=== PATIENT | female | born 1945 | race Caucasian/White ===

== ENCOUNTER → 2017-01-15 | Outpatient (REF) | payer MEDICARE, MEDICAID ==
[~2017-01-15] MED LIST: ASPI81TA85 PO; ATOR1TAB21 PO; CITA20TA4 PO; ESTR2TA PO; FERR28TA PO; FISH7.5C PO; INCR1INH INH; LISI-542 PO; METF10004 PO; NAPR500T3 PO; NEXI40CA PO; NIAC50TA PO; SYMB16INH INH; SYNT137T7 PO; ZOCO20TA PO; ZONI50CA PO
[2017-01-15 15:20] LABS: BASO % 0.5 % (0.0-1.0); EOS # 0.1 K/mm3 (0.0-0.50); EOS % 1.2 % (0.0-3.0); LARGE UNSTAINED CELL # 0.1 K/mm3 (0.0-0.4); LYMPH # 1.5 K/mm3 (1.5-4.5); LYMPH % 23.8 % (24.0-44.0); MEAN CORPUSCULAR HEMOGLOBIN 29.9 pg (27.0-33.0); MEAN CORPUSCULAR HGB CONC 33.6 g/dl (32.0-36.5); MEAN CORPUSCULAR VOLUME 88.9 fl (80.0-96.0); MONO # 0.3 K/mm3 (0.0-0.8); MONO % 5.2 % (0.0-5.0); NEUTROPHILS # 4.2 K/mm3 (1.8-7.7); NEUTROPHILS % 68.3 % (36.0-66.0); PLATELET COUNT, AUTOMATED 275 k/mm3 (150-450); RED CELL DISTRIBUTION WIDTH 12.5 % (11.5-14.5); WHITE BLOOD COUNT 6.1 K/mm3 (4.0-10.0)
[2017-01-15 15:29] LABS: ALBUMIN 3.6 GM/DL (3.2-5.2); ALBUMIN/GLOBULIN RATIO 1.16 (1.00-1.93); BILIRUBIN,TOTAL 0.3 MG/DL (0.2-1.0); CALCIUM LEVEL 8.7 MG/DL (8.8-10.2); CREATININE FOR GFR 1.29 MG/DL (0.55-1.02); GLOMERULAR FILTRATION RATE 43.6 (>45); POTASSIUM SERUM 4.9 MEQ/L (3.5-5.1); TOTAL PROTEIN 6.7 GM/DL (6.4-8.2)
== END ==
LOC: M LABNEURO 13:16
PROVIDERS: ATTEND Psychiatry & Neurology Neurology
DX: M54.5 Low back pain (principal); G89.29 Other chronic pain; M54.2 Cervicalgia

== ENCOUNTER → 2017-09-05 | Outpatient (REF) | payer MEDICARE, MEDICAID ==
[2017-09-05 19:22] LABS: RHEUMATOID FACTOR QUANT < 10.0 IU/ML (<15.0)
[2017-09-05 19:30] LABS: FOLATE 10.3 NG/ML; VITAMIN B12 LEVEL 538 PG/ML
[2017-09-05 19:56] LABS: ESTIMATED AVERAGE GLUCOSE 151 MG/DL (60-110); HEMOGLOBIN A1c 6.9 %
[2017-09-05 19:58] LABS: ERYTHROCYTE SEDIMENTATION RATE 8 mm/hr (0-30)
[2017-09-11 00:07] LABS: ANTINUCLEAR ANTIBODIES DIRECT Negative (Negative); VITAMIN B6,PYRIDOXAL PHOSPHATE 5.8 ug/L (2.0-32.8)
[2017-09-11 00:07] LABS: VITAMIN B1 LEVEL WHOLE BLOOD 105.6 nmol/L (66.5-200.0)
[2017-09-11 10:23] LABS: DRVV SCREEN 34.9 SEC
[2017-09-11 10:25] LABS: PTT LUPUS TYPE ANTICOAG SCREEN 0.9 (0-1.2)
== END ==
LOC: M LABNEURO 11:56
DX: M62.89 Other specified disorders of muscle (principal); G90.09 Other idiopathic peripheral autonomic neuropathy
CPT/HCPCS: 82746

== ENCOUNTER 2017-10-29 08:42 | Day surgery (SDC) | payer MEDICARE, MEDICAID ==
[~2017-10-29 08:42] MED LIST changes: +ACETAMINOPHEN 325 MG TAB PO; -ASPI81TA85 PO; -ATOR1TAB21 PO; -CITA20TA4 PO; -ESTR2TA PO; -FERR28TA PO; -FISH7.5C PO; -INCR1INH INH; -LISI-542 PO; -METF10004 PO; -NAPR500T3 PO; -NEXI40CA PO; -NIAC50TA PO; -SYMB16INH INH; -SYNT137T7 PO; -ZOCO20TA PO; -ZONI50CA PO
[2017-10-29] MEDS ORDERED: TRIMETHOBENZAMIDE 300 MG CAP PO ×2 (09:00)
[2017-10-29] MEDS: LIDOCAINE 3.5 % 1ML OPHTH TOPICAL GEL OU ×2 (09:49)
[2017-10-29] MEDS ORDERED: MIDAZOLAM INJ 2 MG/2 ML VIAL (J2250) As Ordered ×2 (10:04)
[2017-10-29] MEDS ORDERED: PROPOFOL 200 MG/20 ML VIAL As Ordered ×2 (10:04)
[2017-10-29] MEDS ORDERED: fentaNYL 100 MCG/2 ML INJECTION (J3010) As Ordered ×2 (10:04)
[2017-10-29] MEDS: SODIUM BICARBONATE 8.4% INJ 50MEQ 50 ML VIAL As Ordered ×2 (10:15)
[2017-10-29] MEDS: TOBRADEX OPHTH OINT 3.5 GM As Ordered ×2 (10:15)
[2017-10-29] MEDS: POVIDONE-IODINE 5% OPHTH PREP SOL 30ML As Ordered ×2 (10:16)
[2017-10-29 10:25] LABS: BEDSIDE GLUCOSE 161 MG/DL (80-115)
== END 2017-10-29 11:31 | disposition home or self-care (01) ==
LOC: M SDC 08:42
DX: H02.831 Dermatochalasis of right upper eyelid (principal); H02.834 Dermatochalasis of left upper eyelid; H02.413 Mechanical ptosis of bilateral eyelids; E11.9 Type 2 diabetes mellitus without complications; I10 Essential (primary) hypertension; E78.5 Hyperlipidemia, unspecified; E03.9 Hypothyroidism, unspecified; K44.9 Diaphragmatic hernia without obstruction or gangrene; J44.9 Chronic obstructive pulmonary disease, unspecified; F41.9 Anxiety disorder, unspecified; Z87.891 Personal history of nicotine dependence; Z79.899 Other long term (current) drug therapy
CPT/HCPCS: 67904

== ENCOUNTER → 2021-01-25 | Outpatient (CLI) | payer MEDICARE, MEDICAID ==
[~2021-01-25] MED LIST changes: -ACETAMINOPHEN 325 MG TAB PO; +ANOR1AER INH; +ASPI81TA86 PO; +ATOR1TAB21 PO; +CITA20TA6 PO; +D31000TA2 PO; +ECOT81TA5 PO; +ESOM20CA25 PO; +ESTR1TAB PO; +ESTR2TAB2 PO; +FERR1TAB8; +FERR28TA PO; +FISH7.5C PO; +INCR1INH INH; +LEVO112T2 PO; +LISI-898 PO; +LOSA25TA14 PO; +METF10004 PO; +NAPR-885 PO; +NEXI40CA PO; +NIAC100T9 PO; +NIAC50TA PO; +NORT10CA2 PO; +ONE-TAB PO; +ROSU40TA4 PO; +SOLI10TA PO; +SYMB16INH INH; +SYNT137T7 PO; +VITA500C24 PO; +VITACAP8 PO; +ZOCO20TA PO; +ZONI50CA11 PO
--- NOTE | 2021-01-25 14:44 | REP ---
INDICATION: BREAST CA, BONE PAIN. COMPARISON: None. TECHNIQUE/RADIOTRACER AND DOSE: After the intravenous administration of 21.5 mCi of technetium 99 M MDP a total body bone scan was obtained. FINDINGS: There is a degenerative type uptake pattern seen in the shoulders, spine, wrists, hips, knees, and feet. No focal or abnormal linear activity is seen in the axial or appendicular skeleton. IMPRESSION: Degenerative type uptake pattern as described above. There is no compelling evidence for metastatic disease. <Electronically signed by Chris Murphy > 01/25/21 [id number]
== END ==
LOC: M RAD 08:16
PROVIDERS: ATTEND Internal Medicine Medical Oncology
DX: M85.80 Other specified disorders of bone density and structure, unspecified site (principal); C50.919 Malignant neoplasm of unspecified site of unspecified female breast
CPT/HCPCS: 78306; A9503

== ENCOUNTER → 2021-01-28 | Outpatient (CLI) | payer MEDICARE, MEDICAID | LOC: M LABSMTC 10:01 | PROVIDERS: ATTEND Student in an Organized Health Care Education/Training Program | DX: Z01.812 Encounter for preprocedural laboratory examination (principal); Z20.822 Contact with and (suspected) exposure to COVID-19 ==

== ENCOUNTER 2021-04-14 10:47 | Inpatient (IN) | payer MEDICARE, MEDICAID ==
[2021-04-14] VITALS (7 sets, daily range): BP systolic 118–160; BP diastolic 60–70
[~2021-04-14] VITALS: Ht 167.6 cm; Wt 82.6 kg
[~2021-04-14 10:47] MED LIST changes: +CATA0.1D TD; +CEPH25SS PO; -ESTR2TAB2 PO; +ESTR2TAB3 PO; +LIDO1CRE42 TOP; +MAGICMW SSP; +ONDA8TAB10 PO; +PROC10TA4 PO
--- OUTSIDE RECORDS SUMMARY | 2021-04-14 11:51 | CCD | Continuity of Care Document ---
Author Author Constance FONSECA DPM Organization Unknown Address [address] [place] [address], [facility] [address] [place] [address] Phone [phone] Care Team Providers Care Hookman Name Role Phone Joaquina Layne RPAM [phone] Problems Active Problems Provider Date Bunion Aaron Fonseca DPM Onset: 08/26/2020 Hammer toe Aaron Fonseca DPM Onset: 08/26/2020 Peripheral neuropathy due to type 2 diabetes mellitus Aaron Fonseca DPM Onset: 08/26/2020 Onychomycosis Aaron Fonseca DPM Onset: 08/26/2020 Callosity Aaron Fonseca DPM Onset: 08/26/2020 Social History Type Date Description Comments Sex Unknown ETOH Use Denies alcohol use Tobacco Use Start: Unknown End: Unknown Patient is a former smoker quit 25 years ago smoked 1/2ppd for 20 years Allergies and adverse reactions Description No Known Drug Allergies Medications Active Medications SIG Qnty Indications Ordering Provide r Date Solifenacin Succinate 10mg Tablets Take 1 Tablet By Mouth Daily Unknown Ferosul 325(65Fe) mg Tablets TK 1 T PO tid Unknown Accu-Chek Softclix Lancets Misc Joaquina Layne RPA Nortriptyline HCL 10mg Capsules Take 1 Capsule By Mouth Twice Daily Unknown Rosuvastatin Calcium 40mg Tablets Take 1 Tablet By Mouth Daily Unknown Losartan Potassium 25mg Tablets Take 1 Tablet By Mouth Every Day Unknown Estradiol 1mg Tablets Unknown Shingrix 50mcg/0.5ML Suspension Rec Unknown Metformin HCL 1000mg Tablets Take 1 Tablet By Mouth Twice Daily Unknown Accu-Chek Kelsy Plus Strips Joaquina Layne RPA Anoro Ellipta 62.5-25mcg/Inh Aeros ol Inhale 1 puff By Mouth Every Day Unknown Esomeprazole Magnesium 20mg Capsul es DR Take 1 Capsule By Mouth Daily Unknown Levothyroxine Sodium 125mcg Tablets Joaquina Layne RPA Zonisamide 50mg Capsules Take 1 Capsule By Mouth Twice Daily Unknown Escitalopram Oxalate 20mg Tablets Take 1 Tablet By Mouth Every Day Unknown Naproxen 500mg Tablets Take 1 Tablet By Mouth Twice Daily as Needed For Pain Unknown Fluticasone Propionate 50mcg/Act Suspension Shake Liquid And Use 2 Sprays In Each Nostril Every Day Unknown Immunizations Description No Information Available Vital Signs Date Vital Result Comment 08/13/2020 10:24am Height 66 inches 5'6" Weight 170.00 lb BP Systolic 112 mmHg BP Diastolic 64 mmHg Heart Rate 78 /min BMI (Body Mass Index) 27.4 kg/m2 Results Description No Information Available Procedures Date Code Description Status 12/31/2020 11579 Debridement 6-10 [employer] Completed 10/22/2020 51932 Debridement 6-10 [employer] Completed Medical Devices Description No Information Available Encounters Description No Information Available Assessments Date Code Description Provider 12/31/2020 B35.1 Tinea unguium Aaron Fonseca DPM 12/31/2020 E11.42 Type 2 diabetes mellitus with di abetic polyneuropathy aAron Fonseca DPM 10/22/2020 B35.1 Tinea unguium Aaron Fonseca DPM 10/22/2020 E11.42 Type 2 diabetes mellitus with di abetic polyneuropathy Aaron Fonseca DPM Plan of Treatment Future Appointment(s):* 05/13/2021 10:45 am - Aaron Fonseca DPM at [facility] Functional Status Description No Information Available Mental Status Description No Information Available Referrals Description No Information Available
--- OUTSIDE RECORDS SUMMARY | 2021-04-14 11:51 | CCD | Continuity of Care Document ---
Author Author Constance FONSECA DPM Organization Unknown Address [address] [place] [address], [facility] [address] [place] [address] Phone [phone] Care Team Providers Care Commercial Real Estate Agent Name Role Phone Joaquina Layne RPAM [phone] Problems Active Problems Provider Date Bunion Aaron [...] Information Available Procedures Date Code Description Status 03/04/2021 90163 Debridement 6-10 [employer] Completed 12/31/2020 15041 Debridement 6-10 [employer] Completed 10/22/2020 63296 Debridement 6-10 [employer] Completed Medical Devices Description No Information Available Encounters Description No Information Available Assessments Date Code Description Provider 03/04/2021 B35.1 Tinea unguium Aaron Fonseca, MAGGY 03/04/2021 E11.42 Type 2 diabetes mellitus with di abetic polyneuropathy Aaron Fonseca, MAGGY 12/31/2020 B35.1 Tinea jenaeuium Aaron Fonseca, MAGGY 12/31/2020 E11.42 Type 2 diabetes mellitus with di abetic polyneuropathy Aaron Fonseca DPM 10/22/2020 B35.1 Tinea jenaeuium Aaron Fonseca, MAGGY 10/22/2020 E11.42 Type 2 diabetes mellitus with di abetic polyneuropathy Aaron R. Majak, DPM Plan of Treatment Future Appointment(s):* 05/13/2021 10:45 am - Aaron Fonseca DPM at [facility] Functional Status Description No Information Available Mental Status Description No Information Available Referrals Description No Information Available
--- OUTSIDE RECORDS SUMMARY | 2021-04-14 11:53 | CCD ---
Author Author [facility] Organization [facility] Address Unknown Phone Unavailable Care Team Providers Care Director Of Casino Name Role Phone Lakesha Forman Unavailable Unavailable Lakesha Forman Unavailable Unavailable DasiaLakesha bar Unavailable Unavailable DasiaLkaesha bar Unavailable Unavailable DasiaLakesha bar Unavailable Unavailable DasiaLakesha bar Unavailable Unavailable DasiaLakesha bar Unavailable Unavailable DasiaLakesha bar Unavailable Unavailable DasiaLakesha bar Unavailable Unavailable DasiaLakesha bar Unavailable Unavailable DasiaLakesha bar Unavailable Unavailable DasiaLakesha bar Unavailable Unavailable DasiaLakesha bar Unavailable Unavailable DasiaLakesha bar Unavailable Unavailable DasiaLakesha bar Unavailable Unavailable DasiaLakesha bar Unavailable Unavailable DasiaLakesha bar Unavailable Unavailable DasiaLakesha bar Unavailable Unavailable DasiaLakesha bar Unavailable Unavailable DasiaLakesha bar Unavailable Unavailable DasiaLakesha bar Unavailable Unavailable DasiaLakesha bar Unavailable Unavailable Dasia, Christine GEE Unavailable Unavailable Dasia, Christine MD Unavailable Unavailable Dasia, Christine MD Unavailable Unavailable Dasia, Christine MD Unavailable Unavailable Dasia, Christine MD Unavailable Unavailable Dasia, Christine MD Unavailable Unavailable Dasia, Christine MD Unavailable Unavailable Dasia, Christine MD Unavailable Unavailable Dasia, Christine MD Unavailable Unavailable Dasia, Christine MD Unavailable Unavailable Dasia, Christine MD Unavailable Unavailable Dasia, Christine MD Unavailable Unavailable Dasia, Christine MD Unavailable Unavailable Dasia, Christine MD Unavailable Unavailable Dasia, Christine MD Unavailable Unavailable Dasia, Christine MD Unavailable Unavailable Dasia, Christine MD Unavailable Unavailable Dasia, Christine MD Unavailable Unavailable Dasia, Christine MD Unavailable Unavailable Dasia, Christine MD Unavailable Unavailable Dasia, Christine MD Unavailable Unavailable Dasia, Christine MD Unavailable Unavailable Dasia, Christine MD Unavailable Unavailable Dasia, Christine MD Unavailable Unavailable Dasia, Christine MD Unavailable Unavailable Dasia, Christine MD Unavailable Unavailable Dasia, Christine MD Unavailable Unavailable Dasia, Christine MD Unavailable Unavailable Dasia, Christine MD Unavailable Unavailable Dasia, Christine MD Unavailable Unavailable Dasia, Christine MD Unavailable Unavailable Dasia, Christine MD Unavailable Unavailable Dasia, Christine MD Unavailable Unavailable Dasia, Christine MD Unavailable Unavailable Dasia, Christine MD Unavailable Unavailable Dasia, Christine MD Unavailable Unavailable Dasia, Christine MD Unavailable Unavailable Dasia, Christine MD Unavailable Unavailable Dasia, Christine MD Unavailable Unavailable Dasia, Christine MD Unavailable Unavailable Natalee Robert MD Unavailable Unavailable Natalee Robert MD Unavailable Unavailable Natalee Robert MD Unavailable Unavailable Natalee Robert MD Unavailable Unavailable Natalee Robert MD Unavailable Unavailable Natalee Robert MD Unavailable Unavailable Natalee Robert MD Unavailable Unavailable Natalee Robert MD Unavailable Unavailable Natalee Robert MD Unavailable Unavailable Natalee Robert MD Unavailable Unavailable Natalee Robert MD Unavailable Unavailable Natalee Robert MD Unavailable Unavailable Natalee Robert MD Unavailable Unavailable Natalee Robert MD Unavailable Unavailable Natalee Robert MD Unavailable Unavailable Natalee Robert MD Unavailable Unavailable Natalee Robert MD Unavailable Unavailable Natalee Robert MD Unavailable Unavailable Natalee Robert MD Unavailable Unavailable Natalee Robert MD Unavailable Unavailable Natalee Robert MD Unavailable Unavailable Natalee Robert MD Unavailable Unavailable Natalee Robert MD Unavailable Unavailable Natalee Robert MD Unavailable Unavailable Natalee Robert MD Unavailable Unavailable Natalee Robert MD Unavailable Unavailable Natalee Robert MD Unavailable Unavailable Natalee Robert MD Unavailable Unavailable Natalee Robert MD Unavailable Unavailable Natalee Robert MD Unavailable Unavailable Natalee Robert MD Unavailable Unavailable Natalee Robert MD Unavailable Unavailable Natalee Robert MD Unavailable Unavailable Natalee Robert MD Unavailable Unavailable Natalee Robert MD Unavailable Unavailable [employer], [employer] L Rei [employer]NS[employer] Unavailable + 24 [employer], [employer] Rei [employer] Unavailable + 24 [employer], [employer] INTERNS[employer] L Rei [employer] INTERNS[employer]IP Unavailable + 24 [employer], [employer]SP[employer] INTERNS[employer] L Rei [employer] INTERNS[employer]IP Unavailable + 24 [employer], [employer] L Rei [employer] INTERNSHIP Unavailable + 24 [employer], [employer]SP[employer]ATION [employer] INTERNS[employer] L Rei [employer] INTERNS[employer]IP Unavailable + 24 [employer], [employer]NS[employer] L Rei [employer] INTERNS[employer] Unavailable + 24 [employer], [employer] L Rei [employer] INTERNS[employer] Unavailable + 24 [employer], [employer] L Rei [employer] INTERNS[employer] Unavailable + 24 [employer], [employer]SP[employer] INTERNS[employer] L Rei [employer] INTERNS[employer]IP Unavailable + 24 [employer], [employer]SP[employer] INTERNS[employer] L Rei [employer] INTERNSHIP Unavailable + 24 [employer], [employer]SP[employer] INTERNS[employer] L Rei [employer] INTERNSHIP Unavailable + 24 [employer], TRANSP[employer]ATION [employer] INTERNS[employer] L Rei [employer] INTERNS[employer] Unavailable + 24 [employer], TRANSP[employer] INTERNS[employer] L Rei [employer] INTERNS[employer]IP Unavailable + 24 [employer], TRANSP[employer]ATION [employer]IST[employer] INTERNS[employer] L Rei [employer] INTERNSHIP Unavailable + 24 [employer], TRANSP[employer]ATION [employer] INTERNS[employer] L Rei [employer] INTERNS[employer]IP Unavailable + 24 [employer], TRANSP[employer]ATION [employer]IST[employer] INTERNS[employer] L Rei [employer] INTERNSHIP Unavailable + 24 [employer], TRANSP[employer]ATION [employer]IST[employer] INTERNS[employer] L Rei [employer] INTERNSHIP Unavailable + 24 [employer], TRANSP[employer]ATION [employer]IST[employer] INTERNS[employer] L Rei [employer]SP[employer] INTERNSHIP Unavailable + 24 [employer], TRANSP[employer]ATION [employer]IST[employer] INTERNS[employer] L Rei [employer] INTERNSHIP Unavailable + 24 [employer], TRANSP[employer]ATION [employer]IST[employer] INTERNS[employer] L Rei [employer] INTERNSHIP Unavailable + 24 [employer], TRANSP[employer]ATION [employer]IST[employer] INTERNS[employer] L Rei [employer]SP[employer] INTERNSHIP Unavailable + 24 [employer], TRANSP[employer]ATION [employer]IST[employer] INTERNS[employer] L Rei [employer]SP[employer] INTERNSHIP Unavailable + 24 Kem Hooker MD Unavailable Unavailable Kem Hooker MD Unavailable Unavailable Kem Hooker MD Unavailable Unavailable Kem Hooker MD Unavailable Unavailable Kem Hooker MD Unavailable Unavailable Kem Hooker MD Unavailable Unavailable Doctor Provided, Family PHYS No Family Unavailable U navailable Natalee WHITE DPM Unavailable Unavailable Natalee WHITE DPM Unavailable Unavailable Natalee WHITE DPM Unavailable Unavailable Natalee WHITE DPM Unavailable Unavailable Nataele WHITE DPM Unavailable Unavailable Natalee WHITE DPM Unavailable Unavailable Natalee WHITE DPM Unavailable Unavailable Natalee WHITE DPM Unavailable Unavailable Natalee WHITE DPM Unavailable Unavailable Natalee WHITE DPM Unavailable Unavailable Natalee WHITE DPM Unavailable Unavailable Natalee WHITE DPM Unavailable Unavailable Natalee WHITE DPM Unavailable Unavailable Natalee WHITE DPM Unavailable Unavailable Natalee WHITE DPM Unavailable Unavailable Natalee WHITE DPM Unavailable Unavailable Natalee WHITE DPM Unavailable Unavailable Natalee WHITE DPM Unavailable Unavailable Natalee WHITE DPM Unavailable Unavailable Natalee WHITE DPM Unavailable Unavailable Natalee WHITE DPM Unavailable Unavailable Natalee WHITE DPM Unavailable Unavailable Natalee WHITE DPM Unavailable Unavailable Natalee WHITE DPM Unavailable Unavailable MAJAK, R JESÚS DPM Unavailable Unavailable MAJAK, R JESÚS DPM Unavailable Unavailable MAJAK, R JESÚS DPM Unavailable Unavailable MAJAK, R JESÚS DPM Unavailable Unavailable MAJAK, R JESÚS DPM Unavailable Unavailable MAJAK, R JESÚS DPM Unavailable Unavailable MAJAK, R JESÚS DPM Unavailable Unavailable HARDIK, K BRITTANY GEE Unavailable Unavailable HARDIK, K BRITTANY GEE Unavailable Unavailable HARDIK, K BRITTANY GEE Unavailable Unavailable HARDIK, K BRITTANY GEE Unavailable Unavailable HARDIK, K BRITTANY GEE Unavailable Unavailable HARDIK, K BRITTANY GEE Unavailable Unavailable HARDIK, K BRITTANY GEE Unavailable Unavailable HARDIK, K BRITTANY GEE Unavailable Unavailable HARDIK, K BRITTANY GEE Unavailable Unavailable HARDIK, K BRITTANY GEE Unavailable Unavailable HARDIK, K BRITTANY GEE Unavailable Unavailable HARDIK, K BRITTANY GEE Unavailable Unavailable HARDIK, K BRITTANY GEE Unavailable Unavailable HARDIK, K BRITTANY GEE Unavailable Unavailable HARDIK, K BRITTANY GEE Unavailable Unavailable HARDIK, K BRITTANY GEE Unavailable Unavailable HARDIK, K BRITTANY GEE Unavailable Unavailable HARDIK, K BRITTANY GEE Unavailable Unavailable HARDIK, K BRITTANY GEE Unavailable Unavailable HARDIK, K BRITTANY GEE Unavailable Unavailable HARDIK, K BRITTANY GEE Unavailable Unavailable HARDIK, K BRITTANY GEE Unavailable Unavailable HARDIK, K BRITTANY GEE Unavailable Unavailable HARDIK, K BRITTANY GEE Unavailable Unavailable HARDIK, K BRITTANY GEE Unavailable Unavailable HARDIK, K BRITTANY GEE Unavailable Unavailable HARDIK, K BRITTANY GEE Unavailable Unavailable HARDIK, K BRITTANY GEE Unavailable Unavailable HARDIK, Mer SOTO MD Unavailable Unavailable HARDIK, K BRITTANY GEE Unavailable Unavailable HARDIK, K BRITTANY GEE Unavailable Unavailable HARDIK, Mer SOTO MD Unavailable Unavailable HARDIK, K BRITTANY GEE Unavailable Unavailable HARDIK, Mer SOTO MD Unavailable Unavailable HARDIK, Mer SOTO MD Unavailable Unavailable HARDIK, Mer SOTO MD Unavailable Unavailable HARDIK, Mer SOTO MD Unavailable Unavailable HARDIK, Mer SOTO MD Unavailable Unavailable HARDIK, Mer SOTO MD Unavailable Unavailable HARDIK, Mer SOTO MD Unavailable Unavailable HARDIK, Mer SOTO MD Unavailable Unavailable HARDIK, Mer SOTO MD Unavailable Unavailable HARDIK, Mer SOTO MD Unavailable Unavailable HARDIK, Mer SOTO MD Unavailable Unavailable HARDIK, Mer SOTO MD Unavailable Unavailable HARDIK, Mer SOTO MD Unavailable Unavailable HARDIK, Mer SOTO MD Unavailable Unavailable HARDIK, Mer SOTO MD Unavailable Unavailable HARDIK, Mer SOTO MD Unavailable Unavailable HARDIK, K BRITTANY GEE Unavailable Unavailable HARDIK, Mer SOTO MD Unavailable Unavailable HARDIK, Mer SOTO MD Unavailable Unavailable HARDIK, Mer SOTO MD Unavailable Unavailable HARDIK, Mer SOTO MD Unavailable Unavailable HARDIK, K BRITTANY GEE Unavailable Unavailable HARDIK, Mer SOTO MD Unavailable Unavailable HARDIK, Mer SOTO MD Unavailable Unavailable Diamond Hargrove MD Unavailable Unavailable VarDiamond browning Musa MD Unavailable Unavailable VarDiamond browning MD Unavailable Unavailable VarDiamond browning Musa MD Unavailable Unavailable VarDiamond browning Musa MD Unavailable Unavailable VarDiamond browning Musa MD Unavailable Unavailable Varnallely M Musa MD Unavailable Unavailable VarDiamond browning Musa MD Unavailable Unavailable Varnallely M Musa MD Unavailable Unavailable VarDiamond browning Musa MD Unavailable Unavailable Varnallely M Musa MD Unavailable Unavailable Varnallely M Musa MD Unavailable Unavailable Varnallely M Musa MD Unavailable Unavailable Varnallely M Musa MD Unavailable Unavailable Varnallely M Musa MD Unavailable Unavailable Varnallely M Musa MD Unavailable Unavailable Varnallely M Musa MD Unavailable Unavailable Varnallely M Musa MD Unavailable Unavailable Varnallely M Musa MD Unavailable Unavailable Varnallely M Musa MD Unavailable Unavailable Varnallely M Musa MD Unavailable Unavailable Varki M Musa MD Unavailable Unavailable Varnallely M Musa MD Unavailable Unavailable Varki M Musa Unavailable Unavailable Varnallely M Musa MD Unavailable Unavailable Varnallely M Musa MD Unavailable Unavailable Varki M Musa MD Unavailable Unavailable Varki, M Musa MD Unavailable Unavailable Varki, M Musa MD Unavailable Unavailable Varki, M Musa MD Unavailable Unavailable Varki, M Musa MD Unavailable Unavailable Varki, M Musa MD Unavailable Unavailable Varki, M Musa MD Unavailable Unavailable Varki, M Musa MD Unavailable Unavailable Varki, M Musa MD Unavailable Unavailable Varki, M Musa MD Unavailable Unavailable Varki, M Musa MD Unavailable Unavailable Varki, M Musa MD Unavailable Unavailable Varki, M Musa MD Unavailable Unavailable Varki, M Musa MD Unavailable Unavailable Varki, M Musa MD Unavailable Unavailable Varki, M Musa MD Unavailable Unavailable Varki, M Musa MD Unavailable Unavailable Varki, M Musa MD Unavailable Unavailable Varki, M Musa MD Unavailable Unavailable Varki, M Musa MD Unavailable Unavailable Varki, M Musa MD Unavailable Unavailable Sweet, Gambee Shana PA-C Unavailable Unavailable Sweet, Gambee Shana PA-C Unavailable Unavailable Sweet, Gambee Shana PA-C Unavailable Unavailable Sweet, Gambee Shana PA-C Unavailable Unavailable Sweet, Gambee Shana PA-C Unavailable Unavailable Sweet, Gambee Shana PA-C Unavailable Unavailable Sweet, Gambee Shana PA-C Unavailable Unavailable Sweet, Gambee Shana PA-C Unavailable Unavailable Sweet, Gambee Shana PA-C Unavailable Unavailable Sweet, Gambee Shana PA-C Unavailable Unavailable Sweet, Gambee Shana PA-C Unavailable Unavailable Sweet, Gambee Shana PA-C Unavailable Unavailable Sweet, Gambee Shana PA-C Unavailable Unavailable Sweet, Gambee Shana PA-C Unavailable Unavailable Sweet, Gambee Shana PA-C Unavailable Unavailable Sweet, Gambee Hsana PA-C Unavailable Unavailable Sweet, Gambee Shana PA-C Unavailable Unavailable Sweet, Gambee Shana PA-C Unavailable Unavailable Sweet, Gambee Shana PA-C Unavailable Unavailable Sweet, Gambee Shana PA-C Unavailable Unavailable Sweet, Gambee Shana PA-C Unavailable Unavailable Sweet, Gambee Shana PA-C Unavailable Unavailable Sweet, Gambee Shana PA-C Unavailable Unavailable Sweet, Gambee Shana PA-C Unavailable Unavailable Sweet, Gambee Shana PA-C Unavailable Unavailable Sweet, Gambee Shana PA-C Unavailable Unavailable Sweet, Gambee Shana PA-C Unavailable Unavailable Sweet, Gambee Shana PA-C Unavailable Unavailable Sweet, Gambee Shana PA-C Unavailable Unavailable Sweet, Gambee Shana PA-C Unavailable Unavailable Sweet, Gambee Shana PA-C Unavailable Unavailable Sweet, Gambee Shana PA-C Unavailable Unavailable Sweet, Gambee Shana PA-C Unavailable Unavailable Sweet, Gambee Shana PA-C Unavailable Unavailable Sweet, Gambee Shana PA-C Unavailable Unavailable Sweet, Gambee Shana PA-C Unavailable Unavailable Sweet, Gambee Shana PA-C Unavailable Unavailable Sweet, Gambee Shana PA-C Unavailable Unavailable Sweet, Gambee Shana PA-C Unavailable Unavailable Sweet, Gambee Shana PA-C Unavailable Unavailable Lyssa MILLERISTIN Unavailable Unavailable YOU, MAQBOOL STERLING MD Unavailable Unavailable YOU, MAQBOOL STERLING MD Unavailable Unavailable YOU, MAQBOOL STERLING MD Unavailable Unavailable YOU, MAQBOOL STERLING MD Unavailable Unavailable YOU, MAQBOOL STERLING MD Unavailable Unavailable OYU, MAQBOOL STERLING MD Unavailable Unavailable YOU, MAQBOOL STERLING MD Unavailable Unavailable YOU, MAQBOOL STERLING MD Unavailable Unavailable YOU, MAQBOOL STERLING MD Unavailable Unavailable YOU, MAQBOOL STERLING MD Unavailable Unavailable YOU, MAQBOOL STERLING MD Unavailable Unavailable YOU, MAQBOOL STERLING MD Unavailable Unavailable YOU, MAQBOOL STERLING MD Unavailable Unavailable YOU, MAQBOOL STERLING MD Unavailable Unavailable YOU, MAQBOOL STERLING MD Unavailable Unavailable YOU, MAQBOOL STERLING MD Unavailable Unavailable YOU, MAQBOOL STERLING MD Unavailable Unavailable YOU, MAQBOOL STERLING MD Unavailable Unavailable YOU, MAQBOOL STERLING MD Unavailable Unavailable YOU, MAQBOOL STERLING MD Unavailable Unavailable YOU, MAQBOOL STERLING MD Unavailable Unavailable YOU, MAQBOOL STERLING MD Unavailable Unavailable YOU, MAQBOOL STERLING MD Unavailable Unavailable YOU, MAQBOOL STERLING MD Unavailable Unavailable YOU, MAQBOOL STERLING MD Unavailable Unavailable YOU, MAQBOOL STERLING MD Unavailable Unavailable YOU, MAQBOOL STERLING MD Unavailable Unavailable YOU, MAQBOOL STERLING MD Unavailable Unavailable YOU, MAQBOOL STERLING MD Unavailable Unavailable YOU, MAQBOOL STERLING MD Unavailable Unavailable YOU, MAQBOOL STERLING MD Unavailable Unavailable YOU, MAQBOOL STERLING MD Unavailable Unavailable YOU, MAQBOOL STERLING MD Unavailable Unavailable YOU, MAQBOOL STERLING MD Unavailable Unavailable YOU, MAQBOOL STERLING MD Unavailable Unavailable YOU, MAQBOOL STERLING MD Unavailable Unavailable YOU, MAQBOOL STERLING MD Unavailable Unavailable YOU, MAQBOOL STERLING MD Unavailable Unavailable YOU, MAQBOOL STERLING MD Unavailable Unavailable YOU, MAQBOOL STERLING MD Unavailable Unavailable YOU, MAQBOOL STERLING MD Unavailable Unavailable YOU, MAQBOOL STERLING MD Unavailable Unavailable YOU, MAQBOOL STERLING MD Unavailable Unavailable YOU, MAQBOOL STERLING MD Unavailable Unavailable YOU, MAQBOOL STERLING MD Unavailable Unavailable YOU, MAQBOOL STERLING MD Unavailable Unavailable YOU, MAQBOOL STERLING MD Unavailable Unavailable YOU, MAQBOOL STERLING MD Unavailable Unavailable YOU, MAQBOOL STERLING MD Unavailable Unavailable YOU, MAQBOOL STERLING MD Unavailable Unavailable YOU, MAQBOOL STERLING MD Unavailable Unavailable YOU, MAQBOOL STERLING MD Unavailable Unavailable YOU, MAQBOOL STERLING MD Unavailable Unavailable YOU, MAQBOOL STERLING MD Unavailable Unavailable YOU, MAQBOOL STERLING MD Unavailable Unavailable YOU, MAQBOOL STERLING MD Unavailable Unavailable YOU, MAQBOOL STERLING MD Unavailable Unavailable YOU, MAQBOOL STERLING MD Unavailable Unavailable YOU, MAQBOOL STERLING MD Unavailable Unavailable YOU, MAQBOOL STERLING MD Unavailable Unavailable YOU, MAQBOOL STERLING MD Unavailable Unavailable YOU, MAQBOOL STERLING MD Unavailable Unavailable YOU, MAQBOOL STERLING MD Unavailable Unavailable YOU, MAQBOOL STERLING MD Unavailable Unavailable YOU, MAQBOOL STERLING MD Unavailable Unavailable YOU, MAQBOOL STERLING MD Unavailable Unavailable YOU, MAQBOOL STERLING MD Unavailable Unavailable YOU, MAQBOOL STERLING MD Unavailable Unavailable YOU, MAQBOOL STERLING MD Unavailable Unavailable YOU, MAQBOOL STERLING MD Unavailable Unavailable YOU, MAQBOOL STERLING MD Unavailable Unavailable YOU, MAQBOOL STERLING MD Unavailable Unavailable YOU, MAQBOOL STERLING MD Unavailable Unavailable YOU, MAQBOOL STERLING MD Unavailable Unavailable YOU, MAQBOOL STERLING MD Unavailable Unavailable YOU, MAQBOOL STERLING MD Unavailable Unavailable YOU, MAQBOOL STERLING MD Unavailable Unavailable YOU, MAQBOOL STERLING MD Unavailable Unavailable Crissy, A Joaquina PA Unavailable Unavailable Crissy, A Joaquina PA Unavailable Unavailable Crissy, A Joaquina PA Unavailable Unavailable Crissy, A Joaquina PA Unavailable Unavailable Crissy, A Joaquina PA Unavailable Unavailable Crissy, A Joaquina PA Unavailable Unavailable Crissy, A Joaquina PA Unavailable Unavailable Crissy, A Joaquina PA Unavailable Unavailable Crissy, A Joaquina PA Unavailable Unavailable Crissy, A Joaquina PA Unavailable Unavailable Crissy, A Joaquina PA Unavailable Unavailable Crissy, A Joaquina PA Unavailable Unavailable Crissy, A Joaquina PA Unavailable Unavailable Crissy, A Joaquina PA Unavailable Unavailable Crissy, A Joaquina PA Unavailable Unavailable Crissy, A Joaquina PA Unavailable Unavailable Crissy, A Joaquina PA Unavailable Unavailable Crissy, A Joaquina PA Unavailable Unavailable Crissy, A Joaquina PA Unavailable Unavailable Crissy, A Joaquina PA Unavailable Unavailable Crissy, A Joaquina PA Unavailable Unavailable Crissy, A Joaquina PA Unavailable Unavailable Crissy, A Joaquina PA Unavailable Unavailable Crissy, A Joaquina PA Unavailable Unavailable Crissy, A Joaquina PA Unavailable Unavailable Crissy, A Joaquina PA Unavailable Unavailable Crissy, A Joaquina PA Unavailable Unavailable Crissy, A Joaquina PA Unavailable Unavailable Crissy, A Joaquina PA Unavailable Unavailable Crissy, A Joaquina PA Unavailable Unavailable Crissy, A Joaquina PA Unavailable Unavailable Crissy, A Joaquina PA Unavailable Unavailable Crissy, A Joaquina PA Unavailable Unavailable Crissy, A Joaquina PA Unavailable Unavailable Crissy, A Joaquina PA Unavailable Unavailable Crissy, A Joaquina PA Unavailable Unavailable Crissy, A Joaquina PA Unavailable Unavailable Crissy, A Joaquina PA Unavailable Unavailable Crissy, A Joaquina PA Unavailable Unavailable Crissy, A Joaquina PA Unavailable Unavailable Crissy, A Joaquina PA Unavailable Unavailable Crissy, A Joaquina PA Unavailable Unavailable Crissy, A Joaquina PA Unavailable Unavailable Crissy, A Joaquina PA Unavailable Unavailable Crissy, A Joaquina PA Unavailable Unavailable Crissy, A Joaquina PA Unavailable Unavailable Crissy, A Joaquina PA Unavailable Unavailable Crissy, A Joaquina PA Unavailable Unavailable Crissy, A Joaquina PA Unavailable Unavailable Crissy, A Joaquina PA Unavailable Unavailable Crissy, A Joaquina PA Unavailable Unavailable Crissy, A Joaquina PA Unavailable Unavailable Crissy, A Joaquina PA Unavailable Unavailable Drake, P Tre Unavailable Unavailable Drake, P Tre Unavailable Unavailable Drake, P Tre Unavailable Unavailable Drake, P Tre Unavailable Unavailable Drake, P Tre Unavailable Unavailable Drake, P Tre Unavailable Unavailable Drake, P Tre Unavailable Unavailable Drake, P Tre Unavailable Unavailable Drake, P Tre Unavailable Unavailable Drake, P Tre Unavailable Unavailable Drake, P Tre Unavailable Unavailable Drake, P Tre Unavailable Unavailable Drake, P Tre Unavailable Unavailable Drake, P Tre Unavailable Unavailable Drake, P Tre Unavailable Unavailable Drake, P Tre Unavailable Unavailable Drake, P Tre Unavailable Unavailable Drake, P Tre Unavailable Unavailable Drake, P Tre Unavailable Unavailable Drake, P Tre Unavailable Unavailable Drake, P Tre Unavailable Unavailable Drake, P Tre Unavailable Unavailable Drake, P Tre Unavailable Unavailable Drake, P Tre Unavailable Unavailable Drake, P Tre Unavailable Unavailable Drake, P Tre Unavailable Unavailable Drake, P Tre Unavailable Unavailable Drake, P Tre Unavailable Unavailable Drake, P Tre Unavailable Unavailable Drake, P Tre Unavailable Unavailable Drake, P Tre Unavailable Unavailable Drake, P Tre Unavailable Unavailable Drake, P Tre Unavailable Unavailable Drake, P Tre Unavailable Unavailable Drake, P Tre Unavailable Unavailable Drake, P Tre Unavailable Unavailable Drake, P Tre Unavailable Unavailable Drake, P Tre Unavailable Unavailable Drake, P Tre Unavailable Unavailable Drake, P Tre Unavailable Unavailable Drake, P Tre Unavailable Unavailable Drake, P Tre Unavailable Unavailable Drake, P Tre Unavailable Unavailable Drake, P Tre Unavailable Unavailable Drake, P Tre Unavailable Unavailable Drake, P Tre Unavailable Unavailable Drake, P Tre Unavailable Unavailable Drake, P Tre Unavailable Unavailable Drake, P Tre Unavailable Unavailable Drake, P Tre Unavailable Unavailable Drake, P Tre Unavailable Unavailable Drake, P Tre Unavailable Unavailable Drake, P Tre Unavailable Unavailable Drake, P Tre Unavailable Unavailable Drake, P Tre Unavailable Unavailable WEYER, [employer] Unavailable Unavailable WEYER, [employer] Unavailable Unavailable WEYER, [employer] Unavailable Unavailable WEYER, [employer] Unavailable Unavailable WEYER, [employer] Unavailable Unavailable WEYER, [employer] Unavailable Unavailable WEYER, [employer] Unavailable Unavailable WEYER, [employer] Unavailable Unavailable WEYER, [employer] Unavailable Unavailable WEYER, [employer] Unavailable Unavailable WEYER, [employer] Unavailable Unavailable WEYER, [employer] Unavailable Unavailable WEYER, [employer] Unavailable Unavailable WEYER, [employer] Unavailable Unavailable WEYER, [employer] Unavailable Unavailable WEYER, [employer] Unavailable Unavailable WEYER, [employer] Unavailable Unavailable WEYER, [employer] Unavailable Unavailable Abhilash, Neli Unavailable Unavailable Abhilash, Neli Unavailable Unavailable Abhilash, Neli Unavailable Unavailable Abhilash, Neli Unavailable Unavailable Abhilash, Neli Unavailable Unavailable Abhilash, Neli Unavailable Unavailable Abhilash, Neli Unavailable Unavailable Abhilash, Neli Unavailable Unavailable Abhilash, Neli Unavailable Unavailable Abhilash, Neli Unavailable Unavailable Abhilash, Neli Unavailable Unavailable Abhilash, Neli Unavailable Unavailable Abhilash, Neli Unavailable Unavailable Abhilash, Neli Unavailable Unavailable Abhilash, Neli Unavailable Unavailable Crissy, A Joaquina PA Unavailable Unavailable Crissy, A Joaquina PA Unavailable Unavailable Crissy, A Joaquina PA Unavailable Unavailable Crissy, A Joaquina PA Unavailable Unavailable Crissy, A Joaquina PA Unavailable Unavailable Crissy, A Joaquina PA Unavailable Unavailable Crissy, A Joaquina PA Unavailable Unavailable Crissy, A Joaquina PA Unavailable Unavailable Crissy, A Joaquina PA Unavailable Unavailable Crissy, A Joaquina PA Unavailable Unavailable Crissy, A Joaquina PA Unavailable Unavailable Crissy, A Joaquina PA Unavailable Unavailable Crissy, A Joaquina PA Unavailable Unavailable Crissy, A Joaquina PA Unavailable Unavailable Crissy, A Joaquina PA Unavailable Unavailable Crissy, A Joaquina PA Unavailable Unavailable Crissy, A Joaquina PA Unavailable Unavailable Crissy, A Joaquina PA Unavailable Unavailable Crissy, A Joaquina PA Unavailable Unavailable Crissy, A Joaquina PA Unavailable Unavailable Crissy, A Joaquina PA Unavailable Unavailable Crissy, A Joaquina PA Unavailable Unavailable Crissy, A Joaquina PA Unavailable Unavailable Crissy, A Joaquina PA Unavailable Unavailable Crissy, A Joaquina PA Unavailable Unavailable Crissy, A Joaquina PA Unavailable Unavailable Crissy, A Joaquina PA Unavailable Unavailable Crissy, A Joaquina PA Unavailable Unavailable Crissy, A Ojaquina PA Unavailable Unavailable Crissy, A Joaquina PA Unavailable Unavailable Crissy, A Joaquina PA Unavailable Unavailable Crissy, A Joaquina PA Unavailable Unavailable Crissy, A Joaquina PA Unavailable Unavailable Crissy, A Joaquina PA Unavailable Unavailable Crissy, A Joaquina PA Unavailable Unavailable Crissy, A Joaquina PA Unavailable Unavailable Crissy, A Joaquina PA Unavailable Unavailable Crissy, A Joaquina PA Unavailable Unavailable Crissy, A Joaquina PA Unavailable Unavailable Crissy, A Joaquina PA Unavailable Unavailable Crissy, A Joaquina PA Unavailable Unavailable Crissy, A Joaquina PA Unavailable Unavailable Crissy, A Joaquina PA Unavailable Unavailable Crissy, A Joaquina PA Unavailable Unavailable Crissy, A Joaquina PA Unavailable Unavailable Crissy, A Joaquina PA Unavailable Unavailable Crissy, A Joaquina PA Unavailable Unavailable Crissy, A Joaquina PA Unavailable Unavailable Crissy, A Joaquina PA Unavailable Unavailable Crissy, A Joaquina PA Unavailable Unavailable Crissy, A Joaquina PA Unavailable Unavailable Crissy, A Joaquina PA Unavailable Unavailable Crissy, A Joaquina PA Unavailable Unavailable Kapadia II, Shell Orozco MD Unavailable Unavailable Kapadia II, A Ernesto GEE Unavailable Unavailable Kapadia II, A Ernesto GEE Unavailable Unavailable Kapadia II, A Ernesto GEE Unavailable Unavailable Kapadia II, A Ernesto GEE Unavailable Unavailable Kapadia II, A Ernesto GEE Unavailable Unavailable Kapadia II, A Ernesto GEE Unavailable Unavailable Kapadia II, A Ernesto GEE Unavailable Unavailable Kapadia II, A Ernesto GEE Unavailable Unavailable Kapadia II, A Ernesto GEE Unavailable Unavailable Kapadia II, A Ernesto GEE Unavailable Unavailable Kapadia II, A Ernesto GEE Unavailable Unavailable Kapadia II, A Ernesto GEE Unavailable Unavailable Kapadia II, A Ernesto MD Unavailable Unavailable Kapadia II, A Ernesto MD Unavailable Unavailable Kapadia II, A Ernesto MD Unavailable Unavailable Kapadia II, A Ernesto MD Unavailable Unavailable Kapadia II, A Ernesto MD Unavailable Unavailable Kapadia II, A Ernesto Unavailable Unavailable Kapadia II, A Ernesto Unavailable Unavailable Kapadia II, A Ernesto MD Unavailable Unavailable Kapadia II, A Ernesto MD Unavailable Unavailable Kapadia II, A Ernesto MD Unavailable Unavailable Kapadia II, A Ernesto MD Unavailable Unavailable Kapadia II, A Ernesto MD Unavailable Unavailable Kapadia II, A Ernesto Unavailable Unavailable Kapadia II, A Ernesto Unavailable Unavailable Kapadia II, A Ernesto MD Unavailable Unavailable Kapadia II, A Ernesto MD Unavailable Unavailable Kapadia II, A Ernesto MD Unavailable Unavailable Kapadia II, A Ernesto MD Unavailable Unavailable Kapadia II, A Ernesto MD Unavailable Unavailable Kapadia II, A Ernesto MD Unavailable Unavailable Kapadia II, A Ernesto MD Unavailable Unavailable Kapadia II, A Ernesto MD Unavailable Unavailable Kapadia II, A Ernesto MD Unavailable Unavailable Kapadia II, A Ernesto MD Unavailable Unavailable Kapadia II, A Ernesto MD Unavailable Unavailable Kapadia II, A Ernesto MD Unavailable Unavailable Kapadia II, A Ernesto MD Unavailable Unavailable Kapadia II, A Ernesto GEE Unavailable Unavailable Kapadia II, A Ernesto GEE Unavailable Unavailable Kapadia II, A Ernesto GEE Unavailable Unavailable Kapadia II, A Ernesto MD Unavailable Unavailable Kapadia II, A Ernesto MD Unavailable Unavailable Kapadia II, A Ernesto MD Unavailable Unavailable Kapadia II, A Ernesto GEE Unavailable Unavailable Kapadia II, A Ernesto GEE Unavailable Unavailable Kapadia II, A Ernesto MD Unavailable Unavailable Kapadia II, A Ernesto MD Unavailable Unavailable Kapadia II, A Ernesto MD Unavailable Unavailable Kapadia II, A Ernesto MD Unavailable Unavailable Kapadia II, A Ernesto MD Unavailable Unavailable Kapadia II, A Ernesto GEE Unavailable Unavailable Kapadia II, A Ernesto GEE Unavailable Unavailable TRE MOJICA Unavailable Unavailable Iesha CASTILLO MD Unavailable Unavailable Iesha CASTILLO MD Unavailable Unavailable Iesha CASTILLO MD Unavailable Unavailable Iesha CASTILLO MD Unavailable Unavailable Iesha CASTILLO MD Unavailable Unavailable Iesha CASTILLO MD Unavailable Unavailable Iesha CASTILLO MD Unavailable Unavailable ARNOLD, P KRISTA MD Unavailable Unavailable ARNOLD, P KRISTA MD Unavailable Unavailable ARNOLD, P KRISTA MD Unavailable Unavailable ARNOLD, P KRISTA MD Unavailable Unavailable ARNOLD, P KRISTA MD Unavailable Unavailable ARNOLD, P KRISTA MD Unavailable Unavailable ARNOLD, P KRISTA MD Unavailable Unavailable ARNOLD, P KRISTA MD Unavailable Unavailable ARNOLD, P KRITSA MD Unavailable Unavailable ARNOLD, P KRISTA MD Unavailable Unavailable ARNOLD, P KRISTA MD Unavailable Unavailable ARNOLD, P KRISTA MD Unavailable Unavailable ARNOLD, P KRISTA MD Unavailable Unavailable ARNOLD, P KRISTA MD Unavailable Unavailable ARNOLD, P KRISTA MD Unavailable Unavailable ARNOLD, P KRISTA MD Unavailable Unavailable ARNOLD, P KRISTA MD Unavailable Unavailable ARNOLD, P KRISTA MD Unavailable Unavailable ARNOLD, P KRISTA MD Unavailable Unavailable ARNOLD, P KRISTA MD Unavailable Unavailable ARNOLD, P KRISTA MD Unavailable Unavailable ARNOLD, P KRISTA MD Unavailable Unavailable ARNOLD, P KRISTA MD Unavailable Unavailable ARNOLD, P KRISTA MD Unavailable Unavailable ARNOLD, P KRISTA MD Unavailable Unavailable ARNOLD, P KRISTA MD Unavailable Unavailable ARNOLD, P KRISTA MD Unavailable Unavailable ARNOLD, P KRISTA MD Unavailable Unavailable ARNOLD, P KRISTA MD Unavailable Unavailable ARNOLD, P KRISTA MD Unavailable Unavailable Re-disclosure Warning The records that you are about to access may contain information from federally-assisted alcohol or drug abuse programs. If such information is present, then the following federally mandated warning applies: This information has been disclosed to you from records protected by federal confidentiality rules (42 CFR part 2). The federal rules prohibit you from making any further disclosure of this information unless further disclosure is expressly permitted by the written consent of the person to whom it pertains or as otherwise permitted by 42 CFR part 2. A general authorization for the release of medical or other information is NOT sufficient for this purpose. The Federal rules restrict any use of the information to criminally investigate or prosecute any alcohol or drug abuse patient.The records that you are about to access may contain highly sensitive health information, the redisclosure of which is protected by Article 27-F of the [facility] Public Health law. If you continue you may have access to information: Regarding HIV / AIDS; Provided by facilities licensed or operated by the [facility] Office of Mental Health; or Provided by the [facility] Office for People With Developmental Disabilities. If such information is present, then the following [place] mandated warning applies: This information has been disclosed to you from confidential records which are protected by state law. State law prohibits you from making any further disclosure of this information without the specific written consent of the person to whom it pertains, or as otherwise permitted by law. Any unauthorized further disclosure in violation of state law may result in a fine or shelter sentence or both. A general authorization for the release of medical or other information is NOT sufficient authorization for further disc losure. Allergies and Adverse Reactions Type Description Substance Reaction Status Data Source(s ) Drug allergy vaccine adjuvant system, AS01B liposomal vaccine adjuvant system, AS01B liposomal ERYTHEMA/WARMTH/PAIN SURROUNDING INJECTION SITE [facility] Drug allergy varicella-zoster virus glycoprotein E, r ecombinant varicella-zoster virus glycoprotein E, recombinant ERYTHEMA/WARMTH/PAIN SURROUNDING INJECTI ON SITE [facility] Drug allergy atorvastatin atorvastatin 2015-severe joint pain [facility] Drug allergy enalapril enalapril dry cough-10/[address] [facility] Drug allergy baclofen baclofen MAKES TOO LETHAR GIC GETS URINARY INCONTINENCE AT NIGHT [facility] Drug allergy lisinopril Lisinopril dry cough-2016 [facility] Food allergy No Known Food Allergies No Known Food Allergies [facility] Drug allergy pneumococcal 23-valent polysacchari pneu mococcal 23-valent polysacchari Swelling and Pain in Arm [facility] Propensity to adverse reactions NO KNOWN ALLERGIES NO KNOWN ALLERGIES [facility] Family History Family Member Name Family Member Gender Family Member Status Date o f Status Description Data Source(s) Unknown Condition [facility] Unknown Condition [facility] Unknown Condition [facility] Unknown Condition [facility] Unknown Condition [facility] Unknown Condition [facility] Unknown Condition [facility] Unknown Condition [facility] Unknown Condition [facility] Encounters Encounter Providers Location Date Indications Data Source(s ) Outpatient Attender: Joaquina Abdulerrer: Joaquina RIOJAS 03/15/2021 01:38:00 PM EDT - 03/15/2021 02:58:00 PM EDT [facility] Outpatient Attender: Joaquina RIOJAS 03/02/2021 09 :41:00 AM EDT E03.9,E11.9,Z86.2 [facility] E03.9,E11.9,Z86.2 Outpatient Referrer: Pat Robert MD BF-BF 0 03/01/2021 09:57:23 AM EDT - 03/01/2021 11:09:20 AM EDT [facility] Outpatient Attender: Ernesto Kapadia IIReferrer: Joaquina RIOJAS 02/28/2021 01:22:00 PM EDT - 02/28/2021 03:09:00 PM EDT [facility] Outpatient Attender: KRISTA CASTILLO MD 02/28/2021 1 2:58:00 PM EDT CA,E03.9,E11.9,Z86.2 [facility] CA,E03.9,E11.9,Z86.2 Emergency Attender: Kem Hooker MDConsultant: Joaquina Goff 02/22/2021 05:52:00 PM EDT - 02/23/2021 12:25:00 AM EDT [facility] Patient discharged. Outpatient Attender: TRE Abraham er: NAVEED CONTRERAS NPReferrer: STERLING VANG MDConsultant: STERLING VANG MDConsultant: Joaquina RIOJAS 02/16/2021 12:11:17 PM EDT [facility] Admission cancelled. Disregard status an d admitted date. SHADI-SELMA 02/15/2021 01:41:21 PM EDT [facility] Outpatient Attender: Tre Best: Tre CallawayConsultant: Tre RIZZO 02/10/2021 02:37:54 PM EDT - 02/10/2021 03:28:42 PM EDT [facility] Outpatient Attender: ORA Miller NPAttender: REI MILLER 02/09/2021 12:00:00 AM [facility] Inpatient Admitter: Tre Best: Tre Beck 02/02/2021 04:19:35 PM EDT [facility] Inpatient Admitter: Tre Mohamudr: Tre Beck 02/02/2021 02:53:47 PM EDT [facility] 01/18/2021 12:42:05 PM EDT [facility] Outpatient Referrer: Tre Mojica 12/29/2020 03:43:01 PM E DT [facility] Outpatient Referrer: Tre Mojica 12/29/2020 12:48:31 PM E DT [facility] Inpatient Attender: Tre Galindodmitter: Tre CallawayReferrer: Tre [facility] 12/28/2020 01:14:36 PM EDT - 02/03/2021 09:22:00 AM EDT [facility] Patient discharged. Outpatient Attender: BRITTANY DYE MDReferrer: Tre monroe [id number] 12/24/2020 12:00:00 AM EDT [facility] 12/21/2020 01:01:11 PM EDT [facility] Outpatient Attender: Tre Best: Tre Mojica ES1 -SJ.MRI 12/17/2020 08:02:59 AM EDT - 12/17/2020 11:59:00 PM EDT [facility] Patient discharged. Outpatient Attender: Tre Best: Tre Mojica MOB -MOB.PAT 12/17/2020 12:00:00 AM EDT - 12/17/2020 11:46:16 AM EDT [facility] Outpatient Referrer: Tre Mojica 12/14/2020 01:28:46 PM E DT [facility] Outpatient Referrer: Tre Mojica 12/14/2020 01:26:54 PM E DT [facility] Outpatient Attender: Musa Hargrove MDReferrer: Tre Omalley [id number] 12/10/2020 10:52:14 AM EDT [facility] Outpatient Attender: Musa Hargrove MDReferrer: Tre Mojica 12/08/2020 03:13:50 PM EDT [facility] Outpatient Attender: Musa Hargrove MDReferrer: Tre Mojica 12/08/2020 03:13:39 PM EDT [facility] Outpatient Attender: Musa Hargrove MDReferrer: Tre Mojica 12/08/2020 03:13:28 PM EDT [facility] Outpatient Attender: Musa Hargrove MDReferrer: Tre Mojica 12/08/2020 02:46:53 PM EDT [facility] Outpatient Attender: Musa Hargrove MDReferrer: Tre Mojica 12/08/2020 02:45:26 PM EDT [facility] Outpatient Attender: Musa Hargrove MDReferrer: Tre Mojica 12/08/2020 12:58:20 PM EDT [facility] Outpatient Attender: Musa Hargrove MD 12/08/2020 12:56:34 PM EDT [facility] Outpatient Referrer: Tre Mojica 12/06/2020 08:12:53 AM E DT [facility] Outpatient Referrer: Tre Mojica 12/06/2020 08:12:13 AM E DT [facility] Attender: Tre Galindodmitter: Tre MEJIA 12/03/2020 08:26:32 AM EDT [facility] Outpatient Attender: Tre Romoonsultant: Tre CM 12/02/2020 01:04:30 PM EDT - 12/02/2020 01:48:24 PM EDT [facility] Outpatient Attender: Neli RIZZO 11/22/2020 01:14:00 PM EDT - 11/22/2020 02:39:05 PM EDT [facility] Outpatient Referrer: Neli Hung 11/16/2020 11:26:26 AM ED T [facility] Outpatient Attender: Joaquina RIOJAS 11/10/2020 07 :44:00 AM EDT RT BREAST MASS N63.10 [facility] RT BREAST MASS N63.10 Outpatient Attender: Joaquina Pereiraer: [facility] octor Provided 11/09/2020 12:56:00 PM EDT - 11/09/2020 02:24:00 PM EDT [facility] Outpatient Attender: Joaquina Layne PAConsultant: Joaquina RIOJAS 11/04/2020 08:55:00 AM EDT - 11/04/2020 09:55:00 AM EDT [facility] Outpatient Referrer: Shana Case PA-C BF-BF 10:39:46 AM EDT - 10/07/2020 12:00:28 PM EDT [facility] Outpatient Attender: JESÚS WHITE [facility] Office 10/2020 09:15:00 AM EST [facility] ([facility] Outpatient Attender: Joaquina Layne PAConsultant: Joaquina RIOJAS 07/29/2020 08:16:00 AM EST - 07/29/2020 09:16:00 AM EST [facility] Outpatient Attender: Christine Forman MD Main office - [place] 07/19/2020 09:15:00 AM EST [facility] ([facility] JO ANN orr) Outpatient Attender: Joaquina Pereiraer: [facility] Provided 06/23/2020 12:58:00 PM EST - 06/23/2020 01:51:00 PM EST [facility] Outpatient Attender: Ernesto Kapadia II 02/27/2020 0 1:47:00 PM EDT POST MENOPAUSAL [facility] POST MENOPAUSAL Outpatient Attender: Joaquina Pereiraer: Joaquina RIOJAS 02/25/2020 02:00:00 PM EDT - 02/25/2020 02:55:00 PM EDT [facility] Outpatient Attender: Joaquina RIOJAS 02/23/2020 02:56:00 PM EDT E78.2 [facility] E78.2 Outpatient Attender: Ernesto Kapadia II 10:36:00 AM EDT - 02/23/2020 11:44:[facility] Date Status Description Data Source(s) 09/11/2020 12:00:00 AM EDT completed <td I D="[id number]">Covid-19 (Moderna)</td><td>09/11/2020, 08/14/2020</td><td></td> [facility] COVID-19 Moderna 09/11/2020 12:00:00 AM EDT completed [facility] COVID-19 VACCINE Moderna 09/11/2020 12:00:00 AM EDT completed [facility] Vaccine Series Complete: YESThis Data wa s Submitted to [facility] Via [employer]. 08/14/2020 12:00:00 AM EST completed <td I D="[id number]">Covid-19 (Moderna)</td><td>09/11/2020, 08/14/2020</td><td></td> [facility] COVID-19 Moderna 08/14/2020 12:00:00 AM EST completed [facility] COVID-19 VACCINE Moderna 08/14/2020 12:00:00 AM EST completed [facility] Vaccine Series Complete: NOThis Data was Submitted to [facility] [employer]. Medications Medication Brand Name Start Date Product Form Dose Route Admi nistrative Instructions Pharmacy Instructions Status Indications Reaction Description Data Source(s) [id number] 04/11/2021 12:00:00 AM EDT suspension 240 SWISH 10ML IN THE MOUTH AND SPIT - USE 4 TIMES DAILY NEEDED FOR MUCOSITIS SWISH 10ML IN THE MOUTH AND SPIT - USE 4 TIMES DAILY NEEDED FOR MUCOSITIS SOLD: 04/11/2021 [facility] 2.5-2.5 % 04/03/2021 12:00:00 AM EDT cream 30 TAKE 1 DOSE TOPICALLY DIRECTED. APPLY A DIME SIZE TO PORT AREA, DO NOT RUB IN, COVER WITH SARAN WRAP TO PROTECT LOTHING TAKE 1 DOSE TOPICALLY DIRECTED. APPLY A DIME SIZE TO PORT AREA, DO NOT RUB IN, COVER WITH SARAN WRAP TO PROTECT LOTHING SOLD: 04/03/2021 [facility] 8 mg 03/31/2021 12:00:00 AM EDT tablet 30 TAKE ONE TABLET BY MOUTH EVERY 8 HOURS NEEDED FOR NAUSEA AND VOMITING TAKE ONE TABLET BY MOUTH EVERY 8 HOURS NEEDED FOR NAUSEA AND VOMITING SOLD: 04/03/2021 [facility] 30 ACTUAT umeclidinium 0.0625 MG/ACTUAT / vilanterol 0.025 MG/ACTUAT Dry Powder Inhaler umeclidinium-vilanterol (ANORO ELLIPTA) 62.5-25 MCG/INH inhaler 1 puff umeclidinium-vilanterol (ANORO ELLIPTA) 62.5-25 MCG/INH inhaler 1 puff 02/03/2021 09:00:00 AM EDT 1 {puff} Inhalation ac tive Malignant neoplasm of right breast in female, estrogen receptor positive, unspecified site of breast 1 puff, Inhalation, Daily, First dose on Sun02/03/21 at 0900 [facility] Malignant neoplasm of right breast in fe male, estrogen receptor positive, unspecified site of breast Medication administered onsite Escitalopram 10 MG Oral Tablet escitalopram (LEXAPRO) tablet 20 mg escitalopram (LEXAPRO) tablet 20 mg 02/03/2021 09:00:00 AM EDT 20 mg Oral active Malignant neoplasm of right breast in female, estrogen receptor positive, unspecified site of breast 20 mg, Oral, Daily, First d ose on Sun02/03/21 at 0900 [facility] Malignant neoplasm of right breast in fe male, estrogen receptor positive, unspecified site of breast Medication administered onsite Esomeprazole 20 MG Delayed Release Oral Capsule esomeprazole (NexIUM) capsule 20 mg esomeprazole (NexIUM) capsule 20 mg 02/03/2021 07:30:00 AM EDT 20 mg Oral active Malignant neoplasm o f right breast in female, estrogen receptor positive, unspecified site of breast 20 mg, Oral, Ever y morning before breakfast, First dose on Sun02/03/21 at 0730 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, estrogen receptor positive, unspecified site of breast Medication administered onsite Levothyroxine Sodium 0.112 MG Oral Table t levothyroxine (SYNTHROID, LEVOTHROID) tablet 112 mcg levothyroxine (SYNTHROID, LEVOTHROID) tablet 112 mcg 0 02/03/2021 06:00:00 AM EDT 112 ug Oral active Nae gnant neoplasm of right breast in female, estrogen receptor positive, unspecified site of breast 112 mcg, Oral, Daily, First dose on Sun02/03/21 at 0600 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, estrogen receptor positive, unspecified site of breast Medication administered onsite Losartan Potassium 25 MG Oral Tablet losartan (COZAAR) tablet 25 mg losartan (COZAAR) tablet 25 mg 02/02/2021 09:00:00 PM EDT 25 mg Oral active Malignant neoplasm of right breast in female, estrogen receptor positive, unspecified site of breast 25 mg, Oral, Daily, First d ose on Sun02/02/21 at 2100 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, estrogen receptor positive, unspecified site of breast Medication administered onsite Nortriptyline 10 MG Oral Capsule nortriptyline (PAMELO R) capsule 10 mg nortriptyline (PAMELOR) capsule 10 mg 02/02/2021 09:00:00 PM EDT 10 m g Oral active Malignant neoplasm of right breast in female, estrogen receptor positive, unspecified site of breast 10 mg, Oral, Nigh tly, First dose on Sun02/02/21 at 2100 [facility] Malignant neoplasm of right breast in fe male, estrogen receptor positive, unspecified site of breast Medication administered onsite solifenacin succinate 5 MG Oral Tablet solifenacin (VE SICARE) tablet 10 mg solifenacin (VESICARE) tablet 10 mg 02/02/2021 09:00:00 PM EDT 10 mg Oral active Malignant neoplasm of right breast in fe male, estrogen receptor positive, unspecified site of breast 10 mg, Oral, Daily, First d ose on Sun02/02/21 at 2100 [facility] Malignant neoplasm of right breast in fe male, estrogen receptor positive, unspecified site of breast Medication administered onsite Calcium Chloride 0.0014 MEQ/ML / Potassi um Chloride 0.004 MEQ/ML / Sodium Chloride 0.103 MEQ/ML / Sodium Lactate 0.028 MEQ/ML Injectable Solution lactated ringers infusion lactated ringers infusion 02/02/2021 06:00:00 PM EDT Intravenous active Malignant neopla sm of right breast in female, estrogen receptor positive, unspecified site of breast at 75 mL /hr, Intravenous, Continuous, Starting on Sun02/02/21 at 1800, Post-op
May hep lock IV once taking good PO
[facility] Malignant neoplasm of right breast in fe male, estrogen receptor positive, unspecified site of breast Medication administered onsite Cefazolin 1000 MG Injection ceFAZolin (ANCEF) injectio n 1 g ceFAZolin (ANCEF) injection 1 g 02/02/2021 06:00:00 PM EDT 1 g Intravenous completed 1 g, Intravenous, Every 8 hours (relative), First dose on Sun02/02/21 at 1800, For 2 doses, Post-op
Reconstitute with 10 ml sterile water for injection. Administer IV push over 3 minutes. Use within 1 hour of reconstitution
[facility] Medication administered onsite Metformin hydrochloride 500 MG Oral Tabl et metFORMIN (GLUCOPHAGE) tablet 1,000 mg metFORMIN (GLUCOPHAGE) tablet 1,000 mg 02/02/2021 06:00:00 PM EDT 1000 mg Oral active Malignant neopla sm of right breast in female, estrogen receptor positive, unspecified site of breast 1,000 mg, Oral, 2 times daily with meals, First dose on Sun02/02/21 at 1800 [facility] Malignant neoplasm of right breast in fe male, estrogen receptor positive, unspecified site of breast Medication administered onsite Acetaminophen 325 MG Oral Tablet acetaminophen (TYLENO L) 325 MG tablet 650 mg acetaminophen (TYLENOL) 325 MG tablet 650 mg 02/02/2021 05:35:52 PM EDT 650 mg Oral active Malignant neopl asm of right breast in female, estrogen receptor positive, unspecified site of breast 650 mg, Oral, Bridgett ry 4 hours PRN, mild pain (1-3), headaches, Starting on Sun02/02/21 at 1735, Post-op
"Maximum dose of acetaminophen is 4,000 mg from all sources in 24 hours."
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, estrogen receptor positive, unspecified site of breast Medication administered onsite Acetaminophen 325 MG / Oxycodone Hydroch loride 5 MG Oral Tablet oxyCODONE- acetaminophen (PERCOCET) 5-325 MG 1-2 tablet oxyCODONE-acetaminophen (PERCOCET) 5-325 MG 1-2 tablet 02/02/2021 05:35:52 PM EDT {tbl} Oral active Malignant neoplasm of right breast in female, estrogen receptor positive, unspecified site of breast 1-2 tablet, Oral, Every 4 h ours PRN, moderate pain (4-6), severe pain (7-10), Starting on Sun02/02/21 at 1735, For 7 days, Post-op 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, estrogen receptor positive, unspecified site of breast Medication administered onsite ondansetron (ZOFRAN) injection 4 mg [id number] 02/02/2021 05:35:5 2 PM EDT 4 mg Intravenous active Malignant neopl asm of right breast in female, estrogen receptor positive, unspecified site of breast 4 mg, In travenous, Every 6 hours PRN, nausea, vomiting, Starting on Sun02/02/21 at 1735, Post-op 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
flush per protocol, D/C Main IV fluid if appropriate
[facility] Medication administered onsite diphenhydrAMINE (BENADRYL) injection 12.5 mg [id number] 02/02/2021 04:41:02 PM EDT 12.5 mg Intravenous active 12.5 mg, Intravenous, As needed, for intractable nausea and vomiting not relieved by promethazine/zofran and if ordered haldol, Starting on Sun02/02/21 at 1641, For 1 dose, PACU & Post-op
Indication for IV Diphenhydramine: Non-severe allergic reaction or other indication (pharmacy may substitute an oral formulation) [facility] Medication administered onsite ondansetron (ZOFRAN) injection 4 mg [id number] 02/02/2021 04:41:0 2 PM EDT 4 mg Intravenous completed 4 mg, In travenous, As needed, nausea, vomiting, Starting on Sun02/02/21 at 1641, For 1 dose, PACU & Post-op
If not given in last 4 hours
[facility] Medication administered onsite Magnesium Chloride 0.64912 MEQ/ML / Pota ssium Chloride 0.0497 MEQ/ML / Sodium Acetate 0.0163 MEQ/ML / Sodium Chloride 0.0899 MEQ/ML / Sodium gluconate 5.02 MG/ML Injectable Solution [Normosol-R] electrolyte-R (NORMOSOL-R/PLASMALYTE-R) solution electrolyte-R (NORMOSOL-R/PLASMALYTE-R) solution 02/02 04:00:00 PM EDT Intravenous active at 1 00 mL/hr, Intravenous, Continuous, Starting on Sun02/02/21 at 1600 [facility] Medication administered onsite Magnesium Chloride 0.02886 MEQ/ML / Pota ssium Chloride 0.0497 MEQ/ML / Sodium Acetate 0.0163 MEQ/ML / Sodium Chloride 0.0899 MEQ/ML / Sodium gluconate 5.02 MG/ML Injectable Solution [Normosol-R] electrolyte-R (NORMOSOL-R/PLASMALYTE-R) solution electrolyte-R (NORMOSOL-R/PLASMALYTE-R) solution 02/02 04:00:00 PM EDT Intravenous active at 1 00 mL/hr, Intravenous, Continuous, Starting on Sun02/02/21 at 1600
FOR DIABETIC PATIENTS: If blood glucose > 150 mg/dL, start IV of Normosol-R @100 mL/hr.
[facility] Medication administered onsite Gadoterate Meglumine SOLN 7.5 mmol [id number] 12/17/2020 10:18:00 AM EDT 15 mL Intravenous completed 7.5 mmol (15 mL), Intravenous, Once, On Sun12/17/20 at 1100, For 1 dose [facility] Medication administered onsite Accu-Chek Kelsy Plus test strip [id number] 11/11/2020 12:00:00 AM EDT active daily [facility] Levothyroxine Sodium 0.112 MG Oral Tablet Levothyroxine 11/09/2020 04:11:23 PM EDT 112 MCG active [facility] Escitalopram 20 MG Oral Tablet Escitalopram Oxalate Escitalo pram Oxalate 10/26/2020 07:00:48 AM EDT 20 MG active [facility] Losartan Potassium 25 MG Oral Tablet Losartan 10/10/2020 10:03:40 AM EDT 0 active [facility] Losartan Potassium 25 MG Oral Tablet losartan (COZAAR) 25 MG tablet losartan (COZAAR) 25 MG tablet 10/10/2020 12:00:00 AM EDT 25 mg Oral active Take 25 mg by mouth daily [facility] Losartan Potassium 25 MG Oral Tablet [place] Potassium 25 MG Oral Tablet (COZAAR) Losartan Potassium 25 MG Oral Tablet (COZAAR) 10/11/19 12:00:00 AM EDT 25 mg Oral active Take 25 mg by paul [facility] Estradiol 1 MG Oral Tablet Estradiol 09/13/2020 07:11:07 AM EDT 0 active [facility] ferrous sulfate 325 MG Oral Tablet Ramiro us Sulfate (Iron (Ferrous Sulfate)) 325 mg (65 mg iron) tablet Ferrous Sulfate (Iron (Ferrous Sulfate)) 325 mg (65 mg iron) tablet 08/19/2020 07:13:36 AM EST 325 MG completed [facility] 7 ACTUAT umeclidinium 0.0625 MG/ACTUAT / vilanterol 0.025 MG/ACTUAT Dry Powder Inhaler Umeclidinium-Vilanterol (Anoro Ellipta) 62.5-25 mcg/actuation blister with device Umeclidinium-Vilanterol (Anoro Ellipta) 62.5-25 mcg/actuation blister with device 08/15/2020 08:30:14 AM EST 1 INH act samir [facility] Fluticasone Propionate 07/27/2020 08:07:40 AM EST 2 SPRAY active [facility] Escitalopram 20 MG Oral Tablet Escitalopram Oxalate Escitalo pram Oxalate 07/27/2020 07:28:38 AM EST 20 MG completed [facility] Levothyroxine Sodium 0.125 MG Oral Tablet Levothyroxine 07/22/2020 06:54:10 AM EST 125 MCG completed [facility] Esomeprazole 20 MG Delayed Release Oral Capsule Esomep razole Magnesium Esomeprazole Magnesium 07/22/2020 06:53:36 AM EST 20 MG active [facility] solifenacin succinate 10 MG Oral Tablet Solifenacin (V esicare) 10 mg tablet Solifenacin (Vesicare) 10 mg tablet 07/01/2020 10:51:58 AM EST 10 MG active [facility] Metformin hydrochloride 1000 MG Oral Tablet Metformin 06/29/2020 05:16:33 PM EST 0 active [facility] Naproxen 06/25/2020 07:10:17 AM EST 0 active [facility] Rosuvastatin calcium 40 MG Oral Tablet Rosuvastatin 0 09:09:08 AM EST 0 active [facility] Rosuvastatin calcium 40 MG Oral Tablet Rosuvastatin 0 09:09:08 AM EST 0 active [facility] Escitalopram 20 MG Oral Tablet Escitalopram Oxalate Escitalo pram Oxalate 05/02/2020 09:10:10 AM EST 20 MG completed [facility] Escitalopram 20 MG Oral Tablet Escitalopram Oxalate Escitalo pram Oxalate 05/02/2020 09:10:10 AM EST 20 MG active [facility] Losartan Potassium 25 MG Oral Tablet Losartan 03/25/2020 03:39:29 PM EDT 0 completed [facility] Losartan Potassium 25 MG Oral Tablet Losartan 03/25/2020 03:39:29 PM EDT 0 active [facility] ferrous sulfate 325 MG Oral Tablet Ramiro us Sulfate (Iron (Ferrous Sulfate)) 325 mg (65 mg iron) tablet Ferrous Sulfate (Iron (Ferrous Sulfate)) 325 mg (65 mg iron) tablet 03/04/2020 07:07:30 AM EDT 325 MG active [facility] ferrous sulfate 325 MG Oral Tablet Ramiro us Sulfate (Iron (Ferrous Sulfate)) 325 mg (65 mg iron) tablet Ferrous Sulfate (Iron (Ferrous Sulfate)) 325 mg (65 mg iron) tablet 03/04/2020 07:07:30 AM EDT 325 MG completed [facility] Fluticasone Propionate 02/29/2020 04:51:08 PM EDT 2 SPRAY active [facility] Fluticasone Propionate 02/29/2020 04:51:08 PM EDT 2 SPRAY completed [facility] Naproxen 500 MG Oral Tablet Naproxen (Naprosyn) 500 mg tablet Naproxen (Naprosyn) 500 mg tablet 02/24/2020 07:55:08 AM EDT 500 MG active [facility] Naproxen 500 MG Oral Tablet Naproxen (Naprosyn) 500 mg tablet Naproxen (Naprosyn) 500 mg tablet 02/24/2020 07:55:08 AM EDT 500 MG completed [facility] Naproxen 500 MG Oral Tablet Naproxen (Naprosyn) 500 mg tablet Naproxen (Naprosyn) 500 mg tablet 02/24/2020 07:55:08 AM EDT 500 MG active [facility] 7 ACTUAT umeclidinium 0.0625 MG/ACTUAT / vilanterol 0.025 MG/ACTUAT Dry Powder Inhaler Umeclidinium-Vilanterol (Anoro Ellipta) 62.5-25 mcg/actuation blister with device Umeclidinium-Vilanterol (Anoro Ellipta) 62.5-25 mcg/actuation blister with device 02/22/2020 11:42:12 AM EDT [facility] umeclidinium 0.0625 MG/ACTUAT / vilanterol 0.025 MG/ACTUAT Dry Powder Inhaler Umeclidinium-Vilanterol (Anoro Ellipta) 62.5-25 mcg/actuation blister with device Umeclidinium-Vilanterol (Anoro Ellipta) 62.5-25 mcg/actuation blister with device 02/22/2020 11:42:12 AM EDT 1 INH act [facility] 7 ACTUAT umeclidinium 0.0625 MG/ACTUAT / vilanterol 0.025 MG/ACTUAT Dry Powder Inhaler Umeclidinium-Vilanterol (Anoro Ellipta) 62.5-25 mcg/actuation blister with device Umeclidinium-Vilanterol (Anoro Ellipta) 62.5-25 mcg/actuation blister with device 02/22/2020 11:42:12 AM EDT 1 INH com pleted [facility] 7 ACTUAT umeclidinium 0.0625 MG/ACTUAT / vilanterol 0.025 MG/ACTUAT Dry Powder Inhaler Umeclidinium-Vilanterol (Anoro Ellipta) 62.5-25 mcg/actuation blister with device Umeclidinium-Vilanterol (Anoro Ellipta) 62.5-25 mcg/actuation blister with device 02/22/2020 11:42:12 AM EDT 1 INH act samir [facility] Lancets (Comfort Lancets) [facility] 02/16/2020 04:10:27 PM EDT 0 active [facility] Lancets (Comfort Lancets) [facility] 02/16/2020 04:10:27 PM EDT 0 active [facility] Lancets (Comfort Lancets) [facility] 02/16/2020 04:10:27 PM EDT 0 active [facility] Lancets (Comfort Lancets) [facility] 02/16/2020 04:10:27 PM EDT 0 [facility] Blood Sugar Diagnostic (Blood Glucose Test) strip 02/14/2020 08:05:44 AM EDT 1 EACH active [facility] Blood Sugar Diagnostic (Blood Glucose Test) strip 02/14/2020 08:05:44 AM EDT 1 EACH active [facility] Blood Sugar Diagnostic (Blood Glucose Test) strip 02/14/2020 08:05:44 AM EDT 1 EACH active [facility] Blood Sugar Diagnostic (Blood Glucose Test) strip 02/14/2020 08:05:44 AM EDT 1 EACH active [facility] Esomeprazole 20 MG Delayed Release Oral Capsule Esomep razole Magnesium Esomeprazole Magnesium 01/28/2020 07:01:28 AM EDT 20 MG completed [facility] Metformin hydrochloride 1000 MG Oral Tablet Metformin 01/01/2020 03:51:21 PM EDT 1000 MG completed [facility] ferrous sulfate 325 MG Oral Tablet Ramiro us Sulfate (Iron (Ferrous Sulfate)) 325 mg (65 mg iron) tablet Ferrous Sulfate (Iron (Ferrous Sulfate)) 325 mg (65 mg iron) tablet 12/14/2019 08:00:17 AM EDT 325 MG completed [facility] ferrous sulfate 325 MG Oral Tablet Ramiro us Sulfate (Iron (Ferrous Sulfate)) 325 mg (65 mg iron) tablet Ferrous Sulfate (Iron (Ferrous Sulfate)) 325 mg (65 mg iron) tablet 12/14/2019 08:00:17 AM EDT 325 MG completed [facility] Rosuvastatin calcium 40 MG Oral Tablet Rosuvastatin (C restor) 40 mg tablet Rosuvastatin (Crestor) 40 mg tablet 12/04/2019 07:01:02 AM EDT 40 MG completed [facility] Rosuvastatin calcium 40 MG Oral Tablet Rosuvastatin (C restor) 40 mg tablet Rosuvastatin (Crestor) 40 mg tablet 12/04/2019 07:01:02 AM EDT 40 MG completed [facility] ferrous sulfate 325 MG Oral Tablet Ferrous Sulfate Ferrous S ulfate 11/06/2019 02:10:56 PM EDT 325 MG completed [facility] Naproxen 500 MG Oral Tablet Naproxen (Naprosyn) 500 mg tablet Naproxen (Naprosyn) 500 mg tablet 11/03/2019 09:34:51 AM EDT 500 MG completed [facility] Naproxen 500 MG Oral Tablet Naproxen (Naprosyn) 500 mg tablet Naproxen (Naprosyn) 500 mg tablet 11/03/2019 09:34:51 AM EDT 500 MG completed [facility] Naproxen 500 MG Oral Tablet Naproxen (Naprosyn) 500 mg tablet Naproxen (Naprosyn) 500 mg tablet 11/03/2019 09:34:51 AM EDT 500 MG completed [facility] Levothyroxine Sodium 0.125 MG Oral Tablet Levothyroxine 10/26/2019 04:30:32 PM EDT 125 MCG completed [facility] Estradiol 1 MG Oral Tablet Estradiol 09/29/2019 12:41:03 PM EDT 0.5 MG completed [facility] Losartan Potassium 25 MG Oral Tablet Losartan 09/29/2019 10:23: 27 AM EDT 25 MG completed [facility] Losartan Potassium 25 MG Oral Tablet Losartan 09/29/2019 10:23: 27 AM EDT 25 MG completed [facility] Fluticasone Propionate 09/03/2019 07:24:46 AM EDT 2 SPRAY completed [facility] Fluticasone Propionate 09/03/2019 07:24:46 AM EDT 2 SPRAY completed [facility] l umeclidinium 0.0625 MG/ACTUAT / vilanter ol 0.025 MG/ACTUAT Dry Powder Inhaler Umeclidinium-Vilanterol (Anoro Ellipta) 62.5-25 mcg/actuation blister with device Umeclidinium-Vilanterol (Anoro Ellipta) 62.5-25 mcg/actuation blister with device 08/25/2019 06:41:27 AM EDT 1 INH completed [facility] umeclidinium 0.0625 MG/ACTUAT / vilanter ol 0.025 MG/ACTUAT Dry Powder Inhaler Umeclidinium-Vilanterol (Anoro Ellipta) 62.5-25 mcg/actuation blister with device Umeclidinium-Vilanterol (Anoro Ellipta) 62.5-25 mcg/actuation blister with device 08/25/2019 06:41:27 AM EDT 1 INH completed [facility] umeclidinium 0.0625 MG/ACTUAT / vilanter ol 0.025 MG/ACTUAT Dry Powder Inhaler Umeclidinium-Vilanterol (Anoro Ellipta) 62.5-25 mcg/actuation blister with device Umeclidinium-Vilanterol (Anoro Ellipta) 62.5-25 mcg/actuation blister with device 08/25/2019 06:41:27 AM EDT 1 INH completed [facility] umeclidinium 0.0625 MG/ACTUAT / vilanter ol 0.025 MG/ACTUAT Dry Powder Inhaler Umeclidinium-Vilanterol (Anoro Ellipta) 62.5-25 mcg/actuation blister with device Umeclidinium-Vilanterol (Anoro Ellipta) 62.5-25 mcg/actuation blister with device 08/25/2019 06:41:27 AM EDT 1 INH completed [facility] solifenacin succinate 10 MG Oral Tablet Solifenacin (V esicare) 10 mg tablet Solifenacin (Vesicare) 10 mg tablet 07/07/2019 08:59:26 AM EST 10 MG completed [facility] Escitalopram 20 MG Oral Tablet Escitalopram Oxalate Escitalo pram Oxalate 05/07/2019 01:29:48 PM EST 20 MG completed [facility] Escitalopram 20 MG Oral Tablet Escitalopram Oxalate Escitalo pram Oxalate 05/07/2019 01:29:48 PM EST 20 MG completed [facility] Blood Sugar Diagnostic (Blood Glucose Test) strip 12/06/2018 05:42:31 PM EDT 1 EACH completed [facility] Blood Sugar Diagnostic (Blood Glucose Test) strip 12/06/2018 05:42:31 PM EDT 1 EACH completed [facility] Blood Sugar Diagnostic (Blood Glucose Test) strip 12/06/2018 05:42:31 PM EDT 1 EACH completed [facility] Blood Sugar Diagnostic (Blood Glucose Test) strip 12/06/2018 05:42:31 PM EDT 1 EACH completed [facility] Lancets (Comfort Lancets) [facility] 12/06/2018 05:37:42 PM EDT 0 [facility] Lancets (Comfort Lancets) [facility] 12/06/2018 05:37:42 PM EDT 0 [facility] Lancets (Comfort Lancets) [facility] 12/06/2018 05:37:42 PM EDT 0 [facility] Lancets (Comfort Lancets) [facility] 12/06/2018 05:37:42 PM EDT 0 [facility] VITAMIN D PO drug or medication Oral aborted Take by mouth daily [facility] Magnesium Oxide (MAG-OX) 400 MG tablet [id number] 400 mg Oral aborted Take 400 mg by mouth daily [facility] Metformin hydrochloride 500 MG Oral Tablet metFORMIN ( GLUCOPHAGE) 500 MG tablet metFORMIN (GLUCOPHAGE) 500 MG tablet Oral aborted Take by mouth [facility] ferrous sulfate 325 MG Oral Tablet ferrous sulfate 325 (65 FE) MG tablet ferrous sulfate 325 (65 FE) MG tablet 325 mg Oral aborted Take 325 mg by mouth 2 (two) times a day with meals [facility] Levothyroxine Sodium 0.125 MG Oral Table t levothyroxine (SYNTHROID, LEVOTHROID) 125 MCG tablet levothyroxine (SYNTHROID, LEVOTHROID) 125 MCG tablet 125 ug Oral aborted Take 125 mcg by mout h daily [facility] Insurance Providers Payer name Policy type / Coverage type Policy ID Covered green party ID Covered green party's relationship to solorio Policy Solorio Plan Information MEDICARE [id number] SP [id number] A [facility] PPO [phone] [id number] SP [id number] [facility] [id number] SP [id number] MEDICARE [id number] SP [id number] A [facility] MEDICAID [id number] SP [id number] MEDICAID [id number] SP [id number] [facility] MEDICARE [id number] Maritza [id number] [facility] MEDICARE [id number] [id number] MEDICAID [id number] Maritza [id number] MEDICAID [id number] xxxxxxxx [id number] UHC UNITED MEDICARE DUAL G [id number] Self [id number] Medicaid Secondary [id number] [facility] Dual Complete Primary [id number] MEDICAID M [id number] Self [id number] MEDICAID [id number] SP [id number] UN CP DUAL COMP - RECURRING [id number] 18 [id number] MEDICAID -RECURRING [id number] MEDICARE -RECURRING [id number] 18 [id number] MEDICAID M [id number] S [id number] MEDICARE C [id number] S [id number] A [facility]MERLY [facility] MEDICARE PART B C [id number] S [id number] [facility] CP DUAL COMP - FACILITY [id number] 18 [id number] Problems, Conditions, and Diagnoses Code Display Name Description Problem Type Effective Dates Data Source(s) I38 Endocarditis, valve unspecified Endocarditis, valve un specified Diagnosis 03/01/2021 09:57:23 AM EDT [facility] [id number] Personal history of nicotine dependence Personal history of nicotine dependence Diagnosis 02/22/2021 05:52:00 PM EDT [facility] Z853 Personal history of malignant neoplasm o f breast Personal history of malignant neoplasm of breast Diagnosis 02/22/2021 05:52:00 PM EDT [facility] D62 Acute posthemorrhagic anemia Acute posthemorrhagic ane barbara Diagnosis 02/22/2021 05:52:00 PM EDT [facility] I10 Essential (primary) hypertension Essential (primary) h ypertension Diagnosis 02/22/2021 05:52:00 PM EDT [facility] J439 Emphysema, unspecified Emphysema, unspecified Diagnosi s 02/22/2021 05:52:00 PM EDT [facility] R0600 Dyspnea, unspecified Dyspnea, unspecified Diagnosis 02/22/2021 05:52:00 PM EDT [facility] Z9013 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 Acquired absence of bilateral breasts and nipples Diagnosis 02/17/2021 09:49:00 AM EDT [facility] Z90.13 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 Acquired absence of bilateral breasts an Diagnosis 02/10/2021 02:37:54 PM EDT [facility] Z17.0 Estrogen receptor positive status [ER+] Estrogen receptor positive status (ER+) Diagnosis 02/02/2021 10:58:00 AM EDT [facility] C50.911 Malignant neoplasm of unspecified site o f right female breast Malignant neoplasm of unspecified site o Diagnosis 02/02/2021 10:58:00 AM EDT [facility] R92.8 Other abnormal and inconclusive findings on diagnostic imaging of breast Other abnormal and inconclusive findings Diagnosis 11/22/2020 01:14:00 PM EDT [facility] E559 Vitamin D deficiency, unspecified Vitamin D defi ciency, unspecified Diagnosis 11/04/2020 08:55:00 AM EDT [facility] E039 Hypothyroidism, unspecified Hypothyroidism, unspecifie d Diagnosis 11/04/2020 08:55:00 AM EDT [facility] E119 Type 2 diabetes mellitus without complic ations Type 2 diabetes mellitus without complications Diagnosis 11/04/2020 08:55:00 AM EDT [facility] E7800 Pure hypercholesterolemia, unspecified P ure hypercholesterolemia, unspecified Diagnosis 11/04/2020 08:55:00 AM EDT [facility] Z98.890 Other specified postprocedural states Ot her specified postprocedural states Diagnosis 10/07/2020 10:39:46 AM EDT [facility] E78.5 Hyperlipidemia, unspecified Hyperlipidemia, unspecifie d Diagnosis 10/07/2020 10:39:46 AM EDT [facility] I10 Essential (primary) hypertension Essential (primary) h ypertension Diagnosis 10/07/2020 10:39:46 AM EDT [facility] D649 Anemia, unspecified Anemia, unspecified Diagnosis 0 07/29/2020 08:16:00 AM EST [facility] C50.911 Malignant neoplasm of right breast in female, estrogen receptor positive Malignant neoplasm of right breast in female, estrogen receptor positive [id number] 12/03/2020 12:00:00 AM EDT [facility] R92.8 Abnormal finding on breast imaging Abnormal find ing on breast imaging [id number] 11/16/2020 12:00:00 AM EDT [facility] L84 Callosity Callosity Problem 08/26/2020 12:00:00 AM ED T [facility] B35.1 Onychomycosis Onychomycosis Problem 08/26/2020 12:00:00 AM EDT [facility] 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 Peripheral neuropathy due to type 2 diabetes mellitus Problem 08/26/2020 12:00: 00 AM EDT [facility] M20.40 Hammer toe Hammer toe Problem 08/26/2020 12:00:00 AM ED T [facility] M21.619 Bunion Bunion Problem 08/26/2020 12:00:00 AM ED T [facility] ([facility] Surgeries/Procedures Procedure Description Date Indications Data Source(s) DEBRIDEMENT NAIL ANY METHOD 03/04/2021 12:00:00 AM EDT [facility] ([facility] GLUC BLD GLUC MNTR DEV CLEARED FDA SPEC HOME USE <td>P OCT GLUCOSE</td><td>Routine</td><td>02/02/2021 4:49 PM EDT</td><td></td><td> </td> 02/02/2021 04:49:00 PM EDT [facility] XR CHEST PORTABLE <td>XR CHEST PORTABLE</td><t d>STAT</td><td>02/02/2021 4:34 PM EDT</td><td></td><td> </td> 02/02/2021 04:34:11 PM EDT [facility] FLUORO CENTRAL VENOUS ACCESS DEV PLACEMENT <td>XR OR F LUORO VENOUS ACCESS DEVICE</td><td>Routine</td><td>02/02/2021 4:19 PM EDT</td><td></td><td> </td> 02/02/2021 04:19:59 PM EDT [facility] GLUC BLD GLUC MNTR DEV CLEARED FDA SPEC HOME USE <td>P OCT GLUCOSE</td><td>Routine</td><td>02/02/2021 11:24 AM EDT</td><td></td><td> </td> 02/02/2021 11:24:00 AM EDT [facility] DEBRIDEMENT NAIL ANY METHOD 12/31/2020 12:00:00 AM EDT [facility] MRI BREAST BILATERAL W WO CONTRAST <td>MRI BREAST BILA TERAL W WO CONTRAST</td><td>Routine</td><td>12/17/2020 10:17 AM EDT</td><td> Malignant neoplasm of right breast in female, estrogen receptor positive, unspecified site of breast</td><td> </td> 12/17/2020 10:17:43 AM EDT Malignant neoplasm of right breast in fe male, estrogen receptor positive, unspecified site of breast [facility] Malignant neoplasm of right breast in fe male, estrogen receptor positive, unspecified site of breast Ultrasonography of breast (procedure) 11/10/2020 10:05 :00 AM [facility] Xray Lumbar spine complete 11/10/2020 10:02:00 AM [facility] Plain x-ray of pelvis and lower extremity (procedure) 11/10/2020 10:02:00 AM [facility] 3D DIG MAMMO DIAG DOUGIE 11/10/2020 09:33:00 AM [facility] DEBRIDEMENT NAIL ANY METHOD 10/22/2020 12:00:00 AM EDT [facility] PARING/CUTTING BENIGN HYPERKERATOTIC LESION 1 08/14/19 12:00:00 AM EST [facility] DEBRIDEMENT NAIL ANY METHOD 08/13/2020 12:00:00 AM EST [facility] OFFICE OUTPATIENT NEW 30 MINUTES 08/13/2020 12:00:00 A M EST [facility] Dual energy X-ray photon absorptiometry (procedure) 02/27/2020 02:07:00 PM [facility] Dual energy X-ray photon absorptiometry (procedure) 02/27/2020 02:07:00 PM [facility] Results ID Date Data Source [id number] 03/15/2021 01:44:00 PM [facility] Patient Name: CONSTANCE JAVED : 1945 Sex: F Pt Unit #: [id number] Location:[facility] Provider: Visit Date/Time: 03/15/21 Primary Insurance: [facility] Secondary Insurance: [facility]ICAID [place] [facility] Intake Vital Signs 03/15/21 13:47 03/15/21 14:20 Current Height 5 ft 6 in Current Weight 169 lb 4 oz Weight Measurement Method Standing Scale BMI 27.3 BP 158/70 118/60 Blood Pressure Location Lt brachial Lt brachial Position Sitting Sitting Respiration 18 Pulse 97 Pulse Source Pulse Oximeter Pulse Oximetry (%) 99 Oxygen Delivery Method room air Intake Visit Reasons: Diabetes Nurse Note: 75 year old female in for a diabetes follow up, voices no concerns. States she just had a double mastectomy in january and it has been one thing after another [employer] Required: No Accompanied by: Self / Same as Patient Is patient in pain?: Yes (chest from mastectomy) Pain scale (1-10): 3 Allergies pneumococcal 23-valent polysacchari [From Pneumovax 23] Allergy (Intermediate, Verified 02/28/21 14:53) Swelling and Pain in Arm No Known Food Allergies Allergy (Verified 02/28/21 14:53) vaccine adjuvant system, AS01B liposomal [From Shingrix (PF)] Adverse Reaction (Intermediate, Verified 02/28/21 14:53) ERYTHEMA/WARMTH/PAIN SURROUNDING INJECTION SITE varicella-zoster virus glycoprotein E, recombinant [From Shingrix (PF)] Adverse Reaction (Intermediate, Verified 02/28/21 14:53) ERYTHEMA/WARMTH/PAIN SURROUNDING INJECTION SITE atorvastatin Adverse Reaction (Verified 02/28/21 14:53) 2015-severe joint pain baclofen Adverse Reaction (Verified 02/28/21 14:53) MAKES TOO LETHARGIC GETS URINARY INCONTINENCE AT NIGHT enalapril Adverse Reaction (Verified 02/28/21 14:53) dry cough-10/2016 lisinopril Adverse Reaction (Verified 02/28/21 14:53) dry cough-2016 Medications - Last Reconciled 03/15/21 by MAGDI Kong albuterol sulfate 90 mcg/actuation (ProAir HFA) 1 - 2 puffs inhalation Q4HPRN ascorbic acid (vitamin C) (Vitamin C) 500 mg PO DAILY aspirin (Aspirin Low-Strength) 81 mg PO DAILY blood sugar diagnostic (Blood Glucose Test) generic store brand - test once daily blood-glucose meter As directed E11.9 - store brand blood-glucose meter supply generic store brand cholecalciferol (vitamin D3) 1,000 units PO QDAY clonidine APPLY ONE PATCH TRANSDERMAL EVERY WEEK FOR MENOPAUSE escitalopram oxalate 20 mg PO QDAY esomeprazole magnesium 20 mg PO DAILY fluticasone propionate 50 mcg/actuation 2 sprays intranasal QDAY lancets (Comfort Lancets) As directed E11.9 - store brand lancets generic store brand levothyroxine 125 mcg PO QDAY losartan TAKE 1 TABLET BY MOUTH EVERY DAY mecobalamin (vitamin B12) 1,000 mcg sublingual QDAY metformin TAKE 1 TABLET BY MOUTH TWICE DAILY naproxen TAKE 1 TABLET BY MOUTH TWICE DAILY NEEDED FOR PAIN niacin 1 tab PO HS nortriptyline (Pamelor) 10 mg PO QDAY rosuvastatin TAKE 1 TABLET BY MOUTH DAILY solifenacin (Vesicare) 10 mg PO DAILY tizanidine 4 mg PO TIDPRN umeclidinium-vilanterol 62.5-25 mcg/actuation (Anoro Ellipta) 1 inh inhalation QDAY HIV Testing Offer - ages 13-64 Requirement for HIV testing offer been met?: Patient reports past refusal Coronavirus Screening Screening Are you currently positive or on isolation for COVID ?: No Do you have any NEW signs of one or more of the following?: no symptoms Do you have NEW signs of at least two of the following?: no symptoms HPI Adult Diabetic Follow-Up 75yo female with PMH DM 2, hyperlipidemia, chronic anemia, CAD, GERD, COPD, recent RT breast CA s/p mastectomy here for f/u and to discuss lab results. Constance was last seen 11/09/2020, complained of RT breast pain, RT breast mass - referred to [place] - biopsy done showing breast CA - saw Dr. Mojica in [place]. Constance states she is doing okay. 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 Castillo - did not feel that she was interested/did not connect with her. Last appt - saw a traveling dr and prefers seeing him in the future. Waiting on authorization to start chemo. Then will have radiation. Does not have to f/u with [place] for 6months. Already has port placed. I have not received any oncology records as of yet. Has been doing PT for her chest d/t mastectomy. Daughter had bilateral mastectomy and started reconstruction surgery. She is doing well - sees [facility] in [place]. Constance was seen at [facility] d/t SOB and swelling in LE, given 1unit of RBC. I have not received records. DM 2 - currently on metformin 1000mg bid. Recent hga1c 6.7% - has not been checking glucose recently. Hyperlipidemia - currently on rosuvastatin 40mg daily. HDL 47, LDL 25, TG 112. Hypothyroidism - last o.v. decreased levothyroxine 112mcg daily. TSH 3.41, FT4 1.3 Has not noticed any change in energy/hair/skin. COPD - has been using anoro daily and has not had any wheezing/sob. Has not had to use alb inh Anemia - has been taking multivitamin daily and B12. Ferritin 27, B12 1267, folate 44.3 GERD - has not had any problems, taking esomeprazole 20mg daily. Saw Dr. Kapadia and started on clonidine patch, helping some with hot flashes. Has been more anxious. Has been taking escitalopram 20mg daily. BP has been elevated. Taking losartan 25mg daily for microalbuminuria. JAKE 7 score 11, PHQ 9 score 5 Type: type 2 Weight and fatigue symptoms: Denies weight loss Cardiopulmonary symptoms: Denies chest pain with activity, chest pain at rest, dyspnea, dyspnea on exertion, lightheadedness or dizziness GI symptoms: Denies increased hunger, early satiety, nausea/dyspepsia, vomiting, diarrhea or constipation Skin and extremity symptoms: Denies tingling/numbness/burning or foot ulcers Other symptoms: Denies blurry vision or depression Type(s) of exercise: none (NOT LATELY BUT PLANS TO START WALKING AGAIN) [facility] Medical History (Updated 03/15/21 @ 18:52 by Joaquina Layne RPA-C) Actinic keratosis Anemia Aortic valve insufficiency 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) Breast cancer in female Breast mass, right CAD (coronary artery disease), [place] coronary artery Chronic low back pain (09/05/17) COPD (chronic obstructive pulmonary disease) (02/28/18) Degeneration of lumbar intervertebral disc Dermatochalasis of both eyelids (12/25/17) Diabetes mellitus type 2, controlled, without complications Diabetes mellitus, without long-term current use of insulin Diverticulosis of colon without diverticulitis Dysarthria (09/05/17) Fibrocystic breast (02/07/18) Generalized anxiety disorder GERD without esophagitis Hiatal hernia History of measles History of transesophageal echocardiography (CHRIS) Hypercholesterolemia Hyperlipidemia Hypothyroidism (acquired) (09/09/14) Lichenoid dermatitis Lumbosacral spondylosis (09/05/17) Microalbuminuria Migraine Neuropathy Overactive bladder Sciatica Surgical menopause on hormone replacement therapy TIA (transient ischemic attack) (03/30/16) Vitamin D insufficiency Surgical History H/O bilateral mastectomy H/O endoscopy History of cardiac cath History of colonoscopy History of hysterectomy S/P skin biopsy Status post tonsillectomy Status post tubal ligation Family History Mother No problems noted. Father Heart disease Brother Diabetes mellitus, type 2 Heart disease Hyperlipidemia Hypertension Sister Heartburn COPD (chronic obstructive pulmonary disease) Hx of colonic polyps GERD (gastroesophageal reflux disease) Hypertension HUMBERTO (obstructive sleep apnea) Diabetes mellitus, type 2 Diabetes Esophageal dysmotility Heart disease Hyperlipidemia Diastolic dysfunction Right internal carotid artery aneurysm SON Hypertension Daughter Breast cancer Other Myocardial infarction Social History Does the Patient have a Healthcare Proxy: No Does Patient have a DNR?: No Does Patient have a Living Will?: No adopted: No household members: family housing: house marital status: number of children: 2 number of grandchildren: 3 highest educ ation level completed: high school graduate service: No current occupational status: retired pets and animals: Yes (1 DOG, 1CAT) pets and animals: dog(s) Hx Recent Travel (where): No sexually active: No current diet type/program: diabetic well-balanced diet: daily caffeine: Yes Type: coffee Number of servings: 1 high-fat food intake: 2 times daily daily servings fruits/ve or more times/day daily servings of milk/calcium: 2-4 eating out: 1-3 times/week reads food labels: seldom or never during the past year weight has: remained stable what type of physical activity do you participate in?: walking frequency: 5-6 times per week duration: < 15 minutes/day Smoking Status: Former smoker how long ago did patient quit smoking: QUIT 1995 alcohol intake: current alcohol intake frequency: holidays/special occasions only substance use type: does not use laci/methodist: Holiness special laci needs: No agree to transfusion: Yes seatbelt use: always drive intox or ride w/ intox transport driver: No water heater temp set < 120 deg: Yes working smoke detector in home: Yes fire extinguisher in home: Yes carbon monox detector in home: Yes firearms in home: No do you feel safe at home: Yes victim of physical abuse: No victim of emotional abuse: No victim of sexual abuse: No would you like helpful sources: No Female Reproductive History Menstrual Age of Menarche: 16 control method: permanent sterilization Menopause type: surgical Total pregnancies: 3 Ab spontaneous: 1 (MAB) Review of Systems Const Denies chills, Denies fever(s), Denies headache(s), Denies poor appetite (not as hungry) and Denies weight loss Eyes Denies blurry vision and Denies diplopia ENT Denies dizziness and Denies headache(s) Card Denies chest pain, Denies chest pain at rest, Denies chest pain with activity, Denies syncope, Denies lightheadedness, Denies palpitations, Denies dyspnea and Denies dyspnea on exertion Resp Denies cough, Denies dyspnea, Denies dyspnea on exertion and Denies wheezing GI Denies abdominal pain, Denies constipation, Denies early satiety, Denies heartburn, Denies diarrhea,Denies nausea and Denies vomiting Musc Reports back pain (HAS BEEN OKAY) Neuro Denies dizziness, Denies syncope and Denies headache(s) Psych Reports abnormal sleep pattern ( TROUBLE FALLING ASLEEP), Reports anxiety, Reports change in appetite(DECREASED), Denies depression, Reports difficulty concentrating, Denies auditory hallucinations, Reports irritability (SOMETIMES), Denies panic attacks, Denies visual hallucinations and Denies suicidal ideation Endo Denies palpitations Aller/Immun Denies wheezing Exam Const General: cooperative, healthy appearing, comfortable, no acute distress, well developed and well groomed Nutritional Appearance: overweight [facility] General nose exam: no nasal discharge Mouth: oral mucosae normal, oropharynx normal and moist mucous membranes Eyes Eyelids: no eyelid abnormalities Conjunctivae: normal conjunctivae Sclera: normal sclerae EOM: EOM intact bilaterally Neck Neck: no lymphadenopathy, trachea midline and supple Thyroid: thyroid normal Carotids: no bruits Resp Effort Inspection: normal respiratory effort Auscultation: clear to auscultation bilaterally, no crackles, lung sounds not diminished, no rhonchiand no wheezes Cardio Jugular venous pressure: no JVD Rhythm: regular rhythm Heart Sounds: S1 normal, S2 normal and murmur (radiates to carotid) Pulses: dorsalis pedis present bilaterally Negative for not diminished GI Palpation: soft, not firm, no guarding, not rigid and nontender Auscultation: normal bowel sounds Skin Lesions: no lesions Rashes: no rashes Hair: normal Nails: normal Neuro General: moves all extremities Cranial Nerves: CN's II-XII intact bilaterally Extrem General: no clubbing, no cyanosis and no edema Psych Appearance: grossly normal Mental Status: mental status grossly normal Speech and Movement: speech and movement normal Mood: anxious mood Affect: normal affect Attitude: cooperative Thought Process: normal Thought Content: normal Insight: insight good Judgment: judgment good Assessment Plan Assessment Plan (1) Diabetes mellitus with microalbuminuria, without long- term current use of insulin: Code(s): E11.29 - Type 2 diabetes mellitus with other diabetic kidney complication; R80.9 - Proteinuria, unspecified Qualifiers: Diabetes mellitus type: type 2 Qualified Code(s): E11.29 - Type 2 diabetes mellitus with other diabetic kidney complication; R80.9 - Proteinuria, unspecified Plan: Discussed lab results, hga1c 6.7% Continue increased protein/veg intake, decreased carbs. Plans to start walking again regularly. Encouraged to check glucose regularly. Recheck hga1c 3months. Microalb also ordered. (2) Generalized anxiety disorder: Status: Chronic Code(s): F41.1 - Generalized anxiety disorder SNOMED Code(s): 89770143 Category: Medical Plan: Taper off escitalopram. Advised 10mg x 3days then stop. Start duloxetine 30mg daily - has taken previously. Constance also having hot flashes and Constance was previously on duloxetine for this. I advised Constance to call if she feels it needs to be increased as she was on 60mg previously. Discussed possible side effects. (3) Hypercholesterolemia: Status: Chronic Code(s): E78.00 - Pure hypercholesterolemia, unspecified SNOMED Code(s): 88181078 Category: Medical Plan: Discussed lab results. Stable on rosuvastatin 40mg daily. Encouraged decreased saturated fats and encouraged to resume regular physical exercise. Recheck cmp and lipids 3months. (4) Hypothyroidism (acquired): Status: Chronic Onset Date: 09/09/14 Code(s): E03.9 - Hypothyroidism, unspecified SNOMED Code(s): 608263468 Category: Medical Plan: Discussed lab results. Stable on levothyroxine 112mcg daily. Plan: Sign release to obtain oncology records and [facility] ER report. Refused flu vaccine. F/u 3months with labs prior to appt or sooner if needed. Advised to call if any concerns or s/s develop. Orders: Orders CMP 3 Months E11.29 - Type 2 diabetes mellitus with other diabetic kidney complication, R80.9 - Proteinuria, unspecified LIPID PANEL 3 Months E11.29 - Type 2 diabetes mellitus with other diabetic kidney complication, R80.9 - Proteinuria, unspecified HGBA1C + EAG 3 Months E11.29 - Type 2 diabetes mellitus with other diabetic kidney complication, R80.9 - Proteinuria, unspecified Microalbumin/Creat Ratio - ACR 3 Months E11.29 - Type 2 diabetes mellitus with other diabetic kidneycomplication, R80.9 - Proteinuria, unspecified Medications: New duloxetine 30 mg PO QDAY 30 caps 2RF F41.1 - Generalized anxiety disorder Discontinued escitalopram oxalate Discontinued Reason: Order 20 mg PO QDAY 90 tabs 2RF N95.1 - Menopausal and female climacteric states Coding Level of Care Code 30388 Est Pt Extended Comp Diagnoses Diabetes mellitus with microalbuminuria, without long-term current use of insulin E11.29; R80.9 Diabetes mellitus type: type 2 Generalized anxiety disorder F41.1 Hypercholesterolemia E78.00 Hypothyroidism (acquired) E03.9 Additional Codes Intake - Is patient in pain?: Yes (7125F) <Electronically signed by Joaquina Layne RPA C> 03/15/21 1786 Name Value Range Interpretation Code Description Data Nicolasa rce(s) Supporting Document(s) ID Date Data Source [id number] 03/02/2021 10:25:00 AM EDT [facility] Name Value Range Interpretation Code Description Data Nicolasa rce(s) Supporting Document(s) Leukocytes [#/volume] in Blood by Automated count 6.6 10*3/uL 4.45-10 .71 N [facility] Erythrocytes [#/volume] in Blood by Automated count 3.59 10*6/uL 4.20-5.40 Below low normal [facility] Hemoglobin [Moles/volume] in Blood 10.3 g/dL 10.7-15.4 Below low no rmal [facility] Hematocrit [Volume Fraction] of Blood by Automated count 31.7 % 37-47 Below low normal [facility] Erythrocyte mean corpuscular volume [Ent itic volume] in Cord blood by Automated count 88 fL 80-96 N [facility] ital Erythrocyte mean corpuscular hemoglobin [Entitic mass] by Au tomated count 29 pg 27-31 N [facility] Erythrocyte mean corpuscular hemoglobin concentration [Mass/volume] in Cord blood 33 g/dL 33-37 N [facility] ital Erythrocyte distribution width [Entitic volume] by Automated count 13 % 11-15 N [facility] Platelets [#/volume] in Blood by Automated count 284 10*3/uL 130-472 N [facility] Platelet mean volume [Entitic volume] in Blood 9.6 fL 9.1-13.1 N [facility] Neutrophils/100 leukocytes in Blood by Automated count 74.2 % 41- 77 N [facility] Neutrophils [#/volume] in Blood by Automated count 4.9 U 1.7-7.6 N [facility] Lymphocytes/100 leukocytes in Blood by Automated count 15.9 % 14- 46 N [facility] Lymphocytes [#/volume] in Blood by Automated count 1.1 U 0.6-4.6 N [facility] Monocytes/100 leukocytes in Blood by Automated count 7.0 % 4-12 N [facility] Monocytes [#/volume] in Blood by Automated count 0.5 U 0.2-1.2 N [facility] Eosinophils/100 leukocytes in Blood by Automated count 1.5 % 0-7 N [facility] Eosinophils [#/volume] in Blood by Automated count 0.1 U 0.0-0.5 N [facility] Basophils/100 leukocytes in Blood by Automated count 0.9 % 0.4-1 .3 N [facility] Basophils [#/volume] in Blood by Automated count 0.1 U 0.0-0.2 N [facility] NUCLEATED RED BLOOD CELL 0 % [facility] NUCLEATED RED BLOOD CELL# 0 U [facility] Immature granulocytes [Presence] in Blood by Automated count 0-2 N [facility] Immature granulocytes [#/volume] in Blood by Automated count 0.0 U 0-0.1 N [facility] Manual Differential panel - Blood NO [facility] ID Date Data Source [id number] 03/02/2021 10:52:00 AM EDT [facility] Name Value Range Interpretation Code Description Data Nicolasa rce(s) Supporting Document(s) Hemoglobin A1c [Mass/volume] in Blood 6.7 % 3.8-5.6 Above hig h normal [facility] The following ranges may be u sed for interpretation of results: HGBA1C degree of glucose control: Greater than 8%: Action Suggested * Less than 7%: Goal of Diabetic Therapy Less than 5.6%: NormalFactors such as duration of diabetes, adherence to therapyand the age of the patient should also be considered inassessing the degree of blood glucose control.* High risk of developing supervisor intermediates complications such asretinopathy, nephropathy, neuropathy, cardiopathy, etc. Some danger of hypoglycemic reaction in Type I diabetics.Some glucose intolerant individuals and "Sub Clinical"diabetics may demonstrate HGBA1C levels in this area. Glucose mean value [Moles/volume] in Blood Estimated f rom glycated hemoglobin 146 mg/dL [facility] l An A1C of 7% - the goal of diabetic ther apy - is equivalentto an EAG of 154 mg/dl. ID Date Data Source [id number] 03/02/2021 11:32:00 AM EDT [facility] Name Value Range Interpretation Code Description Data Nicolasa rce(s) Supporting Document(s) Vitamin B12 1267 pg/mL 211-911 Above high normal [facility] ID Date Data Source [id number] 03/02/2021 11:41:00 AM EDT [facility] Name Value Range Interpretation Code Description Data Nicolasa rce(s) Supporting Document(s) Urea nitrogen [Mass/volume] in Serum or Plasma 20 mg/dL 9-23 N [facility] Sodium [Moles/volume] in Serum or Plasma 139 mmol/L 132-146 N [facility] Potassium [Moles/volume] in Serum or Plasma 5.1 mmol/L 3.5-5.5 N [facility] Chloride [Moles/volume] in Serum or Plasma 107 mmol/L 99-109 N [facility] Carbon dioxide, total [Moles/volume] in Serum or Plasma 29 mmol/L 20 -31 N [facility] Anion gap in Serum or Plasma 8 mmol/L 8-16 N [facility] Glucose [Mass/volume] in Serum or Plasma 181 mg/dL 74-106 Above high normal [facility] Creatinine 1.1 mg/dL 0.5-1.1 N [facility] Glomerular filtration rate/1.73 sq M.pre dicted [Volume Rate/Area] in Serum or Plasma 49 ml/min ABOVE 60 [facility] ital Alanine aminotransferase [Enzymatic acti vity/volume] in Serum or Plasma by With P-5'-P 19 U/L 10-49 [facility] ital Aspartate aminotransferase [Enzymatic ac tivity/volume] in Serum or Plasma by With P-5'-P 14 U/L 0-33 [facility] pital Alkaline phosphatase [Enzymatic activity/volume] in Serum or Plasma 78 U/L 45-129 N [facility] Calcium [Mass/volume] in Serum or Plasma 8.9 mg/dL 8.5-10.1 [facility] Bilirubin.total [Mass/volume] in Serum or Plasma 0.4 mg/dL 0.3-1.2 [facility] Albumin [Mass/volume] in Serum or Plasma by Bromocresol purple (BCP) dye binding method 3.5 g/dL 3.2-4.8 [facility] ital Protein [Mass/volume] in Serum or Plasma 6.7 g/dL 5.7-8.2 [facility] ID Date Data Source [id number] 03/02/2021 11:41:00 AM EDT [facility] Name Value Range Interpretation Code Description Data Nicolasa rce(s) Supporting Document(s) Triglycerides 112 mg/dL 0-150 N [facility] Cholesterol 94 mg/dL 120-200 Below low normal [facility] HDL Cholesterol 47 mg/dL [facility] HDL Less than 40 mg/dL: Major risk for CHDHDL Greater than 59 mg/dL: Low risk for CHD LDL Cholesterol, Calc 25 mg/dL 0-100 N [facility] ID Date Data Source [id number] 03/02/2021 11:41:00 AM [facility] Value Range Interpretation Code Description Data Nicolasa rce(s) Supporting Document(s) Iron [Mass/volume] in Serum or Plasma 52 ug/dL 50-170 N [facility] Iron values may be falsely elevated in s ailin samples frompatients treated with anticoagulants (e.g., hemodialysispatients) ID Date Data Source [id number] 03/02/2021 11:41:00 AM [facility] Value Range Interpretation Code Description Data Nicolasa rce(s) Supporting Document(s) Folate [Mass/volume] in Serum or Plasma 44.3 ng/mL [facility] @Instrument will autodilute FOLATE INTERPRETATION NORMAL: GREATER THAN 5.38 INDETERMINATE: 3.38 - 5.38 DEFICIENT: LESS THAN 3.37 ID Date Data Source [id number] 03/02/2021 11:41:00 AM [facility] Value Range Interpretation Code Description Data Nicolasa rce(s) Supporting Document(s) Ferritin [Mass/volume] in Serum or Plasma 27 ng/mL 10-291 N [facility] ID Date Data Source [id number] 03/02/2021 11:41:00 AM [facility] Value Range Interpretation Code Description Data Nicolasa rce(s) Supporting Document(s) Thyroxine (T4) free [Mass/volume] in Serum or Plasma 1.30 ng/dL 0.89- 1.76 [facility] ID Date Data Source [id number] 03/02/2021 11:41:00 AM [facility] Value Range Interpretation Code Description Data Nicolasa rce(s) Supporting Document(s) Thyrotropin [Units/volume] in Serum or Plasma by Detec tion limit <= 0.005 mIU/L 3.41 u[iU]/mL 0.35-5.50 N [facility] ID Date Data Source [id number] 03/01/2021 12:10:41 PM EDT [facility] Name Value Range Interpretation Code Description Data Nicolasa rce(s) Supporting Document(s) &PDF [facility] ZXHIMj3aHiPYTyNi47/MDCzkZFDmk2UsFSihNAa3DYwvJRVxW0MsyWyaRO3YNryJFPHpNPJZDUAENV1t oRX [file] ICAgICAgICAgICAgICAgICAgICAgICAgICAgICAgIC AgICAgICAgICAgICAgICAgICAgICANCiAgICAgICAgICAgICAgICAgICAgICAgICAgICAgICAgICAgIC AgICAgICAgICAgICAgICAgICAgICAgICAgICAgICAgICAgICAgICAgICAgICAgICAgICAgICAgICAgIC AgICANCiAgICAgICAgICAgICAgICAgICAgICAgICAg ICAgICAgICAgICAgICAgICAgICAgICAgICAgICAgICAgICAgICAgICAgICAgICAgICAgICAgICAgICAg ICAgICAgICAgICAgICANCiAgICAgICAgICAgICAgICAgICAgICAgICAgICAgICAgICAgICAgICAgICAg ICAgICAgICAgICAgICAgICAgICAgICAgICAgICAgIC AgICAgICAgICAgICAgICAgICAgICAgICANCiAgICAgICAgICAgICAgICAgICAgICAgICAgICAgICAgIC AgICAgICAgICAgICAgICAgICAgICAgICAgICAgICAgICAgICAgICAgICAgICAgICAgICAgICAgICAgIC AgICAgICANCiAgICAgICAgICAgICAgICAgICAgICAg ICAgICAgICAgICAgICAgICAgICAgICAgICAgICAgICAgICAgICAgICAgICAgICAgICAgICAgICAgICAg ICAgICAgICAgICAgICAgICANCiAgICAgICAgICAgICAgICAgICAgICAgICAgICAgICAgICAgICAgICAg ICAgICAgICAgICAgICAgICAgICAgICAgICAgICAgIC AgICAgICAgICAgICAgICAgICAgICAgICAgICANCiAgICAgICAgICAgICAgICAgICAgICAgICAgICAgIC AgICAgICAgICAgICAgICAgICAgICAgICAgICAgICAgICAgICAgICAgICAgICAgICAgICAgICAgICAgIC AgICAgICAgICANCiAgICAgICAgICAgICAgICAgICAg ICAgICAgICAgICAgICAgICAgICAgICAgICAgICAgICAgICAgICAgICAgICAgICAgICAgICAgICAgICAg ICAgICAgICAgICAgICAgICAgICANCiAgICAgICAgICAgICAgICAgICAgICAgICAgICAgICAgICAgICAg ICAgICAgICAgICAgICAgICAgICAgICAgICAgICAgIC AgICAgICAgICAgICAgICAgICAgICAgICAgICAgICANCjw/mCDqO6cjoAQmqqA7Y3hzCu8RWf3WXH1yv0 LkCGAtHYbfnoYyAxmZFlHgYVVsWhlIVhn8CBclBX9WsXUaP3YoW6GyGMfdAW5BIJCgNAFqsUUeGKXvHE UxXpE2SVPkUXgzCD8GrYYzCRyvHMCpIBSkIeAxIVSz BTLpPJNbIMJrSLJKCX3ZHyJtA3JxfA70BEFJHh9+JZtjalNeGacGDgRzRDKmf4NpCAl2SB5FYQPwRIot TE5QDWMfeR5oEMynVS0LLsY1SHGbXXXVTzGrY70erIVvYYa0Z3ShDjUqLAXyNsyyFCXbHBfxKuOsYBAe WyBdDQogID4+ID4+FQzxBF3IDOhdxiBgYPYbSh9SUL UgRNO6OOEybIYrLCUyGZPSVNpwQL5OtUYcALB3hI5wMNqvPSInPRCuW4zVCuYyfQvlMK56lWkiorTnjY BdDQo+Sc8BLZ4bj9IxUTh7cyDzPVclSYEuTNwpBFZyUWZbYIXjIAS2ZTZ5LIWVGkNiFILjPXMhREdtGI KnYXKstr4BSQOdPAS5EKXjXCWyRKYvEWEvPMmvSIVg UPLrZLPeJMTnJFJeQE6QAfJkCMIrDSWlJIRlVKKbUJMrbp2KZAShSNRhUkE6EONxUQTvGQYcKAtzHYWh PJVqOlO1TPVfBHBuDQ4RKoEyBPEnFYI9AtTeAFVvGXUvvi3DFZFxEWIkVEExKASgTVDzBLAnNRgkQMUh FDB0KQk2ISXcUGFpYZ0YLyTqNHNyLCs6NFQeRLRnEH Hbdq9DBBIkKUBcXGxhDtZgEKQkBYWiWYnrZXKiNAT6RHK8ONJvKYClIL3JBwFpZZTmLMi8QRebPBGcCT Ibvr3HEVImYUIhJBW0HyEkJJPbYJHhALpwPGUoABHqHzr1EYYmDISkCK7VMpXpIZKfMPAnNcqhVWSoTI Dmcv3YQTIqURQcZUA9MXAcRISkTWGdQGloCHHaKSUv OcL7OUVxBDExTN5OOzBfVQFrTVG0ZVQhCNFpXIPold8GDDEoARYfYvf7DECtSYQsBYYwZQmkKTMtZVBw YOF7KHXfMKXgIX0GVqCmFSPfNHA1BdexNYHzIYFjvy4HCYPfRUWqMDWgYSHoPQRrELNrGVxrKTDrPRC0 QdYtZXJaWGPyVT2ESiQsDYHtTJL2KBYbUWUnWNUnvm 2ODLLmMNMvSyncBOLuTFEvIKKpDDaiAAKdSBP7HGL8KFWvWRZpIV0OCaIpHMStVlB0TFKyRIXoLMMrnl 9LHBQtCZOnVRGrCERvRLZaHBUeLIjwWAIkGHH4FWicMGCwJBZtSC6ZLwUzPSTeIdi5XubsYFCoYHLrdy 3LGLMmTJYhLcZoJXZsARMkDXHkUIjzQSYcHYP8RQR8 GQZmSQHiAI2NNfPzGVRbMpnzOhUqFNOoNJTqxi8BBEGyJTX3SrQwFZYfCIKqPEKbQRnzDKUkJBV4QhMo VVEeQTIoXY5BRjVjAVPeEZdpOqPwXHYkAJUltv1IPCVqTXE5JmO2SzLnFCWzRIQpCOcsSBUcOIA7XEF7 SGOzDHLxPD8VTqApPRMzPYsrTQcwHFUeIRVzlo3KXI ZaPKA7CAS8WqScWJIfASYwOPrpVKYySXQzWYR8IRHrRETmFE5NCuLdBRoyDAWBTjb5CKuwD0g5KYX9Tc 8WU6Dua7SfYGPmUUEMWMnmDV1yshSdXAFcPo4HS2cNLne2ERGvWvEwGHI8FFV0KJpaV3I3SCV2BeFwMr AhWVbjLd7gUER7GTLjRVEnADZkITQ2UWPcQoR3Qhyw LXMuXjW6ABG1DzFhUU3LLx9PCeW3STR0jTJmIw9MYdK9SfHQCyZwZW8VHFv= ID Date Data Source [id number] 02/28/2021 01:54:00 PM EDT [facility] Patient Name: CONSTANCE JAVED : 1945 Sex: F Pt Unit #: [id number] Location[facility] Provider: Visit Date/Time: 02/28/21 Primary Insurance: [facility] Secondary Insurance: MEDICAID [place] [facility] Intake Vital Signs 02/28/21 13:55 Current Height 5 ft 6 in Current Weight 170 lb 8 oz Weight Measurement Method Standing Scale BMI 27.5 BP 154/56 Blood Pressure Location Rt brachial Position Sitting Respiration 16 Pulse 78 Pulse Strength Normal Pulse Source Pulse Oximeter Temp 97 F L Temp Source Tympanic Pulse Oximetry (%) 97 Oxygen Delivery Method room air 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 SHE IS A . PT REPORTS MEDICAL HX CHANGES SINCE LAST EXAM. SHE STATES THAT SHE DID HAVE BL MASTECTOMIES 02/02/21 AT [facility] FOR RT BREAST CANCER ESTROGEN POSITIVE. SHE STATES THAT SHE STOPPED HER E2 REPLACEMENT WHEN SHE WAS DX. PT DOES HAVE A LTSUB CLAVICULAR PORT. SHE IS STATING HER MENOPAUSE SX'S ARE TERRIBLE BUT TRYING TO MANAGE. SHE IS HAVING NIGHT SWEATS AND HOT FLASHES. SHE STATES THAT SHE IS GOING TO POSSIBLY DO CHEMO AND RADIATION BUT IS WAITING ON DR TO LET HER KNOW SINCE PATHOLOGY. SHE DID HAVE A SENTINEL NODES THAT WHERE ALSO POSITIVE . SHE WILL GO BACK IN 2 WEEKS FOR FOLLOW UP . SHE STATES THAT LAST WEEK SHE HAD SOME DIFFICULTY BREATHING AND WAS SEEN AT [facility] AND WAS TOLD SHE NEEDED A BLOOD TRANSFUSION. SHE STATES THAT SHE IS FEELING A BIT BETTER NOW SINCE BUT IS AWAITING WHAT HER OPTIONS ARE. SHE STATES THAT SHE IS HEALING WELL SINCE THE SURGERY . HER DAUGHTER DAUGHTER WAS DX JUST PRIOR TO HERS. SHE STATES THAT SHE HAS NOT HAD ANY GENES CHECKED FOR BREAST CANCER. SHE HAS HAD A COLONOSCOPY IN PAST NEXT DUE 2023 . SHE DID GET THE COVID VACCINE MODERNA. SHE DID HAVE COVID IN JULY. SHE HAS A COPY FOR DR KAPADIA'S RECORD ON HER PATH REPORT FROM HER DR'S AT [facility] TODAY . Upscale Security Officer Required: No Accompanied by: Self / Same as Patient Is patient in pain?: No Allergies pneumococcal 23-valent polysacchari [From Pneumovax 23] Allergy (Intermediate, Verified 02/28/21 14:53) Swelling and Pain in Arm No Known Food Allergies Allergy (Verified 02/28/21 14:53) vaccine adjuvant system, AS01B liposomal [From Shingrix (PF)] Adverse Reaction (Intermediate, Verified 02/28/21 14:53) ERYTHEMA/WARMTH/PAIN SURROUNDING INJECTION SITE varicella-zoster virus glycoprotein E, recombinant [From Shingrix (PF)] Adverse Reaction (Intermediate, Verified 02/28/21 14:53) ERYTHEMA/WARMTH/PAIN SURROUNDING INJECTION SITE atorvastatin Adverse Reaction (Verified 02/28/21 14:53) 2015-severe joint pain baclofen Adverse Reaction (Verified 02/28/21 14:53) MAKES TOO LETHARGIC GETS URINARY INCONTINENCE AT NIGHT enalapril Adverse Reaction (Verified 02/28/21 14:53) dry cough-10/2016 lisinopril Adverse Reaction (Verified 02/28/21 14:53) dry cough-2016 Medications - Last Reconciled 02/28/21 by Ernesto Kapadia II, MD albuterol sulfate 90 mcg/actuation (ProAir HFA) 1 - 2 puffs inhalation Q4HPRN ascorbic acid (vitamin C) (Vitamin C) 500 mg PO DAILY aspirin (Aspirin Low-Strength) 81 mg PO DAILY blood sugar diagnostic (Blood Glucose Test) generic store brand - test once daily blood-glucose meter As directed E11.9 - store brand blood-glucose meter supply generic store brand cholecalciferol (vitamin D3) 1,000 units PO QDAY escitalopram oxalate 20 mg PO QDAY esomeprazole magnesium 20 mg PO DAILY fluticasone propionate 50 mcg/actuation 2 sprays intranasal QDAY lancets (Comfort Lancets) As directed E11.9 - store brand lancets generic store brand levothyroxine 125 mcg PO QDAY losartan TAKE 1 TABLET BY MOUTH EVERY DAY mecobalamin (vitamin B12) 1,000 mcg sublingual QDAY metformin TAKE 1 TABLET BY MOUTH TWICE DAILY naproxen TAKE 1 TABLET BY MOUTH TWICE DAILY NEEDED FOR PAIN niacin 1 tab PO HS nortriptyline (Pamelor) 10 mg PO QDAY rosuvastatin TAKE 1 TABLET BY MOUTH DAILY solifenacin (Vesicare) 10 mg PO DAILY tizanidine 4 mg PO TIDPRN umeclidinium-vilanterol 62.5-25 mcg/actuation (Anoro Ellipta) 1 inh inhalation QDAY Is last menstrual period known: Yes Post menopausal: Yes Patient : No Fall Risk Ambulatory Aid:: None Gait/Transferring:: Normal HIV Testing Offer - ages 13-64 Requirement for HIV testing offer been met?: Patient reports past refusal Do you need a note to return Do you need a note to return to daycare/school/sports/work: No Coronavirus Screening Screening Are you currently positive or on isolation for COVID ?: No Do you have any NEW signs of one or more of the following?: no symptoms Do you have NEW signs of at least two of the following?: no symptoms 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 History Menstrual History Hx Age of Menarche: 16 Perimenopause/Menopause Menopause type: surgical Menopause concerns/symptoms: Reports hot flashes (NIGHT SWEATS) and vaginal dryness Urogynecologic symptoms: Reports leakage with cough/sneeze/laugh and urinary urgency Contraception control method: permanent sterilization Cervical and Vaginal Cytology STD Screening: No Data to Display History History 3 Number of Living Children 2 Hx # Term Pregnancies 2 Hx # Pregnancies Hx Total # of Abortions (Spontaneous Elective) Ectopic pregnancies PFSH Medical History (Updated 02/28/21 @ 18:30 by Ernesto Kapadia II, MD) Actinic keratosis Anemia Aortic valve insufficiency 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) Breast mass, right CAD (coronary artery disease), [place] coronary artery Chronic low back pain (09/05/17) COPD (chronic obstructive pulmonary disease) (02/28/18) Degeneration of lumbar intervertebral disc Dermatochalasis of both eyelids (12/25/17) Diabetes mellitus type 2, controlled, without complications Diabetes mellitus, without long-term current use of insulin Diverticulosis of colon without diverticulitis Dysarthria (09/05/17) Fibrocystic breast (02/07/18) GERD without esophagitis Hiatal hernia History of measles History of transesophageal echocardiography (CHRIS) Hypercholesterolemia Hyperlipidemia Hypothyroidism (acquired) (09/09/14) Lichenoid dermatitis Lumbosacral spondylosis (09/05/17) Microalbuminuria Migraine Neuropathy Overactive bladder Sciatica Surgical menopause on hormone replacement therapy TIA (transient ischemic attack) (03/30/16) Vitamin D insufficiency Surgical History H/O bilateral mastectomy H/O endoscopy History of cardiac cath History of colonoscopy History of hysterectomy S/P skin biopsy Status post tonsillectomy Status post tubal ligation Family History Mother No problems noted. Father Heart disease Brother Diabetes mellitus, type 2 Heart disease Hyperlipidemia Hypertension Sister Heartburn COPD (chronic obstructive pulmonary disease) Hx of colonic polyps GERD (gastroesophageal reflux disease) Hypertension HUMBERTO (obstructive sleep apnea) Diabetes mellitus, type 2 Diabetes Esophageal dysmotility Heart disease Hyperlipidemia Diastolic dysfunction Right internal carotid artery aneurysm SON Hypertension Daughter Breast cancer Other Myocardial infarction Social History Does the Patient have a Healthcare Proxy: No Does Patient have a DNR?: No Does Patient have a Living Will?: No adopted: No household members: family housing: house marital status: number of children: 2 number of grandchildren: 3 highest education level completed: high school graduate service: No current occupational status: retired pets and animals: Yes (1 DOG, 1CAT) pets and animals: dog(s) Hx Recent Travel (where): No sexually active: No current diet type/program: diabetic well- balanced diet: daily caffeine: Yes Type: coffee Number of servings: 1 high-fat food intake: 2 times daily daily servings fruits/ve or more times/day daily servings of milk/calcium: 2-4 eating out: 1-3 times/week reads food labels: seldom or never during the past year weight has: remained stable what type of physical activity do you participate in?: walking frequency: 5-6 times per week duration: < 15 minutes/day Smoking Status: Former smoker how long ago did patient quit smoking: QUIT 1995 alcohol intake: current alcohol intake frequency: holidays/special occasions only substance use type: does not use laci/methodist: Holiness special laci needs: No agree to transfusion: Yes seatbelt use: always drive intox or ride w/ intox transport driver: No water heater temp set < 120 deg: Yes working smoke detector in home: Yes fire extinguisher in home: Yes carbon monox detector in home: Yes firearms in home: No do you feel safe at home: Yes victim of physical abuse: No victim of emotional abuse: No victim of sexual abuse: No would you like helpful sources: No Sickle cell Sickle Cell Screening:: Not indicated Female Reproductive History Menstrual Age of Menarche: 16 control method: permanent sterilization Menopause type: surgical Total pregnancies: 3 Ab spontaneous: 1 (MAB) HPI Additional HPI HPI Details: Patient has had 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, sentinal node was + so has a port left subclavicular area for probable chemo 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 Exam s/p bilateral mastectomy for breast cancer pending chemo / RT.Symptomatic menopause Urogynecologic symptoms: Reports leakage with cough/sneeze/laugh and urinary urgency Menopause concerns/symptoms: Reports hot flashes (NIGHT SWEATS) and vaginal dryness Review of Systems Const All systems reviewed are unremarkable except as noted in HPI and below Reports as per HPI, Reports system reviewed and no additional complaints, except as documented, Denies difficulty sleeping, Reports fatigue, Denies headache(s), Reports night sweats, Denies weightgain, Denies weight loss and Reports other (anemia had transfusion at [facility]) Eyes Reports as per HPI, Reports system re viewed and no additional complaints, except as documented, Denies change in vision, Denies loss of vision and Reports requires corrective lenses ENT Reports system reviewed and no additional complaints, except as documented, Reports as per HPI, Denies change in voice, Denies vertigo, Denies dizziness, Denies headache(s) and Reports hearing loss Card Reports as per HPI, Reports system reviewed and no additional complaints, except as documented, Denies chest pain, Denies irregular heart rhythm and Reports dyspnea (improved somewhat since transfusion) Resp Reports as per HPI, Reports system reviewed and no additional complaints, except as documented and Reports dyspnea (improved somewhat since transfusion) GI Reports as per HPI, Reports system reviewed and no additional complaints, except as documented, Denies abdominal pain, Denies change in bowel habits (does have a history of Diverticulosis), Denies constipation, Denies nausea and Denies vomiting Genitourinary: Reports amenorrhea, hot flashes (NIGHT SWEATS), urinary frequency, urinary incontinence, urinary urgency and vaginal dryness; Denies nipple discharge (s/p bilateral mastectomy) Musc Reports system reviewed and no additional complaints, except as documented and Reports as per HPI Skin/Breast Reports system reviewed and no additional complaints, except as documented, Reports as per HPI, Denies acne, Denies breast mass, Denies change in breast shape, Denies change in hair and Denies nipple discharge (s/p bilateral mastectomy) Neuro Reports system reviewed and no additional complaints, except as documented, Reports as per HPI, Denies behavioral changes, Denies vertigo, Denies dizziness, Denies headache(s) and Denies loss of vision Psych Reports system reviewed and no additional complaints, except as documented, Reports as per HPI, Denies anxiety and Denies behavioral changes Endo Reports system reviewed and no additional complaints, except as documented, Reports as per HPI and Reports fatigue Oskar/Lymph Repo rts system reviewed and no additional complaints, except as documented, Reports as per HPI, Reports easy bleeding, Reports easy bruising and Reports other (anemia requiring transfusion) Aller/Immun Reports system reviewed and no additional complaints, except as documented and Reports as per HPI Exam Const General: cooperative, comfortable, no acute distress, well groomed, frail appearing and well hydrated Nutritional Appearance: average body habitus and overweight Orientation: alert, awake and oriented x3 HENMT Head: normal to inspection and no palpable skull fracture Ears: hearing grossly normal bilaterally and external ears normal Other: mask on due to Covid Eyes General: appearance normal, both eyes and all related structures (wearing glasses) Alignment and Position: alignment normal Periorbital: periorbital findings normal Eyelids: eyelids normal Conjunctivae: conjunctivae normal Sclera: sclerae normal Pupils: PERRL EOM: EOM intact bilaterally Neck Neck: normal visual inspection, full ROM, no lymphadenopathy, no meningeal signs, trachea midline and supple Neck mass: No Thyroid: thyroid normal Lymphatic: no lymphadenopathy noted Chest Chest: abnormal inspection of the chest (scar from bilateral mastectomy and port on left) Breast/Axilla Inspection: abnormal inspection of the axilla and abnormal inspection of the breast (bilateral mastectomy) Resp Effort Inspection: normal respiratory effort and able to speak in complete sentences Auscultation: clear to auscultation bilaterally Percussion: percussion normal Cardio Rate: regular rate Rhythm: regular rhythm GI Inspection: Yes normal to inspection, No edema, No abdominal distension and Yes scar Palpation: soft Percussion: normal to percussion Auscultation: normal bowel sounds Rectal Exam - Female: Yes visual inspection normal and Yes normal sphincter tone Rectal Exam - Female: visual inspection normal, normal sphincter tone and anal wink reflex intact General: bladder normal to inspection and bladder normal to palpation External Female Exam: normal external appearance and other (atrophic changes) Bimanual Exam- Vagina Uterus: bladder normal to palpation Musc Cervical Spine: normal cervical lordosis and cervical ROM normal Thoracic/Lumbar Spine: thoracic and lumbar spine normal to inspection, kyphosis and no masses Skin Lesions: no lesions Rashes: no rashes Wounds: wounds noted (bilateral mastectomy scar) Hair: normal Nails: normal Neuro General: patient alert, patient awake, patient oriented x3, gait normal and moves all extremities Cognition: normal cognition Speech: speech normal Gait: normal gait Motor: muscle tone normal throughout and no movement abnormalities noted Extrem General: normal to inspection, full ROM, capillary refill normal, no joint enlargement, no clubbing,cyanosis or edema, no pedal edema, no calf tenderness and normal gait Psych Appearance: grossly normal and well kempt Mental Status: mental status grossly normal Speech and Movement: speech and movement normal Mood: congruent mood Affect: normal affect Attitude: cooperative Thought Process: normal Thought Content: normal Insight: insight good Judgment: judgment good Assessment Plan Assessment Plan (1) Encounter for Routine Gynecological Examination: Code(s): Z01.419 - Encounter for gynecological examination (general) (routine) without abnormal findings Qualifiers: Gynecological examination findings: abnormal findings PRESENT Qualified Code(s): Z01.411 - Encounter for gynecological examination (general) (routine) with abnormal findings (2) Surgical menopause on hormone replacement therapy: Status: Inactive Comment: was doing well on current E2; stopped due to breast cancer Code(s): E89.40 - Asymptomatic postprocedural ovarian failure; Z79.890 - Hormone replacement therapy SNOMED Code(s): 294380527 Category: Medical (3) Lichenoid dermatitis: Status: Chronic Comment: vul va; bx 08/2014 Code(s): L28.0 - Lichen simplex chronicus SNOMED Code(s): 55943423 Category: Medical (4) Diverticulosis of large intestine without hemorrhage: Status: Chronic Onset Date: 02/07/18 Code(s): K57.30 - Diverticulosis of large intestine without perforation or abscess without bleeding SNOMED Code(s): 357607985 Category: Medical (5) Personal history of breast cancer: Status: Acute Comment: s/p bilateral mastectomy Code(s): Z85.3 - Personal history of malignant neoplasm of breast SNOMED Code(s): 031420000 Category: Medical Orders Follow Up: 12 Months (yearly) Time spent Total time spent on medical discussion: 25 minutes Coding Level of Care Code Established Pt Estab Pt Lvl 4 (30-39 min) Patient Type Established History Expanded Problem Focused Exam Problem Focused Medical Decision Making Moderate Complexity Diagnoses Encounter for Routine Gynecological Examination Z01.411 Gynecological examination findings: abnormal findings PRESENT Surgical menopause on hormone replacement therapy E89.40; Z79.890 Lichenoid dermatitis L28.0 Diverticulosis of large intestine without hemorrhage K57.30 Personal history of breast cancer Z85.3 Additional Codes Intake - Is patient in pain?: No (1126F) Time Spent (min) 25 Comment will return once additional documentation + <Electronically signed by Ernesto Kapadia II, MD> 02/28/21 1834 Name Value Range Interpretation Code Description Data Nicolasa rce(s) Supporting Document(s) ID Date Data Source [id number] 02/28/2021 01:38:00 PM EDT [facility] Not Collected Reason:: DX NOT COVERED BY MCRTEST(S) ORDERED:: VITAMIN D 25 Name Value Range Interpretation Code Description Data Nicolasa rce(s) Supporting Document(s) Leukocytes [#/volume] in Blood by Automated count 6.2 10*3/uL 4.45-10 .71 N [facility] Erythrocytes [#/volume] in Blood by Automated count 3.70 10*6/uL 4.20-5.40 Below low normal [facility] Hemoglobin [Moles/volume] in Blood 10.5 g/dL 10.7-15.4 Below low no rmal [facility] Hematocrit [Volume Fraction] of Blood by Automated count 33.1 % 37-47 Below low normal [facility] Erythrocyte mean corpuscular volume [Ent itic volume] in Cord blood by Automated count 90 fL 80-96 N [facility] ital Erythrocyte mean corpuscular hemoglobin [Entitic mass] by Au tomated count 28 pg 27-31 N [facility] Erythrocyte mean corpuscular hemoglobin concentration [Mass/volume] in Cord blood 32 g/dL 33-37 Below low normal [facility] Erythrocyte distribution width [Entitic volume] by Automated count 13 % 11-15 N [facility] Platelets [#/volume] in Blood by Automated count 302 10*3/uL 130-472 N [facility] Platelet mean volume [Entitic volume] in Blood 9.6 fL 9.1-13.1 N [facility] Neutrophils/100 leukocytes in Blood by Automated count 68.4 % 41- 77 N [facility] Neutrophils [#/volume] in Blood by Automated count 4.3 U 1.7-7.6 [facility] Lymphocytes/100 leukocytes in Blood by Automated count 19.5 % 14- 46 N [facility] Lymphocytes [#/volume] in Blood by Automated count 1.2 U 0.6-4.6 N [facility] Monocytes/100 leukocytes in Blood by Automated count 9.2 % 4-12 N [facility] Monocytes [#/volume] in Blood by Automated count 0.6 U 0.2-1.2 N [facility] Eosinophils/100 leukocytes in Blood by Automated count 2.1 % 0-7 N [facility] Eosinophils [#/volume] in Blood by Automated count 0.1 U 0.0-0.5 N [facility] Basophils/100 leukocytes in Blood by Automated count 0.6 % 0.4-1 .3 N [facility] Basophils [#/volume] in Blood by Automated count 0.0 U 0.0-0.2 N [facility] NUCLEATED RED BLOOD CELL 0 % [facility] NUCLEATED RED BLOOD CELL# 0 U [facility] Immature granulocytes [Presence] in Blood by Automated count 0-2 N [facility] Immature granulocytes [#/volume] in Blood by Automated count 0.0 U 0-0.1 N [facility] Manual Differential panel - Blood NO [facility] ID Date Data Source [id number] 02/28/2021 02:27:00 PM EDT [facility] Not Collected Reason:: DX NOT COVERED BY MCRTEST(S) ORDERED:: VITAMIN D 25 Name Value Range Interpretation Code Description Data Nicolasa rce(s) Supporting Document(s) Vitamin B12 1675 pg/mL 211-911 Above high normal [facility] ID Date Data Source [id number] 02/28/2021 02:42:00 PM EDT [facility] Not Collected Reason:: DX NOT COVERED BY MCRTEST(S) ORDERED:: VITAMIN D 25 Name Value Range Interpretation Code Description Data Nicolasa rce(s) Supporting Document(s) Urea nitrogen [Mass/volume] in Serum or Plasma 24 mg/dL 9-23 Above high normal [facility] Sodium [Moles/volume] in Serum or Plasma 142 mmol/L 132-146 [facility] Potassium [Moles/volume] in Serum or Plasma 4.9 mmol/L 3.5-5.5 [facility] Chloride [Moles/volume] in Serum or Plasma 109 mmol/L 99-109 [facility] Carbon dioxide, total [Moles/volume] in Serum or Plasma 27 mmol/L 20 -31 [facility] Anion gap in Serum or Plasma 11 mmol/L 8-16 N [facility] Glucose [Mass/volume] in Serum or Plasma 114 mg/dL 74-106 Above high normal [facility] Creatinine 1.4 mg/dL 0.5-1.1 Above high normal [facility] Glomerular filtration rate/1.73 sq M.pre dicted [Volume Rate/Area] in Serum or Plasma 37 ml/min ABOVE 60 [facility] ital Alanine aminotransferase [Enzymatic acti vity/volume] in Serum or Plasma by With P-5'-P 20 U/L 10-49 N [facility] ital Aspartate aminotransferase [Enzymatic ac tivity/volume] in Serum or Plasma by With P-5'-P 14 U/L 0-33 N [facility] pital Alkaline phosphatase [Enzymatic activity/volume] in Serum or Plasma 88 U/L 45-129 N [facility] Calcium [Mass/volume] in Serum or Plasma 9.0 mg/dL 8.5-10.1 [facility] Bilirubin.total [Mass/volume] in Serum or Plasma 0.4 mg/dL 0.3-1.2 N [facility] Albumin [Mass/volume] in Serum or Plasma by Bromocresol purple (BCP) dye binding method 3.7 g/dL 3.2-4.8 N [facility] ital Protein [Mass/volume] in Serum or Plasma 6.9 g/dL 5.7-8.2 N [facility] ID Date Data Source [id number] 02/28/2021 02:42:00 PM EDT [facility] Not Collected Reason:: DX NOT COVERED BY MCRTEST(S) ORDERED:: VITAMIN D 25 Name Value Range Interpretation Code Description Data Nicolasa rce(s) Supporting Document(s) Iron [Mass/volume] in Serum or Plasma 48 ug/dL 50-170 Below low normal [facility] Iron values may be falsely elevated in s ailin samples frompatients treated with anticoagulants (e.g., hemodialysispatients) Iron binding capacity [Moles/volume] in Serum or Plasma 14 20-55 Below low normal [facility] Iron binding capacity [Mass/volume] in Serum or Plasma 335 ug/dL 250 -450 [facility] ID Date Data Source [id number] 02/28/2021 02:42:00 PM EDT [facility] Not Collected Reason:: DX NOT COVERED BY MCRTEST(S) ORDERED:: VITAMIN D 25 Name Value Range Interpretation Code Description Data Nicolasa rce(s) Supporting Document(s) Folate [Mass/volume] in Serum or Plasma 47.8 ng/mL [facility] @Instrument will autodilute FOLATE INTERPRETATION NORMAL: GREATER THAN 5.38 INDETERMINATE: 3.38 - 5.38 DEFICIENT: LESS THAN 3.37 ID Date Data Source [id number] 02/28/2021 02:42:00 PM EDT [facility] Not Collected Reason:: DX NOT COVERED BY MCRTEST(S) ORDERED:: VITAMIN D 25 Name Value Range Interpretation Code Description Data Nicolasa rce(s) Supporting Document(s) Ferritin [Mass/volume] in Serum or Plasma 33 ng/mL 10-291 [facility] ID Date Data Source [id number] 02/28/2021 02:42:00 PM EDT [facility] Not Collected Reason:: DX NOT COVERED BY MCRTEST(S) ORDERED:: VITAMIN D 25 Name Value Range Interpretation Code Description Data Nicolasa rce(s) Supporting Document(s) Thyrotropin [Units/volume] in Serum or Plasma by Detec tion limit <= 0.005 mIU/L 4.18 u[iU]/mL 0.35[facility]5.50 [facility] Date Data Source [id number] 02/28/2021 01:10:00 PM EDT [facility] Not Collected Reason:: DX NOT COVERED BY MCRTEST(S) ORDERED:: VITAMIN D 25 Name Value Range Interpretation Code Description Data Nicolasa rce(s) Supporting Document(s) Laboratory VITAMIN D 25 [facility] Laboratory studies (set) DX NOT COVERED BY [facility] Test(s) that were ordered on thisrequisi ton were not collected. ID Date Data Source [id number] 02/23/2021 08:18:00 [place] [address] RESPIRATORY CARE REPORT ==== ---------NAME------- NUMBER SEX AGE ADMIT DISC. XRAY# F/C JUAN ALBERTO Del Angel [id number] F 75 02/22/21 02/23/21 [id number] MBZ E/R DATE OF : 1945 M/R# [id number] #: [id number] TR-1B LOCATION[place] [id number] COMP LETE:02/22/21 22:59 AJP [id number] PHYSICIAN: MORRO Beck Name Value Range Interpretation Code Description Data Nicolasa rce(s) Supporting Document(s) ID Date Data Source [id number] 02/23/2021 10:12:00 AM EDT [facility] [address] [place] [address] PHONE: [phone] FAX: [phone] Name .................. : TEGAN Del Angel Acct Number.................. : [id number] ROOM. ................. : TR-1B MR Number ................... : [id number] Stay type ............. : E/R Discharge Date......... ... : 02/23/21 Admit Date ......... : 02/22/21 Admit Phys .................... : MORRO Beck Date of ....... : 1945 Family Phys ................... : CRISSY KONG Phone .................. : [phone] Age ................................ : 75 Film# .................. .:[id number] Sex ................................. : F Unsigned transcriptions are preliminary reports and do not represent a medical or legal document CT CTA CHEST NON-CORONARY Patrice Beck 73307 COMPLETE:02/22/21 21:05 DLA [id number] Reason(s): sob CT CHEST WITH IV CONTRAST INDICATION: Shortness of breath. Leg swelling. Bilateral mastectomy 1 month ago COMPARISON: None CONTRAST: 75 mL IsoVue 370 One or more of the following dose reduction techniques were utilized in effectively lowering the patient's radiation dose for this examination: Automated Exposure Control, Adjustment of the mA and/or kV according to patient size, or Iterative reconstru ction. FINDINGS: VASCULAR: There is good visualization of the pulmonary arterial tree into the segmental branch level. No pulmonary embolic disease is identified. LUNGS: No lobar consolidation. Mild diffuse increased interstitial markings. Small number of cystic lucencies in the lungs mostly in the upper lobes consistent with emphysema. PLEURA AND PERICARDIUM: Very small bilateral pleural effusions right greater than left MEDIASTINUM AND ROMIE: No mediastinal or hilar adenopathy or masses. Left subclavian central venous catheter is present with tip in the superior vena cava. CHEST WALL: No axillary adenopathy. Bilateral mastectomy. SKELETAL: Mild disc space narrowing and endplate osteophytes mid and lower thoracic spine. No metastatic bone lesions identified. UPPER ABDOMEN: Unremarkable. Page 1 of 2 [place] [address] PHONE: [phone] FAX: [phone] Name .................. : TEGAN Del Angel Acct Number.................. : [id number] ROOM. ................. : TR-1B MR Number ................... : [id number] Stay type ............. : E/R Discharge Date......... ... : 02/23/21 Admit Date ......... : 02/22/21 Admit Phys .................... : MORRO Beck Date of ....... : 1945 Family Phys ................... : CRISSY KONG Phone .................. : [phone] Age ................................ : 75 Film# .................. .:[id number] Sex ................................. : F Unsigned transcriptions are preliminary reports and do not represent a medical or legal document CT CTA CHEST NON-CORONARY [place] [address] COMPLETE:02/22/21 21:05 DLA [id number] Reason(s): sob IMPRESSION: 1. No pulmonary embolism. 2. Mild emphysema. 3. Mild diffuse interstitial disease which could be acute or chronic. 4. Very small bilateral pleural effusions. Preliminary report for this exam was provided by Omar. Electronically Reviewed and Signed By Madelaine Fraser MD , 02/23/21 10:12, JWS Transcribe Initials: SSR, Transcribe Date: 02/23/21 10:06, Dictation Date: Copy for: EMERGENCY DEPT via modem Copy for: 710 MED REC DISCHARGED Page 2 of 2 Name Value Range Interpretation Code Description Data Nicolasa rce(s) Supporting Document(s) ID Date Data Source [id number] 02/23/2021 09:52:00 AM EDT [facility] [address] [place] [address] PHONE: [phone] FAX: [phone] Name .................. : TEGAN Del Angel Acct Number.................. : [id number] ROOM. ................. : TR-1B MR Number ................... : [id number] Stay type ............. : E/R Discharge Date......... ... : 02/23/21 Admit Date ......... : 02/22/21 Admit Phys .................... : MORRO Beck Date of ....... : 1945 Family Phys ................... : CRISSY LUANN Phone .................. : [phone] Age ................................ : 75 Film# .................. .:[id number] Sex ................................. : F Unsigned transcriptions are preliminary reports and do not represent a medical or legal document CHEST 2 VIEWS 32563 COMPLETE:02/22/21 19:08 JOSÉ LUIS [id number] Reason(s): Williams estion FRONTAL AND LATERAL CHEST 2 VIEWS INDICATION: Chest and, shortness of breath COMPARISON: CT chest 02/22/2021 FINDINGS: The heart is not enlarged. Pulmonary vessels are within normal limits. There is a left subclavian Port-A-Cath present with tip projected over the SVC. No focal consolidation. Mild increased interstitial markings both lungs. Lungs are hyperinflated and the diaphragms are flattened. No pleural effusions or pneumothorax. IMPRESSION: 1. COPD. 2. Mild diffuse interstitial disease which could be acute or chronic. Electronically Reviewed and Signed By Madelaine Fraser MD , 02/23/21 09:52, CHANDRA Transcribe Initials: ODALYS, Transcribe Date: 02/23/21 08:52, Dictation Date: Copy for: EMERGENCY DEPT via modem Copy for: 710 MED REC DISCHARGED Page 1 of 1 Name Value Range Interpretation Code Description Data Nicolasa rce(s) Supporting Document(s) ID Date Data Source [id number] 02/22/2021 05:52:00 PM EDT [facility] 1 OrderSheet [facility] Emergency Department [address] [place] [address] Phone #: [phone] 02/22/2021 17:00 Patient: CONSTANCE JAVED Sex: F : 1945 Age: 75yWEIGHT:76.2 kg (S) HEIGHT:66 inches (S) BMI:27.1ALLERGIES: No Known Drug AllergyCHIEF COMPLAINT: dyspneaDIAGNOSIS: Hypertensive disorder, Chronic obstructive lung disease, AnemiaLAB ORDERSOrder Description Priority Entered Acknowledged InitialedCMP STAT 18:02/22/2021 Ack'd: 18:22 22:19 Melita Salgado Jack ; Buster Lala R.N.CBC w Diff STAT 18:02/22/2021 Ack'd: 18:22 22:19 Melita Salgado Jack ; Buster Lala R.N.BNP STA T 18:02/22/2021 Ack'd: 18:22 22:19 Melita Salgado Jack ; Buster Lala R.N.Type and Screen STAT 18:02/22/2021 Ack'd: 18:22 22:19 Melita Salgado Jack ; Buster Lala R.N.Troponin-T STAT 18:02/22/2021 Ack'd: 18:22 22:19 Melita Salgado Jack ; Buster Lala R.N.Crossmatch (Blood STAT 20:17 02/22/2021 Initialed: 20:21 Allie Hooker) (1 Unit) Melita Salgado R.N.; Cancelled: Physician Order 20:21 Morro, Verbal order per; Kme DonovanCrossmatch (Blood STAT 20:22 02/22/2021 Ack'd: 20:46 22:20 Melba Salgado) (1 Unit) Kem Hooker ; Buster Lala R.N. NOTES: symptomatic anemiaDIAGNOSTIC STUDY ORDERSOrder Description Priority Entered Acknowledged InitialedChest 2 View STAT 18:21 02/22/2021 Ack'd: 18:22 22:19 Melita Salgado(Oxygen?(No)) Kem Hooker ; Buster Lala R.N. Reason for Study: Congestion, Shortness of BreathCT CTA CHEST STAT 19:56 02/22/2021 Ack'd: 20:46 22:19 Melita Salgado 2 OrderSheet [facility] [place] [address] Phone #: ext- [phone] 02/22/2021 17:00 Patient: CONSTANCE JAVED Sex: F : 1945 Age: 75y(NONCOR) W CON Kem Hooker ; Buster Lala R.N.INC PP(Oxygen?(No))(IV?(Yes)) Reason for Study: sobMEDICATION/IV/DRIP/FLUID ORDERSOrder Description Priority Entered Acknowledged InitialedDuoNeb Neb Tx 3 18:21 02/22/2021 19:08 Mansoor Lala (NOW x1) Kem Hooker ; BusterGENERAL ORDERSOrder Description Priority Entered Acknowledged InitialedEKG 18:21 02/22/2021 18:25 Elie ED Kem Hooker ; Amy Mendiola ER [id number] PRBCs 19:28 02/22/2021 Initialed: 19:33 Kem Hooker(2 Units) Kem Hooker ; Cancelled: Physician Order 19:33 Kem HookerTransfuse PRBCs 19:33 02/22/2021 Ack'd: 20:46 22:19 Melita Salgado(1 Unit) Kem Hooker ; Buster Lala R.N.[Electronically signed by Melita Salgado R.N. (00:24 02/23/2021)][Electronically signed by Kem Hooker (01:52 02/23/2021)][Electronically locked by Melita Salgado R.N. (00:24 02/23/2021)] Name Value Range Interpretation Code Description Data Nicolasa rce(s) Supporting Document(s) ID Date Data Source [id number] 02/22/2021 05:52:00 PM EDT [facility] 1 Medication Reconciliation Report [facility] Emergency Department [address] [place] [address] Phone #: ext- [phone] 02/22/2021 17:00 Patient: CONSTANCE JAVED Sex: F : 1945 Age: 75yWeight: 76.2 kgHeight/Length: 66 in.BMI: 27.1ALLERGIES: No Known Drug AllergyThe patient's Home Medications are listed below:Unknown.The source(s) of the original Home Medication information:patientThe following Medications were given to the patient in the Emergency Department:Duoneb [Neb Tx] Neb TX 3 unit dose, administered: 18:53 02/22/2021The following Medications were prescribed to the patient:None. Name Value Range Interpretation Code Description Data Nicolasa rce(s) Supporting Document(s) ID Date Data Source [id number] 02/22/2021 05:52:00 PM EDT [facility] 1 Medication Administration Record [facility] Emergency Department [address] [place] [address] Phone #: ext- [phone] 02/22/2021 17:00 [id number] Sex[facility] F : 1945 Age: 75yWeight: 76.2 kgHeight/Length: 66 inBMI: 27.1ALLERGIES: No Known Drug Allergy Date/Time Medication Administered Medication OrderedGiven DUONEB [NEB TX] DuoNeb Neb Tx 3 mL (NOW x1)18:53 02/22/2021 Dose: 3 unit dose Nebulizer Neb Buster Nunez, Patricia Value Range Interpretation Code Description Data Nicolasa rce(s) Supporting Document(s) ID Date Data Source [id number] 02/22/2021 05:52:00 PM EDT [facility] 1 General Instructions [facility] Emergency Department [address] [place] [address] Phone #: ext- [phone] 02/22/2021 17:00 Patient: CONSTANCE JAVED Sex: F : 1945 Age: 75yAcute exacerbation of COPD (emphysematous)Hypertension.Moderate acute anemia associated with acute blood loss.INSTRUCTIONSWarnings: Further evaluation is necessary.GENERAL WARNINGS: Return or contact your physician immediately if your condition worsens orchanges unexpectedly, if not improving as expected, or if other problems arise.Follow- up:Follow up with a surgeon as scheduled.Understanding of the discharge instructions verbalized by patient.Follow-up with: Joaquina Layne, , [phone], [facility], , [place], [address] Follow up in three days if not better. Call for an appointment. Reason for referral: evaluation. ADDITIONAL INFORMATIONCOPD Flare 2 General Instructions [facility] Emergency Department [address] [place] [address] Phone #: ext- [phone] 02/22/2021 17:00 Patient: CONSTANCE JAVED Sex: F : 1945 Age: 75yYou have had a flare-up of your COPD.COPD (chronic obstructive pulmonary disease) is a common lung disease. It causes your airways toget irritated and narrower. This makes it harder for you to breathe. Emphysema and chronicbronchitis are both types of COPD. This is a long-term (chronic) condition. This means you alwayshave it. Sometimes it gets worse. When this happens, it is called a flare- up.Symptoms of COPDPeople with COPD may have symptoms most of the time. In a flare-up, your symptoms get worse.These symptoms may mean you are having a flare-up: Shortness of breath, shallow or rapid breathing, or wheezing that gets worse Lung infection Cough that gets worse More mucus, thicker mucus or mucus of a different color 3 General Instructions [facility] Emergency Department [address] [place] [address] Phone #: ext- [phone] 02/22/2021 17:00 Patient: CONSTANCE JAVED Sex: F : 1945 Age: 75y Tiredness, less energy, or trouble doing your normal activities Fever Chest tightness Your symptoms don't get better even when you use your normal medicines, inhalers, and nebulizer Trouble talking You feel confusedCauses of flare-upsUnfortunately, a flare-up can happen even if you did everything right. And even if you followed yourhealthcare provider's instructions. Some causes of flare-ups are: Smoking or secondhand smoke Colds, the flu, or respiratory infections Air pollution Sudden change in the weather Dust, irritating chemicals, or strong fumes Not taking your medicines as prescribedHome careHere are some things you can do at home to treat a flare-up: Try not to panic. This makes it harder to breathe, and keeps you from doing the right things. Don't smoke or be around others who are smoking. Try to drink more fluids than normal during a flare-up, unless your healthcare provider has told you not to because of heart and kidney problems. More fluids can help loosen the mucus. Use your inhalers and nebulizer, if you have one, as you have been told to. When using a metered dose inhaler or nebulizer, it's very important to use the proper techniques. If you have any questions about how to use your device, contact your healthcare provider or refer to the user manual. If you were given antibiotics, take them until they are used up or your provider tells you to stop. It's important to finish the antibiotics, even though you feel better. This will make sure the infection has cleared. 4 General Instructions [facility] Emergency Department [address] [place] [address] Phone #: ext- [phone] 02/22/2021 17:00 Patient: CONSTANCE JAVED Sex: F : 1945 Age: 75y If you were given a steroid, finish it even if you feel better. Learn the names of your medicines, as well as how and when to use them. Talk with your provider about other conditions you have and their treatment and how it may affect your COPD. Oxygen may be prescribed if tests show that your blood contains too little oxygen. Ask your provider about long-term oxygen therapy. Coping tips for shortness of breath include: o Exercise. Try to be as active as possible. This will improve energy levels and strengthen your muscles, so you can do more. o Breathing methods. Ask your healthcare provider or nurse to show you how to do pursed-lip breathing. o Balance rest and activity. Each day, try to balance rest periods with activity. For example, you might start the day with getting dressed and eating breakfast. Then you can relax and read the paper. After that, take a brief walk. And then sit with your feet up for a while. o Pulmonary rehab (rehabilitation). These programs help with managing your disease, breathing methods, exercise, support, and counseling. To find one, ask your provider or call your local hospital. Also, talk with your healthcare provider about a self- management program. o Healthy eating. Eating a healthy, balanced diet is important to staying as healthy as possible. So is trying to stay at your ideal weight. Make sure you have a lot of fruits and vegetab les every day. And also eat balanced portions of whole grains, lean meats and fish, and low-fat dairy products.Preventing a smfoi-tyWjwkv-lrj happen. But the best way to treat one is to prevent it before it starts. Here are somepointers: Don't smoke or be around others who are smoking. Avoid using e- cigarettes due to their harmful side effects. Take your medicines as discussed with your healthcare provider. Talk with your provider about getting a flu shot every year. Also find out if you need a pneumonia shot. If there is a weather advisory warning to stay indoors, try to stay inside when possible. 5 General Instructions [facility] Emergency Department [address] [place] [address] Phone #: ext- [phone] 02/22/2021 17:00 Patient: CONSTANCE JAVED Sex: F : 1945 Age: 75y Try to eat healthy, exercise, and get plenty of sleep. Try to stay away from things that normally set you off. These include dust, chemical fumes, hairsprays, or strong perfumes.Follow-up careFollow up with your healthcare provider, or as advised.If a culture was done, you will be told if your treatment needs to be changed. You can call asdirected for the results.If X-rays were done, you will be told of any new findings that may affect your care.During each appointment, talk with your healthcare provider about your ability to: Bascom in your normal environment Correctly use inhaler (or your medicine delivery systems) Bascom with other conditions you have and their treatments and how they may affect your COPDCall 911Call 911 if any of these occur: Wheezing or shortness or breath does not get better with treatment Chest pain or chest tightness Feeling lightheaded or dizzy You have trouble breathing You feel confused or it's hard to wake you up You faint or lose consciousness You have a rapid heart rate You have new pain in your chest, arm, shoulder, neck, or upper backWhen to seek medical adviceCall your healthcare provider right away if any of these occur: Fever of 100.4F (38C) or higher, or as directed by your healthcare provider Coughing up lots of dark-colored or bloody mucus (sputum) 6 General Instructions [facility] Emergency Department [address] [place] [address] Phone #: ext- [phone] 02/22/2021 17:00 Patient: CONSTANCE JAVED Sex: F : 1945 Age: 75y You don't start to get better within 24 hours Swelling of your ankles gets worse Weakness 5930-7122 [employer]. [address] [place] [address], [place] [address]. All rights reserved. This information is not intended as asubstitute for professional medical care. Always follow your healthcare professional's instructions.High Blood Pressure, To Be Confirmed, No TreatmentYour blood pressure today was higher than normal. Sometimes anxiety, pain, or other issues cancause a short-term rise in blood pressure. It later returns to normal. Blood pressure that is high ashley time doesn't mean that you have high blood pressure (hypertension). High blood pres sure is along-term (chronic) illness. But you should have your blood pressure measured again in the next fewdays to find out if it's still high.Blood pressure measurements are given as 2 numbers. Systolic blood pressure is the upper number.This is the pressure when the heart contracts. Diastolic blood pressure is the lower number. This isthe pressure when the heart relaxes between beats. You will see your blood pressure readingswritten together. For example, a person with a systolic pressure of 118 and a diastolic pressure of 78will have 118/78 written in the medical record.Blood pressure is classified as normal, raised (elevated), or stage 1 or stage 2 high blood pressure: Normal blood pressure. Systolic of less than 120 and diastolic of less than 80 (120/80). Elevated blood pressure. Systolic of 120 to 129 and diastolic less than 80. Stage 1 high blood pressure. Systolic is 130 to 139 or diastolic between 80 to 89. Stage 2 high blood pressure. Systolic is 140 or higher or the diastolic is 90 or higher.Lifestyle changes can help manage your blood pressure. These include weight loss, exercise, andquitting smoking. Have your blood pressure checked regularly to be sure it is under control.Home care 7 General Instructions [facility] Emergency Department [address] [place] [address] Phone #: ext- [phone] 02/22/2021 17:00 [id number] Sex: F : 1945 Age: 75yTo track your blood pressure, your healthcare provider may ask you to come into the office atdifferent times and on different days. If your provider asks you to check your readings at home, askhim or her what times of the day to test and for how many days. Before you leave the office, ask yourprovider to show you how to take your blood pressure. Ask questions if you don't understandsomething.Using a home blood pressure monitorThink about buying an automatic blood pressure monitor. Ask your provider for a recommendation aswell as the correct size cuff to fit your arm. You can buy blood pressure monitors at most pharmacies.The [place] [employer] advises the following guidelines for home blood pressure monitoring: Don't smoke or drink coffee or other caffeinated drinks for 30 minutes before taking your blood pressure. Go to the bathroom before the test. Relax for 5 minutes before taking the measurement. Sit with your back supported (don't sit on a couch or soft chair). Keep your feet on the floor uncrossed. Place your arm on a solid flat surface (like a table) with the upper part of the arm at heart level. Place the middle of the cuff directly above the bend of the elbow. Check the monitor's instruction manual for an illustration. Take multiple readings. When you measure, take 2 to 3 readings one minute apart. Record all of the results. Take your blood pressure at the same time every day, or as your provider advises. Record the date, time, and blood pressure reading. Take the record with you to your next medical appointment. If your blood pressure monitor has a built-in memory, simply take the monitor with you to your next appointment. Call your provider if you have several high readings. Don't be frightened by a single high blood pressure reading. But if you get a few high readings, check in with your provider.Follow-up careKeep all of your follow-up appointments. If your blood pressure is more than 120 over 80 on 2 out of 3days, you will need to follow up with your healthcare provider for more evaluation and treatment.Don't put this off! High blood pressure can be treated. High blood pressure that's not treated raisesyour risk for heart attack, heart failure, kidney disease, and stroke. 8 General Instructions [facility] Emergency Department [address] [place] [address] Phone #: lng- [phone] 02/22/2021 17:00 Patient: CONSTANCE JAVED Sex: F : 1945 Age: 75yCall 911Call 911 if you have any of these: Blood pressure of 180/120 or higher Chest pain or shortness of breath Weakness of an arm or leg or one side of the face Problems speaking or seeingWhen to get medical adviceCall your healthcare provider right away if any of these occur: Severe headache Throbbing or rushing sound in the ears Nosebleed Sudden severe pain in your belly (abdomen) Extreme drowsiness, confusion, or fainting Dizziness or dizziness with spinning feeling (vertigo) [id number] [employer] [place], [place] [id number]. All rights reserved. This information is not intended as asubstitute for professional medical care. Always follow your healthcare professional's instructions.Anemia, Type Not Specified (Adult)Red blood cells carry oxygen to the tissues of your body. Anemia is a condition in which you have toofew red blood cells. You need iron to make red blood cells. The most common cause of anemia is nothaving enough iron. This may be because of: Loss of blood. This can be caused by heavy menstrual periods. It can also be caused by bleeding from the stomach or intestines. Poor diet. You may not be eating enough foods that contain iron.Other causes of anemia include certain vitamin deficiencies, chronic kidney disease, and otherchronic illnesses.Anemia makes you feel tired and run down. When anemia becomes severe, your skin becomes pale.You may feel short of breath after physical activity. Other symptoms include: Headaches 9 General Instructions [facility] Emergency Department [address] [place] [address] Phone #: ext- [phone] 02/22/2021 17:00 [id number] Sex: [facility] 1945 Age: 75y Dizziness Leg cramps with physical activity DrowsinessHome careFollow these guidelines when caring for yourself at home: Don't overexert yourself. Talk with your healthcare provider before traveling by air or traveling to high altitudes.Follow-up careFollow up with your healthcare provider, or as advised. You may need other blood tests to find out theexact cause of your anemia. If you had testing done today, it may take several days to get all of theresults. You can follow up with your own healthcare provider to get the results.Call 911Call 911 or get immediate medical care if any of the following occur: Shortness of breath or chest pain Dizziness or fainting gets worse Vomiting blood or passing red or black- colored stool [employer]. [address] [place] [address]. All rights reserved. This information is not intended as asubstitute for professional medical care. Always follow your healthcare professional's instructions. You have been given the following additional information: COPD Flare Hypertension, To Be Confirmed Anemia, Type Not Specified (Adult)(Electronically signed by Kem Hooker 02/23/2021 01:52) Name Value Range Interpretation Code Description Data Nicolasa rce(s) Supporting Document(s) ID Date Data Source [id number] 02/22/2021 05:52:00 PM EDT [facility] 1 Clinical Report - Nurses [facility] Emergency Department [address] [place] [address] Phone #: ext- [phone] 02/22/2021 17:00 Patient: CONSTANCE JAVED Sex: F : 1945 Age: 75yTRIAGEArrived by private vehicle. Historian: patient.Triage time: 17:34 02/22/2021. Acuity: LEVEL 3.Chief Complaint: FATIGUE and DYSPNEA.Alert. No acute distress.( Pt started wheezing at night a few nights ago. Pt has felt SOB the last few nights. Pt had a doublemastectomy on the Jan. Pt needed to use her rescue inh today, she called her PCP and wasadvised to come to the ER. Pt has also noted swelling in her lower legs.).Treatment MANAGER RESPIRATORY:(Rescue INH).ALVARO COMA SCORE: 15- eyes open- spontaneous (4); best verbal response- oriented (5); bestmotor response- obeys commands (6). --17:39 02/22/21 Abigail Hein R.N.SEPSIS SCREEN: SIRS SCREEN NEGATIVE. SEPSIS SCREEN NEGATIVE. No suspected or confirmedsigns of infection present. --17:47 02/22/21 Abigail Hein R.N.17:45 02/22/21. BP: 191/69. MAP: 109. HR: 88. RR: 18. O2 saturation: 95% on room air. Temp: 97.9 F(oral). Pain level now: 10/18. --17:47 02/22/21 Abigail Hein R.N.Weight: 76.2 kg stated. Height/Length: 66 inches Per Patient. BMI: 27.1. --17:33 02/22/21 Abigail Hien R.N.MedicationsUnknown. --00:24 02/23/21 Melita Salgado R.N.AllergiesNo Known Drug Allergy. --00:24 02/23/21 Melita Salgado R.N.PROBLEMS:Breast Cancer. --00:24 02/23/21 Melita Salgado R.N.Medication/allergy information source: the patient. --17:39 02/22/21 Abigail Hein R.N.HistorySOCIAL HX: Former smoker. No alcohol use or drug use. The patient was offered HIV testing butdeclined. Patient education was provided. The patient was offered hepatitis C testing but declined. Patient 2 Clinical Report - Nurses [facility] Emergency Department [address] [place] [address] Phone #: ext- [phone] 02/22/2021 17:00 Patient: CONSTANCE JAVED Sex: F : 1945 Age: 75y education was provided. The patient has not traveled outside the [place] Infectious disease exposure: No infectious disease exposure. (COVID screen negative, pt was vaccinated for COVID). Patient is not a known carrier of tuberculosis, hepatitis, HIV, MRSA or VRE. Patient is not a known carrier of CRE. SELF HARM ASSESSMENT: Self harm assessment was performed. The patient answered "no" to the question(s) "Do you have thoughts of harming or killing yourself?", "Do you have a plan for harming or killing yourself?" and "Have you recently had thoughts about harming or killing others?". ABUSE ASSESSMENT: Abuse assessment. The patient had positive responses to the question(s) "Do you feel safe in your home?" (yes). Abuse denied. No suspicion of abuse. No report of abuse. NUTRITIONAL RISK ASSESSMENT: The nutritional risk assessment revealed no deficiencies. FUNCTIONAL ASSESSMENT: Functional assessment: no impairments noted. LEARNING NEEDS ASSESSMENT: The learning needs assessment revealed no barriers. FALL RISK ASSESSMENT: Fall risk assessment completed. No risk factors identified. SKIN INTEGRITY ASSESSMENT: Skin integrity risk assessment completed. No skin integrity risk identified. --17:39 02/22/21 Abigail Hein R.N. FAMILY HX: Mother: Lung Cancer. --18:26 02/22/21 Kem Hooker. Interventions Identification band on patient. --17:39 02/22/21 Abigail Hein R.N.PHYSICAL ASSESSMENTGENERAL / NEURO / PSYCH: Alert. Oriented X 4. Appears in no acute distress.HEENT: Pupils equal, round and reactive to light. No facial asymmetry noted. Mucous membranes arepink.RESPIRATORY: Mild respiratory distress. The patient can speak in full sentences. Decreased breathsounds diffusely over both lungs.CVS: Normal sinus rhythm noted. Capillary refill less than 2 seconds. Pulses within normal limits.GI / : Abdomen soft and nontender.SKIN: Skin intact. Skin is warm and dry. Normal skin turgor. --18:22 02/22/21 Buster Lala.NURSING PROGRESS NOTESPatient gowned. Reassurance given. Three patient identifiers checked. Call light placed in reach. Siderails up x 2. Bed placed in lowest position. Brakes of bed on. Patient ready for evaluation- ED physiciannotified. --17:47 02/22/21 Abigail Hein R.N. EKG time: (17:50 02/22/2021). EKG was performed by a tech and shown to the ED physician. --17:52 3 Clinical Report - Nurses [facility] Emergency Department [address] [place] [address] Phone #: ext- [phone] 02/22/2021 17:00 Patient: CONSTANCE JAVED Sex: F : 1945 Age: 75y 02/22/21 Rison Halon [employer], [employer], Tech1 18:07 02/22/21. BP: 169/62. HR: 78. RR: 16. O2 saturation: 97%. --18:07 02/22/21 Rison Halon [employer], [employer], RoboCV Tech1 18:53 02/22/2021 Duoneb Neb [place] Nebulizer 3 unit dose given. Given by the nurse. Allergies verified and confirmed 5 rights. Information reviewed with patient including reason for taking this medication, signs of allergic reaction and precautions. Verbalizes understanding. --19:08 02/22/21 Buster Lala 19:10 02/22/21. BP: 185/83. HR: 80. RR: 16. O2 saturation: 100%. --19:10 02/22/21 Rison Halon [employer], [employer], Rob[employer] Tech1 Monitoring of patient in place. Reassurance given to the patient. Rounding: Pain: denies pain. Position: repositioned. Personal care / toileting: assisted with toileting. Proximity of possessions / care items: call light within easy reach. Plug ins: assured IV pump plugged in; checked status of equipment in use; located all cords, tubes, and lines to prevent fall hazard. Set expectations: advised patient of rounding protocol timing and asked if they needed anything else at this time. Reassessment after medication administered. No adverse reaction. Pain still present but improving. Respiratory distress still present but improving. GENERAL / NEURO / PSYCH: The patient reports anxiety. RESPIRATORY: No respiratory distress. Decreased breath sounds in the bases bilaterally. Breath sounds normal. CVS: Normal sinus rhythm noted. SKIN: Skin is warm. Skin color within normal limits. Call light placed in reach. Side rails up x 1. Bed placed in lowest position. Brakes of bed on. Patient waiting for results and disposition. --20:47 02/22/21 Buster Llaa ( Patient report from Buster Wayne RN. Pt has 1 unit of PRBC running at 125 ml/hr. VSS. Increased rate to 150 ml/hr. Pt tolerating well.). --22:22 02/22/21 Melita Salgado R.N. 22:20 02/22/21. BP: 148/68. MAP: 94. HR: 82. RR: 18. O2 saturation: 98% on room air. --22:22 02/22/21 Melita Salgado R.N. 22:57 02/22/21. ( Blood transfusion increased to 175 ml/hr. Pt tolerated well. Pt ate sandwich and tolerated well. Denies needs at this time.). --22:57 02/22/21 Melita Salgado R.N. 00:13 02/23/21. ( Upon this RN taking over care, pt had 20G IV to L AC. IV removed upon discharge. Catheter tip intact, pressure applied.). --00:13 02/23/21 Melita Salgado R.N.DISPOSITION / DISCHARGE 00:07 02/23/21. BP: 199/61. MAP: 107. HR: 76. RR: 17. O2 saturation: 97%. Temp: 97 F. Pain level now: 0/10. --00:07 02/23/21 Melita Salgado R.N. 4 Clinical Report - Nurses [facility] Emergency Department [address] [place] [address] Phone #: ext- [phone] 02/22/2021 17:00 [id number] Sex[facility] : 1945 Age: 75y 00:08 02/23/21. ( Dr. Hooker aware of patient's DC blood pressure.). --00:08 02/23/21 Melita Salgado R.N. 00:23 02/23/21. Alvaro Coma Scale: 15- eyes open- spontaneous (4); best verbal response- oriented (5); best motor response- obeys commands (6). Condition at departure: improved and stable. No learning barriers present. Discharge instructions provided and reviewed with the patient. The patient was discharged by the physician. She was discharged home and accompanied by family. She left in a wheelchair and via private vehicle. Family member driving. --00:23 02/23/21 Melita Salgado R.N.Locked/Released at 02/23/2021 00:24 by Melita Salgado R.N. Name Value Range Interpretation Code Description Data Nicolasa rce(s) Supporting Document(s) ID Date Data Source [id number] 02/22/2021 05:52:00 PM EDT [facility] 1 Clinical Report - Physicians/Mid Levels [facility] Emergency Department [address] [place] [address] Phone #: ext- [phone] 02/22/2021 17:00 Patient: CONSTANCE JAVED Sex: F : 1945 Age: 75y Time Seen: 18:18 02/22/2021. Arrived- By private vehicle. Historian- patient.HISTORY OF PRESENT ILLNESS Chief Complaint: DYSPNEA. This started 3 days and is still present. It was gradual in onset and has been constant. The dyspnea is described as moderate and is worsened by exertion. No cough, sputum production, sweating episodes or wheezing. No chest pain or discomfort, calf pain, anxiety or dizziness. No tingling or palpitations. She has had dyspnea on exertion and foot swelling. (Patient had bilateral mastectomy February 02. She is scheduled for possible upcoming chemotherapy in [place]. Used her inhaler more frequently over last 48 hours). Similar symptoms previously. None. Recent medical care: The patient was seen recently by a health care provider.REVIEW OF SYSTEMSThe patient has not had weight loss. No muscle aches, eye irritation, nasal discharge, sinus drainage orvomiting. No abdominal pain, diarrhea, bloody stools, headache or fainting episodes. No difficulty withurination, excessive urination, skin rash, enlarged lymph nodes or joint pain. All other systems reviewedand are negative.PAST HISTORYSee nurses notes.SOCIAL HISTORYFormer smoker.FAMILY HISTORYMother: Lung Cancer.ADDITIONAL NOTESThe nursing notes have been reviewed.PHYSICAL EXAMVital Signs: 02/22/2021 18:07 BP: 169/62. MAP: 97. HR: 78. RR: 16. O2 saturation: 97%.02/22/2021 17:45 BP: 191/69. MAP: 109. HR: 88. RR: 18. O2 saturation: 95% on room air. Temp: 97.9 F.Pain level now: 5/10.Appearance: Alert. No acute distress.Eyes: Pupils equal, round and reactive to light. Eyes normal inspection.ENT: Nose normal. Pharynx normal. Uvula midline. 2 Clinical Report - Physicians/Mid Levels [facility] Emergency Department [address] [place] [address] Phone #: ext- [phone] 02/22/2021 17:00 Patient: CONSTANCE JAVED Sex: F : 1945 Age: 75y Neck: Normal inspection. Neck supple. CVS: Normal heart rate and rhythm. Heart sounds normal. Respiratory: No respiratory distress. Severely decreased air movement diffusely over both lungs. No accessory muscle use or wheezes. Abdomen: Soft and nontender. No organomegaly. Back: Normal inspection. Skin: Skin warm and dry. Normal skin color. No rash. Normal skin turgor. Extremities: Bilateral mild 1+ non-pitting edema of the lower extremities involving both feet and both ankles. Extremities exhibit normal ROM. Neuro: Oriented X 3. No motor deficit. No sensory deficit.LABS, X-RAYS, AND EKGEKG: EKG time: 17:50 02/22/2021. No acute process. Rate: 80. Normal P waves. Normal QRScomplex. Normal axis. Normal ST and T waves and QT. The study has been interpretedcontemporaneously. Interpretation time: 18:00 02/22/2021.Chest X-ray: Normal heart size. Mediastinum normal. No infiltrate. Views: PA and lateral.Chest CT: Small right and left pleural effusion present. (emphysema). No aortic aneurysm present,pulmonary embolism or mediastinal mass. The study was interpreted by the radiologist.Laboratory Tests: RE-TYPE: (ANDREINA: 02/22/2021 20:30) ( [facility] 02/22/2021 21:21) Final results Test Result Flag Units (Reference) RE-TYPE BLOOD BANK RE-TYPE ABO GROUP B RH TYPE POSITIVE { ABO/RH RE-ENTER B POSITIVE Crossmatch (Blood Bank): (ANDREINA: 02/22/2021 20:30) ( [facility] 02/22/2021 21:27) Final results Test Result Flag Units (Reference) CROSSMATCH \\MRHx\\\\16PI\\\\LM10\\\\TM00\\ \\BLDo\\\\UNDo\\COMPATABILITY TESTING:\\UNDx\\\\BLDx\\ \\UNDo\\PATIENT INFORMATION\\UNDx\\ ABO GROUP B RH TYPE POSITIVE AB SCREEN NEGATIVE { ABO/RH RE-ENTER B POSITIVE{ AB SCREEN RE-ENTER NEGATIVE \\UNDo\\DONOR INFORMATION\\UNDx\\ UNIT NUMBER _[id number] 02/22/21.JNL. EXPIRATION DATE _03/18/21_ 02/22/21.JNL.{ ABO/RH O POS{ XMATCH RESULT COMP{ COMPONENT [facility] Crossmatch (Blood Bank): (ANDREINA: 02/22/2021 18:34) ( [facility] 02/22/2021 20:24) Canceled NumberofUnits:: 1Unit CT CTA CHEST NON-CORONARY W CON INC PP: (ANDREINA: 02/22/2021 19:56) ( [facility] 02/22/2021 21:06) In Progress 3 Clinical Report - Physicians/Mid Levels [facility] Emergency Department [address] [place] [address] Phone #: ext- [phone] 02/22/2021 17:00 Patient: CONSTANCE JAVED Sex: F : 1945 Age: 75yCT CTA CHEST NON-CORONARY W CON INC PPReason(s): sobTRANSPORTATION: S IV? IV?(Yes) O2? Oxygen?(No) RoCMP: (ANDREINA: 02/22/2021 18:34) ( [facility] 02/22/2021 19:31) Final results Test Result Flag Units (Reference) COMPREHENSIVE METABOLIC PANEL COMPREHENSIVE METABOLIC PANEL SODIUM 137 mEq/L (134 - 153) POTASSIUM 4.4 mEq/L (3.6 - 5.0) CHLORIDE 104 mEq/L (98 - 107) CO2 24 MEQ/L (22 - 30) GLUCOSE 152 H MG/DL (70 - 99) BUN 20 MG/DL (7 - 21) CREATININE 0.9 MG/DL (0.7 - 1.5) BUN/CREAT 22 (8 - 27) TOTAL PROTEIN 6.1 L G/DL (6.3 - 8.2) ALBUMIN 4.0 G/DL (3.9 - 5.0) GLOBULIN 2.1 L GM/DL (2.4 - 3.2) A/G RATIO 1.9 (0.8 - 2.0) CALCIUM 9.2 MG/DL (8.4 - 10.2) TOTAL BILI <0.7 MG/DL (0.2 - 1.3) ALKALINE PHOS 76 U/L (38 - 126) SGOT/AST 15 U/L (5 - 40) SGPT/ALT 12 U/L (7 - 56) ANION GAP 9.0 mmol/L (8.0 - 16.0) AGE 75 yrs NON-AA GFR >60 mL/min AFR AMER GFR > 60 Male GFR Interprentation 20- 49 yrs >60 mL/min Aevrdq50-20 yrs >56 mL/min Normal 60-69 yrs >49 mL/min Normal 70-79yrs>42 mL/min Normal 80 and above >35 mL/min Normal Female GFRInterpretation 20-39 yrs >60 mL/min Normal 40-49 yrs >58 mL/minNormal 50-59 yrs >51 mL/min Normal 60-69 yrs >45 mL/min Qjzxhk58-72 yrs >39 mL/min Normal 80 and above >32 mL/min NormalCBC w Diff: (ANDREINA: 02/22/2021 18:34) ( MsgRcvd 02/22/2021 18:49) Final results Test Result Flag Units (Reference) CBC W/AUTOMATED DIFF COMPLETE BLOOD COUNT WBC 8.3 10/uL (4.2 - 11.0) RBC 3.06 L 10/uL (4.20 - 5.40) HEMOGLOBIN 8.7 L g/dL (12.0 - 16.0) HEMATOCRIT 27.0 L % (37.0 - 47.0) MCV 88.2 fL (81.0 - 1 01) MCH 28.4 pg (27.0 - 34.0) MCHC 32.2 g/dL (31.0 - 36.0) RDW 14.0 % (11.5 - 14.5) PLATELETS 338 10/uL (150 - 450) MPV 10.1 fL (7.4 - 10.4) NEUT 69.5 % (37.0 - 80.0) LYMPH 20.1 L % (25.0 - 40.0) MONO 7.7 % (3.0 - 8.0) EOS 1.9 % (0.0 - 7.0) BASO 0.6 % (0.0 - 2.5) 4 Clinical Report - Physicians/Mid Levels [facility] Emergency Department [address] [place] [address] Phone #: ext- [phone] 02/22/2021 17:00 Patient: CONSTANCE JAVED Sex: F : 1945 Age: 75y %IG 0.2 H % (0.0 - 0.0) %NRBC 0.0 % (0.0 - 0.0) #NEUT 5.73 10/uL (2.00 - 6.90) #LYMPH 1.66 10/uL (0.60 - 3.40) #MONO 0.64 10/uL (0.00 - 0.90) #EOS 0.16 10/uL (0.00 - 0.70) #BASO 0.05 10/uL (0.00 - 0.20) #IG 0.02 10/uL (0.00 - 0.10) #NRBC 0.00 10/uL (0.00 - 0.00) MANUAL DIFF NOT INDICATED RBC MORPH NOT INDICATED BNP: (ANDREINA: 02/22/2021 18:34) ( MsgRcvd 02/22/2021 19:31) Final results Test Result Flag Units (Reference) BNP 276 H PG/ML (0 - 125) Type and Screen: (ANDREINA: 02/22/2021 18:34) ( MsgRcvd 02/22/2021 20:48) Final results Test Result Flag Units (Reference) ABO GROUP B RH TYPE POSITIVE AB SCREEN NEGATIVE (NORMAL: NEGAT { ABO/RH REENTER B POSITIVE{ AB SCREEN RE-ENTER NEGATIVE Troponin-T: (ANDREINA: 02/22/2021 18:34) ( MsgRcvd 02/22/2021 19:19) Final results Test Result Flag Units (Reference) TROPONIN T <0.01 NG/ML (0.00 - 0.10) TROPONIN T0.1 ng/ml Recommended as the clinical threshold value forTroponin T. Chest 2 View: (ANDREINA: 02/22/2021 18:21) ( MsgRcvd 02/22/2021 19:08) In Progress CHEST 2 VIEWS Reason(s): Congestion TRANSPORTATION: S IV? O2? Oxygen?(No) Room: ED.PROGRESS AND PROCEDURESCourse of Care: 18:57 02/22/21. differential diagnosis include COPD, CHF, Pneumonia, acute renal injury,pleural effusion, anemia, pneumothorax 21:53 02/22/21. No evidence of any acute renal injury of CHF. CT chest done ruled out pulmonary embolism and pericardial effusion. Post operative anemia from blood loss? no signs of any microcytic anemia. 23:07 02/22/21. CT ruled out any pulmonary embolism or CHF. Patient feeling improved. Patient/family counseled. Disposition: Discharged. Condition: stable. 5 Clinical Report - Physicians/Mid Levels [facility] Emergency Department [address] [place] [address] Phone #: ext- [phone] 02/22/2021 17:00 [id number] Sex[facility] F : 1945 Age: 75yCLINICAL IMPRESSION Acute exacerbation of COPD (emphysematous) Hypertension. Moderate acute anemia associated with acute blood loss.INSTRUCTIONS Warnings: Further evaluation is necessary. GENERAL WARNINGS: Return or contact your physician immediately if your condition worsens or changes unexpectedly, if not improving as expected, or if other problems arise. Follow-up: Follow up with a surgeon as scheduled. Understanding of the discharge instructions verbalized by patient. Follow-up with: Joaquina Layne, , , [facility], , [place], [address] Follow up in three days if not better. Call for an appointment. Reason for referral: evaluation.(Electronically signed by Kem Hooker 02/23/2021 01:52) Name Value Range Interpretation Code Description Data Nicolasa rce(s) Supporting Document(s) ID Date Data Source [id number] 02/25/2021 05:53:00 PM EDT [facility] Name Value Range Interpretation Code Description Data Nicolasa rce(s) Supporting Document(s) ID Date Data Source [id number] 02/22/2021 09:24:00 PM EDT [facility] Name Value Range Interpretation Code Description Data Nicolasa rce(s) Supporting Document(s) [facility] \\MRHx\\\\16PI\\\\LM10\\\\TM00\\ \\BLDo\\\\UN Do\\COMPATABILITY TESTING:\\UNDx\\\\BLDx\\ \\UNDo\\PATIENT INFORMATION\\UNDx\\ ABO group [Type] in Blood B [facility] Rh [Type] in Blood POSITIVE [facility] AB SCREEN NEGATIVE [facility] { ABO/RH RE-ENTER B POSITIVE{ AB SCREEN RE-ENTER NEGATIVE \\UNDo\\DONOR INFORMATION\\UNDx\\ UNIT NUMBER _[id number] 02/22/21.JNL. EXPIRATION DATE _03/18/21_ 02/22/21.JNL.{ ABO/RH O POS{ XMATCH RESULT COMP{ COMPONENT [facility] ID Date Data Source [id number] 02/22/2021 09:21:00 PM EDT [facility] Name Value Range Interpretation Code Description Data Nicolasa rce(s) Supporting Document(s) RE-TYPE [facility] al BLOOD BANK RE-TYPE ABO group [Type] in Blood B [facility] Rh [Type] in Blood POSITIVE [facility] { ABO/RH RE-ENTER B POSITIVE ID Date Data Source [id number] 02/22/2021 07:23:00 PM EDT [facility] Name Value Range Interpretation Code Description Data Nicolasa rce(s) Supporting Document(s) ABO group [Type] in Blood B [facility] Rh [Type] in Blood POSITIVE [facility] AB SCREEN NEGATIVE NORMAL: NEGATIVE [facility] { ABO/RH REENTER B POSITIVE{ AB SCREEN RE-ENTER NEGATIVE ID Date Data Source [id number] 02/22/2021 07:31:00 PM EDT [facility] Name Value Range Interpretation Code Description Data Nicolasa rce(s) Supporting Document(s) BNP 276 PG/ML 0 - 125 [facility] al ID Date Data Source [id number] 02/22/2021 07:31:00 PM EDT [facility] Name Value Range Interpretation Code Description Data Nicolasa rce(s) Supporting Document(s) COMPREHENSIVE METABOLIC PANEL [facility] COMPREHENSIVE METABOLIC PANEL Sodium [Moles/volume] in Serum or Plasma 137 mEq/L 134 - 153 [facility] Potassium [Moles/volume] in Serum or Plasma 4.4 mEq/L 3.6 - 5.0 [facility] Chloride [Moles/volume] in Serum or Plasma 104 mEq/L 98 - 107 [facility] Carbon dioxide, total [Moles/volume] in Serum or Plasma 24 MEQ/L 22 - 30 [facility] Glucose [Mass/volume] in Serum or Plasma 152 MG/DL 70 - 99 H [facility] BUN 20 MG/DL 7 - 21 [facility] Creatinine [Mass/volume] in Serum or Plasma 0.9 MG/DL 0.7 - 1.5 [facility] BUN/CREAT 22 8 - 27 [facility] Protein [Mass/volume] in Serum or Plasma 6.1 G/DL 6.3 - 8.2 L [facility] Albumin [Mass/volume] in Serum or Plasma 4.0 G/DL 3.9 - 5.0 [facility] Globulin [Mass/volume] in Serum by calculation 2.1 GM/DL 2.4 - 3.2 L [facility] A/G RATIO 1.9 0.8 - 2.0 [facility] Calcium [Mass/volume] in Serum or Plasma 9.2 MG/DL 8.4 - 10.2 [facility] Bilirubin.total [Mass/volume] in Serum or Plasma <0.7 MG/DL 0.2 - 1.3 [facility] Alkaline phosphatase [Enzymatic activity/volume] in Serum or Plasma 76 U/L 38 - 126 [facility] Aspartate aminotransferase [Enzymatic activity/volume] in Serum or Plasma 15 U/L 5 - 40 [facility] Alanine aminotransferase [Enzymatic activity/volume] in Seru m or Plasma 12 U/L 7 - 56 [facility] Anion gap 3 in Serum or Plasma 9.0 mmol/L 8.0 - 16.0 [facility] AGE 75 yrs [facility] NON-AA GFR >60 mL/min [facility] AFR AMER GFR >60 [facility] Male GFR In terprentation 20-49 yrs >60 mL/min Normal 50-59 yrs >56 mL/min Normal 60-69 yrs >49 mL/min Normal 70-79yrs >42 mL/min Normal 80 and above >35 mL/min Normal Female GFR Interpretation 20-39 yrs >60 mL/min Normal 40-49 yrs >58 mL/min Normal 50-59 yrs >51 mL/min Normal 60-69 yrs >45 mL/min Normal 70-79 yrs >39 mL/min Normal 80 and above >32 mL/min Normal ID Date Data Source [id number] 02/22/2021 07:19:00 PM T [facility] Name Value Range Interpretation Code Description Data Nicolasa rce(s) Supporting Document(s) TROPONIN T <0.01 NG/ML 0.00 - 0.10 [facility] ospital TROPONIN T0.1 ng/ml Recommended as the c linical threshold value forTroponin T. ID Date Data Source [id number] 02/22/2021 06:48:00 PM T [facility] Name Value Range Interpretation Code Description Data Nicolasa rce(s) Supporting Document(s) CBC W/AUTOMATED DIFF [facility] COMPLETE BLOOD COUNT Leukocytes [#/volume] in Blood by Automated count 8.3 10^3/uL 4.2 - 1 1.0 [facility] Erythrocytes [#/volume] in Blood by Automated count 3.06 10^6/uL 4. 20 - 5.40 L [facility] Hemoglobin [Mass/volume] in Blood 8.7 g/dL 12.0 - 16.0 L [facility] Hematocrit [Volume Fraction] of Blood by Automated count 27.0 % 3 7.0 - 47.0 L [facility] Erythrocyte mean corpuscular volume [Entitic volume] by Auto mated count 88.2 fL 81.0 - 101 [facility] Erythrocyte mean corpuscular hemoglobin [Entitic mass] by Automated count 28.4 pg 27.0 - 34.0 [facility] Erythrocyte mean corpuscular hemoglobin concentration [Mass/volume] by Automated count 32.2 g/dL 31.0 - 36.0 [facility] Erythrocyte distribution width [Ratio] by Automated count 14.0 % 11.5 - 14.5 [facility] Platelets [#/volume] in Blood by Automated count 338 10^3/uL 150 - 45 0 [facility] Platelet mean volume [Entitic volume] in Blood by Automated count 10.1 fL 7.4 - 10.4 [facility] Neutrophils/100 leukocytes in Blood by Automated count 69.5 % 37. 0 - 80.0 [facility] Lymphocytes/100 leukocytes in Blood by Manual count 20.1 % 25.0 - 40.0 L [facility] Monocytes/100 leukocytes in Blood by Automated count 7.7 % 3.0 - 8.0 [facility] Eosinophils/100 leukocytes in Blood by Automated count 1.9 % 0.0 - 7.0 [facility] Basophils/100 leukocytes in Blood by Automated count 0.6 % 0.0 - 2.5 [facility] %IG 0.2 % 0.0 - [facility] % 0.0 - 0.0 [facility] al Neutrophils [#/volume] in Blood by Automated count 5.73 10^3/uL 2.00 - 6.90 [facility] Lymphocytes [#/volume] in Blood by Automated count 1.66 10^3/uL 0.60 - 3.40 [facility] Monocytes [#/volume] in Blood by Automated count 0.64 10^3/uL 0.00 - 0.90 [facility] Eosinophils [#/volume] in Blood by Automated count 0.16 10^3/uL 0.00 - 0.70 [facility] Basophils [#/volume] in Blood by Automated count 0.05 10^3/uL 0.00 - 0.20 [facility] #IG 0.02 10^3/uL 0.00 - 0.10 [facility] #NRBC 0.00 10^3/uL 0.00 - 0.00 [facility] MANUAL DIFF NOT INDICATED [facility] RBC MORPH NOT INDICATED [facility] spital ID Date Data Source [id number] 02/15/2021 01:41:21 PM EDT [facility]Patient MR[facility] Name Date of Age Gend*PT [id number] Constance Javed 1945 75 years F ---PT Location Admission Date/Time Visit ID Attending Provider --- --- --- --- EPI ID CSN Admitting Provider [id number] ---I talked to her radiation oncologist in [place]. Dr Yi. He also agreesthat she is a candidate for adjuvant postmastectomy radiation. So we will notproceed with axillary dissection based on a sentinel node. Patient is aware Name Value Range Interpretation Code Description Data Nicolasa rce(s) Supporting Document(s) ID Date Data Source [id number] 02/10/2021 04:33:19 PM EDT [facility]FORMATIONPatient MRN Name Date of Age Gend*PT [id number] Constance Javed 1945 75 years F ---PT Location Admission Date/Time Visit ID Attending Provider --- --- --- --- EPI ID CSN Admitting Provider [id number] ---POST OPERATIVE VISITDATE OF SURGERY: 1PROCEDURE: Bilateral mastectomies right sentinel node biopsy and port placementI reviewed the pathology and surgery details with patient today.The patients admits to minimal drain output. Bilateral drains areserosanguineous with scant output.Exam:Bilateral: Incision well approximated, minimal swelling, no signs of infection.Port site looks fineAssessment and Plan:Right breast cancer, mucinous features, multifocal Stage 1B T2 N1 M0 Estrogenpositive 100% Progesterone positive 30% Her 2 Sarita positive 3+, grade 1Follow up: 6 monthsShe had 1 out of 1 positive sentinel nodes. I went over her options. She willneed adjuvant HER-2 based chemotherapy g. Her axillary management options wouldbe adjuvant radiation, adjuvant radiation plus surgery, or surgery only, or evenperhaps just monitoring only. I would like to get the input of her treatingmedical oncologist and radiation oncologist prior to deciding on a surgery. Ifthe plan is for adjuvant radiation that I think she does not need additionalsurgery. Name Value Range Interpretation Code Description Data Nicolasa rce(s) Supporting Document(s) ID Date Data Source [id number] 02/02/2021 05:31:28 PM EDT [address] [address]Epiwhrg Name: CONSTANCE Del Angel NESSA: 1945Sex: FOrdering Provider: TRE Bryant Prov: TRE Johnson Provider: Procedure Performed: / XR CHEST PORTABLEExam Date: 02/02/2021 16:34MRN: [id number] Number: [id number] Class: InpatientAccount #: [id number] for Exam: left subclavian port placmeentTechnique: AP portable view obtained.Comparison: NoneFindings: Left- sided Vxlfws-v-Jokg catheter is in satisfactory position with the tip projecting over the cavoatrial junction. Bilateral chest tubes are present. There is no identifiable pneumothorax.The mediastinal and hilar contours appear normal. Small amount subcutaneous air is identified within the chest wall.IMPRESSION: Lgypwa-p-Vusn catheter is in satisfactory position.Report electronically signed by: VILMA VELAZQUEZ On 02/02/2021 5:31 PMWorkstation ID: [id number] Name Value Range Interpretation Code Description Data Nicolasa rce(s) Supporting Document(s) ID Date Data Source [id number] 02/02/2021 05:28:34 PM EDT [address] [address]Lomfwzi Name: CONSTANCE JAVEDDOB: 1945Sex: FOrdering Provider: TRE Bryant Prov: TRE Johnson Provider: Procedure Performed: / XR OR FLUORO VENOUS ACCESS DEVICEExam Date: 02/02/2021 16:19MRN: [id number] Number: [id number] Class: InpatientAccount #: [id number] for Exam: CancerTechnique: Fluoroscopy with no digital spot images obtained.Fluoroscopy time: 32 SecondsNumber of Spot Images: 0Comparison: NoneFindings: Small wpvco-gj-[id number] images were obtained during placement of an Asjbhx-h-Muff cath eter. The tip of the catheter projects over the cavoatrial junction. The endotracheal tube is in satisfactory position.IMPRESSION: The Hdlgym-o-Luly tip projects over the cavoatrial junction in satisfactory position.Report electronically signed by: VILMA VELAZQUEZ On 02/02/2021 5:28 PMWorkstation ID: [id number] Name Value Range Interpretation Code Description Data Nicolasa rce(s) Supporting Document(s) ID Date Data Source [id number] 02/02/2021 04:51:24 PM EDT [facility] Name Value Range Interpretation Code Description Data Nicolasa rce(s) Supporting Document(s) POC NOVA GLU 142 mg/dL (70-99) H [facility] [place] [place] [facility] ID Date Data Source [id number] 02/02/2021 04:22:38 PM EDT [facility] INFORMATIONPatient MRN Name Date of Age Gend*PT [id number] Constance Javed 1945 75 years F SDCXPT Location Admission Date/Time Visit ID Attending ProviderASNE AMBULATO* 02/02/21 1058 --- Tre Mojica MD([id number]) EPI ID CSN Admitting Provider [id number] Tre Mojica MD([id number])DATE OF SURGERY: 02/02/21ATTENDING: TRE MOJICA MDPRE OPERATIVE DIAGNOSIS: Right breast cancerPOST OP DIAGNOSIS: samePROCEDURE: Bilateral simple mastectomies right sentinel node biopsy and leftchest port placement.INDICATIONS: Right breast cancer, mucinous features, multifocal Stage 1A T1c N0M0 Estrogen positive 100% Progesterone positive 30% Her 2 Sarita positive 3+, grade1. Preoperative MRI showed more extensive disease in the right lower innerbreast. OPERATIVE FINDINGS: 1 sentinel node. No suspicious findings in the breast.Port placement left subclavian without difficultyPROCEDURE DETAILS:Consent obtained from patient. She underwent general anesthesia withoutincident. She is given preoperative IV antibiotics. Her chest was prepped anddraped in usual sterile fashion. A timeout was performed prior to incision.The patient was marked preoperatively. I started on the right side. I chose touse a mastectomy incision using inframammary crease with an extension along theanterior axillary line. The skin was marked. The skin was then scored with a10 blade. The upper flap was carried up to the clavicle medially to lateralborder of sternum and laterally to latissimus. There is minimal lower flapsince this was in the inframammary crease. The breast was then taken off thepectoralis major muscle including the fascia from a medial to lateral approach.The breast was kept attached to the L axilla and I dissected out 1 hot sentinelnode using cautery. The node was sent for permanent. The breast was thendetached from the axilla. I then irrigated and confirm hemostasis. I oscar anabel a15 Tajik Marcos drain and secured it to the skin with a 3-0 nylon suture. Thenin order to minimize the excess lateral redundant skin. I extended the lateralincision of the mastectomy along the anterior axillary line. I then usedstaples to reapproximate the skin and then had to cut out basically a triangleof tissue along the anterior axillary line. The skin edges were thentemporarily reapproximated with a stapler and then I closed using 3-0 Vicryl sussy running 3-0 Monocryl. I then went to the left side. The breast on the leftside was removed in a similar fashion. I rachid my planned incision. The skinwas scored with a 10 blade. There is an anterior axillary line extension. Iraise my upper flap to the clavicle laterally to the latissimus medially tolateral border the sternum. The inframammary crease marked essentially thelower aspect of my incision so the lower flap was minimal. The breast was thentaken off the pectoralis major muscle using cautery from a medial to lateralapproach. Once the breast was removed I confirmed hemostasis and irrigated outthe wound. A 15 Tajik Marcos drain was placed. Then I revised the lateralexcess skin in a similar fashion I reapproximated the skin laterally along theanterior axillary line removing a triangle of tissue. The skin was thenreapproximated temporarily with nury. Then we closed with 3-0 Vicryl and 3-0Monocryl. The incisions were connected in the midline. And then the entirewound was covered with Dermabond tape. Once a dressing was applied I then didthe port. I placed the port in the left subclavian vein. The patient wasreprepped and draped. The subclavian vein was accessed on the third stick. Weused fluoroscopy to confirm the trajectory of the wire. Then used a Seldingertechnique to place an 8 Tajik single-lumen Bard port. A pocket was fashionedupper left chest. Once placed there was good blood return and the port flushedwithout difficulty. The skin was then closed with 3-0 Vicryl 4-0 Monocryl.Dermabond was applied.Specimens: Right breast, right axillary sentinel node, left breast.Implant Bard single lumen 8 Tajik port MRI compatible. (See brief op note forlot number)Complications: none Name Value Range Interpretation Code Description Data Nicolasa rce(s) Supporting Document(s) ID Date Data Source [id number] 02/02/2021 12:51:39 PM EDT [facility] INFORMATIONPatient MRN Name Date of Age Gend*PT [id number] Constance Javed 1945 75 years F SDCXPT Location Admission Date/Time Visit ID Attending ProviderASNE AMBULATO* 02/02/21 1058 --- Tre Mojica MD([id number]) EPI ID CSN Admitting Provider [id number] Tre Mojica MD([id number])Assessment: Right breast cancer, mucinous features, multifocal Stage 1A T1c N0 M0 Estrogenpositive 100% Progesterone positive 30% Her 2 Sarita positive 3+, grade 1 Plan:Bilateral mastectomies without reconstruction and placement of a left chestport Her MRI showed more extensive disease. HPI: Constance Javed is a 75 years female who had right breast pain which prompt edwork-up. She has been seen in our office prior to biopsy. Her primary careprovider palpated a abnormality in the right breast she underwent bilateralmammography and a right breast ultrasound which showed questionable 2 areas.She then underwent repeat ultrasound at [facility] and only 1 abnormal area wasidentified. An ultrasound-guided biopsy was performed. Breast Imaging at [facility] Mammogram: OutsideDiagnostic mammography central calcification and a small mass withcalcifications corresponding to the palpable region. Right breast mass 5:00 1.5x 1.8 cmHer family history is significant . Her daughter currently is being treated forbreast cancer by my partner. She had genetic testing which was negative. Past Medical History:Diagnosis Date Anemia Arthritis Back pain COPD (chronic obstructive pulmonary disease) Diabetes mellitus Disease of thyroid gland Hyperlipidemia Hypertension Seizures Past Surgical History:Procedure Laterality Date CARDIAC CATHETERIZATION N/A 07/25/2019 Procedure: Left heart cath; Surgeon: Nino Bardales MD; Laterality: N/A; CARDIAC CATHETERIZATION N/A 07/25/2019 Procedure: Coronary angiography; Surgeon: Nino Bardales MD; Laterality:N/A; CARDIAC CATHETERIZATION N/A 07/25/2019 Procedure: Aortogram; Surgeon: Nino Bardales MD; Laterality: N/A; CARDIAC CATHETERIZATION N/A 07/25/2019 Procedure: Pressure Wire Procedure; Surgeon: Nino Bardales MD; Laterality:N/A; CARDIAC CATHETERIZATION HYSTERECTOMY TONSILLECTOMY Prior to Admission medicationsMedication Sig Start Date End Date Taking? Authorizing ProviderAscorbic Acid (VITAMIN C) 250 MG CHEW Chew daily Historical ProviderJordy EC 81 MG EC tablet Take 81 mg by mouth daily Historical ProviderJasoncitalopram (LEXAPRO) 20 MG tablet Take 20 mg by mouth daily HistoricalProMD rajaniesomeprazole (NEXIUM) 20 MG capsule Take 20 mg by mouth every morning beforebreakfast Historical ProviderMDestradiol (ESTRACE) 1 MG tablet Take 0.5 mg by mouth daily HistoricalProviMD hermanferrous sulfate 325 (65 FE) MG tablet Take 325 mg by mouth 2 (two) times a daywith meals Historical ProviderMDlevothyroxine (SYNTHROID, LEVOTHROID) 112 MCG tablet Take 112 mcg by mouth dailyHistorical Provider, levothyroxine (SYNTHROID, LEVOTHROID) 125 MCG tablet Take 125 mcg by mouth dailyHistorical Provider, MDMagnesium Oxide (MAG-OX) 400 MG tablet Take 400 mg by mouth daily Historical Provider, BuckyetFORMIN (GLUCOPHAGE) 1000 MG tablet Take 1,000 mg by mouth 2 (two) times a daywith meals Historical Provider, naproxen (NAPROSYN) 500 MG tablet Take 500 mg by mouth 2 (two) times a day withmeals Historical Provider, nortriptyline (PAMELOR) 10 MG capsule Take 10 mg by mouth nightly Historical Provider, MDrosuvastatin (CRESTOR) 40 MG tablet Take 40 mg by mouth daily HistoricalProvider, Deboraholifenacin (VESICARE) 10 MG tablet Take 10 mg by mouth daily HistoricalProvider, tiZANidine (ZANAFLEX) 4 MG tablet Take 4 mg by mouth every 6 (six) hours asneeded Historical Provider, Umeclidinium-Vilanterol (ANORO ELLIPTA IN) Inhale daily HistoricalProvider, vitamin B-12 (CYANOCOBALAMIN) 100 MCG tablet Take 1,000 mcg by mouth daily Historical Provider, VITAMIN D PO Take by mouth daily Historical Provider, zonisamide (ZONEGRAN) 50 MG capsule Take 50 mg by mouth daily HistoricalProviMD herman No Known Drug Allergies Social History Socioeconomic History Marital status: Spouse name: Not on file Number of children: Not on file Years of education: Not on file Highest education level: Not on fileOccupational History Not on fileTobacco Use Smoking status: Former Smoker Types: Cigarettes Quit date: 1997 Years since quittin.4 Smokeless tobacco: Never UsedSubstance and Sexual Activity Alcohol use: Never Drug use: Never Sexual activity: Not on fileOther Topics Concern Bike Helmet Not Asked History of Falls Not Asked Self-Exams Not Asked Caffeine Concern Not Asked Hobby Hazards Not Asked Sleep Concern Not Asked Daily Calcium Supplement Not Asked Lead Exposure Not Asked Special Diet Not Asked Daily Vitamin D Supplement Not Asked Service Not Asked Stress Concern Not Asked Domestic Violence in home Not Asked Radon exposure Not Asked Weight Concern Not Asked Exercise Not Asked Seat Belt Not Asked Well water Not Asked Firearms in home Not AskedSocial History Narrative Not on file Social Determinants of Health Financial Resource Strain: Difficulty of Paying Living Expenses:Food Insecurity: Worried About Running Out of Food in the Last Year: Ran Out of Food in the Last Year:Transportation Needs: Lack of Transportation (Medical): Lack of Transportation (Non-Medical):Physical Activity: Days of Exercise per Week: Minutes of Exercise per Session:Stress: Feeling of Stress :Social Connections: Frequency of Communication with Friends and Family: Frequency of Social Gatherings with Friends and Family: Attends Buddhism Services: Active Member of Clubs or Organizations: Attends Club or Organization Meetings: Marital Status:Intimate Partner Violence: Fear of Current or Ex-Partner: Emotionally Abused: Physically Abused: Sexually Abused: Family HistoryProblem Relation Age of Onset Lung cancer Mother 73 Liver cancer Mother Hypertension Father Diabetes Sister Heart disease Sister Heart disease Brother Breast cancer Daughter 47 Breast Pre Cancer Daughter Diabetes Son Breast cancer Paternal Aunt PHYSICAL EXAMINATION : She is here today with son.Blood pressure 177/69, pulse 87, height 1.676 m (5' 6"), weight 77.6 kg (171lb). Breast Exam: Left Breast reveals nipple chronically inverted, no nipple lesions or discharge,normal skin contour no dimpling, no skin erythema, no masses appreciatedthere is not any obvious axillary or supraclavicular adenopathy in the uprightor supine positionRight Breast reveals bruising in the 5:00 location with hematoma versus mass nooverlying skin changes right nipple is chronically inverted without discharge,there is not any obvious axillary or supraclavicular adenopathy in the uprightor supine position Neck reveals no masses or adenopathy , no thyroid nodulesLungs: clear bilaterally Name Value Range Interpretation Code Description Data Nicolasa rce(s) Supporting Document(s) ID Date Data Source [id number] 02/02/2021 11:56:00 AM EDT [facility] SENTINEL NODE INJECTION ONLYCLINICAL HISTORY: Right breast cancer.COMPARISON: None availableFINDINGS: SENTINEL NODEThe periareolar region was selected and prepped in a sterile fashion. Local anesthesia was obtained utilizing lidocaine with sodium bicarbonate. A sentinel node injection was performed intradermally with sulfur colloid. 490 uCi of technetium 99m filtered sulfur colloid was injected into the right breast in a periareolar location. The skin was initialed. The patient tolerated the procedure well with no immediate post-procedure complication.The patient left in stable condition.IMPRESSION: Status-post sentinel node injection.Dictated by: MADELAINE LOGAN M.D. on 02/02/2021lectronically Signed by: MADELAINE LOGAN M.D. on 02/02/2021 12:34 PMTranscribed by: neha 02/02/2021 12:34 PM CDS G Code: , ,CDS Modifier: , ,cc: Name Value Range Interpretation Code Description Data Nicolasa rce(s) Supporting Document(s) ID Date Data Source [id number] 02/02/2021 11:27:18 AM EDT [facility] Name Value Range Interpretation Code Description Data Nicolasa rce(s) Supporting Document(s) POC NOVA GLU 162 mg/dL (70-99) H [facility] [place] [facility]AFF ID Date Data Source [id number] 02/09/2021 08:17:11 PM EDT [facility] [address] [address]# Surgical Pathology ReportPatient Name: CONSTANCE JAVED: 8Accession #:[id number](s) ReceivedA: Right axillary sentinel nodeB: Right breast - stitch in the axillary poleC: Left breast - stitch at axillaClinical Diagnosis and HistoryMalignant neoplasm of right breast in female; estrogen receptor positive;unspecified site of breastDIAGNOSISA. SENTINEL LYMPH NODE, RIGHT AXILLA, EXCISION: METASTATIC CARCINOMA INVOLVING ONE OF ONE LYMPH NODES (06/11). THE CARCINOMA IS PRESENT OVER A 4.5 MM LENGTH, MAINLY IN A SUBCAPSULARLOCATION. EXTRANODAL EXTENSION IS NOT IDENTIFIED.B. BREAST, RIGHT, MASTECTOMY: INVASIVE MULTIFOCAL DUCTAL CARCINOMA WITH MICROPAPILLARY FEATURES. THE MARGINS ARE NEGATIVE FOR CARCINOMA. MULTIPLE BENIGN SEBORRHEIC KERATOSES ARE NOTED ON THE SKIN SURFACE. SEE PATHOLOGIC SUMMARY.C. BREAST, LEFT, MASTECTOMY: BENIGN BREAST TISSUE WITH A 1.0 CM BENIGN FIBROADENOMA. NO CARCINOMAIS IDENTIFIED. THE SKIN SURFACE SHOWS MULTIPLE BENIGN SEBORRHEICKERATOSES.COMMENT: Four foci of carcinoma are identified within the inferior aspectof the right breast. The foci of carcinoma have similar featuresincluding micropapillary differentiation and partial mucinousdifferentiation. An KJ immunostain shows a reverse apical patterntypical of micropapillary carcinomas. The carcinoma present in the lymph node is noted to showmicropapillary differentiation. Microscopic DescriptionPATHOLOGIC SUMMARY RIGHT BREAST MASTECTOMY: 1. TUMOR SIZE (Greatest dimension of largest invasive focus): 26 mm2. HISTOLOGIC TYPE OF INVASIVE CARCINOMA: Invasive ductal carcinoma withmicropapillary features. Focal mucinous differentiation is noted to bepresent.3. HISTOLOGIC GRADE: Overall grade: 1 Glandular (acinar)/tubular differentiation: Score: 2 Nuclear pleomorphism: Score: 2 Mitotic rate: Score: 14. TUMOR FOCALITY: Number of foci: 4 Sizes of individual foci: 26 mm, 24 mm, 15 mm, 6 mm5. DUCTAL CARCINOMA IN SITU: DCIS present, grade 2, cribriform type withnecrosis, associated with invasive carcinoma6. MICROCALCIFICATIONS: Present in DCIS and fibrotic stroma7. ANGIOLYMPHATIC INVASION: Possible lymphatic invasion is seen.8. MACROSCOPIC AND MICROSCOPIC EXTENT OF THE TUMOR: Skin and Nipple: Negative for carcinoma 9. MARGINS: Invasive carcinoma: Margins negative for invasive carcinoma Distance from closest margin: 20 mm Specify margin: Superficial DCIS: Margins negative for DCIS Distance from closest margin: 20 mm Specify margin: [id number]. LYMPH NODES: Number of sentinel nodes examined: 1 Total number of nodes (sentinel and non-sentinel): 1 Number with macrometastasis (> 2 mm): 1 Number with micrometastasis (> 0.2 mm to 2 mm or > 200 cells): 0 Number with isolated tumor cells (d 0.2 mm and d 200 cells): 0 Number of negative nodes: 0 Size of largest metastatic deposit: 4.5 mm Extranodal extension: Uadbda81. TREATMENT EFFECT RESPONSE: No known presurgical nkicxeb58. ER/WA/HER2: Previously performed on core biopsy [id number]. NON-NEOPLASTIC BREAST: Prior biopsy 14. PATHOLOGIC STAGING: mpT2 pN1a(sn)15. Oncotype Dx: Not ordered Gross DescriptionPart A. Received in formalin labeled "right axillary sentinel node #1" reema 2.7 x 2.7 x 1.5 cm fragment of yellow lobulated adipose tissuecontaining a 1.6 x 1.1 x 0.7 cm doll lymph node that is serially sectionedto show doll-pink smooth cut surfaces with minimal fat replacement. Thelymph node is entirely submitted as A1. Step level and pancytokeratin.Part B. Received in formalin labeled "right breast, stitch at axillarypole" is 740 gm, 24.5 x 19.9 x 6.7 cm yellow mastectomy specimen surfacedby a suture in the axillary tail. The specimen is surfaced by a 22.5 x8.5 cm doll portion of skin with a centrally located 4.0 cm pale tancircular areola with a 1.1 cm inverted nipple. The epidermis displaysseven doll bosselated skin lesions ranging in size from 0.2 to 0.5 cm. Thespecimen is inked as follows: lateral red, superficial blue, deep black. Sectioning shows a 0.5 x 0.3 x 0.2 cm alfredo-white fibrotic biopsy cavitylocated within the lower outer quadrant around the 5:00 aspect. Thisbiopsy site is 3.5 cm from the deep margin, 3.5 cm from the superficialmargin, and 2.2 cm from the overlying skin. The biopsy site contains darkred clotted blood and is surrounded by a 2.6 x 1.2 x 1.1 cm doll induratedmass. Located 1.0 cm superior to this mass at the 4:00 aspect is a secondill-defined mass measuring 1.5 x 1.5 x 0.7 cm. The mass is alfredo-white,gritty and indurated. This mass is 3.0 cm from the deep margin, 6.0 cmfrom the superficial margin, and 2.5 cm from the overlying skin. There reema third mass located 0.6 cm inferior to the first mass measuring 2.4 x 1.7x 1.0 cm. The mass is alfredo-white, gritty, indurated, and ill-defined. This mass is 3.0 cm from the deep margin, 2.0 cm from the superficialmargin, and 2.0 cm from the overlying skin. There is a possible fourthmass located at the 6:00 aspect measuring 0.6 cm and located 2 cm from thenearest margin. The remaining cut surfaces show approximately 30%alfredo-white fibrous tissue admixed with yellow fatty tissue. No additionallesions or lymph nodes are identified. Also received in the samecontainer is 12.2 x 5.5 x 2.5 cm fragment of yellow adipose tissuesurfaced by doll triangular skin with a 0.7 cm doll bosselated skin lesion. Sectioning shows scant alfredo-white fibrous tissue admixed with abundantyellow fatty tissue. No lesions are identified. Game Protector sectionsare submitted as labeled:B1. Skin lesions from superior aspect of mastectomyB2. Skin lesions from inferior aspect of mastectomyB3. NippleB4. Superficial and deep margins closest to first and second massB5. Nearest skin closest to first and second massB6-B7. Biopsy cavity entirelyB8-B9. First jxbfL12-N35. Sections from second massB12. Third mass to include nearest superficial hzrjsxR03. Nearest deep margin and overlying skin to third mnceT45-O89. Additional sections of third massB16. Upper inner ahsbwerwU37. Lower inner quadrant and possible 6:00 massB18. Lower outer nkluftakW21. Upper outer nfbartbwY04. Section of additional adipose tissue to include skin withlesionPart C. Received in formalin labeled "left breast, stitch at axillary" reema 799 gm, 23.2 x 16.5 x 9.1 cm yellow mastectomy specimen surfaced by a23.2 x 11.5 cm doll skin ellipse. There is a centrally located 4.0 cmlight doll circular areola with a 1.0 cm inverted nipple. The skindisplays multiple doll to brown, bosselated, irregular skin lesions rangingin size from 0.2 to 2.2 cm diffusely throughout the specimen. Thespecimen is inked as follows: lateral red, superficial blue, deep black. Sectioning shows approximately 20% alfredo-white fibrous tissue admixed withyellow fatty tissue. No lesions or lymph nodes are identified. Alsoreceived in the same container is 15.2 x 5.2 cm fragment of doll wrinkledskin with adherent underlying yellow adipose tissue. The fragment of skinalso displays two doll bosselated skin lesions measuring 0.3 and 0.7 cm. Sectioning shows scant alfredo-white fibrous tissue admixed with abundantyellow fatty tissue. No lesions are identified. Game Protector sectionsare submitted as labeled:C1. Three skin lesions from mastectomy within the superior outeraspectC2. Two skin lesions from mastectomy along the lateral aspectC3-C4. Four skin lesions from the inferior aspect of the mastectomyC5. Three skin lesions from the medial aspect of the mastectomyC6. Section of nippleC7-C8. Upper outer quadrantC9-C10. Lower outer zsozymkfB07-E38. Lower inner gtmpdxjlO43-J96. Upper inner bggtieymB19. Two skin lesions from additional fragment of skinC16. Additional fragment of skin and underlying fibrofatty tissuesmmlmr/mwg Reported: 02/09/2021 20:15Electronically Signed Out By Hank Bennett MD [facility] [place] [address] [id number] component performed at [facility], Histopathology, [address] [place] [address], [id number].[facility] at [facility], [address] [place] [address], [id number]. This report may includeimmunohistochemical or in-situ hybridization results. Testing wasdeveloped and the performance characteristics determined by [facility] as required by CLIA '88. The FDA hasdetermined that approval for specific use is not necessary for clinicaluse. The quality of Hematoxylin and Eosin stains and as applicable, forall immunohistochemical and/or special stains, including positive andnegative controls, were reviewed and considered appropriate.ICD codes C50.911CPT codesA: 75041N, 13957pI: 07265Y, 11890kP: 38044O Name Value Range Interpretation Code Description Data Nicolasa rce(s) Supporting Document(s) ID Date Data Source [id number] 01/28/2021 10:05:00 AM EDT [facility] Name Value Range Interpretation Code Description Data Nicolasa rce(s) Supporting Document(s) SARS-CoV-2 (COVID-19) RNA [Presence] in Respiratory specimen by BLAYNE with probe detection Not Detected [facility] This lab was ordered by [facility] and reported by [facility]. ID Date Data Source [id number] 01/18/2021 12:42:05 PM EDT [facility] NT INFORMATIONPatient MRN Name Date of Age Gend*PT [id number] TeganConstance 1945 75 years F ---PT Location Admission Date/Time Visit ID Attending Provider --- --- --- --- EPI ID CSN Admitting Provider [id number] ---I talked to the patient again. She is interested in bilateral mastectomies withno reconstruction. She is okay with her port being placed at the time of hersurgery. We will have to cancel the plastic surgery portion of the case. Name Value Range Interpretation Code Description Data Nicolasa rce(s) Supporting Document(s) ID Date Data Source [id number] 12/24/2020 02:47:03 PM EDT [facility] Name Value Range Interpretation Code Description Data Nicolasa rce(s) Supporting Document(s) Progress Note [facility] [id number] lbm [file] [id number] ID Date Data Source [id number] 12/21/2020 01:01:11 PM EDT [facility] NT INFORMATIONPatient MRN Name Date of Age Gend*PT [id number] Constance Javed 1945 75 years F ---PT Location Admission Date/Time Visit ID Attending Provider --- --- --- --- EPI ID CSN Admitting Provider [id number] ---I talked to the patient. She will require a mastectomy given her MRI findings.She is interested in meeting with plastic surgery to discuss reconstructionoptions. She realizes her surgery will have to be canceled for tomorrow [facility]. Name Value Range Interpretation Code Description Data Nicolasa rce(s) Supporting Document(s) ID Date Data Source [id number] 12/17/2020 03:07:35 PM EDT [facility] NT INFORMATIONPatient MRN Name Date of Age Gend*PT [id number] Constance Javed 1945 75 years F OPPT Location Admission Date/Time Visit ID Attending Provider --- --- --- Tre Mojica MD([id number]) EPI ID CSN Admitting Provider [id number] ---OUTPATIENT / OBSERVATIONAL SURGICAL OR INVASIVE PROCEDUREName: Constance Javed : 1945 Sex: female Care Provider: Fitz Arguello Physician: Dr. Muñoz OF PRESENT ILLNESS: Ms Javed is a 75 years old white female with ahistory of hypertension, hyperlipidemia, hypothyroidism, diabetes, COPD,overactive bladder, and heart murmur who recently complained of right breastpain. Patient was evaluated by PCP and was found to have palpable right breastnodule. She underwent diagnostic testings. Diagnostic mammogram confirmedright breast nodule. Subsequently she underwent breast ultrasound and biopsy ofthe right breast. Biopsy concluded Right breast cancer, mucinous features,multifocal Stage 1A T1c N0 M0 Estrogen positive 100% Progesterone positive 30%Her 2 Sarita positive 3+, grade 1.Patient was referred to Dr. Mojica. Options were discussed. She is nowscheduled to undergo surgical intervention.PAST MEDICAL HISTORY:Past Medical History:Diagnosis Date Anemia Back pain COPD (chronic obstructive pulmonary disease) Diabetes mellitus GERD (gastroesophageal reflux disease) Heart murmur Dr. 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,estrogen receptor positive OAB (overactive bladder) Osteoarthritis Seizures DeniesPAST SURGICAL HISTORY:Past Surgical History:Procedure Laterality Date CARDIAC CATHETERIZATION N/A 07/25/2019 Procedure: Left heart cath; Surgeon: Nino Bardales MD; Laterality: N/A; CARDIAC CATHETERIZATION N/A 07/25/2019 Procedure: Coronary angiography; Surgeon: Nino Bardales MD; Laterality: N/A; CARDIAC CATHETERIZATION N/A 07/25/2019 Procedure: Aortogram; Surgeon: Nino Bardales MD; Laterality: N/A; CARDIAC CATHETERIZATION N/A 07/25/2019 Procedure: Pressure Wire Procedure; Surgeon: Nino Bardales MD; Laterality:N/A; CARDIAC CATHETERIZATION COLONOSCOPY HYSTERECTOMY total PANENDOSCOPY TONSILLECTOMYALLERGIES: No Known Drug AllergiesMEDICATIONS:Prior to Admission medicationsMedication Sig Start Date End Date Taking? Authorizing ProviderAccu-Chek Kelsy Plus test strip daily 11/11/20 Historical Provider, MDacetaminophen (TYLENOL) 500 MG tablet Take 1,000 mg by mouth daily as needed forpain Historical Provider, MDAscorbic Acid (Vitamin C) 500 MG CHEW Chew 500 mg daily Historical Provider,Jose Raulspirin EC 81 MG EC tablet Take 81 mg by mouth daily Historical Provider, Anaholecalciferol (VITAMIN D3) 25 MCG (1000 UT) capsule Take 1,000 Units by mouthdaily Historical Provider, J CARLOSaily Perez (THERAGRAN) per tablet Take 1 tablet by mouth daily HistoricalProviderJasoncitalopram (LEXAPRO) 20 MG tablet Take 20 mg by mouth daily HistoricalProvider, esomeprazole (NEXIUM) 20 MG capsule Take 20 mg by mouth every morning beforebreakfast Historical Provider, estradiol (ESTRACE) 1 MG tablet Take 0.5 mg by mouth 3 (three) times a week OnSunday, Sunday and Sunday Historical Provider, fluticasone (FLONASE) 50 MCG/ACT nasal spray 1 spray into each nostril daily asneeded for rhinitis or allergies Historical Provider, levothyroxine (SYNTHROID, LEVOTHROID) 112 MCG tablet Take 112 mcg by mouth dailyHistorical Provider, lidocaine (ASPERCREME) 4 % PTCH Place 1 patch on the skin Every 24 hours asneeded (To the left hip for pain) 12 hours on/ 12 hours off HistoricalProvider, losartan (COZAAR) 25 MG tablet Take 25 mg by mouth daily 10/10/20 HistoricalProvider, MDmetFORMIN (GLUCOPHAGE) 1000 MG tablet Take 1,000 mg by mouth 2 (two) times a daywith meals Historical Provider, naproxen (NAPROSYN) 500 MG tablet Take 500 mg by mouth 2 (two) times a day withmeals Historical Provider, nortriptyline (PAMELOR) 10 MG capsule Take 10 mg by mouth nightly HistoricalProvider, MDPolyethyl Glycol-Propyl Glycol (SYSTANE) 0.4-0.3 % SOLN Administer 1-2 drops toboth eyes every 4 (four) hours as needed (dry eye) Historical Provider, Yaelosuvastatin (CRESTOR) 40 MG tablet Take 40 mg by mouth daily HistoricalProvider, Deboraholifenacin (VESICARE) 10 MG tablet Take 10 mg by mouth daily HistoricalProviderMDtiZANidine (ZANAFLEX) 4 MG tablet Take 4 mg by mouth daily as needed (musclespasms) Historical Provider, umeclidinium-vilanterol (Anoro Ellipta) 62.5-25 MCG/INH inhaler Inhale 1 puffdaily Historical Provider, vitamin B-12 (CYAN OCOBALAMIN) 100 MCG tablet Take 100 mcg by mouth dailyHistorical Provider, zonisamide (ZONEGRAN) 50 MG capsule Take 50 mg by mouth 2 (two) times a dayHistorical Provider, ferrous sulfate 325 (65 FE) MG tablet Take 325 mg by mouth 2 (two) times a daywith meals 12/17/20 Historical Provider, levothyroxine (SYNTHROID, LEVOTHROID) 125 MCG tablet Take 125 mcg by mouth daily12/17/20 Historical Provider, MDMagnesium Oxide (MAG-OX) 400 MG tablet Take 400 mg by mouth daily 12/17/20Historical Provider, BuckyetFORMIN (GLUCOPHAGE) 500 MG tablet Take by mouth 12/17/20 Historical Provider,VITAMIN D PO Take by mouth daily 12/17/20 Historical Provider, DEBORAHocial HistoryTobacco Use Smoking status: Former Smoker Types: Cigarettes Quit date: 1997 Years since quittin.5 Smokeless tobacco: Never UsedSubstance Use Topics Alcohol use: Never Drug use: NeverFamily HistoryProblem Relation Age of Onset Lung cancer Mother 73 Liver cancer Mother Hypertension Father Diabetes Sister Heart disease Sister Heart disease Brother Breast cancer Daughter 47 Breast Pre Cancer Daughter Diabetes Son Breast cancer Paternal Aunt Malig Hyperthermia Neg HxREVIEW OF SYSTEMS:Respiratory: Denies any shortness of breath, cough, yellow sputum production orwheezing.Cardiovascular: Denies any chest pain, pressure or tightness. Denies anyparoxysmal nocturnal dyspnea or orthopnea.GI: Denies nausea, vomiting, diarrhea, constipation or melena.Neurologic: Denies any numbness, tingling, tremors or syncope.Vascular: Denies any edema. Denies claudication.Testing Based on Symptoms:In the last six (6) weeks, has the patient experienced any of the followingsymptoms?Chest Pain? NoShortness of Breath? NoPalpitations? NoChange in ADLs (Frailty Scale)? NoHospitalization? NoChange in cardiac, respiratory or Neuro medications? NoAcute Antibiotic Therapy? NoAre you currently on dialysis? NoPHYSICAL EXAM:GENERAL: She is a 75 years old, pleasant white female, in no acute distress attime of examination. Vitals on arrival to the office are BP 122/64 (BP Location:Left upper arm, Patient Position: Sitting) | Pulse 75 | Ht 1.683 m (5' 6.25")| Wt 77.2 kg (170 lb 4.8 oz) | SpO2 95% | BMI 27.28 kg/m Body mass index is27.28 kg/m ..Skin is pink, warm, and dry.NECK: She has a grade II airway. Neck is supple, midline, without cervicaladenopathy. No thyromegaly. No carotid bruits.MENTAL / NEUROLOGICAL STATUS: [id number]: Clear to auscultation. No wheezes, rhonchi or crackles.HEART: Rate rhythm regular. S1, S2. Grade 2/6 systoli murmur RSB. No., rub orgallop.ABDOMEN: Bowel sounds positive times four. Soft, non tender. No reboundtenderness. No hepatosplenomegaly. Negative CVAT.EXTREMITIES: Pulses are symmetrical. NO edema.Anesthesia complications: [facility] Frailty [facility] :: 3/10 Managing Well (medical problems are well controlled,but are not regularly active beyond routine walking).Stop Bang Questionnaire - Total Score:STOP-Bang Total Score: 3ASSESSMENT: Primary Diagnosis/Indication: Malignant neoplasm of right breast infemale, estrogen receptor positive.PLAN: Procedure: Ms Javed is a 75-year-old female with recent diagnosis ofright breast cancer. She is now scheduled to undergo RIGHT LUMPECTOMY, BREAST,WITH NEEDLE LOCALIZATION, WITH SENTINEL LYMPH NODE BIOPSY, WITH AXILLARYLYMPHADENECTOMY IF INDICATED on 12/09 09/29Patient has history of heart murmur. Last CHRIS dated 08/15/2019 is in epic.12/17/2020 3:07 Joel Ambrosio document or parts of this document, were dictated using [employer] Display System software. A reasonable attempt at proofreading has beenmade to minimize errors. Please call with any questions or corrections.* Name Value Range Interpretation Code Description Data Nicolasa rce(s) Supporting Document(s) ID Date Data Source [id number] 12/17/2020 12:48:31 PM EDT [address] [id number] Name: CONSTANCE SZYMANSKI: 1945Sex: FOrdering Provider: TRE Bryant Prov: TRE Johnson Provider: TRE CLAUDIOrocedure Performed: MRI BREAST BILATERAL W WO CONTRAST W/CADExam Date: 12/17/2020 10:17MRN: [id number] Number: [id number] Class: OutpatientAccount #: [id number] for Exam: Invasive breast cancer, stage I/II/III, initial workupTechnique: MRI images obtained without and with IV contrast on a 1.5 ravi scanner.The patient was administered 15 cc of Dotarem intravenously for the contrast enhanced portion of this exam.Comparison: Prior mammograms November 10, 2020, October 24, 2018Findings:Amount of fibroglandular tissue: Minimal.Background parenchymal enhancement: ScatteredRight breast: There is extensive abnormal segmental enhancement of the lower inner quadrant of the right breast. A site marker is identified within the center of the segmental enhancement. There is a small postbiopsy hematoma this area as well. The abnormal enhancement approximately parallels the distribution of the pleomorphic calcification seen on the mammogram. The extent of this process measures approximately 9 cm in anteroposterior dimension and 3.5 cm in transverse dimension. This occupies most of the lower inner quadrant of the right breast. There is sparing of the nipple areolar complex. No significant abnormal enhancement is seen in the retroareolar area. Clinical status or significant enhancement is about 1.5 cm posterior to the nipple.There is no significant right axillary adenopathy. The chest wall and right axilla appear clear.Left breast: There are no areas of significant abnormal enhancement. The chest wall and left axilla appear clear.IMPRESSION: Extensive segmental enhancement anterior and posterior to the biopsy site in the right breast occupying essentially the entire lower inner quadrant of the right breast. This is highly suspicious for extensive intraductal malignancy and the area of enhancement closely parallels the distribution of the calcifications on the mammogram.No MRI evidence of malignancy within the left breast.BI-RADS 6: Known malignancy.Report electronically signed by: VILMA VELAZQUEZ On 12/17/2020 12:48 PMWorkstation ID: [id number] Name Value Range Interpretation Code Description Data Nicolasa rce(s) Supporting Document(s) ID Date Data Source [id number] 12/02/2020 02:22:43 PM EDT [facility] NT INFORMATIONPatient MRN Name Date of Age Gend*PT [id number] Constance Javed 1945 75 years F ---PT Location Admission Date/Time Visit ID Attending Provider --- --- --- --- EPI ID CSN Admitting Provider [id number] ---CONSULTATION FOR BREAST CANCERReferred Joaquina LayneAssessment:Right breast cancer, mucinous features, multifocal Stage 1A T1c N0 M0 Estrogenpositive 100% Progesterone positive 30% Her 2 Sarita positive 3+, grade 1Plan:We discussed breast cancer management in general including the role of surgery,medical oncology, and radiation. We discussed her image and pathology findingsin detail. I reviewed her films. We went into details about her treatmentoptions.Options for surgical management were the discussed with the patient and herpatient and son. We talked about breast conserving surgery versus mastectomywith and without reconstruction. We noted similar recurrences rates andsurvival rates when comparing breast conserving surgery with radiation therapyversus mastectomy. We discussed margins and the need for re-excision in casesof a lumpectomy 15-20%% of the time, based on our data. We talked about the needfor wire localization prior to a lumpectomy.I went over the pre and post op course, including some of the complications.We talked about the role of sentinel node biopsy and technique. We discussedaxillary surgery and in some cases of minimal lymph node involvement, avoidingfurther axillary dissection after sentinel node dissection for breast cancer. Wetalked about the risks of lymphedema with a more extensive axillary dissection (15-20%) versus <5% for sentinel lymph node dissection.Neoadjuvant therapies were briefly discussed however her tumor appears small solikely adjuvant systemic treatmentWill plan for:Preoperative MRIPreoperative oncology appointment HER-2 positive tumor evaluate for systemicadjuvant chemotherapyPlanned operation : right breast needle localized lumpectomy right axillarysentinel node biopsyHPI:Constance Javed is a 75 years female who had right breast pain which promptedwork-up. She has been seen in our office prior to biopsy. Her primary careprovider palpated a abnormality in the right breast she underwent bilateralmammography and a right breast ultrasound which showed questionable 2 areas.She then underwent repeat ultrasound at [facility] and only 1 abnormal area wasidentified. An ultrasound-guided biopsy was performed.[facility] OutsideDiagnostic mammography central calcification and a small mass withcalcifications corresponding to the palpable region. Right breast mass 5:00 1.5x 1.8 cmHer family history is significant . Her daughter currently is being treated forbreast cancer by my partner. She had genetic testing which was negative.Past Medical History:Diagnosis Date Anemia Arthritis Back pain COPD (chronic obstructive pulmonary disease) Diabetes mellitus Disease of thyroid gland Hyperlipidemia Hypertension SeizuresPast Surgical History:Procedure Laterality Date CARDIAC CATHETERIZATION N/A 07/25/2019 Procedure: Left heart cath; Surgeon: Nino Bardales MD; Laterality: N/A; CARDIAC CATHETERIZATION N/A 07/25/2019 Procedure: Coronary angiography; Surgeon: Nino Bardales MD; Laterality: N/A; CARDIAC CATHETERIZATION N/A 07/25/2019 Procedure: Aortogram; Surgeon: Nino Bardales MD; Laterality: N/A; CARDIAC CATHETERIZATION N/A 07/25/2019 Procedure: Pressure Wire Procedure; Surgeon: Nino Bardales MD; Laterality:N/A; CARDIAC CATHETERIZATION HYSTERECTOMY TONSILLECTOMYPrior to Admission medicationsMedication Sig Start Date End Date Taking? Authorizing ProviderAscorbic Acid (VITAMIN C) 250 MG CHEW Chew daily Historical ProviderJordy EC 81 MG EC tablet Take 81 mg by mouth daily Historical ProviderJasoncitalopram (LEXAPRO) 20 MG tablet Take 20 mg by mouth daily HistoricalMD Mikaylaesomeprazole (NEXIUM) 20 MG capsule Take 20 mg by mouth every morning beforebreakfast Historical ProviderMDestradiol (ESTRACE) 1 MG tablet Take 0.5 mg by mouth daily HistoricalProMD rajaniferrous sulfate 325 (65 FE) MG tablet Take 325 mg by mouth 2 (two) times a daywith meals Historical ProviderSharvothyroxine (SYNTHROID, LEVOTHROID) 112 MCG tablet Take 112 mcg by mouth dailyHistorical Provider, levothyroxine (SYNTHROID, LEVOTHROID) 125 MCG tablet Take 125 mcg by mouth dailyHistorical Provider, MDMagnesium Oxide (MAG-OX) 400 MG tablet Take 400 mg by mouth daily HistoricalProvider, MDmetFORMIN (GLUCOPHAGE) 1000 MG tablet Take 1,000 mg by mouth 2 (two) times a daywith meals Historical Provider, naproxen (NAPROSYN) 500 MG tablet Take 500 mg by mouth 2 (two) times a day withmeals Historical Provider, nortriptyline (PAMELOR) 10 MG capsule Take 10 mg by mouth nightly HistoricalProvider, MDrosuvastatin (CRESTOR) 40 MG tablet Take 40 mg by mouth daily HistoricalProvider, Deboraholifenacin (VESICARE) 10 MG tablet Take 10 mg by mouth daily HistoricalProvider, tiZANidine (ZANAFLEX) 4 MG tablet Take 4 mg by mouth every 6 (six) hours asneeded Historical Provider, Umeclidinium-Vilanterol (ANORO ELLIPTA IN) Inhale daily Historical Provider,vitamin B-12 (CYANOCOBALAMIN) 100 MCG tablet Take 1,000 mcg by mouth dailyHistorical Provider, VITAMIN D PO Take by mouth daily Historical Provider, zonisamide (ZONEGRAN) 50 MG capsule Take 50 mg by mouth daily HistoricalProvider, Jennifer Known Drug AllergiesSocial HistorySocioeconomic History Marital status: Spouse name: Not on file Number of children: Not on file Years of education: Not on file Highest education level: Not on fileOccupational History Not on fileTobacco Use Smoking status: Former Smoker Types: Cigarettes Quit date: 1997 Years since quittin.4 Smokeless tobacco: Never UsedSubstance and Sexual Activity Alcohol use: Never Drug use: Never Sexual activity: Not on fileOther Topics Concern Bike Helmet Not Asked History of Falls Not Asked Self-Exams Not Asked Caffeine Concern Not Asked Hobby Hazards Not Asked Sleep Concern Not Asked Daily Calcium Supplement Not Asked Lead Exposure Not Asked Special Diet Not Asked Daily Vitamin D Supplement Not Asked Service Not Asked Stress Concern Not Asked Domestic Violence in home Not Asked Radon exposure Not Asked Weight Concern Not Asked Exercise Not Asked Seat Belt Not Asked Well water Not Asked Firearms in home Not AskedSocial History Narrative Not on fileSocial Determinants of HealthFinancial Resource Strain: Difficulty of Paying Living Expenses:Food Insecurity: Worried About Running Out of Food in the Last Year: Ran Out of Food in the Last Year:Transportation Needs: Lack of Transportation (Medical): Lack of Transportation (Non-Medical):Physical Activity: Days of Exercise per Week: Minutes of Exercise per Session:Stress: Feeling of Stress :Social Connections: Frequency of Communication with Friends and Family: Frequency of Social Gatherings with Friends and Family: Attends Buddhism Services: Active Member of Clubs or Organizations: Attends Club or Organization Meetings: Marital Status:Intimate Partner Violence: Fear of Current or Ex-Partner: Emotionally Abused: Physically Abused: Sexually Abused:Family HistoryProblem Relation Age of Onset Lung cancer Mother 73 Liver cancer Mother Hypertension Father Diabetes Sister Heart disease Sister Heart disease Brother Breast cancer Daughter 47 Breast Pre Cancer Daughter Diabetes Son Breast cancer Paternal AuntPHYSICAL EXAMINATION : She is here today with son.Blood pressure 177/69, pulse 87, height 1.676 m (5' 6"), weight 77.6 kg (1 71lb).Breast Exam:Left Breast reveals nipple chronically inverted, no nipple lesions or discharge,normal skin contour no dimpling, no skin erythema, no masses appreciatedthere is not any obvious axillary or supraclavicular adenopathy in the uprightor supine positionRight Breast reveals bruising in the 5:00 location with hematoma versus mass nooverlying skin changes right nipple is chronically inverted without discharge,there is not any obvious axillary or supraclavicular adenopathy in the uprightor supine positionNeck reveals no masses or adenopathy , no thyroid nodulesLungs: clear bilaterally Name Value Range Interpretation Code Description Data Nicolasa rce(s) Supporting Document(s) ID Date Data Source [id number] 11/24/2020 10:06:04 AM EDT [facility] INFORMATIONPatient MRN Name Date of Age Gend*PT [id number] PrabhjotConstance adler 1945 75 years F ---PT Location Admission Date/Time Visit ID Attending Provider --- --- --- --- EPI ID CSN Admitting Provider [id number] ---11/22/20 Constance Javed [id number] female 75 yearsMary Mer Javed is a new breast consultation; BI-RADS 5; BX recommended.Referred by: Joaquina Layne PAPertinent History:Constance Javed comes in today for evaluation of recent abnormal imaging of herright breast.Constance tells me she was experiencing 'sharp shooting' pains in her lateral rightbreast for the past several weeks. She saw her PCP and was noted to have aright breast mass in the inferior portion of her right breast.11/10/2020 diagnostic mammogram revealed mild calcifications extend ing from theregion of the nipple and also some areas of ductal calcifications, as well as asoft tissue mass seen with the calcifications, corresponding to the palpableregion. Correlating with sonogram revealed two poorly marginated masses withassociated microcalcifications at the area of palpable abnormality. Onemeasuring 1.6 x 0.78 x 1.6 cm and the second adjacent mass measuring 1.5 x 1.8.Both at approximately 0500 position; concerning for malignancy.0500 RIGHT ultrasound core breast biopsy 11/22/2020: results pendingPrevious breast bx: NoMenstrual History:Menarche:16Age at first live : 23Menopause: 50s S/p hysterectomy BSO d/t fibroidsG 3 , P 2HRT: yes. 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 Ultrasound guided bx is recommended, which she is scheduled fortoday.I reviewed her imaging with her in detail. She has been scheduled today for abreast core biopsy. We discussed the biopsy procedure and what to expect duringand afterward. She understands that once the results have been received shewill be notified of them, and given appropriate instructions and information onhow we will proceed with her follow up. I tried to assure her most biopsiesresult in benign disease, but obviously we will not know this until it has beencompleted.Should the results reveal a breast cancer, or high risk lesion, she will be setup for surgical consultation here in our office. Should the biopsy prove to bebenign, she will return in 6 months for another clinical breast examination, andshort term imaging. We discussed how a biopsy is performed, she has agreed tomove forward with the biopsy.On exam, she does ind eed have palpable abnormality in the right inferior breast,about 0500 position, non tender. She denies any pain during exam today, deniesnipple discharge or sin changes.She tells me her daughter was just recently diagnosed with breast cancer at age47 as well.Current Meds:Current Outpatient Medications: Ascorbic Acid (VITAMIN C) 250 MG CHEW, Chew daily, Disp: , Rfl: aspirin EC 81 MG EC tablet, Take 81 mg by mouth daily, Disp: , Rfl: escitalopram (LEXAPRO) 20 MG tablet, Take 20 mg by mouth daily, Disp: , Rfl: esomeprazole (NEXIUM) 20 MG capsule, Take 20 mg by mouth every morning beforebreakfast, Disp: , Rfl: estradiol (ESTRACE) 1 MG tablet, Take 0.5 mg by mouth daily , Disp: , Rfl: ferrous sulfate 325 (65 FE) MG tablet, Take 325 mg by mouth 2 (two) times aday with meals , Disp: , Rfl: levothyroxine (SYNTHROID, LEVOTHROID) 112 MCG tablet, Take 112 mcg by mouthdaily, Disp: , Rfl: Magnesium Oxide (MAG-OX) 400 MG tablet, Take 400 mg by mouth daily, Disp: ,Rfl: metFORMIN (GLUCOPHAGE) 1000 MG tablet, Take 1,000 mg by mouth 2 (two) times aday with meals, Disp: , Rfl: naproxen (NAPROSYN) 500 MG tablet, Take 500 mg by mouth 2 (two) times a daywith meals, Disp: , Rfl: nortriptyline (PAMELOR) 10 MG capsule, Take 10 mg by mouth nightly, Disp: ,Rfl: rosuvastatin (CRESTOR) 40 MG tablet, Take 40 mg by mouth daily, Disp: , Rfl: solifenacin (VESICARE) 10 MG tablet, Take 10 mg by mouth daily, Disp: , Rfl: tiZANidine (ZANAFLEX) 4 MG tablet, Take 4 mg by mouth every 6 (six) hours asneeded, Disp: , Rfl: Umeclidinium-Vilanterol (ANORO ELLIPTA IN), Inhale daily , Disp: , Rfl: vitamin B-12 (CYANOCOBALAMIN) 100 MCG tablet, Take 1,000 mcg by mouth daily ,Disp: , Rfl: VITAMIN D PO, Take by mouth daily, Disp: , Rfl: zonisamide (ZONEGRAN) 50 MG capsule, Take 50 mg by mouth daily, Disp: , Rfl: levothyroxine (SYNTHROID, LEVOTHROID) 125 MCG tablet, Take 125 mcg by mout hdaily, Disp: , Rfl:Allergies: No Known Drug AllergiesPast Medical History:Diagnosis Date Anemia Arthritis Back pain COPD (chronic obstructive pulmonary disease) Diabetes mellitus Disease of thyroid gland Hyperlipidemia Hypertension SeizuresFamily HistoryProblem Relation Age of Onset Lung cancer Mother 73 Liver cancer Mother Hypertension Father Diabetes Sister Heart disease Sister Heart disease Brother Breast cancer Daughter 47 Diabetes Son Breast cancer Paternal AuntSocial HistorySocioeconomic History Marital status: Spouse name: Not on file Number of children: Not on file Years of education: Not on file Highest education level: Not on fileOccupational History Not on fileTobacco Use Smoking status: Former Smoker Types: Cigarettes Quit date: 1997 Years since quittin.4 Smokeless tobacco: Never UsedSubstance and Sexual Activity Alcohol use: Never Drug use: Never Sexual activity: Not on fileOther Topics Concern Bike Helmet Not Asked History of Falls Not Asked Self-Exams Not Asked Caffeine Concern Not Asked Hobby Hazards Not Asked Sleep Concern Not Asked Daily Calcium Supplement Not Asked Lead Exposure Not Asked Special Diet Not Asked Daily Vitamin D Supplement Not Asked Service Not Asked Stress Concern Not Asked Domestic Violence in home Not Asked Radon exposure Not Asked Weight Concern Not Asked Exercise Not Asked Seat Belt Not Asked Well water Not Asked Firearms in home Not AskedSocial History Narrative Not on fileSocial Determinants of HealthFinancial Resource Strain: Difficulty of Paying Living Expenses:Food Insecurity: Worried About Running Out of Food in the Last Year: Ran Out of Food in the Last Year:Transportation Needs: Lack of Transportation (Medical): Lack of Transportation (Non-Medical):Physical Activity: Days of Exercise per Week: Minutes of Exercise per Session:Stress: Feeling of Stress :Social Connections: Frequency of Communication with Friends and Family: Frequency of Social Gatherings with Friends and Family: Attends Buddhism Services: Active Member of Clubs or Organizations: Attends Club or Organization Meetings: Marital Status:Intimate Partner Violence: Fear of Current or Ex-Partner: Emotionally Abused: Physically Abused: Sexually Abused:Past Surgical History:Procedure Laterality Date CARDIAC CATHETERIZATION N/A 07/25/2019 Procedure: Left heart cath; Surgeon: Nino Bardales MD; Laterality: N/A; CARDIAC CATHETERIZATION N/A 07/25/2019 Procedure: Coronary angiography; Surgeon: Nino Bardales MD; Laterality: N/A; CARDIAC CATHETERIZATION N/A 07/25/2019 Procedure: Aortogram; Surgeon: Nino Bardales MD; Laterality: N/A; CARDIAC CATHETERIZATION N/A 07/25/2019 Procedure: Pressure Wire Procedure; Surgeon: Nino Bardales MD; Laterality:N/A; CARDIAC CATHETERIZATION HYSTERECTOMY TONSILLECTOMYReview of SystemsReview of SystemsConstitutional: Positive for fatigue.HENT: Negative.Eyes: Negative.Respiratory: Negative.Cardiovascular: Nega tive.Gastrointestinal: Negative.Endocrine: Negative.Genitourinary: Negative.Musculoskeletal: Negative.Skin: Negative.Allergic/Immunologic: Negative.Neurological: Negative.Hematological: Negative.Psychiatric/Behavioral: Negative.Objective:Vitals: 11/22/20 1330BP: 146/77Pulse: 84Exam:Const: Appears pleasant. No signs of apparent distress present. Alert andoriented. Patient is a good historian.Head/Face: Atraumatic, normocephalic and no lesions or masses.Eyes: Conjunctivae pink. No icterus of the sclerae bilaterally.ENMT: Oral mucosa: pink and moist with no lesions.Neck: Supple. Palpation reveals no lymp hadenopathy, swelling or tenderness.Trachea midline.Resp: Respirations non labored, speech is normal.CV: Extremities: No clubbing, cyanosis or edema.Breasts: Breast exam was performed while patient was in a supine position and sussy sitting position. Breasts are large size and symmetrical. No dimpling of thebreasts bilaterally. Right breast with palpable mass at inferior portion, [id number], non tender. Bilateral infraclavicular nodes are non-palpable. Nipples: Nodischarge or inversion of the nipples bilaterally. Axillae: Axillae are normalto palpation bilaterally, but no lymphadenopathy of the axilla e.Musculo: Walks with a normal gait for age. Upper Extremities: Full ROMbilaterally.Lower Extremities: Full ROM bilaterally.Skin: No jaundice, lesion or rash.Neuro: Neuro reveals no focal deficits.Physical ExamChest: Comments: Palpable mass 0500Today's imaging reveals:N/aAssessment / Plan:1. Abnormal finding on breast imagingAssessment: The patient has an area of suspicion in the right breast(s). Werecommend a/an ultrasound guided core biopsy. The procedure and the postprocedural period was discussed with the patient. The risks and the benefitswere discussed and included but did not limited to bleeding and infections. Thepatient understands and accepts the risks and complication and would like tomove forward with the procedure.Plan: The patient will be set up for a ultrasound guided core biopsy of theright breast(s). She is aware not to take aspirin or aspirin products 5 daysbefore the biopsy. We will contact her with the results. In the meantime,patient will call with any problems, questions, or concerns.At today's appointment we discussed the physical examination and imagingfindings, and any questions they had were answered.We look for to seeing at her next appointment and we would be happy to see herin the interim if needed. She understands she can contact us at any time if shenotes any change in her self breast/chest wall exam, or has any questionsregarding her breast health.Dr Canseco and Dr Mojica's office follows NCCN guidelines for benign and malignantbreast disease, she is my collaborating physician. I have followed protocolsestablished with them, and periodically revi ew charts with them.Certain parts of this note may have been carried over from prior notes tomaintain patient's pertinent medical history and continuity of care. The detailswere verified and edited as appropriate.Signature: Neli Hung NPDate: November 22, 2020Time: 1:42 PMThis document or parts of this document, were dictated using [employer] Display System software. A reasonable attempt at proofreading has beenmade to minimize errors. Please call with any questions or corrections. Name Value Range Interpretation Code Description Data Nicolasa rce(s) Supporting Document(s) ID Date Data Source [id number] 11/22/2020 04:27:00 PM EDT [facility]EX[facility]: VACU UM ASSIST BIOPSY W US GUIDANCE RIGHT BREASTADDENDUM: The pathology report is reviewed along with the prior images.Diagnosis: Invasive mammary carcinoma with mucinous featuresImage concordantFindings were communicated to nurse Breana Mckinney's RN at the office of Neli Hung [employer] by Constance Strong NP, on 11/25/2020ictated by: RUBEN DAWSON M.D. on 11/26/2020lectronically Signed by: RUBEN DAWSON M.D. on 11/26/2020 01:20 PMTranscribed by: neha 11/26/2020 01:20 PM CDS G Code: ,CDS Modifier: ,cc: End of Addendum Report ---- CLINICAL HISTORY: Mass.COMPARISON: Previous breast ultrasound of 11/10/2020 from [facility].FINDINGS:BREAST ULTRASOUND: Right breast ultrasound was performed. The lesion at the 5 o'clock position, 5 cm from nipple was again demonstrated. Macro calcification was noted. The other lesion 5 o'clock position on previous ultrasound was not reproduced likely heterogeneous glandular tissue with calcification..ULTRASOUND GUIDED CORE BIOPSY:Consent: The procedure breast biopsy was explained to the patient with risks including but not limited to bleeding and infection. Consent was signed.Procedure: The skin was prepped with Chlorhexidine/Isopropyl solution and draped. Local anesthesia was administered using lidocaine 1%. A small skin incision was made. Under direct ultrasound guidance, a 12 gauge [facility] vacuum assisted needle was advanced to the lesion. 12 core biopsy samples were taken. The needle was removed.ULTRASOUND GUIDED CLIP PLACEMENT:Under direct ultrasound visualization a adelita-shaped marker clip was placed at the biopsy site.Compression was applied to the biopsy site. Post biopsy images show no significant hematoma.A post-biopsy care sheet was reviewed with the patient.IMPRESSION: Technically successful ultrasound vacuum assisted core biopsy. The procedure was well tolerated. Pending surgical pathology results, an addendum will be provided.Dictated by: RUBEN DAWSON M.D. on 11/22/2020lectronically Signed by: RUBEN DAWSON M.D. on 11/22/2020 04:38 PMTranscribed by: neha 11/22/2020 04:38 PM CDS G Code: ,CDS Modifier: ,cc: Name Value Range Interpretation Code Description Data Nicolasa rce(s) Supporting Document(s) ID Date Data Source [id number] 11/22/2020 04:13:[address] [facility] D[facility] ATUL MAM[facility]GRAPHY RIGHT WO CADCLINICAL HISTORY: Mass.COMPARISON: [facility] same dayTECHNIQUE: Craniocaudal and oblique views were obtained digitally and reviewed by CAD.FINDINGS: There are scattered fibroglandular densities.Biopsy clip is now noted at the 0500 hours position right breast new site of macro calcifications..No new dominant mass, suspicious microcalcifications, architectural distortion or skin/nipple thickening or retraction is seen.IMPRESSION: Biopsy clip at the 5 o'clock position right issa ast. Pathology is pending.CLASSIFICATION: BI-RADS 4 - SUSPICIOUS ABNORMALITY.ACR Breast Density: B- Scattered fibroglandular densityResultCode: BR 4 BDISCLAIMER: According to the [place] [employer] and the [place] [employer], any patient with a lifetime risk assessment greater than 20% or patients with dense breasts (heterogeneously or extremely dense), may benefit from additional screening tests for breast cancer. Further screening tests for patients with dense breasts (heterogeneously or extremely dense) should be based upon the patient's breast cancer risk status. All patients, martinez ving their mammogram with [facility], with a lifetime risk assessment greater than 20% or with dense breasts, will be given the opportunity to meet with our certified breast health navigator to discuss their risk and further imaging options.Further screening tests include Ultrasound and MR (Magnetic Resonance) imaging.Dictated by: RUBEN DAWSON M.D. on 11/22/2020lectronically Signed by: RUBEN DAWSON M.D. on 11/22/2020 04:19 PMTranscribed by: neha 11/22/2020 04:19 PM CDS G Code: ,CDS Modifier: ,cc: Name Value Range Interpretation Code Description Data Nicolasa rce(s) Supporting Document(s) ID Date Data Source [id number] 11/10/2020 04:39:00 PM EDT [facility] [address] [place] [address] [phone] NAME SEX PT STATUS ACCOUNT NUMBER CONSTANCE JAVED REG REF [id number] ORDERING PHYSICIAN LOCATION MEDICAL RECORD NO. Joaquina MAGDI Layne MAMMO [id number] ATTENDING PHYSICIAN DATE OF DATE OF EXAM/TIME Joaquina Layne RPA 1945 11/10/20932 TYPE / EXAM 3D DIG MAMMO DIAG DOUGIE REASON FOR EXAM RT BREAST PAIN/MASS LAST CLINICAL BREAST EXAM: FIVE YEAR RISK: % LIFETIME RISK: % FAMILY HISTORY OF BREAST CARCINOMA: COMPARISON: 11/11/2019 10/24/2018, 10/19/2017 2D bilateral digital mammogram in the CC and MLO projections was performed with supplemental 3D tomosynthesis of both breasts. Spot views of the palpable area were obtained as well is 90 degrees view of the right breast. FINDINGS: Craniocaudad and oblique lateral views of the breasts were obtained. The breasts are composed of scattered areas of fibroglandular density. The left breast is unremarkable. There are mild calcifications seen extending from the region of the nipple that are heterogeneous in part and also have some areas of ductal calcifications appear to be fine pleomorphic. An associated soft tissue mass is seen with these calcifications that corresponds to the palpable region. TARGETED ULTRASOUND OF THE RIGHT BREAST TARGETED ULTRASOUND LEFT BREAST WAS PERFORMED WITH WHOLE BREAST ULTRASOUND. In the region of the palpable abnormality there is a ill defined inhomogenous poorly marginated mass that has associated microcalcifications measuring approximately 1.6 x 0.78 x 1.6 cm. there is asecond mass also seen just medial to this mass measuring approximately 1.5 x 1.8 cm also at 5:00. Ultrasound-guided biopsy is recommended of both these regions the specimen x-ray to evaluate microcalcifications. IMPRESSION: Ultrasound guided biopsy of 2 masses identified in the right breast by ultrasound that also containmicrocalcifications. OVERALL FINAL ASSESSMENT OF FINDINGS BI-RADS 5 - Highly Suggestive of Malignancy OVERA LL FINAL ASSESSMENT OF THE BREAST COMPOSITION Breast Density Classification: B Description: The breasts are composed of scattered areas of fibroglandular density. Note: for findings of BIRADS 0, our office will contact the patient to arrange further mammographicand/or ultrasound imaging as needed. If MRI is recommended, this should be ordered and scheduled by the ordering provider's office. This mammogram was read with the assistance of Myrna, an FDA-approved computer-aided detection system for mammography. Reported By Juliette Crain MD on 11/10/20 1639 Signed By Juliette Crain MD on 11/17/20 1400 Date Time CC: Juliette Crain MD; Joaquina Layne Techn: BAKLE Trans Dt/Tm: Trans by: DT Prt Dt/Tm: : Total DLP = 0.00 mGy-cm : Total Radiation Dose = 0.0000 mSv Lifetime Dose: 0 mSv Name Value Range Interpretation Code Description Data Nicolasa rce(s) Supporting Document(s) ID Date Data Source [id number] 11/10/2020 04:39:00 PM EDT [facility] [address] [place] [address] [phone] NAME SEX PT STATUS ACCOUNT NUMBER CONSTANCE JAVED REG REF [id number] ORDERING PHYSICIAN LOCATION MEDICAL RECORD NO. Joaquina Layne MAMMO [id number] ATTENDING PHYSICIAN DATE OF DATE OF EXAM/TIME Joaquina Layne RPA 1945 11/10/201004 TYPE / EXAM US Breast - Limited Unilat REASON FOR EXAM RIGHT BREAST LUMP LAST CLINICAL BREAST EXAM: FIVE YEAR RISK: % LIFETIME RISK: % FAMILY HISTORY OF BREAST CARCINOMA: COMPARISON: 11/11/2019 10/24/2018, 10/19/2017 2D bilateral digital mammogram in the CC and MLO projections was performed with supplemental 3D tomosynthesis of both breasts. Spot views of the palpable area were obtained as well is 90 degrees view of the right breast. FINDINGS: Craniocaudad and oblique lateral views of the breasts were obtained. The breasts are composed of scattered areas of fibroglandular density. The left breast is unremarkable. There are mild calcifications seen extending from the region of the nipple that are heterogeneous in part and also have some areas of ductal calcifications appear to be fine pleomorphic. An associated soft tissue mass is seen with these calcifications that corresponds to the palpable region. TARGETED ULTRASOUND OF THE RIGHT BREAST TARGETED ULTRASOUND LEFT BREAST WAS PERFORMED WITH WHOLE BREAST ULTRASOUND. In the region of the palpable abnormality there is a ill defined inhomogenous poorly marginated mass that has associated microcalcifications measuring approximately 1.6 x 0.78 x 1.6 cm. there is asecond mass also seen just medial to this mass measuring approximately 1.5 x 1.8 cm also at 5:00. Ultrasound-guided biopsy is recommended of both these regions the specimen x-ray to evaluate microcalcifications. IMPRESSION: Ultrasound guided biopsy of 2 masses identified in the right breast by ultrasound that also containmicrocalcifications. OVERALL FINAL ASSESSMENT OF FINDINGS BI-RADS 5 - Highly Suggestive of Malignancy OV ERALL FINAL ASSESSMENT OF THE BREAST COMPOSITION Breast Density Classification: B Description: The breasts are composed of scattered areas of fibroglandular density. Note: for findings of BIRADS 0, our office will contact the patient to arrange further mammographicand/or ultrasound imaging as needed. If MRI is recommended, this should be ordered and scheduled by the ordering provider's office. This mammogram was read with the assistance of M-Vu, an FDA-approved computer-aided detection system for mammography. Reported By Juliette Crain MD on 11/10/20 1639 Signed By Juliette Crain MD on 11/17/20 1400 Date Time CC: Juliette Crain MD; Joaquina Layne Techn: BUSMI Trans Dt/Tm: Trans by: DT Prt Dt/Tm: : Total DLP = 0.00 mGy-cm : Total Radiation Dose = 0.0000 mSv Lifetime Dose: 0 mSv Name Value Range Interpretation Code Description Data Nicolasa rce(s) Supporting Document(s) ID Date Data Source [id number] 11/10/2020 03:25:00 PM EDT [facility] [address] [place] [address] [phone] NAME SEX PT STATUS ACCOUNT NUMBER CONSTANCE JAVED REG REF [id number] ORDERING PHYSICIAN LOCATION MEDICAL RECORD NO. Joaquina Layne MAMMO [id number] ATTENDING PHYSICIAN DATE OF DATE OF EXAM/TIME Joaquina Layne RPA 1945 11/10/201001 TYPE / EXAM Xray Lumbar spine complete REASON FOR EXAM POSTERIOR LT HIP PAIN, DDD LS SPINE TECHNIQUE: Frontal, lateral, and coned down lumbosacral views of the lumbar spine were obtained. COMPARISON: 2013 FINDINGS: There are 5 nonrib-bearing lumbar-type vertebral bodies. Normal lumbar lordosis is present. There are multilevel degenerative disc changes. There are facet arthritic changes of the lower lumbar spine. This most prominently involves the L5-S1 level with a probable degenerated disc slightly worsened since prior study. Noted is moderate stool retention with areas of density that appear to be contained within the colon that could represent inspissated barium IMPRESSION: Multilevel degenerative changes. Most severely involving L5-S1. If further evaluation is clinicallyindicated MRI may be helpful. Reported By Juliette Crain MD on 11/10/20 1525 Signed By Juliette Crain MD on 11/10/20 1527 Date Time CC: Juliette Crain MD; Joaquina Layne Techn: MORSA Trans Dt/Tm: Trans by: DT Prt Dt/Tm: : Total DLP = 0.00 mGy-cm Fluoroscopy Time (in secs): Name Value Range Interpretation Code Description Data Nicolasa rce(s) Supporting Document(s) ID Date Data Source [id number] 11/10/2020 03:24:00 PM EDT [facility] [address] [place] [address] [phone] NAME SEX PT STATUS ACCOUNT NUMBER CONSTANCE JAVED F REG REF [id number] ORDERING PHYSICIAN LOCATION MEDICAL RECORD NO. Joaquina FAIRBANKS rCissy MAMMO [id number] ATTENDING PHYSICIAN DATE OF DATE OF EXAM/TIME Luann Laynebib Beck 1945 11/10/20 / 1002 TYPE / EXAM XRAY HIP LT 2-3 VIEW W/PELVIS REASON FOR EXAM POSTERIOR LT HIP PAIN CLINICAL HISTORY: [facility] POSTERIOR LT HIP PAIN TECHNIQUE: AP view of the pelvis, AP and frog-leg views of the left hip were obtained. COMPARISON: None available. FINDINGS: There is no acute displaced fracture. Moderate degenerative changes are seen with acetabular spurring There is no bone destruction. IMPRESSION: Moderate degenerative change. No acute findings. Note: nondisplaced/minimally displaced hip and pelvic fractures are often not visible on x-ray. If there is clinical concern or severe pain/inability to weight bear, MR is recommended for further evaluation before ambulation is attempted. Reported By Juliette Crain MD on 11/10/20 1524 Signed By Juliette Crain MD on 11/10/20 1525 Date Time CC: Juliette Crain MD; Joaquina Layne Techn: MORSA Trans Dt/Tm: Trans by: DT Prt Dt/Tm: [id number]: Total DLP = 0.00 mGy-cm Fluoroscopy Time (in secs): Name Value Range Interpretation Code Description Data Nicolasa rce(s) Supporting Document(s) ID Date Data Source [id number] 11/09/2020 12:57:00 PM EDT [facility] Patient Name: CONSTANCE JAVED : 1945 Sex: F Pt Unit #: [id number] Location:[facility] Provider: Visit Date/Time: 11/09/20 Primary Insurance: [employer] OPTION PPO Secondary Insurance: MEDICAID [facility] 2ND R ADDENDUM Pain reported by Consatnce 02/18 RT breast <Electronically signed by Joaquina Layne RPA C> 11/10/20 0928 Intake Vital Signs 11/09/20 12:57 11/09/20 16:01 Current Height 5 ft 6 in Current Weight 170 lb Weight Measurement Method Standing Scale BMI 27.4 BP 138/60 110/58 Blood Pressure Location Lt brachial Lt brachial Position Sitting Sitting Respiration 18 Pulse 86 Pulse Strength Normal Pulse Source Pulse Oximeter Temp 98.6 F Temp Source Oral Pulse Oximetry (%) 97 Oxygen Delivery Method room air Oxygen Flow Rate 97 Intake-Medicare Annual Visit Reasons: Medicare Annual Wellness subsequent Nurse Note: Pt is here for her Medicare AW, She would like to talk to you about. She would like to have an USas she has been having sharp pain in her right breast and Her daughter was just diagnosed with Stage 2 Breast Ca. She is going to [place], [employer] Required: No Accompanied by: Self / Same as Patient Is patient in pain?: No Allergies pneumococcal 23-valent polysacchari [From Pneumovax 23] Allergy (Intermediate, Verified 11/09/20 13:25) Swelling and Pain in Arm No Known Food Allergies Allergy (Verified 11/09/20 13:25) vaccine adjuvant system, AS01B liposomal [From Shingrix (PF)] Adverse Reaction (Intermediate, Verified 11/09/20 13:25) ERYTHEMA/WARMTH/PAIN SURROUNDING INJECTION SITE varicella-zoster virus glycoprotein E, recombinant [From Shingrix (PF)] Adverse Reaction (Intermediate, Verified 11/09/20 13:25) ERYTHEMA/WARMTH/PAIN SURROUNDING INJECTION SITE atorvastatin Adverse Reaction (Verified 11/09/20 13:25) 2015-severe joint pain baclofen Adverse Reaction (Verified 11/09/20 13:25) MAKES TOO LETHARGIC GETS URINARY INCONTINENCE AT NIGHT enalapril Adverse Reaction (Verified 11/09/20 13:25) dry cough-10/2016 lisinopril Adverse Reaction (Verified 11/09/20 13:25) dry cough-2016 Feel stressed/tense/nervous/anxious/difficulty sleeping: to some extent Medications - Last Reconciled 11/09/20 by MAGDI Kong albuterol sulfate 90 mcg/actuation (ProAir HFA) 1 - 2 puffs inhalation Q4HPRN ascorbic acid (vitamin C) (Vitamin C) 500 mg PO DAILY aspirin (Aspirin Low-Strength) 81 mg PO DAILY blood sugar diagnostic (Blood Glucose Test) generic store brand - test once daily blood-glucose meter As directed E11.9 - store brand blood-glucose meter supply generic store brand cholecalciferol (vitamin D3) 1,000 units PO QDAY escitalopram oxalate 20 mg PO QDAY esomeprazole magnesium 20 mg PO DAILY estradiol TAKE 1/2 TABLET BY MOUTH EVERY DAY fluticasone propionate 50 mcg/actuation 2 sprays intranasal QDAY lancets (Comfort Lancets) As directed E11.9 - store brand lancets generic store brand levothyroxine 125 mcg PO DAILY losartan TAKE 1 TABLET BY MOUTH EVERY DAY mecobalamin (vitamin B12) 1,000 mcg sublingual QDAY metformin TAKE 1 TABLET BY MOUTH TWICE DAILY naproxen TAKE 1 TABLET BY MOUTH TWICE DAILY NEEDED FOR PAIN niacin 1 tab PO HS nortriptyline (Pamelor) 10 mg PO QDAY rosuvastatin TAKE 1 TABLET BY MOUTH DAILY solifenacin (Vesicare) 10 mg PO DAILY tizanidine 4 mg PO TIDPRN umeclidinium-vilanterol 62.5-25 mcg/actuation (Anoro Ellipta) 1 inh inhalation QDAY zonisamide 50 mg PO HS Post menopausal: Yes Fall Risk History of falls: No Ambulatory Aid:: None Gait/Transferring:: Normal Medications:: Antihypertensives HIV testing Offer: Yes Requirement for HIV testing offer been met?: Patient reports past refusal Hep C Testing Offered: Yes Hep C Requirement met: Refuses today [facility] Medical History Actinic keratosis Anemia Aortic valve insufficiency 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) Breast mass, right CAD (coronary artery disease), [place] coronary artery Chronic low back pain (09/05/17) COPD (chronic obstructive pulmonary disease) (02/28/18) Degenerati on of lumbar intervertebral disc Dermatochalasis of both eyelids (12/25/17) Diabetes mellitus type 2, controlled, without complications Diabetes mellitus, without long-term current use of insulin Diverticulosis of colon without diverticulitis Dysarthria (09/05/17) Fibrocystic breast (02/07/18) GERD without esophagitis Hiatal hernia History of measles History of transesophageal echocardiography (CHRIS) Hypercholesterolemia Hyperlipidemia Hypothyroidism (acquired) (09/09/14) Lichenoid dermatitis Lumbosacral spondylosis (09/05/17) Microalbuminuria Migraine Neuropathy Overactive bladd er Sciatica Surgical menopause on hormone replacement therapy TIA (transient ischemic attack) (03/30/16) Vitamin D insufficiency Surgical History H/O endoscopy History of cardiac cath History of colonoscopy History of hysterectomy S/P skin biopsy Status post tonsillectomy Status post tubal ligation Family History Mother No problems noted. Father Heart disease Brother Diabetes mellitus, type 2 Heart disease Hyperlipidemia Hypertension Sister Heartburn COPD (chronic obstructive pulmonary disease) Hx of colonic polyps GERD (gastroesophageal reflux disease) Hypertension HUMBERTO (obstructive sleep apnea) Diabetes mellitus, type 2 Diabetes Esophageal dysmotility Heart disease Hyperlipidemia Diastolic dysfunction Right internal carotid artery aneurysm SON Hypertension Daughter Breast cancer Other Myocardial infarction Social History (Updated 11/09/20 @ 16:03 by MAGDI Kong) Does the Patient have a Healthcare Proxy: No Does Patient have a DNR?: No Does Patient have a Living Will?: No adopted: No household members: family housing: house marital status: number of children: 2 number of grandchildren: 3 highest education level completed: high school graduate service: No current occupational status: retired 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 pets and animals: Yes (1 DOG, 1CAT) pets and animals: dog(s) Hx Recent Travel (where): No sexually active: No current diet type/program: diabetic well-balanced diet: daily caffeine: Yes Type: coffee Number of servings: 1 high-fat food intake: 2 times daily daily servings fruits/ve or more times/day daily servings of milk/calcium: 2-4 eating out: 1-3 times/week reads food labels: seldom or never during the past year weight has: remained stable what type of physical activity do you participate in?: walking frequency: 5-6 times per week duration: < 15 minutes/day Smoking Status: Former smoker how long ago did patient quit smoking: QUIT 1995 alcohol intake: current alcohol intake frequency: holidays/special occasions only substance use type: does not use laci/methodist: Holiness special laci needs: No agree to transfusion: Yes seatbelt use: always drive intox or ride w/ intox transport driver: No water heater temp set < 120 deg: Yes working smoke detector in home: Yes fire extinguisher in home: Yes carbon monox detector in home: Yes firearms in home: No do you feel safe at home: Yes victim of physical abuse: No victim of emotional abuse: No victim of sexual abuse: No would you like helpful sources: No Female Reproductive History Menstrual Age of Menarche: 16 control method: permanent sterilization Menopause type: surgical Total pregnancies: 3 Full term: 2 Ab spontaneous: 1 (MAB) Medicare Annual Wellness Type Of Examation Type of Exam: Subsequent Wellness Exam EKG EKG Performed: No Medication list Medications albuterol sulfate 90 mcg/actuation (ProAir HFA) 1 - 2 puffs inhalation Q4HPRN ascorbic acid (vitamin C) (Vitamin C) 500 mg PO DAILY aspirin (Aspirin Low-Strength) 81 mg PO DAILY blood sugar diagnostic (Blood Glucose Test) generic store brand - test once daily blood-glucose meter As directed E11.9 - store brand blood-glucose meter supply generic store brand cholecalciferol (vitamin D3) 1,000 units PO QDAY escitalopram oxalate 20 mg PO QDAY esomeprazole magnesium 20 mg PO DAILY estradiol TAKE 1/2 TABLET BY MOUTH EVERY DAY fluticasone propionate 50 mcg/actuation 2 sprays intranasal QDAY lancets (Comfort Lancets) As directed E11.9 - store brand lancets generic store brand levothyroxine 112 mcg PO QDAY losartan TAKE 1 TABLET BY MOUTH EVERY DAY mecobalamin (vitamin B12) 1,000 mcg sublingual QDAY metformin TAKE 1 TABLET BY MOUTH TWICE DAILY naproxen TAKE 1 TABLET BY MOUTH TWICE DAILY NEEDED FOR PAIN niacin 1 tab PO HS nortriptyline (Pamelor) 10 mg PO QDAY rosuvastatin TAKE 1 TABLET BY MOUTH DAILY solifenacin (Vesicare) 10 mg PO DAILY tizanidine 4 mg PO TIDPRN umeclidinium-vilanterol 62.5-25 mcg/actuation (Anoro Ellipta) 1 inh inhalation QDAY zonisamide 50 mg PO HS Allergies Allergies pneumococcal 23-valent polysacchari [From Pneumovax 23] Allergy (Intermediate, Verified 11/09/20 13:25) Swelling and Pain in Arm No Known Food Allergies Allergy (Verified 11/09/20 13:25) vaccine adjuvant system, AS01B liposomal [From Shingrix (PF)] Adverse Reaction (Intermediate, Verified 11/09/20 13:25) ERYTHEMA/WARMTH/PAIN SURROUNDING INJECTION SITE varicella- zoster virus glycoprotein E, recombinant [From Shingrix (PF)] Adverse Reaction (Intermediate, Verified 11/09/20 13:25) ERYTHEMA/WARMTH/PAIN SURROUNDING INJECTION SITE atorvastatin Adverse Reaction (Verified 11/09/20 13:25) 2016-severe joint pain baclofen Adverse Reaction (Verified 11/09/20 13:25) MAKES TOO LETHARGIC GETS URINARY INCONTINENCE AT NIGHT enalapril Adverse Reaction (Verified 11/09/20 13:25) dry cough-10/2016 lisinopril Adverse Reaction (Verified 11/09/20 13:25) dry cough-2016 Current Diet Current diet: diabetic PHQ-2/9 Over the last 2 weeks, how often have you been bothered by any of the following problems? 1. Little interest or pleasure in doing things: not at all 2. Feeling down, depressed, or hopeless: not at all Total score: 0 If score is 2 greater, continue 3. Trouble falling or staying asleep, or sleeping too much: not at all 4. Feeling tired or having little energy: nearly every day 5. Poor appetite or overeating: not at all 6. Feeling bad about yourself - or that you are a failure or have let yourself and your family down:not at all 7. Trouble concentrating on things, such as reading the newspaper or watching television: not at all 8. Moving or speaking so slowly that other people could have noticed? - Or the opposite - being so fidgety or restless that you have been moving around a lot more than usual: not at all 9. Thoughts that you would be better off or of hurting yourself in some way: not at all Total score: 3 Source: Developed by Drs. Barry Hager, Geno Smith, Daniel Alarcon and colleagues, with an educational chuy from [employer] Vision [place] VA Far - right eye: 20/30 VA Far - left eye: 20/30 VA Far - bilateral eyes: 20/25 Functional Assessment Bathing: Independent Dressing: Independent Toileting: Independent Transferring: Independent Continence: Independent Feeding: Independent Total Score: 6 Home Safety Home Safety: Reports Lighting: Adequate, [place]: No throw rugs and Stairs: Handrail available Hearing Hearing Left Ear: Normal Hearing Right Ear: Normal Hearing test method: whispered voice IADL Assessment Functional abilities: Up Go test, pt steady, Up Go test, within 30 sec, Pt independent w/phone,Pt independent w/transportation, Pt independent w/shopping, Pt independent w/housework, Pt independent w/meal preparation, Pt independent w/laundry, Pt independent w/medication and Pt independent w/finances Cognitive Evaluation Oriented to the date:: Yes Oriented to time:: Yes Oriented to place:: Yes Mood: grossly normal Affect: Normal Judgement: normal Needs caregiver for assistance: No Clock drawing: Yes Clock drawing with correct time: Yes 3 item recall: 2 HPI Additional HPI HPI Details: 75yo female with PMH DM 2, hyperlipidemia, CAD, aortic valve insufficiency, GERD, anemia, COPD, microalbuminuria, lumbar DDD here for medicare wellness visit and to discuss lab results. Constance states she is doing okay. Just found out that her 47yo daughter has breast CA - going to [facility] [place] tomorrow. Constance is due for her mammo. Wondering about having an u/s done. Constance states her daughters breast CA was not found on the mammo, was found on the u/s. Constancehas been having pain in RT breast. Sees Dr. Kapadia for 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 care - last saw 02/2020. Mammo scheduled for 11/12/2020. Constance does regular SBE. Colonoscopy due 02/2024. Cologuard negative 2018. s/p hysterectomy. Last pap 07/2010. DEXA NL 02/2020. Not currently taking calcium but does take vit D. Did get covid vaccines. DM 2 - currently on metformin 1000mg bid, recent hga1c 6.6%. Saw podiatry last month for foot exam. Last eye exam 02/2020. Sees dentist regularly - had new dentures made but has not picked them up yet. Hyperlipidemia - currently on rosuvastatin 40mg daily. HDL 51, LDL 30, TG 146. bun/cr 18/1.0, microalb 40.2 Hypothyroidism - currently on levothyroxine 125mcg daily. Recent TSH 0.30, FT4 1.49 25oh vit d 58 COPD - currently on anoro - has not had any problems with coughing/wheezing/sob. Hx anemia - has not been taking any iron lately Review of Systems Const Denies body aches, Denies chills, Denies difficulty sleeping, Denies excessive sweating, Reports fatigue, Denies fever(s), Denies headache(s), Denies night sweats, Denies poor appetite, Denies weakness, Denies weight gain and Denies weight loss Eyes Denies blurry vision, Denies change in vision, Denies diplopia, Denies eye discharge, Denies irritation, Denies loss of vision, Denies eye pain and Reports requires corrective lenses ENT Denies bleeding gums, Denies dysphagia, Denies vertigo, Denies dizziness, Denies otalgia, Denies headache(s), Denies hearing loss, Denies hoarseness, Denies epistaxis, Denies mouth lesions, Denies nasal congestion, Denies nasal discharge, Denies neck pain, Denies odynophagia, Denies disequilibrium, Denies post nasal drip, Denies tinnitus, Denies sinus pressure and Denies sore throat Card Denies chest pain, Denies diaphoresis, Denies syncope, Denies rapid heart rate, Denies lightheadedness, Denies palpitations, Denies dyspnea, Denies dyspnea on exertion, Denies orthopnea and Denies paroxysmal nocturnal dyspnea Resp Denies chest congestion, Denies cough, Denies hemoptysis, Denies dyspnea, Denies dyspnea on exertionand Denies wheezing GI Denies abdominal pain, Denies melena, Denies bloating, Denies hematochezia, Denies change in bowel habits, Denies change in stool character, Denies constipation, Denies dysphagia, Denies heartburn, Denies fecal incontinence, Denies diarrhea, Denies loose stools, Denies nausea, Denies odynophagia, Denies vomiting and Denies hematemesis Genitourinary: Denies abnormal vaginal bleeding, hematuria, change in libido, difficulty voiding, nocturia, genital lesions, hot flashes, nipple discharge, dysuria, pelvic pain, urinary frequency, urinary incontinence, urinary urgency, vaginal discharge or vaginal pruritus Musc Denies back pain, Denies myalgias, Reports arthralgias (LT HIP/BACK, CAUSES HER TO HAVE TO BEND OVERTO WALK ), Denies joint swelling, Denies limited range of motion, Denies muscle cramps, Denies muscle weakness, Denies neck pain, Denies numbness, Denies stiffness and Denies tingling Skin/Breast Denies acne, Denies bleeding lesions, Denies breast swelling, Denies breast skin changes, Reports breast pain (RT BREAST SHARP/RECURRING, DOES NOT OCCUR WITH LYING DOWN), Denies breast mass, Denies change in hair, Denies dry skin, Denies alopecia, Denies lesions, Denies nail changes, Denies nippledischarge, Denies rash and Denies unusual bruising Neuro Denies abnormal speech, Denies behavioral changes, Denies confusion, Denies vertigo, Denies dizziness, Denies syncope, Denies headache(s), Denies lack of coordination, Denies loss of vision, Denies memory loss, Denies numbness, Denies convulsions, Denies seizure-like activity, Denies tingling, Denies paresthesias, Denies tremor(s), Denies disequilibrium and Denies weakness Psych Denies abnormal sleep pattern, Denies anxiety, Denies behavioral changes, Denies change in appetite,Denies change in libido, Denies confusion, Denies depression, Denies difficulty concentrating, Denies auditory hallucinations, Denies hopelessness, Denies irritability, Denies anhedonia, Denies memory loss, Denies mood swings, Denies panic attacks, Denies visual hallucinations, Denies homicidal ideation and Denies suicidal ideation Endo Denies change in libido, Denies cold intolerance, Denies excessive sweating, Reports fatigue, Deniesflushing, Denies heat intolerance, Denies polyuria and Denies palpitations Aller/Immun Denies wheezing Exam Const General: cooperative, healthy appearing, comfortable, no acute distress, well developed and well groomed Nutritional Appearance: overweight [facility] Head: normocephalic and atraumatic Ears: TM's normal bilaterally and EAC's normal General nose exam: no nasal discharge Mouth: oral mucosae normal, oropharynx no rmal and moist mucous membranes Teeth and gingiva: dentures Throat: posterior oropharynx normal Eyes Eyelids: no eyelid abnormalities Conjunctivae: normal conjunctivae Sclera: normal sclerae Pupils: PERRL EOM: EOM intact bilaterally Neck Neck: no lymphadenopathy, trachea midline and supple Thyroid: thyroid normal Carotids: no bruits Chest Breast/Axilla Inspection: normal inspection of the breasts (INVERTED NIPPLES) and normal inspection of the axillae Breast/Axilla Palpation: normal palpation of the axillae, no axillary lymphadenopathy and abnormal palpation of the breast (6OCLOCK IRREGULARLY SHAPED OLIVE MASS, FIRM, NOT MOBILE, INFERIOR QUAD) Resp Effort Inspection: normal respiratory effort Auscultation: clear to auscultation bilaterally, no crackles, lung sounds not diminished, no rhonchiand no wheezes Cardio Jugular venous pressure: no JVD Rhythm: regular rhythm Heart Sounds: S1 normal, S2 normal and murmur (radiates to carotid) Pulses: posterior tibial pulses present bilaterally 3+ and dorsalis pedis present bilaterally 3+ GI Palpation: soft, not firm, no guarding, not rigid and nontender Auscultation: normal bowel sounds General: deferred Musc Thoracic/Lumbar Spine: no paraspinal tenderness, no thoracic spinal tenderness and no lumbar spinal tenderness Pelvis: sciatic notch tenderness on the left and tenderness over symphysis pubis Sacroiliac joints: bilaterally nontender Other: TENDER LAST ASPECT LT HIP, NL ROM, NO PAIN WITH ROM Skin Lesions: no lesions Rashes: no rashes Hair: normal Nails: normal Neuro General: moves all extremities Cranial Nerves: CN's II-XII intact bilaterally Extrem General: no clubbing, no cyanosis and no edema Psych Appearance: grossly normal Mental Status: mental status grossly normal Speech and Movement: speech and movement normal Mood: congruent mood Affect: normal affect Attitude: cooperative Thought Process: normal Thought Content: normal Diabetic Foot Date of last foot exam: 11/09/20 Inspection: No foot deformity, Yes nail disorder (RT GREAT TOE NAIL DEFORMITY), No calluses/corns, No skin breaks, No infection and No ulceration Pulses: Left dorsalis pedis peripheral pulse: normal, Right dorsalis pedis peripheral pulse: normal,L posterior tibial pulse: normal and Right posterior tibial pulse foot exam: normal Monofilament exam: L 1st metatarsals: normal, Left 3rd metatarsals monofilament exam: normal, L 5th metatarsals: normal, L great toe: normal, L 3rd toe: normal, L 5th toe: normal, Left medial mid foot: normal, Left lateral mid- foot: normal, Left mid-heel: normal, Left mid-dorsum foot: normal, R 1st metatarsals: normal, R 3rd metatarsals: normal, R 5th metatarsals: normal, R great toe: normal, R 3rd toe: normal, R 5th toe: normal, Right medial mid foot: normal, Right lateral mid-foot: normal,Right mid-heel: normal and Right mid- dorsum foot: normal Monofilament foot exam results: Left foot: normal and Right foot: normal Tuning fork: L great toe: normal and R great toe: normal Pinprick: L great toe: normal and R great toe: normal Foot Ulcer Grade Classification:: Grade 0 : Intact Skin Quality Reporting Depression/Bipolar (159/160/161/169/177) Total score: 3 Assessment Plan Assessment Plan (1) Medicare annual wellness visit, subsequent: Code(s): Z00.00 - Encounter for general adult medical examination without abnormal findings Plan: Medicare wellness visit done today. Cologuard due 2021. Colonoscopy due 2023. Mammo and u/s ordered. DEXA NL 02/2020, due 02/2025. Has received shingrix, Tdap due 2028. Has received covid vaccines -08/14/2020, 09/11/2020. Has received prevnar 13 and pneumovax 23. (2) Breast mass, right: Status: Acute Code(s): N63.10 - Unspecified lump in the right breast, unspecified quadrant SNOMED Code(s): 03900603 Category: Medical Plan: Diagnostic mammo and u/s ordered. Will call with results. (3) Diabetes mellitus, without long-term current use of insulin: Status: Chronic Code(s): E11.9 - Type 2 diabetes mellitus without complications SNOMED Code(s): 64902229 Category: Medical Qualifiers: Diabetes mellitus type: type 2 Diabetes mellitus complication status: with kidney complications Diabetes mellitus complication detail: with microalbuminuria Qualified Code(s): E11.29 - Type 2 diabetes mellitus with other diabetic kidney complication; R80.9 - Proteinuria, unspecified Plan: Discussed lab results, hga1c 6.6% Continue metformin 1000mg bid. Continue monitoring glucose. Encouraged increased protein/veg intake. Continue regular physical exercise. Current on eye exam 02/2020. (4) Hypothyroidism (acquired): Status: Chronic Onset Date: 09/09/14 Code(s): E03.9 - Hypothyroidism, unspecified SNOMED Code(s): 732560742 Category: Medical Plan: Discussed lab results. Decrease levothyroxine 112mcg daily. Recheck TSH, FT4 8wks. (5) Left hip pain: Code(s): M25. 552 - Pain in left hip Plan: LT hip and lumbar spine XR ordered. Plan: COPD stable on anoro. Continue with neurology. Hx anemia - recommended women's multivitamin daily. Discussed advanced directive/will - Constance is planning to work on this. F/u 3-4months or sooner if needed. Advised to contact office if questions/concerns arise or s/s worsen. Orders: Orders 3D DIG MAMMO DIAG DOUGIE Today N63.10 - Unspecified lump in the right breast, unspecified quadrant US Breast - Complete Bilat Today N63.10 - Unspecified lump in the right breast, unspecified quadrant XRAY HIP LT 2-3 VIEW W/PELVIS 1 Week M25.552 - Pain in left hip, M51.36 - Other intervertebral disc degeneration, lumbar region Xray Lumbar spine complete 1 Week M25.552 - Pain in left hip, M51.36 - Other intervertebral disc degeneration, lumbar region CMP 4 Months E11.9 - Type 2 diabetes mellitus without complications LIPID PANEL 4 Months E11.9 - Type 2 diabetes mellitus without complications HGBA1C + EAG 4 Months E11.9 - Type 2 diabetes mellitus without complications IRON 4 Months Z86.2 - Personal history of diseases of the blood and blood- forming organs and certaindisorders involving the immune mechanism FERRITIN 4 Months Z86.2 - Personal history of diseases of the blood and blood-forming organs and certain disorders involving the immune mechanism FOLATE (FOLIC ACID) 4 Months Z86.2 - Personal history of diseases of the blood and blood- forming organs and certain disorders involving the immune mechanism Vitamin B12 4 Months Z86.2 - Personal history of diseases of the blood and blood-forming organs and certain disorders involving the immune mechanism CBC W AUTO DIFF 4 Months Z86.2 - Personal history of diseases of the blood and blood-forming organs and certain disorders involving the immune mechanism TSH 2 Months E03.9 - Hypothyroidism, unspecified FREE T4 (LAB) 2 Months E03.9 - Hypothyroidism, unspecified Medications: New levothyroxine 112 mcg PO QDAY 90 tabs 3RF E03.9 - Hypothyroidism, unspecified Discontinued levothyroxine Discontinued Reason: MD Order 125 mcg PO DAILY 90 tabs 3RF E03.9 - Hypothyroidism, unspecified ferrous sulfate (Iron (ferrous sulfate)) Discontinued Reason: MD Order 325 mg PO TID 90 tabs 1RF D50.9 - Iron deficiency anemia, unspecified Coding Level of Care Code Medicare AWV subsequent Coding comments Coding Comments Additional info for the personalized living assistant: also o.v. Exam Detailed Diagnoses Medicare annual wellness visit, subsequent Z00.00 Breast mass, right N63.10 Diabetes mellitus, without long- term current use of insulin E11.29; R80.9 Diabetes mellitus type: type 2 Diabetes mellitus complication status: with kidney complications Diabetes mellitus complication detail: with microalbuminuria Hypothyroidism (acquired) E03.9 Left hip pain M25.552 <Electronically signed by Joaquina Beck> 11/09/20 1618 Name Value Range Interpretation Code Description Data Nicolasa rce(s) Supporting Document(s) ID Date Data Source [id number] 11/05/2020 08:42:00 AM EDT [facility] Name Value Range Interpretation Code Description Data Nicolasa rce(s) Supporting Document(s) Calcidiol [Moles/volume] in Serum or Plasma 58 NG/ML [facility] VITAMIN-D(2 5HYDROXY) Deficiency: <=20 ng/ml Insufficiency: 21-29 ng/ml Preferred level: => 30 ng/ml ID Date Data Source [id number] 11/04/2020 10:23:00 AM EDT [facility] Name Value Range Interpretation Code Description Data Nicolasa rce(s) Supporting Document(s) Thyrotropin [Units/volume] in Serum or Plasma by Detec tion limit <= 0.05 mIU/L 0.30 uIU/mL 0.47 - 5.01 L [facility] ID Date Data Source [id number] 11/04/2020 10:18:00 AM EDT [facility] Name Value Range Interpretation Code Description Data Nicolasa rce(s) Supporting Document(s) Thyroxine (T4) free index in Serum or Plasma by calculation 1.49 NG/DL 0.93 - 1.70 [facility] ID Date Data Source [id number] 11/04/2020 10:07:00 AM EDT [facility] Name Value Range Interpretation Code Description Data Nicolasa rce(s) Supporting Document(s) CVE PANEL [facility] al LIPID PANEL Cholesterol [Mass/volume] in Serum or Plasma 97 MG/DL 131 - 200 L [facility] Deprecated Triglyceride [Mass/volume] in Serum or Plasma 146 MG/DL 3 5 - 160 [facility] HDL 51 MG/DL 29 - 86 [facility] al Cholesterol in LDL [Mass/volume] in Serum or Plasma by Direc t assay 30 mg/dL 65 - 175 L [facility] Cholesterol.total/Cholesterol in HDL [Mass Ratio] in Serum o r Plasma 1.9 3.2 - 4.4 L [facility] LDL/HDL 0.59 1.47 - 3.22 L [facility] ital CVE RISK CHOL/HDL LDL/HDLMEN: 1/2 AVERAGE 3.43 1.00 AVERAGE 4.97 3.55 2X AVERAGE 9.55 6.25 3X AVERAGE 23.99 7.99WOMEN: 1/2 AVERAGE 3.27 1.47 AVERAGE 4.44 3.22 2X AVERAGE 7.05 5.03 3X AVERAGE 11.04 6.14 ID Date Data Source [id number] 11/04/2020 10:07:00 AM EDT [facility] Name Value Range Interpretation Code Description Data Nicolasa rce(s) Supporting Document(s) COMPREHENSIVE METABOLIC PANEL [facility] COMPREHENSIVE METABOLIC PANEL Sodium [Moles/volume] in Serum or Plasma 138 mEq/L 134 - 153 [facility] Potassium [Moles/volume] in Serum or Plasma 4.8 mEq/L 3.6 - 5.0 [facility] Chloride [Moles/volume] in Serum or Plasma 105 mEq/L 98 - 107 [facility] Carbon dioxide, total [Moles/volume] in Serum or Plasma 24 MEQ/L 22 - 30 [facility] Glucose [Mass/volume] in Serum or Plasma 147 MG/DL 70 - 99 H [facility] BUN 18 MG/DL 7 - 21 [facility] Creatinine [Mass/volume] in Serum or Plasma 1.0 MG/DL 0.7 - 1.5 [facility] BUN/CREAT 18 8 - 27 [facility] al Protein [Mass/volume] in Serum or Plasma 6.8 G/DL 6.3 - 8.2 [facility] Albumin [Mass/volume] in Serum or Plasma 4.2 G/DL 3.9 - 5.0 [facility] Globulin [Mass/volume] in Serum by calculation 2.6 GM/DL 2.4 - 3.2 [facility] A/G RATIO 1.6 0.8 - 2.0 [facility] Calcium [Mass/volume] in Serum or Plasma 9.4 MG/DL 8.4 - 10.2 [facility] Bilirubin.total [Mass/volume] in Serum or Plasma <0.7 MG/DL 0.2 - 1.3 [facility] Alkaline phosphatase [Enzymatic activity/volume] in Serum or Plasma 58 U/L 38 - 126 [facility] Aspartate aminotransferase [Enzymatic activity/volume] in Serum or Plasma 15 U/L 5 - 40 [facility] Alanine aminotransferase [Enzymatic activity/volume] in Seru m or Plasma 13 U/L 7 - 56 [facility] Anion gap 3 in Serum or Plasma 9.0 mmol/L 8.0 - 16.0 [facility] AGE 75 yrs [facility] al NON-AA GFR 58 mL[facility] AMER GFR >60 [facility] Male GFR In terprentation 20-49 yrs >60 mL/min Normal 50-59 yrs >56 mL/min Normal 60-69 yrs >49 mL/min Normal 70-79yrs >42 mL/min Normal 80 and above >35 mL/min Normal Female GFR Interpretation 20-39 yrs >60 mL/min Normal 40-49 yrs >58 mL/min Normal 50-59 yrs >51 mL/min Normal 60-69 yrs >45 mL/min Normal 70-79 yrs >39 mL/min Normal 80 and above >32 mL/min Normal ID Date Data Source [id number] 11/04/2020 09:51:00 AM EDT [facility] Name Value Range Interpretation Code Description Data Nicolasa rce(s) Supporting Document(s) Protein [Mass/volume] in Urine by Test strip 27 mg/dL 0 - 20 H [facility] T ID Date Data Source [id number] 11/04/2020 09:51:00 AM EDT [facility] Name Value Range Interpretation Code Description Data Nicolasa rce(s) Supporting Document(s) CREAT UR 61.7 MG/DL 0.0 - 30.0 H [facility] ital MICROALBUMIN 40.20 MG/L 0.00 - 0.00 H [facility] MA/CREAT RATIO 65.15 MCG/MG 0.01 - 30.00 H [facility] [employer] st ates that Microalbuminemia is present if the Microalbumin/Creatinine ratio exceeds 30 mcg/mg. The threshold for Clinical Albuminuria is reached at 300 mcg/mg. The classification of a patient should be based upon at least 2 or 3 abnormal results on specimens collected within a 3 to 6 month timeframe. ID Date Data Source [id number] 11/04/2020 09:31:00 AM EDT [facility] Name Value Range Interpretation Code Description Data Nicolasa rce(s) Supporting Document(s) Hemoglobin A1c/Hemoglobin.total in Blood 6.6 % 4.4 - 6.1 H [facility] {A1]{HB] ID Date Data Source [id number] 10/07/2020 03:53:22 PM EDT [facility] Name Value Range Interpretation Code Description Data Nicolasa rce(s) Supporting Document(s) &PDF [facility] RYGHXc9wQgPUJcAy66/XLWehQZYme7IxGYddAGq6SIhkODVgW6IegYrzXO3THkpNFKQuHLRTJNAMED7d oRX [file] ICAgICAgICAgICAgICAgICAgICAgICAgICAgICAgICAgICAgICAgICAgICAgICAgICAgICAgICAgICAg DQogICAgICAgICAgICAgICAgICAgICAgICAgICAgIC AgICAgICAgICAgICAgICAgICAgICAgICAgICAgICAgICAgICAgICAgICAgICAgICAgICAgICAgICAgIC AgICAgICAgICAgDQogICAgICAgICAgICAgICAgICAgICAgICAgICAgICAgICAgICAgICAgICAgICAgIC AgICAgICAgICAgICAgICAgICAgICAgICAgICAgICAg ICAgICAgICAgICAgICAgICAgICAgDQogICAgICAgICAgICAgICAgICAgICAgICAgICAgICAgICAgICAg ICAgICAgICAgICAgICAgICAgICAgICAgICAgICAgICAgICAgICAgICAgICAgICAgICAgICAgICAgICAg ICAgDQogICAgICAgICAgICAgICAgICAgICAgICAgIC AgICAgICAgICAgICAgICAgICAgICAgICAgICAgICAgICAgICAgICAgICAgICAgICAgICAgICAgICAgIC AgICAgICAgICAgICAgDQogICAgICAgICAgICAgICAgICAgICAgICAgICAgICAgICAgICAgICAgICAgIC AgICAgICAgICAgICAgICAgICAgICAgICAgICAgICAg ICAgICAgICAgICAgICAgICAgICAgICAgDQogICAgICAgICAgICAgICAgICAgICAgICAgICAgICAgICAg ICAgICAgICAgICAgICAgICAgICAgICAgICAgICAgICAgICAgICAgICAgICAgICAgICAgICAgICAgICAg ICAgICAgDQogICAgICAgICAgICAgICAgICAgICAgIC AgICAgICAgICAgICAgICAgICAgICAgICAgICAgICAgICAgICAgICAgICAgICAgICAgICAgICAgICAgIC AgICAgICAgICAgICAgICAgDQogICAgICAgICAgICAgICAgICAgICAgICAgICAgICAgICAgICAgICAgIC AgICAgICAgICAgICAgICAgICAgICAgICAgICAgICAg ICAgICAgICAgICAgICAgICAgICAgICAgICAgDQogICAgICAgICAgICAgICAgICAgICAgICAgICAgICAg ICAgICAgICAgICAgICAgICAgICAgICAgICAgICAgICAgICAgICAgICAgICAgICAgICAgICAgICAgICAg NMJnBWPwFAFaRZt4L3ffNXKhRYLkCW1cMTf8Wy3+DQ jPHbVuVIY5chYbaT0USA6uh9HjONqtJRAgt1QqSVn9SB6ZDXKkMSciXV0XOQslvi1ZBGJpAASriXTXx3 kbVyNpNXG9XIZrBhrkOY2UQMEaB4icobRcAENgSRJJBMlyVWXMROtcBOABCL5AMvXxQ1UmyU01MWXMZs 4+OEbxyrQvAlkYWkS2CCZgx5WgJMc4EF8WYUFoNJaa LX0APGGviY6fXQpgOI4DGwVvQGIlWEXKSlPmZ05jtUDjQZo7C7NgQcMjHQLjDdfsMPJeBFzsMiDpUOMv WyBdDQogID4+ID4+IHgxRR9VLWqxahOdDJVqXs8FNZRuMRI2FVWraJXaKwPrNEEJQAxjUF7MpHBbHAI0 fI4oXFfsVFJfVGHfC5cWMtWtcDeqLN17xItwgfTvxP BdDQo+Gi2QEL8tg6YvAGi4srItSDnxVQE5ZNdbIYFjRITgYUUyXAN5JNQ8BKEPNbEwRXIhDXGoCNqpSL XgLETpux7ZKCNtBMU9AyM2YTSoQDLjLIBlWRoeDUEfJAJ8AQKnDDKqQYUwOB0PAkIvULOtGILiYJFrNH PoHGYmft8GMMNdMEEkYqIfPULhDKGzIPDrNHzrUSKp TNHoRwYnNZIdABEbBM2DMxZvCIVrBRZ5FjAiPCYePUCrng9VCLLsBHDsTuDhTcQoPWVtPXLfGUkaQVUl GHR2HhVqWLAlDGCfNC4HArDdJXYoRJh0UbWrYYSoHALckm1ADWOwACGkNVW1PKApPURzAVWmEXhpNLKz WSX8LMfgXBGaOYKsSL2IYmWpNSGiFHb7MtCxAKHjRY Rbej6LDDKaEDWpIOqwUTRaGGHnLMElDWmeFSZzSFNqDIM3GCNiAXRnLV5NPxByIJKgXSLiLmTxRMAyMQ Byzb5DCGXqIQRgVlL7LqYlEAIeVGRdLVkgGFZtNFEzYxrmJURuCDIdKW9ATzTtDZYpYGI1CsNhQXJaRS Xxma2ICQVvGEIyZIv2QBCfWUWzIIVkIDshMSXcDQQ0 ZXy2QNPyGIMyQA7SBsYaKRKaDSmrUQwsRVDgXEWsaj6WXYZuGWAcSBh7NpQoDGBsTKYdHGgjUWNlZHGc XhX6XLRfBALbJU8DNjWlLYXsNuZ1DvAiAVFpSGTehm0ESWFiRKZhAxf3VgTvXXFaBIKbOCimKZEmEPRe Gbo0KMNlZRKnGL3RQeJrFTWpDoVlBlYxRGIiLNImwd 1UVEGrOPIuSPB5VOSzOLRfQPLkZGpnNYYvPIMiRXP6JVPjFCPuOZ2HArPiJAZiDEXhOmmtDDViHIZuiq 1NONObQAF2GpJ5MILaTSLxHPFzDVnmOHOfYSXxXqP2NISqRVSlSN1OSrDzVJCfFWI0FQBzULAyOYKhpl 4WFAAbLKN2FuEbHcRlUQMqHHSiUPxdOTOtDZF8ExUc ZIAcDRDrMT1MSdIdWEObZKu4ExOgZNJnVLBnvj2CfZUdgPnyzg5FGDaIVq0ElSwmRPS5KMroVg8uuLDi NaRzNPYUSn6OoyTbCDMbLKSRLNfdURXuIJC0QxbuQQK4LUSpDefcMTy5GZSoOCC9TETiAHEpKhIqYbD4 OScrXJHhCPKjTKCyYdT4YSVfWLA6GEp8IYRiXSUrXW Q+SG5fLWv+Xl9Dx0XpasG0plEhISl7DPr5MO9KCUNEV1ZOZa== ID Date Data Source [id number] 07/29/2020 10:29:00 AM [facility] Name Value Range Interpretation Code Description Data Nicolasa rce(s) Supporting Document(s) CVE PANEL [facility] al LIPID PANEL Cholesterol [Mass/volume] in Serum or Plasma 103 MG/DL 131 - 200 L [facility] Deprecated Triglyceride [Mass/volume] in Serum or Plasma 133 MG/DL 3 5 - 160 [facility] HDL 51 MG/DL 29 - 86 [facility] Cholesterol in LDL [Mass/volume] in Serum or Plasma by Direc t assay 36 mg/dL 65 - 175 L [facility] Cholesterol.total/Cholesterol in HDL [Mass Ratio] in Serum o r Plasma 2.0 3.2 - 4.4 L [facility] LDL/HDL 0.71 1.47 - 3.22 L [facility] ital CVE RISK CHOL/HDL LDL/HDLMEN: 1/2 AVERAGE 3.43 1.00 AVERAGE 4.97 3.55 2X AVERAGE 9.55 6.25 3X AVERAGE 23.99 7.99WOMEN: 1/2 AVERAGE 3.27 1.47 AVERAGE 4.44 3.22 2X AVERAGE 7.05 5.03 3X AVERAGE 11.04 6.14 ID Date Data Source [id number] 07/29/2020 10:29:00 AM EST [facility] Name Value Range Interpretation Code Description Data Nicolasa rce(s) Supporting Document(s) COMPREHENSIVE METABOLIC PANEL [facility] COMPREHENSIVE METABOLIC PANEL Sodium [Moles/volume] in Serum or Plasma 136 mEq/L 134 - 153 [facility] Potassium [Moles/volume] in Serum or Plasma 4.7 mEq/L 3.6 - 5.0 [facility] Chloride [Moles/volume] in Serum or Plasma 102 mEq/L 98 - 107 [facility] Carbon dioxide, total [Moles/volume] in Serum or Plasma 24 MEQ/L 22 - 30 [facility] Glucose [Mass/volume] in Serum or Plasma 140 MG/DL 70 - 99 H [facility] BUN 19 MG/DL 7 - 21 [facility] al Creatinine [Mass/volume] in Serum or Plasma 0.9 MG/DL 0.7 - 1.5 [facility] BUN/CREAT 21 8 - 27 [facility] al Protein [Mass/volume] in Serum or Plasma 7.1 G/DL 6.3 - 8.2 [facility] Albumin [Mass/volume] in Serum or Plasma 4.1 G/DL 3.9 - 5.0 [facility] Globulin [Mass/volume] in Serum by calculation 3.0 GM/DL 2.4 - 3.2 [facility] A/G RATIO 1.4 0.8 - 2.0 [facility] Calcium [Mass/volume] in Serum or Plasma 9.0 MG/DL 8.4 - 10.2 [facility] Bilirubin.total [Mass/volume] in Serum or Plasma <0.7 MG/DL 0.2 - 1.3 [facility] Alkaline phosphatase [Enzymatic activity/volume] in Serum or Plasma 63 U/L 38 - 126 [facility] Aspartate aminotransferase [Enzymatic activity/volume] in Serum or Plasma 14 U/L 5 - 40 [facility] Alanine aminotransferase [Enzymatic activity/volume] in Seru m or Plasma 10 U/L 7 - 56 [facility] Anion gap 3 in Serum or Plasma 10.0 mmol/L 8.0 - 16.0 [facility] 74 [facility] >60 mL/min [facility] AFR AMER GFR >60 [facility] Male GFR In terprentation 20-49 yrs >60 mL/min Normal 50-59 yrs >56 mL/min Normal 60-69 yrs >49 mL/min Normal 70-79yrs >42 mL/min Normal 80 and above >35 mL/min Normal Female GFR Interpretation 20-39 yrs >60 mL/min Normal 40-49 yrs >58 mL/min Normal 50-59 yrs >51 mL/min Normal 60-69 yrs >45 mL/min Normal 70-79 yrs >39 mL/min Normal 80 and above >32 mL/min Normal ID Date Data Source [id number] 07/29/2020 10:22:00 AM EST [facility] Name Value Range Interpretation Code Description Data Nicolasa rce(s) Supporting Document(s) Cobalamin (Vitamin B12) [Mass/volume] in Serum or Plasma 555 PG/ML 232 - 1245 [facility] ID Date Data Source [id number] 07/29/2020 10:22:00 AM [facility] Name Value Range Interpretation Code Description Data Nicolasa rce(s) Supporting Document(s) Ferritin [Mass/volume] in Serum or Plasma 38.7 ng/mL 3.0 - 105 [facility] ID Date Data Source [id number] 07/29/2020 10:02:00 AM [facility] Name Value Range Interpretation Code Description Data Nicolasa rce(s) Supporting Document(s) CREAT UR 52.3 MG/DL 0.0 - 30.0 H [facility] MICROALBUMIN 33.00 MG/L 0.00 - 0.00 H [facility] MA/CREAT RATIO 63.10 MCG/MG 0.01 - 30.00 H [facility] [employer] st ates that Microalbuminemia is present if the Microalbumin/Creatinine ratio exceeds 30 mcg/mg. The threshold for Clinical Albuminuria is reached at 300 mcg/mg. The classification of a patient should be based upon at least 2 or 3 abnormal results on specimens collected within a 3 to 6 month timeframe. ID Date Data Source [id number] 07/29/2020 09:53:00 AM [facility] Name Value Range Interpretation Code Description Data Nicolasa rce(s) Supporting Document(s) Hemoglobin A1c/Hemoglobin.total in Blood 6.3 % 4.4 - 6.1 H [facility] {A1]{HB] ID Date Data Source [id number] 07/29/2020 08:39:00 AM [facility] Name Value Range Interpretation Code Description Data Nicolasa rce(s) Supporting Document(s) CBC W/AUTOMATED DIFF [facility] COMPLETE BLOOD COUNT Leukocytes [#/volume] in Blood by Automated count 5.7 10^3/uL 4.2 - 1 1.0 [facility] Erythrocytes [#/volume] in Blood by Automated count 3.85 10^6/uL 4. 20 - 5.40 L [facility] Hemoglobin [Mass/volume] in Blood 11.2 g/dL 12.0 - 16.0 L [facility] Hematocrit [Volume Fraction] of Blood by Automated count 33.5 % 3 7.0 - 47.0 L [facility] Erythrocyte mean corpuscular volume [Entitic volume] by Auto mated count 87.0 fL 81.0 - 101 [facility] Erythrocyte mean corpuscular hemoglobin [Entitic mass] by Automated count 29.1 pg 27.0 - 34.0 [facility] Erythrocyte mean corpuscular hemoglobin concentration [Mass/volume] by Automated count 33.4 g/dL 31.0 - 36.0 [facility] Erythrocyte distribution width [Ratio] by Automated count 14.1 % 11.5 - 14.5 [facility] Platelets [#/volume] in Blood by Automated count 286 10^3/uL 150 - 45 0 [facility] Platelet mean volume [Entitic volume] in Blood by Automated count 9.4 fL 7.4 - 10.4 [facility] Neutrophils/100 leukocytes in Blood by Automated count 72.2 % 37. 0 - 80.0 [facility] Lymphocytes/100 leukocytes in Blood by Manual count 18.4 % 25.0 - 40.0 L [facility] Monocytes/100 leukocytes in Blood by Automated count 5.9 % 3.0 - 8.0 [facility] Eosinophils/100 leukocytes in Blood by Automated count 2.4 % 0.0 - 7.0 [facility] Basophils/100 leukocytes in Blood by Automated count 0.9 % 0.0 - 2.5 [facility] %IG 0.2 % 0.0 - 0.0 H [facility] al %NRBC 0.0 % 0.0 - 0.0 [facility] al Neutrophils [#/volume] in Blood by Automated count 4.13 10^3/uL 2.00 - 6.90 [facility] Lymphocytes [#/volume] in Blood by Automated count 1.05 10^3/uL 0.60 - 3.40 [facility] Monocytes [#/volume] in Blood by Automated count 0.34 10^3/uL 0.00 - 0.90 [facility] Eosinophils [#/volume] in Blood by Automated count 0.14 10^3/uL 0.00 - 0.70 [facility] Basophils [#/volume] in Blood by Automated count 0.05 10^3/uL 0.00 - 0.20 [facility] #IG 0.01 10^3/uL 0.00 - 0.10 [facility] #NRBC 0.00 10^3/uL 0.00 - 0.00 [facility] MANUAL DIFF NOT INDICATED [facility] RBC MORPH NOT INDICATED [facility] ID Date Data Source [id number] 07/02/2020 12:00:00 AM EST [facility] Name Value Range Interpretation Code Description Data Nicolasa rce(s) Supporting Document(s) SARS-CoV2 Rapid Antigen Positive [facility] This lab was ordered by [facility] and reported by Sterling Vang MD. ID Date Data Source [id number] 06/23/2020 01:01:00 PM EST [facility] Patient Name: CONSTANCE JAVED : 1945 Sex: F Pt Unit #: [id number] Location:[facility] Provider: Visit Date/Time: 06/23/20 Primary Insurance: [employer] Secondary Insurance: MEDICAID [place] [facility] Intake Vital Signs 06/23/20 13:05 06/23/20 14:16 Current Height 5 ft 6 in Current Weight 179 lb Weight Measurement Method Standing Scale BMI 28.8 BP 160/70 122/56 Blood Pressure Location Lt brachial Lt brachial Position Sitting Sitting Respiration 18 Pulse 100 Pulse Strength Normal Pulse Source Pulse Oximeter Temp 98.6 F Temp Source Oral Pulse Oximetry (%) 93 L Oxygen Delivery Method room air Intake Visit Reasons: Diabetes Nurse Note: PT is here for a follow up on her labs. She got her shingles vaccine on Sunday and has had a severe reaction on her left arm. [employer] Required: No Accompanied by: Self / Same as Patient Is patient in pain?: Yes (Left arm) Pain scale (1-10): 10 Allergies pneumococcal 23-valent polysacchari [From Pneumovax 23] Allergy (Intermediate, Verified 06/23/20 14:22) Swelling and Pain in Arm vaccine adjuvant system, AS01B liposomal [From Shingrix (PF)] Adverse Reaction (Intermediate, Verified 06/23/20 14:22) ERYTHEMA/WARMTH/PAIN SURROUNDING INJECTION SITE varicella- zoster virus glycoprotein E, recombinant [From Shingrix (PF)] Adverse Reaction (Intermediate, Verified 06/23/20 14:22) ERYTHEMA/WARMTH/PAIN SURROUNDING INJECTION SITE atorvastatin Adverse Reaction (Verified 06/23/20 14:22) 2015-severe joint pain baclofen Adverse Reaction (Verified 06/23/20 14:22) MAKES TOO LETHARGIC GETS URINARY INCONTINENCE AT NIGHT enalapril Adverse Reaction (Verified 06/23/20 14:22) dry cough-10/2016 lisinopril Adverse Re action (Verified 06/23/20 14:22) dry cough-2016 Medications - Last Reconciled 06/23/20 by MAGDI Kong albuterol sulfate 90 mcg/actuation (ProAir HFA) 1 - 2 puffs inhalation Q4HPRN ascorbic acid (vitamin C) (Vitamin C) 500 mg PO DAILY aspirin (Aspirin Low-Strength) 81 mg PO DAILY blood sugar diagnostic (Blood Glucose Test) generic store brand - test once daily blood-glucose meter As directed E11.9 - store brand blood-glucose meter supply generic store brand cholecalciferol (vitamin D3) 1,000 units PO QDAY escitalopram oxalate 20 mg PO QDAY esomeprazole magnesium 20 mg PO DAILY estradiol 0.5 mg (1/2 x 1 mg) PO QDAY ferrous sulfate 325 mg PO BID ferrous sulfate (Iron (ferrous sulfate)) 325 mg PO TID fluticasone propionate 50 mcg/actuation 2 sprays intranasal QDAY lancets (Comfort Lancets) As directed E11.9 - store brand lancets generic store brand levothyroxine 125 mcg PO DAILY losartan TAKE 1 TABLET BY MOUTH EVERY DAY mecobalamin (vitamin B12) 1,000 mcg sublingual QDAY metformin 1,000 mg PO BID naproxen (Naprosyn) 500 mg PO BID PRN niacin 1 tab PO HS nortriptyline (Pamelor) 10 mg PO QDAY rosuvastatin TAKE 1 TABLET BY MOUTH DAILY solifenacin (Vesicare) 10 mg PO DAILY tizanidine 4 mg PO TIDPRN umeclidinium-vilanterol 62.5-25 mcg/actuation (Anoro Ellipta) 1 inh inhalation QDAY zonisamide 50 mg PO HS HIV Testing Offer - ages 13-64 Requirement for HIV testing offer been met?: Patient reports past refusal SBIRT Annual Questionnaire Are you currently in recovery for alcohol or substance use?: No How many times in the past year have you had 4 or more drinks in a day?: None How many times in the past year have you used a recreational drug or used a prescription medication for nonmedical reasons?: None Do you need a note to return Do you need a note to return to daycare/school/sports/work: No [facility] Medical History (Updated 02/25/20 @ 18:02 by MAGDI Kong) Actinic keratosis Anemia Aortic valve insufficiency 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) CAD (coronary artery disease), [place] coronary artery Chronic low back pain (09/05/17) COPD (chronic obstructive pulmonary disease) (02/28/18) Degeneration of lumbar intervertebral disc Dermatochalasis of both eyelids (12/25/17) Diabetes mellitus type 2, controlled, without complications Diabetes mellitus, without long-term current use of insulin Diverticulosis of colon without diverticulitis Dysarthria (09/05/17) Fibrocystic breast (02/07/18) GERD without esophagitis Hiatal hernia History of measles History of transesophageal echocardiography (CHRIS) Hypercholesterolemia Hyperlipidemia Hypothyroidism (acquired) (09/09/14) Lichenoid dermatitis Lumbosacral spondylosis (09/05/17) Microalbuminuria Migraine Neuropathy Overactive bladder Sciatica Surgical menopause on hormone replacement therapy TIA (transient ischemic attack) (03/30/16) Vitamin D insufficiency Surgical History H/O endoscopy History of cardiac cath History of colonoscopy History of hysterectomy S/P skin biopsy Status post tonsillectomy Status post tubal ligation Family History Mother No problems noted. Father Heart disease Brother Diabetes mellitus, type 2 Heart disease Hyperlipidemia Hypertension Sister Heartburn HUMBERTO (obstructive sleep apnea) Diabetes mellitus, type 2 Diabetes Esophageal dysmotility Heart disease Hyperlipidemia Diastolic dysfunction Right internal carotid artery aneurysm COPD (chronic obstructive pulmonary disease) Hx of colonic polyps GERD (gastroesophageal reflux disease) Hypertension SON Hypertension Other Myocardial infarction Social History Does the Patient have a Healthcare Proxy: No Does Patient have a DNR?: No Does Patient have a Living Will?: No adopted: No household members: family housing: house marital status: number of children: 2 number of grandchildren: 3 highest education level completed: high school graduate service: No current occupational status: retired pets and animals: Yes (1 DOG, 1CAT) pets and animals: dog(s) Hx Recent Travel (where): No sexually active: No well-balanced diet: daily caffeine: Yes Type: coffee Number of servings: 1 high-fat food intake: 2 times daily daily servings fruits/ve or more times/day daily servings of milk/calcium: 2-4 eating out: 1-3 times/week reads food labels: seldom or never during the past year weight has: remained stable frequency: 5-6 times per week duration: 15-30 minutes/day Smoking Status: Former smoker how long ago did patient quit smoking: QUIT 1995 alcohol intake: current alcohol intake frequency: holidays/special occasions only substance use type: does not use laci/methodist: Holiness special laci needs: No agree to transfusion: Yes seatbelt use: always drive intox or ride w/ intox transport driver: No water heater temp set < 120 deg: Yes working smoke detector in home: Yes fire extinguisher in home: Yes carbon monox detector in home: Yes firearms in home: No do you feel safe at home: Yes victim of physical abuse: No victim of emotional abuse: No victim of sexual abuse: No would you like helpful sources: No Female Reproductive History Menstrual Age of Menarche: 16 control method: permanent sterilization Menopause type: surgical Total pregnancies: 3 Ab spontaneous: 1 [facility]AB[facility] Adult Diabetic Follow-Up 74yo female with PMH DM 2, hyperlipidemia, chronic anemia, CAD, GERD and COPD here for f/u and to discuss lab results. Constance states she is doing well but had a reaction to the 2nd shingles vaccine - received 06/20/2020 -[facility] Morfin. Red/warm/swollen - has been using ice. Redness is getting a little better. Todayis itching some so thinking it is getting better. DM 2 - currently on metformin 1000mg bid. Last hga1c 6.7% - admits she was not as good over the holidays. Has not yet had her labs done, would like to do them at [place]. Wants to avoid [place] d/t increase in covid cases. Hyperlipidemia - currently on rosuvastatin 40mg daily. Hypothyroidism - currently on [id number] daily. Has not noticed any change in energy/hair/skin. COPD - has been using anoro daily and has not had any wheezing/sob. Occasional cough. Has not had to use alb inh Anemia - trying to take iron w/vit c three times daily but has trouble d/t constipation. Tried miralax but made her too gassy. Last o.v. discussed referral to hematology depending on her lab results. Next appt with cardiology 08/2020 - will have a f/u ECHO Type: type 2 Glucose control symptoms: Denies high fasting glucose, polydipsia, polyuria or nocturia Weight and fatigue symptoms: Reports weight gain (4lbs since last o.v.); Denies wakes up feeling tired or daytime sleepiness Cardiopulmonary symptoms: Denies chest pain with activity, chest pain at rest, dyspnea, dyspnea on exertion, dyspnea at rest, lightheadedness or dizziness GI symptoms: Reports constipation (taking stool softener); Denies increased hunger, early satiety, nausea/dyspepsia, vomiting or diarrhea Skin and extremity symptoms: Denies foot ulcers or poorly healing wound Type(s) of exercise: walking (NOT IN LAST MONTH) Neuropathy details: Reports followed by detail technician (last month) Pressed Or Blown Glass Worker's name: Dr. Hernandez Checks feet nightly?: Yes Review of Systems Const Denies chills, Denies daytime sleepiness, Denies excessive sweating, Denies fatigue, Denies fever(s), Denies poor appetite and Reports weig ht gain (4lbs since last o.v.) ENT Denies dizziness Card Denies chest pain at rest, Denies chest pain with activity, Denies lightheadedness, Denies palpitations, Denies dyspnea and Denies dyspnea on exertion Resp Denies dyspnea and Denies dyspnea on exertion GI Denies abdominal pain, Reports constipation (taking stool softener), Denies early satiety, Denies heartburn, Denies diarrhea, Denies nausea and Denies vomiting Genitourinary: Denies nocturia Skin/Breast Denies change in hair and Denies dry skin Neuro Denies dizziness Endo Denies cold intolerance, Denies excessive sweating, Denies fatigue, Denies polydipsia, Denies polyuria and Denies palpitations Exam Const General: cooperative, healthy appearing, comfortable, no acute distress and well groomed Nutritional Appearance: overweight HENMT General nose exam: no nasal discharge Mouth: oral mucosae normal, oropharynx normal and moist mucous membranes Eyes Eyelids: no eyelid abnormalities Conjunctivae: normal conjunctivae Sclera: normal sclerae EOM: EOM intact bilaterally Neck Neck: no lymphadenopathy, trachea midline and supple Thyroid: thyroid normal Carotids: no bruits Resp Effort Inspection: normal respiratory effort Auscultation: clear to auscultation bilaterally, no crackles, lung sounds not diminished, no rhonchiand no wheezes Cardio Jugular venous pressure: no JVD Rhythm: regular rhythm Heart Sounds: S1 normal, S2 normal and murmur (radiates to carotid) Pulses: dorsalis pedis present bilaterally not diminished GI Palpation: soft, not firm, no guarding, not rigid and nontender Auscultation: normal bowel sounds Skin Lesions: no lesions Rashes: no rashes Hair: normal Nails: normal Other: LT UPPER ARM - INJECTION SITE NOTED WITH LARGE AREA SURROUNDING ERYTHEMA EXTENDING AROUND [place] EACH SIDE/WARM. Neuro General: moves all extremities Cranial Nerves: CN's II-XII intact bilaterally Extrem General: no clubbing, no cyanosis and no edema Psych Appearance: grossly normal Mental Status: mental status grossly normal Speech and Movement: speech and movement normal Affect: normal affect Attitude: cooperative Thought Process: normal Thought Content: normal Assessment Plan Assessment Plan (1) Diabetes mellitus, without long-term current use of insulin: Status: Chronic Code(s): E11.9 - Type 2 diabetes mellitus without complications SNOMED Code(s): 62893491 Category: Medical Qualifiers: Diabetes mellitus complication detail: with microalbuminuria Diabetes mellitus complicationstatus: with kidney complications Diabetes mellitus type: type 2 Qualified Code(s): E11.29 - Type 2 diabetes mellitus with other diabetic kidney complication; R80.9 - Proteinuria, unspecified Plan - MAGDI Kong: Continue metformin 1000mg bid. Continue monitoring glucose. Encouraged increased protein/veg intake and regular physical exercise. Encouraged to have labs done - front desk receptionist to print out orders as Constance prefers to have labs done at [facility] d/t rise in covid cases. (2) Hyperlipidemia: Status: Chronic Onset Date: 01/20/14 Code(s): E78.5 - Hyperlipidemia, unspecified SNOMED Code(s): 00494356 Category: Medical Plan - MAGDI Kong: Continue rosuvastatin 40mg daily. Lab orders printed. Will call with results. Encouraged decreased saturated fats and regular physical exercise. (3) Hypothyroidism (acquired): Status: Chronic Onset Date: 09/09/14 Code(s): E03.9 - Hypothyroidism, unspecified SNOMED Code(s): 516589816 Category: Medical Plan - MAGDI Kong: Continue levothyroxine 125mcg daily. (4) COPD (chronic obstructive pulmonary disease): Status: Chronic Onset Date: 02/28/18 Code(s): J44.9 - Chronic obstructive pulmonary disease, unspecified SNOMED Code(s): 29619643 Category: Medical Plan - MAGDI Kong: Stable on anoro. Has not had to use alb inh recently. (5) Anemia: Status: Chronic SNOMED Code(s): 775298532 Category: Medical Qualifiers: Anemia type: iron deficiency Iron deficiency anemia type: other iron deficiency Qualified Code(s): D50.8 - Other iron deficiency anemias Plan - MAGID Kong: Orders printed to check Constance's ferritin, iron, b12. Discussed referral to hematology - ?iron infusion. Additional Comments Additional Comments: Recommended to continue cool compresses to LT arm - reaction to shingrix. Recommended benadryl. F/u after 11/09/2020 for medicare wellness/PE or sooner if needed. Advised to contact office if questions/concerns arise or s/s do not resolve. Coding Level of Care Code 33914 Est Pt Extended Comp Exam Detailed Diagnoses Diabetes mellitus, without long-term current use of insulin E11.29; R80.9 Diabetes mellitus complication detail: with microalbuminuria Diabetes mellitus complication status: with kidney complications Diabetes mellitus type: type 2 Hyperlipidemia E78.5 Hypothyroidism (acquired) E03.9 COPD (chronic obstructive pulmonary disease) J44.9 Anemia D50.8 Anemia type: iron deficiency Iron deficiency anemia type: other iron deficiency <Electronically signed by Joaquina Beck> 06/23/20 1427 Name Value Range Interpretation Code Description Data Nicolasa rce(s) Supporting Document(s) ID Date Data Source [id number] 03/01/2020 09:44:00 AM EDT [facility] [address] [place] [address] [phone] NAME SEX PT STATUS ACCOUNT NUMBER CONSTANCE JAVED REG REF [id number] ORDERING PHYSICIAN LOCATION MEDICAL RECORD NO. Ernesto Kapadia II, MD RAD [id number] ATTENDING PHYSICIAN DATE OF DATE OF EXAM/TIME Joaquina Layne RPA 1945 02/27/201406 TYPE / EXAM Bone density (DEXA) REASON FOR EXAM POST MENOPAUSAL Age: 74 years Evaluation was performed using a Dual Energy X-ray Absorption densitometer. FINDINGS: AP Spine BMD as determined from the AP Spine is 1.470g/cm2 with a T-score of 2.4 which is considered normal. Left Femur BMD as determined from the Left Femur Neck is 1.222g/cm2 with a T-Score of 1.3 which is considered normal. Right Femur BMD as determined from the Right Femur Neck is 1.151g/cm2 with a T-score of 0.8 which is considerednormal. IMPRESSION: Normal bone mineral density 10-year Probability of Fracture: Major Osteoporotic: 6.1% Hip: 0.2% Note: * Mild to aggressive therapies are available in the form of Hormone replacement therapy (HRT), Bisphosphonates, Calcitonin, and SERMs. Additionally, all patients should ensure an adequate intake of dietary calcium (1200mg/d) and vitamin D (400-800 IU daily). * People with diagnosed cases of osteoporosis or osteopenia should be regularly tested for bone mineral density. For patients eligible for Medicare, routine testing is allowed once every 2 years. Testing frequency can be increased for patients who have rapidly progressing disease, or for those who are receiving medical therapy to restore bone mass. Reported By Chriss Nuno MD on 03/01/20943 Signed By Chriss Nuno MD on 03/01/20943 Date Time CC: Chriss Nuno MD; Joaquina Layne Techn: PELBU Trans Dt/Tm: Trans by: DT Prt Dt/Tm: 6912-1469: Total DLP = 0.00 mGy-cm Fluoroscopy Time (in secs): Name Value Range Interpretation Code Description Data Nicolasa rce(s) Supporting Document(s) ID Date Data Source [id number] 02/25/2020 02:03:00 PM EDT [facility] Patient Name: Constance Javed OB: 1945 Sex: F Pt Unit #: [id number] Location:[facility] Provider: Visit Date/Time: 02/25/20 Primary Insurance: [employer] Secondary Insurance: MEDICAID [facility] Intake Vital Signs 02/25/20 14:18 02/25/20 15:02 Current Height 5 ft 6 in Current Weight 175 lb Weight Measurement Method Standing Scale BMI 28.2 BP 138/74 130/58 Blood Pressure Location Lt brachial Lt brachial Position Sitting Sitting Respiration 18 Pulse 92 Pulse Strength Normal Pulse Source Pulse Oximeter Temp 98.3 F Temp Source Oral Pulse Oximetry (%) 97 Oxygen Delivery Method room air Intake Visit Reasons: Hyperlipidemia Nurse Note: PT is here for a follow up on her HTN and labs. She had her Shingles vaccine on Sunday and her left arm is welted up. Upscale Security Officer Required: No Accompanied by: Self / Same as Patient Is patient in pain?: No Allergies pneumococcal 23-valent polysacchari [From Pneumovax 23] Allergy (Intermediate, Verified 02/23/20 13:38) Swelling and Pain in Arm atorvastatin Adverse Reaction (Verified 02/23/20 13:38) 2015-severe harry nt pain baclofen Adverse Reaction (Verified 02/23/20 13:38) MAKES TOO LETHARGIC GETS URINARY INCONTINENCE AT NIGHT enalapril Adverse Reaction (Verified 02/23/20 13:38) dry cough-10/2016 lisinopril Adverse Reaction (Verified 11/06/19 14:12) dry cough-2017 Medications albuterol sulfate 90 mcg/actuation (ProAir HFA) 1 - 2 puffs inhalation Q4HPRN ascorbic acid (vitamin C) (Vitamin C) 500 mg PO DAILY aspirin (Aspirin Low-Strength) 81 mg PO DAILY blood sugar diagnostic (Blood Glucose Test) generic store brand - test once daily blood-glucose meter As directed E11.9 - store brand blood-glucose meter supply generic store brand cholecalciferol (vitamin D3) 1,000 units PO QDAY escitalopram oxalate 20 mg PO QDAY 90 days esomeprazole magnesium 20 mg PO DAILY estradiol 0.5 mg (1/2 x 1 mg) PO QDAY ferrous sulfate 325 mg PO BID ferrous sulfate (Iron (ferrous sulfate)) 325 mg PO TID fluticasone propionate 50 mcg/actuation 2 sprays i ntranasal QDAY lancets (Comfort Lancets) As directed E11.9 - store brand lancets generic store brand levothyroxine 125 mcg PO DAILY losartan 25 mg PO QDAY mecobalamin (vitamin B12) 1,000 mcg sublingual QDAY metformin 1,000 mg PO BID naproxen (Naprosyn) 500 mg PO BID PRN niacin 1 tab PO HS nortriptyline (Pamelor) 10 mg PO QDAY rosuvastatin (Crestor) 40 mg PO DAILY solifenacin (Vesicare) 10 mg PO DAILY tizanidine 4 mg PO TIDPRN umeclidinium-vilanterol 62.5-25 mcg/actuation (Anoro Ellipta) 1 inh inhalation QDAY zonisamide 50 mg PO HS Post menopausal: Yes HIV Testing Offer - ages 13-64 Requirement for HIV testing offer been met?: Patient reports past refusal SBIRT Annual Questionnaire Are you currently in recovery for alcohol or substance use?: No How many times in the past year have you had 4 or more drinks in a day?: None How many times in the past year have you used a recreational drug or used a prescription medication for nonmedical reasons?: None Do you need a note to return Do you need a note to return to daycare/school/sports/work: No Coronavirus Screening Screening Have you traveled outside of [facility] or [facility] in the last 14 days.: No Has patient experienced coronavirus symptoms: No [facility] Medical History (Updated 02/25/20 @ 17:58 by MAGDI Kong) Actinic keratosis Anemia Aortic valve insufficiency 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) CAD (coronary artery disease), [place] coronary artery Chronic low back pain (09/05/17) COPD (chronic obstructive pulmonary disease) (02/28/18) Degeneration of lumbar intervertebral disc Dermatochalasis of both eyelids (12/25/17) Diabetes mellitus type 2, controlled, without complications Diabetes mellitus, without long-term current use of insulin Diverticulosis of colon without diverticulitis Dysarthria (09/05/17) Fibrocystic breast (02/07/18) GERD without esophagitis Hiatal hernia History of measles History of transesophageal echocardiography (CHRIS) Hypercholesterolemia Hyperlipidemia Hypothyroidism (acquired) (09/09/14) Lichenoid dermatitis Lumbosacral spondylosis (09/05/17) Microalbuminuria Migraine Neuropathy Overactive bladder Sciatica Surgical menopause on hormone replacement therapy TIA (transient ischemic attack) (03/30/16) Vitamin D insufficiency Surgical History H/O endoscopy History of cardiac cath History of colonoscopy History of hysterectomy S/P skin biopsy Status post tonsillectomy Status post tubal ligation Family History Mother No problems noted. Father Heart disease Brother Diabetes mellitus, type 2 Heart disease Hyperlipidemia Hypertension Sister Heartburn HUMBERTO (obstructive sleep apnea) Diabetes mellitus, type 2 Diabetes Esophageal dysmotility Heart disease Hyperlipidemia Diastolic dysfunction Right internal carotid artery aneurysm COPD (chronic obstructive pulmonary disease) Hx of colonic polyps GERD (gastroesophageal reflux disease) Hypertension SON Hypertension Other Myocardial infarction Social History Does the Patient have a Healthcare Proxy: No Does Patient have a DNR?: No Does Patient have a Living Will?: No adopted: No household members: family housing: house marital status: number of children: 2 number of grandchildren: 3 highest education level completed: high school graduate service: No current occupational status: retired pets and animals: Yes (1 DOG, 1CAT) pets and animals: dog(s) Hx Recent Travel (where): No sexually active: No well-balanced diet: daily caffeine: Yes Type: coffee Number of servings: 1 high-fat food intake: 2 times daily daily servings fruits/ve or more times/day daily servings of milk/calcium : 2-4 eating out: 1-3 times/week reads food labels: seldom or never during the past year weight has: remained stable frequency: 5-6 times per week duration: 15-30 minutes/day Smoking Status: Former smoker how long ago did patient quit smoking: QUIT 1995 alcohol intake: current alcohol intake frequency: holidays/special occasions only substance use type: does not use laci/methodist: Holiness special laci needs: No agree to transfusion: Yes seatbelt use: always drive intox or ride w/ intox transport driver: No water heater temp set < 120 deg: Yes working smoke detector in home: Yes fire extinguisher in home: Yes carbon monox detector in home: Yes firearms in home: No do you feel safe at home: Yes victim of physical abuse: No victim of emotional abuse: No victim of sexual abuse: No would you like helpful sources: No Female Reproductive History Menstrual Age of Menarche: 16 control method: permanent sterilization Menopause type: surgical Ab spontaneous: 1 (MAB) HPI Hyperlipidemia denies headache(s), chest pain or dyspnea Most Recent Cardiac Tests: No Data to Display Adult Diabetic Follow-Up 74yo female with PMH DM 2, hyperlipidemia, COPD, GERD, anemia, microalbuminuria and hypothyroidism here for f/u and to discuss lab results. Constance states she is doing well. No new con cerns. Saw Dr. Kapadia for 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 care 02/23/20. No medication changes. Dr. Kapadia ordered DEXA, scheduled for 02/27/2020. Constance got her shingles vaccine 02/23/20 and developed redness/warmth/tenderness, has been using ice on it, has not gotten any worse. DM 2 - currently on metformin 1000mg bid, recent hga1c 6.7%; has eye appt at the end of the month; currently on losartan 25mg daily for microalbuminuria. Ordered but test was cancelled by the lab, will order for next time Hyperlipidemia - currently on rosuvastatin 40mg daily - HDL 55, LDL 26, TG 142 bun/cr 16/1.1 Chronic anemia - has been taking iron twice daily with vitamin C - hgb/hct 11.4/34.4, ferritin 17 Hypothyroidism - currently on levothyroxine 125mcg daily, recent TSH 0.83, FT4 1.28 - has not had any changes in skin/hair. Still having trouble with constipation - has been taking benefiber but gives her gas. Does not eat yogurt or take a probiotic. GERD - has not had any problems, taking nexium 20mg daily Type: type 2 Glucose control symptoms: Denies high fasting glucose, polydipsia, polyuria or nocturia Weight and fatigue symptoms: Reports weight loss (4LBS SINCE LAST O.V.); Denies wakes up feeling tired or tired all the time Cardiopulmonary symptoms: Denies chest pain with activity, chest pain at rest, dyspnea, dyspnea on exertion, dyspnea at rest, lightheadedness or dizziness GI symptoms: Reports constipation; Denies increased hunger, early satiety, nausea/dyspepsia, vomiting or diarrhea Skin and extremity symptoms: Denies tingling/numbness/burning or foot ulcers Other symptoms: Denies blurry vision, change in vision (EYE APPT END OF THE MONTH) or depression Home monitoring: verbal report Time of day: AM fasting Fasting BG range: 121-140 Dietary compliance: good Type(s) of exercise: walking Frequency of exercise: 3-5 (15MIN) Review of Systems Const Denies chills, Denies fatigue, Denies fever(s), Denies headache(s), Denies poor appetite and Reportsweight loss (4LBS SINCE LAST O.V.) Eyes Denies blurry vision and Denies change in vision (EYE APPT END OF THE MONTH) ENT Denies dizziness and Denies headache(s) Card Denies chest pain, Denies chest pain at rest, Denies chest pain with activity, Denies leg edema, Denies lightheadedness, Denies dyspnea, Denies dyspnea on exertion, Denies orthopnea and Denies paroxysmal nocturnal dyspnea Resp Denies cough, Denies hemoptysis, Denies dyspnea, Denies dyspnea on exertion and Denies wheezing GI Denies abdominal pain, Denies hematochezia, Reports constipation, Denies early satiety, Denies heartburn, Denies diarrhea, Denies nausea and Denies vomiting Genitourinary: Denies nocturia Musc Reports back pain (CHRONIC, DEPENDS ON WHAT SHE IS DOING, USING LIDODERM PATCHES PRN) Skin/Breast Denies change in hair and Denies dry skin Neuro Denies dizziness and Denies headache(s) Psych Denies anxiety and Denies depression Endo Denies fatigue, Denies polydipsia and Denies polyuria Aller/Immun Denies wheezing Exam Skin Other: LT UPPER EXTREMITY - 10CM [place] OF ERYTHEMA, SLIGHTLY WARM/TENDER Assessment Plan Assessment Plan (1) Diabetes mellitus type 2, controlled, without complications: Status: Chronic Code(s): E11.9 - Type 2 diabetes mellitus without complications SNOMED Code(s): 046343920 Category: Medical Qualifiers: Diabetes mellitus supervisor intermediates insulin use: without supervisor intermediates use Qualified Code(s): E11.9 - Type 2 diabetes mellitus without complications Plan MAGDI Bansal: Discussed lab results, hga1c 6.7% Continue metformin 1000mg bid. Continue monitoring glucose regularly. Encouraged to continue regular physical exercise and increased protein/veg intake. Recheck labs 4months. Orders: Orders: CMP 4 Months LIPID PANEL 4 Months Microalbumin/Creat Ratio - ACR 4 Months CBC W AUTO DIFF 4 Months HGBA1C + EAG 4 Months (2) Hyperlipidemia: Status: Chronic Onset Date: 01/20/14 Code(s): E78.5 - Hyperlipidemia, unspecified SNOMED Code(s): 79079879 Category: Medical Plan MAGDI Bansal: Discussed lab results, LDL 26 - well controlled on rosuvastatin 40mg daily. Continue rosuvastatin 40mg daily. Continue regular physical exercise and increased veggies. Recheck 4months. (3) COPD (chronic obstructive pulmonary disease): Status: Chronic Onset Date: 02/28/18 Code(s): J44.9 - Chronic obstructive pulmonary disease, unspecified SNOMED Code(s): 17812836 Category: Medical Plan - MAGDI Kong: Stable on anoro. Has not had to use alb inh. (4) GERD without esophagitis: Status: Chronic Code(s): K21.9 - Gastro-esophageal reflux disease without esophagitis SNOMED Code(s): 638608911 Category: Medical Plan - MAGDI Kong: Stable on esomeprazole 20mg daily (5) Anemia: Status: Chronic SNOMED Code(s): 872206539 Categ ory: Medical Qualifiers: Anemia type: iron deficiency Iron deficiency anemia type: other iron deficiency Qualified Code(s): D50.8 - Other iron deficiency anemias MAGDI Kenny: Discussed lab results. Recommended trial of irone tid with vitamin C. Encouraged green leafy vegetables. Discussed referral to hematology if no improvement/worsening. Ferritin 17 despite taking iron twicedaily with vitamin C. Recommended she try taking iron with lunch and dinner. (6) Hypothyroidism (acquired): Status: Chronic Onset Date: 09/09/14 Code(s): E03.9 - Hypothyroidism, unspecified SNOMED Code(s): 361448701 Category: Medical Plan - MAGDI Kong: Discussed lab results. Continue levothyroxine 125mcg daily. Additional Comments Additional Comments: Advised to monitor injection site for increasing redness/swelling/warmth/pain. F/u 4months. Refused flu vaccine. Advised to contact office if questions/concerns arise or s/s develop. Orders Other Orders: Orders: FERRITIN 4 Months D64.9 Vitamin B12 4 Months D64.9 Instructions: Hypothyroidism (GEN) Type 2 Diabetes in Adults: New Diagnosis (GEN) Electronically Signed By: <Electronically signed by Joaquina Beck> Date/Time Signed: 02/25/20 180 Name Value Range Interpretation Code Description Data Nicolasa rce(s) Supporting Document(s) ID Date Data Source [id number] 02/23/2020 03:20:00 PM EDT [facility] Does the specimen need to be recollected ?: YREASON REJECTED:: QNSTEST(S) ORDERED:: MICROALBUMIN Name Value Range Interpretation Code Description Data Nicolasa rce(s) Supporting Document(s) Laboratory MICROALBUMIN [facility] Laboratory studies (set) [facility] One or more of the tests that youordered cannot be performed.Please recollect, reorder and resubmit. ID Date Data Source [id number] 02/23/2020 03:00:00 PM EDT [facility] Not Collected Reason:: DID NOT SENT SST PROTECTED FROM LIGHTTEST(S) ORDERED:: VITAMIN B 12 Name Value Range Interpretation Code Description Data Nicolasa rce(s) Supporting Document(s) Laboratory VITAMIN B 12 [facility] Laboratory studies (set) DID NOT SENT SST PROTECTED FROM LIGHT [facility] Test(s) that were [facility] were not collected. ID Date Data Source [id number] [facility]/23/2020 10:50:[facility] Name: Constance Javed OB: 1945 Sex: F Pt Unit #: [id number] Location[facility] Provider: Visit Date/Time: 02/23/20 Primary Insurance: [facility] Secondary Insurance: MEDICAID [place] [facility] Intake Vital Signs 02/23/20 10:56 Current Height 5 ft 6 in Current Weight 174 lb 8 oz Weight Measurement Method Standing Scale BMI 28.1 BP 140/58 Blood Pressure Location Lt radial Position Sitting Respiration 16 Pulse 92 Pulse Strength Normal Pulse Source Pulse Oximeter Temp 98 F Temp Source Oral Pulse Oximetry (%) 96 Oxygen Delivery Method room air 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 LAST MAMMO WAS 11/11/19 WNL. LAST PAP WAS 2010 WNL HYSTERECTOMY IN 1999. LAST DEXA SCAN WAS 02/14/18. SHE HAS NO FAMILY HX OF COLON CANCER. SHE IS TAKINGESTRADIOL 1/2 TAB OF 1 MG. SHE STATES THAT THE HALF TAB REALLY HELPS KEEP HER STABLE. THE HOT FLASHES AND NIGHT SWEATS WHERE REALLY BAD AND SHE WAS SO MISERABLE. SHE DOES TRY TO DO SELF BREAST EXAMS AT HOME NO CHANGES REPORTED. SHE WAS GIVEN HANDOUTS ON SBE AND KEGEL EXERCISE ALONG WITH MENOPAUSE HANDOUTS. SHE HAS HAD STOOL TREVOR TING AND WNL. SHE DID HAVE SHINGLES SHOT TODAY. SHE DENIES ANY 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 COMPLAINTS TODAY. SHE DOES NOT REPORT AND 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 CANCER IN HER FAMILY. SHE DID SEE CARDIOLOGY IN JULY FOR A CARDIAC CATH TO CHECK ON HER HEART MURMUR STATES ALL WNL AND FOLLOW UP IN 1 YEAR TI CHECK FOR STABILITY. 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 Upscale Security Officer Required: No Is patient in pain?: No Allergies pneumococcal 23-valent polysacchari [From Pneumovax 23] Allergy (Intermediate, Verified 02/23/20 13:38) Swelling and Pain in Arm atorvastatin Adverse Reaction (Verified 02/23/20 13:38) 2015-severe joint pain baclofen Adverse Reaction (Verified 02/23/20 13:38) MAKES TOO LETHARGIC GETS URINARY INCONTINENCE AT NIGHT enalapril Adverse Reaction (Verified 02/23/20 13:38) dry cough-10/2016 lisinopril Adverse Reaction (Verified 11/06/19 14:12) dry cough-2017 Medications albuterol sulfate 90 mcg/actuation (ProAir HFA) 1 - 2 puffs inhalation Q4HPRN ascorbic acid (vitamin C) (Vitamin C) 500 mg PO DAILY aspirin (Aspirin Low-Strength) 81 mg PO DAILY blood sugar diagnostic (Blood Glucose Test) generic store brand - test once daily blood-glucose meter As directed E11.9 - store brand blood-glucose meter supply generic store brand cholecalciferol (vitamin D3) 1,000 units PO QDAY escitalopram oxalate 20 mg PO QDAY 90 days esomeprazole magnesium 20 mg PO DAILY estradiol 0.5 mg (1/2 x 1 mg) PO QDAY ferrous sulfate 325 mg PO BID ferrous sulfate (Iron (ferrous sulfate)) 325 mg PO TID fluticasone propionate 50 mcg/actuation 2 sprays intranasal QDAY lancets (Comfort Lancets) As directed E11.9 - store brand lancets generic store brand levothyroxine 125 mcg PO DAILY losartan 25 mg PO QDAY mecobalamin (vitamin B12) 1,000 mcg sublingual QDAY metformin 1,000 mg PO BID naproxen (Naprosyn) 500 mg PO BID PRN niacin 1 tab PO HS nortriptyline (Pamelor) 10 mg PO QDAY rosuvastatin (Crestor) 40 mg PO DAILY solifenacin (Vesicare) 10 mg PO DAILY tizanidine 4 mg PO TIDPRN umeclidinium-vilanterol 62.5-25 mcg/actuation (Anoro Ellipta) 1 inh inhalation QDAY zonisamide 50 mg PO HS Is last menstrual period known: Yes Post menopausal: Yes Patient : No HIV Testing Offer - ages 13-64 Requirement for HIV testing offer been met?: Patient reports past refusal Coronavirus Screening Screening Have you traveled outside of [facility] or [facility] in the last 14 days.: No Has patient experienced coronavirus symptoms: No [facility] Medical History (Updated 02/23/20 @ 17:48 by Ernesto Kapadia II, MD) Actinic keratosis Anemia Aortic valve insufficiency 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) CAD (coronary artery disease), [place] coronary artery Chronic low back pain (09/05/17) COPD (chronic obstructive pulmonary disease) (02/28/18) Degeneration of lumbar intervertebral disc Dermatochalasis of both eyelids (12/25/17) Diabetes mellitus type 2, controlled, without complications Diabetes mellitus, without long-term current use of insulin Diverticulosis of colon without diverticulitis Dysarthria (09/05/17) Fibrocystic breast (02/07/18) GERD without esophagitis Hiatal hernia History of measles History of transesophageal echocardiography (CHRIS) Hypercholesterolemia Hyperlipidemia Hypothyroidism (acquired) (09/09/14) Lichenoid dermatitis Lumbosacral spondylosis (09/05/17) Microalbuminuria Migraine Neuropathy Overactive bladder Sciatica Surgical menopause on hormone replacement therapy TIA (transient ischemic attack) (03/30/16) Vitamin D insufficiency Surgical History H/O endoscopy History of cardiac cath History of colonoscopy History of hysterectomy S/P skin biopsy Status post tonsillectomy Status post tubal ligation Family History Mother No problems noted. Father Heart disease Brother Diabetes mellitus, type 2 Heart disease Hyperlipidemia Hypertension Sister Heartburn HUMBERTO (obstructive sleep apnea) Diabetes mellitus, type 2 Diabetes Esophageal dysmotility Heart disease Hyperlipidemia Diastolic dysfunction Right internal carotid artery aneurysm COPD (chronic obstructive pulmonary disease) Hx of colonic polyps GERD (gastroesophageal reflux disease) Hypertension SON Hypertension Other Myocardial infarction Social History Does the Patient have a Healthcare Proxy: No Does Patient have a DNR?: No Does Patient have a Living Will?: No adopted: No household members: family housing: house marital status: number of children: 2 number of grandchildren: 3 highest education level completed: high school graduate service: No current occupational status: retired pets and animals: Yes (1 DOG, 1CAT) pets and animals: dog(s) Hx Recent Travel (where): No sexually active: No well-balanced diet: daily caffeine: Yes Type: coffee Number of servings: 1 high-fat food intake: 2 times daily daily servings fruits/ve or more times/day daily servings of milk/calcium: 2-4 eating out: 1-3 times/week reads food labels: seldom or never during the past year weight has: remained stable frequency: 5-6 times per week duration: 15-30 minutes/day Smoking Status: Former smoker how long ago did patient quit smoking: QUIT 1995 alcohol intake: current alcohol intake frequency: holidays/special occasions only substance use type: does not use laci/methodist: Holiness special laci needs: No agree to transfusion: Yes seatbelt use: always drive intox or ride w/ intox transport driver: No water heater temp set < 120 deg: Yes working smoke detector in home: Yes fire extinguisher in home: Yes carbon monox detector in home: Yes firearms in home: No do you feel safe at home: Yes victim of physical abuse: No victim of emotional abuse: No victim of sexual abuse: No would you like helpful sources: No Female Reproductive History Menstrual Age of Menarche: 16 control method: permanent sterilization Menopause type: surgical Total pregnancies: 3 Full term: 2 Ab spontaneous: 1 (MAB) Review of Systems C onst All systems reviewed are unremarkable except as noted in HPI and below Reports as per HPI, Reports system reviewed and no additional complaints, except as documented, Denies excessive sweating and Denies headache(s) Eyes Denies blurry vision, Denies change in vision, Denies dry eyes, Denies irritation, Denies itchy eyesand Denies loss of vision ENT Denies abnormal hearing, Denies dysphagia, Denies dizziness, Denies headache(s), Denies lip swelling, Denies nasal congestion, Denies nasal discharge, Denies disequilibrium, Denies sinus pain,Denies sore throat and Denies throat swelling Card Denies chest pain, Denies pedal edema, Denies lightheadedness, Denies palpitations and Denies dyspnea Resp Denies cough, Denies excessive phlegm production, Denies pain on inspiration, Denies dyspnea and Denies wheezing GI Denies abdominal pain, Denies change in bowel habits, Denies dysphagia, Denies early satiety, Deniesheartburn, Denies diarrhea, Denies nausea and Denies vomiting Musc Denie s back pain, Denies arthralgias, Denies limited range of motion, Denies muscle cramps and Denies muscle weakness Skin/Breast Denies breast pain, Denies change in pigmentation, Denies lesions, Denies nail changes, Denies rash and Denies unusual bruising Neuro Denies abnormal hearing, Denies dizziness, Denies headache(s), Denies loss of vision, Denies memory loss, Denies paresthesias and Denies disequilibrium Psych Denies abnormal sleep pattern, Denies anxiety, Denies change in appetite, Denies depression, Denies irritability and Denies memory loss Endo Denies cold intolerance, Denies excessive sweating, Denies polyphagia, Denies polydipsia, Denies polyuria and Denies palpitations Oskar/Lymph Denies easy bleeding, Denies easy bruising and Denies lymphadenopathy Aller/Immun Denies urticaria, Denies itchy eyes, Denies lip swelling, Denies seasonal rhinorrhea, Denies throat swelling and Denies wheezing Exam Const General: cooperative, healthy appearing, no acute distress, well developed and well groomed Nutritional Appearance: well nourished Orientation: alert, awake and oriented x3 [facility] Head: normal to inspection, normocephalic, atraumatic and no scalp tenderness Ears: hearing grossly normal bilaterally and external ears normal Other: mask due to Covid - 19 Eyes General: appearance normal, both eyes and all related structures Alignment and Position: alignment normal Periorbital: periorbital findings normal Eyelids: eyelids normal Conjunctivae: conjunctivae normal Sclera: sclerae normal Pupils: PERRL EOM: EOM intact bilaterally Neck Neck: normal visual inspection, full ROM, no lymphadenopathy, supple and no JVD present Neck mass: No Thyroid: thyroid normal Lymphatic: no lymphadenopathy noted Chest Chest: normal inspection of the chest Breast/Axilla Inspection: normal inspection of the breasts and normal inspection of the axillae Breast/Axilla Palpation: normal palpation of the breasts, normal palpation of the axillae and no axillary lymphadenopathy Other: bilateral inverted nipples which lino Resp Effort Inspection: normal respiratory effort and able to speak in complete sentences Auscultation: clear to auscultation bilaterally Percussion: p ercussion normal Cardio Rate: regular rate Rhythm: regular rhythm Heart Sounds: S1 normal, S2 normal, click (c/w MVP) and murmur Pulses: femoral pulses present bilaterally 2+ GI Inspection: Yes normal to inspection Palpation: soft, no hepatosplenomegaly, aortic enlargement, no guarding, no hernias, no masses and nontender Percussion: normal to percussion Auscultation: normal bowel sounds Rectal Exam - Female: Yes visual inspection normal General: bimanual renal exam normal bilaterally External Female Exam: normal external appearance, normal appearance of the urethra and other (atrophic changes) Urethra: normal appearance of the urethra Speculum Exam - Vagina: normal appearance of the vagina Speculum Exam - Cervix: Cervix absent Bimanual Exam- Vagina Uterus: uterus absent Bimanual Exam- Adnexa, other: normal adnexae, normal rectovaginal exam, No cul-de-sac fullness, No cul-de-sac tenderness, No cul-de-sac nodularity and cystocele Recto-Vaginal: normal rectovaginal exam, no cul-de-sac fullness, no cul-de-sac tenderness and no cul-de-sac nodularlity Pelvic Support: cystocele Musc Cervical Spine: normal cervical lordosis and cervical ROM normal Thoracic/Lumbar Spine: thoracic and lumbar spine normal to inspection Pelvis: no pain with anterior-posterior compression and no pain with lateral compression Skin Lesions: no lesions Rashes: no rashes Trauma: no lacerations or abrasions Wounds: no wounds Hair: normal Nails: normal Neuro General: patient alert, patient awake, patient oriented x3, gait normal and moves all extremities Cranial Nerves: PERRL, EOM intact bilaterally, hearing normal, able to rotate head bilaterally and able to elevate shoulders bilaterally Cognition: normal cognition Speech: speech normal Gait: normal gait Motor: no movement abnormalities noted Extrem General: normal to inspection, full ROM, capillary refill normal, no clubbing, cyanosis or edema andno muscle atrophy Psych Appearance: grossly normal and well kempt Mental S tatus: mental status grossly normal Speech and Movement: speech and movement normal Mood: congruent mood Affect: normal affect Attitude: cooperative Thought Process: normal Thought Content: normal Insight: insight good Judgment: judgment good Quality Reporting Sexual Activity Screening ([facility] 153) Sexually active?: No Assessment Plan Assessment Plan (1) Encounter for Routine Gynecological Examination: Code(s): Z01.419 - Encounter for gynecological examination (general) (routine) without abnormal findings Qualifiers: Gynecological examination findings: abnormal findings PRESENT Qualified Code(s): Z01.411 - Encounter for gynecological examination (general) (routine) with abnormal findings (2) Lichenoid dermatitis: Status: Chronic Comment: vulva; bx 08/2014 Code(s): L28.0 - Lichen simplex chronicus SNOMED Code(s): 45219286 Category: Medical (3) Fibrocystic breast: Status: Chronic Onset Date: 02/07/18 Code(s): N60.19 - Diffuse cystic mastopathy of unspecified breast SNOMED Code(s): 17776135 Category: Medical Qualifiers: Laterality: unspecified laterality Qualified Code(s): N60.19 - Diffuse cystic mastopathy ofunspecified breast (4) 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 Exercise advised, moderate intensity aerobic 30 minutes 5x/week or50 minutes 3x/week, muscle strength 2-7 days/week. Calcium 1200mg/Vitamin d 1000 mg recommended daily for bone health. Colorectal cancer screening for low risk women recommended at age 50-75 years. Tests include colonoscopy every 10 years, or flexible sigmoidoscopy or double contrast BE or CT colonography every 5 years or FOBT or FIT yearly. Screening for increased risk individuals (personal and/or family and/or genetic history of certain colon polyps, adenomas, cancers, FAP, HNPCC, inflammatory bowel disease, ulcerative colitis, Crohn's) should start earlier (at age 10-12 years for FAP, at 20-25 years old or 10 years before the youngest family case for HNPCC, 8 years after the onset of pancolitis, 12-15 years after the onset of left sided colitis). Mammogram recommended yearly for lowrisk women age 40-69 years, starting as young as 25 years old for increased risk women (including but not limited to history of chest irradiation, personal and/or family and/or genetic history of breast and/or certain cancers, personal and/or family history of positive genetic testing (eg BRCA 1/2, TP53, PTEN). Nutrition discussed. Advised to reduce sodium, saturated fats and simple carbohydrates. Advised to increase fiber and keep weight normal. Weight loss recommended for 25 kg/m2 < 64 years old and 30 kg/m2 for age > 65 years.. methods discussed. Yearly influenza vaccine recommended unless allergic or prior adverse reaction. Orders Other Orders: Orders: 3D DIG MAMMO SCREEN BILAT 6 Months Z12.31 Bone density (DEXA) 6 Months Z78.0 Follow Up: 12 Months Electronically Signed By: <Electronically signed by Ernesto Kapadia II, MD> Date/Time Signed: 02/23/20 2718 Name Value Range Interpretation Code Description Data Nicolasa rce(s) Supporting Document(s) ID Date Data Source [id number] 02/23/2020 03:23:00 PM EDT [facility] Name Value Range Interpretation Code Description Data Nicolasa rce(s) Supporting Document(s) Leukocytes [#/volume] in Blood by Automated count 6.5 10*3/uL 4.45-10 .71 N [facility] Erythrocytes [#/volume] in Blood by Automated count 3.82 10*6/uL 4.20-5.40 Below low normal [facility] Hemoglobin [Moles/volume] in Blood 11.4 g/dL 10.7-15.4 N [facility] Hematocrit [Volume Fraction] of Blood by Automated count 34.4 % 37-47 Below low normal [facility] Erythrocyte mean corpuscular volume [Ent itic volume] in Cord blood by Automated count 90.1 fL 80-96 N [facility] ital Erythrocyte mean corpuscular hemoglobin [Entitic mass] by Automated count 29.8 pg 27-31 N [facility] l Erythrocyte mean corpuscular hemoglobin concentration [Mass/volume] in Cord blood 33.1 g/dL 33-37 N [facility] Erythrocyte distribution width [Entitic volume] by Automated count 12 % 11-15 N [facility] Platelets [#/volume] in Blood by Automated count 318 10*3/uL 130-472 N [facility] Platelet mean volume [Entitic volume] in Blood 9.9 fL 9.1-13.1 N [facility] Neutrophils/100 leukocytes in Blood by Automated count 72.2 % 41- 77 N [facility] Neutrophils [#/volume] in Blood by Automated count 4.7 U 1.7-7.6 N [facility] Lymphocytes/100 leukocytes in Blood by Automated count 18.9 % 14- 46 N [facility] Lymphocytes [#/volume] in Blood by Automated count 1.2 U 0.6-4.6 N [facility] Monocytes/100 leukocytes in Blood by Automated count 6.5 % 4-12 N [facility] Monocytes [#/volume] in Blood by Automated count 0.4 U 0.2-1.2 N [facility] Eosinophils/100 leukocytes in Blood by Automated count 1.4 % 0-7 N [facility] Eosinophils [#/volume] in Blood by Automated count 0.1 U 0.0-0.5 N [facility] Basophils/100 leukocytes in Blood by Automated count 0.8 % 0.4-1 .3 N [facility] Basophils [#/volume] in Blood by Automated count 0.1 U 0.0-0.2 N [facility] NUCLEATED RED BLOOD CELL 0 % [facility] NUCLEATED RED BLOOD CELL# 0 U [facility] [place] Immature granulocytes [Presence] in Blood by Automated count 0-2 N [facility] Immature granulocytes [#/volume] in Blood by Automated count 0.0 U 0-0.1 N [facility] Manual Differential panel - Blood NO [facility] ID Date Data Source [id number] 02/23/2020 03:46:00 PM EDT [facility] Name Value Range Interpretation Code Description Data Nicolasa rce(s) Supporting Document(s) Hemoglobin A1c % 6.7 % 4.0-6.0 Above high normal L [facility] The following ranges may be u sed for interpretation of results: HGBA1C degree of glucose control: Greater than 8%: Action Suggested * Less than 7%: Goal of Diabetic Therapy Less than 6%: NormalFactors such as duration of diabetes, adherence to therapyand the age of the patient should also be considered inassessing the degree of blood glucose control.* High risk of developing supervisor intermediates complications such asretinopathy, nephropathy, neuropathy, cardiopathy, etc. Some danger of hypoglycemic reaction in Type I diabetics.Some glucose intolerant individuals and "Sub Clinical"diabetics may demonstrate HGBA1C levels in this area. Glucose mean value [Moles/volume] in Blood Estimated f rom glycated hemoglobin 146 mg/dL [facility] l An A1C of 7% - the goal of diabetic ther apy - is equivalentto an EAG of 154 mg/dl. ID Date Data Source [id number] 02/23/2020 03:55:00 PM EDT [facility] Name Value Range Interpretation Code Description Data Nicolasa rce(s) Supporting Document(s) Urea nitrogen [Mass/volume] in Serum or Plasma 16 mg/dL 9-23 [facility] Sodium [Moles/volume] in Serum or Plasma 136 mmol/L 132-146 [facility] Potassium [Moles/volume] in Serum or Plasma 4.4 mmol/L 3.5-5.5 [facility] Chloride [Moles/volume] in Serum or Plasma 107 mmol/L 99-109 [facility] Carbon dioxide, total [Moles/volume] in Serum or Plasma 26 mmol/L 20 -31 [facility] Anion gap in Serum or Plasma 7 mmol/L 8-16 Below low normal [facility] Glucose [Mass/volume] in Serum or Plasma 121 mg/dL 74-106 Above high normal [facility] Creatinine 1.1 mg/dL 0.5-1.1 [facility] Glomerular filtration rate/1.73 sq M.pre dicted [Volume Rate/Area] in Serum or Plasma 49 ml/min ABOVE 60 [facility] ital Alanine aminotransferase [Enzymatic acti vity/volume] in Serum or Plasma by With P-5'-P 22 U/L 10-49 [facility] ital Aspartate aminotransferase [Enzymatic ac tivity/volume] in Serum or Plasma by With P-5'-P 15 U/L 0-33 [facility] pital Alkaline phosphatase [Enzymatic activity/volume] in Serum or Plasma 64 U/L 45-129 [facility] Calcium [Mass/volume] in Serum or Plasma 8.8 mg/dL 8.5-10.1 [facility] Bilirubin.total [Mass/volume] in Serum or Plasma 0.2 mg/dL 0.3-1.2 Below low normal [facility] Albumin [Mass/volume] in Serum or Plasma by Bromocresol purple (BCP) dye binding method 3.7 g/dL 3.2-4.8 [facility] ital Protein [Mass/volume] in Serum or Plasma 6.7 g/dL 5.7-8.2 [facility] ID Date Data Source [id number] 02/25/2020 09:57:00 AM EDT [facility] Name Value Range Interpretation Code Description Data Nicolasa rce(s) Supporting Document(s) 25-Hydroxyvitamin D2+25-Hydroxyvitamin D3 [Mass/volume ] in Serum or Plasma 38 ng/mL 30-100 [facility] Vitamin D Status 25-OH Vitamin D :Deficiency: <20 ng/mLInsufficiency: 20 - 29 ng/mLOptimal: > or = 30 ng/mLFor 25-OH Vitamin D testing on patients onD2-supplementation and patients for whom quantitationof D2 and D3 fractions is required, the QuestAssureD(TM)25- [place] VIT D, (D2,D3), LC/MS/MS is recommended: ordercode 72121 (patients >2yrs).See Note 1Note 1For additional information, please refer [email or web address](This link is being provided for informational/educational purposes only.)THIS TEST WAS PERFORMED AT:[facility] [id number] BETTENCOURT MD ID Date Data Source [id number] 02/23[facility]2020 03[facility]55[facility] Name Value Range Interpretation Code Description Data Nicolasa rce(s) Supporting Document(s) Triglycerides 142 mg/dL 0-150 N [facility] Cholesterol 109 mg/dL 120-200 Below low normal [facility] HDL Cholesterol 55 mg/dL [facility] HDL Less than 40 mg/dL: Major risk for CHDHDL Greater than 59 mg/dL: Low risk for CHD LDL Cholesterol, Calc 26 mg/dL 0-100 [facility] ID Date Data Source [id number] 02/23/2020 03:55:00 PM [facility] Name Value Range Interpretation Code Description Data Nicolasa rce(s) Supporting Document(s) Iron [Mass/volume] in Serum or Plasma 55 ug/dL 50-170 [facility] Iron values may be falsely elevated in s ailin samples frompatients treated with anticoagulants (e.g., hemodialysispatients) ID Date Data Source [id number] 02/23/2020 03:55:00 PM [facility] Name Value Range Interpretation Code Description Data Nicolasa rce(s) Supporting Document(s) Folate [Mass/volume] in Serum or Plasma 14.8 ng/mL [facility] FOLATE INTERPRETATION NORMAL: GREATER THAN 5.38 INDETERMINATE: 3.38 - 5.38 DEFICIENT: LESS THAN 3.37 ID Date Data Source [id number] 02/23/2020 03:55:00 PM [facility] Name Value Range Interpretation Code Description Data Nicolasa rce(s) Supporting Document(s) Ferritin [Mass/volume] in Serum or Plasma 17 ng/mL 10-291 [facility] ID Date Data Source [id number] 02/23/2020 03:55:00 PM EDT [facility] Name Value Range Interpretation Code Description Data Nicolasa rce(s) Supporting Document(s) Thyroxine (T4) free [Mass/volume] in Serum or Plasma 1.28 ng/dL 0.89- 1.76 [facility] ID Date Data Source [id number] 02/23/2020 03:55:00 PM EDT [facility] Name Value Range Interpretation Code Description Data Nicolasa rce(s) Supporting Document(s) Thyrotropin [Units/volume] in Serum or Plasma by Detec tion limit <= 0.005 mIU/L 0.83 u[iU]/mL 0.35[facility].50 [facility] Social History Code Duration Value Status Description Data Source(s ) Alcohol intake 02/03/2021 12:00:00 AM EDT Lifetime non-drinker (finding) completed Lifetime non-drinker (finding) [facility] Alcohol intake 02/02/2021 12:00:00 AM EDT Lifetime non-drinker (finding) completed Lifetime non-drinker (finding) [facility] Alcohol intake 12/24/2020 12:00:00 AM EDT Ex-drinker (finding) comp leted Ex- drinker (finding) [facility] Tobacco use and exposure 12/24/2020 12:00:00 AM EDT Never used co mpleted Never used [facility] Smoking 12/24/2020 12:00:00 AM EDT Former smoker completed Former smoker [facility] Alcohol intake 12/17/2020 12:00:00 AM EDT Lifetime non-drinker (finding) completed Lifetime non-drinker (finding) [facility] Alcohol intake 12/02/2020 12:00:00 AM EDT Lifetime non-drinker (finding) completed Lifetime non-drinker (finding) [facility] Alcohol intake 11/22/2020 12:00:00 AM EDT Lifetime non-drinker (finding) completed Lifetime non-drinker (finding) [facility] 11/09/2020 04:03:19 PM EDT Former smoker completed Former smoker [facility] Smoking 11/09/2020 04:03:00 PM EDT Former smoker completed Former smoker [facility] Smoking 02/23/2020 12:11:00 PM EDT Former smoker completed Former smoker [facility] 02/23/2020 11:11:42 AM EDT Former smoker completed Former smoker [facility] 02/23/2020 11:11:42 AM EDT Former smoker completed Former smoker [facility] 02/23/2020 11:11:42 AM EDT Former smoker completed Former smoker [facility] Smoking 02/23/2020 11:11:00 AM EDT Former smoker completed Former smoker [facility] Smoking 02/23/2020 11:11:00 AM EDT Former smoker completed Former smoker [facility] Vital Signs ID Date Data Source UNK Name Value Range Interpretation Code Description Data Source(s) Systolic blood pressure 118 mm[Hg] 118 mm[Hg] [facility] Diastolic blood pressure 71 mm[Hg] 71 mm[Hg] [facility] Heart rate 93 /min 93 /min [facility] Respiratory rate 12 /min 12 /min [facility] Body temperature 36.78 Willow 36.78 Willow [facility] Oxygen saturation in Arterial blood by Pulse oximetry 96 % 96 % [facility] Body height 167.6 cm 167.6 cm [facility] Body weight 77.792 kg 77.792 kg [facility] Body mass index (BMI) [Ratio] 27.68 kg/m2 27.68 kg/m2 [facility] Systolic blood pressure 122 mm[Hg] 122 mm[Hg] [facility] Diastolic blood pressure 64 mm[Hg] 64 mm[Hg] [facility] Heart rate 75 /min 75 /min [facility] Body height 168.3 cm 168.3 cm [facility] Body weight 77.248 kg 77.248 kg [facility] Body mass index (BMI) [Ratio] 27.28 kg/m2 27.28 kg/m2 [facility] Oxygen saturation in Arterial blood by Pulse oximetry 95 % 95 % [facility] Systolic blood pressure 177 mm[Hg] 177 mm[Hg] [facility] Diastolic blood pressure 69 mm[Hg] 69 mm[Hg] [facility] Heart rate 87 /min 87 /min [facility] Body height 167.6 cm 167.6 cm [facility] Body weight 77.565 kg 77.565 kg [facility] Body mass index (BMI) [Ratio] 27.60 kg/m2 27.60 kg/m2 [facility] Systolic blood pressure 146 mm[Hg] 146 mm[Hg] [facility] Diastolic blood pressure 77 mm[Hg] 77 mm[Hg] [facility] Heart rate 84 /min 84 /min [facility] Body height 167.6 cm 167.6 cm [facility] Body weight 78.019 kg 78.019 kg [facility] Body mass index (BMI) [Ratio] 27.76 kg/m2 27.76 kg/m2 [facility] Body height 66 [in_i] 66 [in_i] [facility] ([facility] 5'6" Body weight 170.00 [lb_av] 170.00 [lb_av] [facility] T ([facility] Systolic blood pressure 112 mm[Hg] 112 mm[Hg] M [facility] ([facility] Diastolic blood pressure 64 mm[Hg] 64 mm[Hg] [facility] ([facility] Heart rate 78 /min 78 /min [facility] ([facility] Body mass index (BMI) [Ratio] 27.4 kg/m2 27.4 k g/m2 [facility] ([facility] Patient Treatment Plan of Care Planned Activity Planned Date Details Description Data Source (s) Escitalopram 10 MG Oral Tablet 02/03/2021 09:00:00 AM EDT [facility] 30 ACTUAT umeclidinium 0.0625 MG/ACTUAT / vilanterol 0.025 MG/ACTUAT Dry Powder Inhaler 02/03/2021 09:00:00 AM EDT [facility] Esomeprazole 20 MG Delayed Release Oral Capsule 02/03/2021 07:30:00 AM EDT [facility] Levothyroxine Sodium 0.112 MG Oral Tablet 02/03/2021 06:00:00 AM ED T [facility] solifenacin succinate 5 MG Oral Tablet 02/02/2021 09:00:00 PM EDT [facility] Calcium Chloride 0.0014 MEQ/ML / Potassi um Chloride 0.004 MEQ/ML / Sodium Chloride 0.103 MEQ/ML / Sodium Lactate 0.028 MEQ/ML Injectable Solution 02/02/2021 06:00:00 PM EDT [facility] Acetaminophen 325 MG Oral Tablet 02/02/2021 05:35:52 PM EDT [facility] ondansetron (ZOFRAN) injection 4 mg 02/02/2021 05:35:52 PM EDT [facility] normal saline flush 0.9 % injection 3 mL 02/02/2021 05:00:00 PM EDT [facility] diphenhydrAMINE (BENADRYL) injection 12.5 mg 02/02/2021 04:41:02 PM EDT [facility] Magnesium Chloride 0.83055 MEQ/ML / Pota ssium Chloride 0.0497 MEQ/ML / Sodium Acetate 0.0163 MEQ/ML / Sodium Chloride 0.0899 MEQ/ML / Sodium gluconate 5.02 MG/ML Injectable Solution [Normosol-R] 02/02/2021 04:00:00 PM EDT [facility] Accu-Chek Kelsy Plus test strip 11/11/2020 12:00:00 AM EDT [facility] Losartan Potassium 25 MG Oral Tablet 10/10/2020 12:00:00 AM EDT [facility] Losartan Potassium 25 MG Oral Tablet 10/10/2020 12:00:00 AM EDT [facility] Metformin hydrochloride 500 MG Oral Tablet [facility] VITAMIN D PO [facility] Magnesium Oxide (MAG-OX) 400 MG tablet [facility] ferrous sulfate 325 MG Oral Tablet [facility] Levothyroxine Sodium 0.125 MG Oral Tablet [facility]
--- NOTE | 2021-04-14 13:17 | REP ---
INDICATION: Pancytopenia. COMPARISON: None. TECHNIQUE: PA and lateral FINDINGS: The tip of the MediPort device is seen in the superior vena cava. There is a small plate like density in the left CP angle. There is a potential nodular density in the left suprahilar region. The heart is not enlarged. The osseous structures are within normal limits. IMPRESSION: 1. Possible left upper lobe nodule and no priors for comparison. CT of the chest with contrast is recommended. 2. Likely minimal subsegmental atelectatic change in the left CP angle. <Electronically signed by Chris Murphy > 04/14/21 [id number]
--- NOTE | 2021-04-14 14:50 | HPEPDOC ---
[facility] Medical History & Physical Date of Admission Apr 14, 2021 Date of Service: Apr 14, 2021 History and Physical Chief complaint: Presented to the hospital as a direct admission for diarrhea History of present illness: Patient is a 75-year-old female with a PMHx of HTN, NIDDM2, COPD, Hypothyroidism, Invasive mammary carcinoma (s/p R mastectomy; recently started on Chemotherapy) who is seen at the cancer Center today. Patient noted that she was fatigued and experiencing profuse diarrhea. Hospital service was contacted for direct admission. I have come to see and evaluate the patient in the room. Patient was noted to be profoundly pancytopenic, with acute renal failure, and multiple electrolyte abnormalities. She was immediately upgraded to the PCU for telemetry monitoring. Patient reports that over the last 1 week. Shes been experiencing multiple episodes of diarrhea. She also reports a sore throat and upset stomach. Patient has reported that yesterday she has experienced 3-4 episodes of bowel movements. No evidence of blood described as mostly watery. Patient denies any urinary discomfort or any recent fevers or chills. Patient denies any nausea, vomiting, chest pain, shortness of breath or palpitations. Patient denies any lightheadedness or dizziness but does report weakness. Past Medical History: HTN NIDDM2 COPD Hypothyroidism Invasive mammary carcinoma (s/p R mastectomy; recently started on Chemotherapy) Past Surgical History: Hysterectomy in her 50s, tonsillectomy in her 20s Allergies: See below Medications: See below Family History: Mother with history of lung cancer Daughter with a history of recently diagnosed breast cancer Social History: Former smoker, stopped in 1997; smoker of at least 60 years at one pack per day Denies any alcohol or drug use No recent travel or sick contacts Patient lives with her sister and 2 adult children Review of Systems: 10 point review of systems complete, all negative otherwise stated in HPI Physical exam: - Vitals: BP [141/61], HR [109], RR [20], Sat [100%RA], Temp [98.0F] - General: Sitting up in wheelchair, appears frail / fatigued, speaking in full sentences, AAOx3 - HEENT: NC, AT, PERRLA, Oral mucosa with skin breakdown noted - CVS: Tachycardic, +S1S2 - Lungs: Fair air entry bilaterally, No appreciable wheezing / rales / rhonchi - Abdomen: Soft, Non-distended, Non-tender - Extremities: No lower extremity edema, No calf tenderness - Neuro: No focal motor or sensory deficit - Skin: No visible rashes Labs: See below Imaging: CXR 04/14: 1. Possible left upper lobe nodule and no priors for comparison. CT of the chest with contrast is recommended. 2. Likely minimal subsegmental atelectatic change in the left CP angle. EKG: See below Assessment and Plan: Diarrhea - likely 2/2 chemotherapy induced - Patient has reported multiple episodes of diarrhea over last 1 week; denies any blood within the stool - Patient remains hemodynamically stable and afebrile - Physical does not reveal any abdominal tenderness - Will check GI panel and CT abdomen/pelvis - Will start IV fluid hydration Acute renal failure - likely 2/2 pre-renal etiology 2/2 dehydration, possibly 2/2 intra-renal etiology 2/2 ATN (multiple nephrotoxic medications) - Patients baseline creatinine appears to be 1.3 - Will check urinalysis, urine electrolytes - Will check CT abdomen / pelvis - Will start IV fluid hydration Pancytopenia - likely 2/2 chemotherapy - Patient has not experience any fevers - Given that she is profoundly dehydrated and is getting IV fluid hydration; she will likely require transfusions - Will consent patient and provide 2 units PRBC - Will consult oncology for further assistance Hyponatremia - Will check serum + urine osmolality, urine electrolytes, - Will start IV fluid hydration Hypokalemia - Will supplement via IV and PO routes Invasive mammary carcinoma - Dx 01/2021 - s/p R mastectomy - Recently started on Chemotherapy; follows with [facility] - Will consult oncology Non-anion gap metabolic acidosis - likely 2/2 diarrhea - Will check urine electrolytes - c/w IV fluid hydration HTN - Will hold Lisinopril (re: TED) - Will start Amlodipine (if BP remains elevated) NIDDM2 - Will start ISS DLP - c/w Rosuvastatin COPD - No evidence of exacerbation Hypothyroidism - c/w Levothyroxine Depression - c/w home regimen Vitamin D deficiency - c/w supplementation DVT prophylaxis - Will start TEDS/Sequentials Vital Signs Vital Signs Date Time Temp Pulse Resp B/P (MAP) Pulse Ox O2 Delivery O2 Flow Rate FiO2 04/14/21 13:19 98.0 109 20 141/61 (87) 100 Room Air Home Medications Scheduled Ascorbic Acid (Vitamin C) 500 Mg Capsule, 500 MG PO DAILY Cholecalciferol (Vitamin D3) (Vitamin D3) 1,000 Unit Tablet, 2,000 UNITS PO DAILY Duloxetine Hcl (Cymbalta) 30 Mg Capsule.dr, 30 MG PO DAILY Esomeprazole Magnesium (Esomeprazole Magnesium Dr) 20 Mg Capsule.dr, 1 CAP PO DAILY Levothyroxine Sodium (Levothyroxine Sodium) 112 Mcg Tablet, 1 TAB PO DAILY Lidocaine/Prilocaine (Lidocaine-Prilocaine Cream) 2.5%/2.5% Cream..g., 1 DOSE TOP ASDIRECTED Apply dime size to port area. Do not rub in, cover with saran wrap to protect clothing. Losartan Potassium (Losartan Potassium) 25 Mg Tablet, 1 TAB PO DAILY Metformin HCl (Metformin HCl) 1,000 Mg Tab, 1,000 MG PO BID Multivitamin (One-A-Day Essential) 1 Each Tablet, 1 TAB PO DAILY Naproxen (Naproxen) 500 Mg Tab, 500 MG PO BID Niacin (Niacin) 100 Mg Tablet, 100 MG PO DAILY Rosuvastatin Calcium (Rosuvastatin Calcium) 40 Mg Tablet, 1 TAB PO DAILY Solifenacin Succinate (Solifenacin Succinate) 10 Mg Tablet, 1 TAB PO DAILY Umeclidinium Brm/Vilanterol Tr (Anoro Ellipta 62.5-25 Mcg INH) 1 Aer Aer, 1 PUFF INH DAILY Vitamin B Complex (Vitamin B Complex) 1 Each Capsule, 1 CAP PO Q3RD Zonisamide (Zonisamide) 50 Mg Capsule, 50 MG PO QPM Scheduled PRN Budesonide/Formoterol (Symbicort 160-4.5 Mcg Inhaler) 60 Puff/Inhaler Aers, 1 PUFF INH DAILY PRN for SHORTNESS OF BREATH Magic Mouthwash (First-Mouthwash Blm) 1 Ea Susp, 10 ML SSP QID PRN for MUCOSITIS (Diphenhydramine/maalox/lidocaine 1:1:1) May compound if kit unavailable/not covered by insurance Allergies Coded Allergies: No Known Allergies (Unverified , 03/31/21) YVON WISE MD Apr 14, 2021 14:50
[2021-04-14] MEDS: PANTOPRAZOLE 40MG VIAL (C9113 PER 1) IV SCH (14:59)
[2021-04-14] MEDS: KCL 10MEQ/100ML SWI (KRUN) 10 MEQ in IV 1 EA IV SCH ×2 (14:59→18:37)
[2021-04-14] MEDS: NS 1,000 ML IV SCH ×2 (14:59→21:56)
[2021-04-14] MEDS ORDERED: POTASSIUM CHLORIDE 10MEQ SR TABLET PO ONE (15:00)
[2021-04-14] MEDS ORDERED: CYMB1CAP5 PO (15:05)
[2021-04-14] MEDS ORDERED: HOME MED LIST COMPLETE! XX SCH (15:20)
[2021-04-14] MEDS ORDERED: SYMBICORT 160/4.5MCG INHALER 6GM INH PRN (16:00)
[2021-04-14] MEDS ORDERED: MAGIC MOUTHWASH SUSPENSION BTL SSP PRN (16:00)
[2021-04-14] MEDS ORDERED: EMLA CREAM 5GM TUBE (LIDOCAINE/PRILOCAINE) TOP PRN (16:00)
--- NOTE | 2021-04-14 16:02 | REP ---
INDICATION: Diarrhea. COMPARISON: None. TECHNIQUE: Standard helical technique without intravenous or oral bowel preparatory contrast administration. This causes exam limitations particularly when assessing the bowel. FINDINGS: Lung bases are clear There are multiple fluid and gas-filled dilated small bowel loops in the abdomen and pelvis. There is no evidence of free fluid or free air. There is gas and stool in the colon. There is extensive sigmoid colon diverticulosis. Limited evaluation of the liver, gallbladder, spleen, pancreas, adrenal glands, and kidneys show no gross abnormalities. Limited evaluation of the abdominal aorta and para-aortic regions show no gross abnormalities. There is no evidence of a mass or adenopathy. Bone window technique throughout the exam shows the osseous structures to be within normal limits. There are spinal degenerative changes. IMPRESSION: Ileus versus partial SBO. Findings and limitations as described above. <Electronically signed by Chris Murphy > 04/14/21 [id number]
[2021-04-14 16:50] LABS: SODIUM,RANDOM URINE 17 MEQ/L
[2021-04-14 17:34] LABS: CALCIUM LEVEL 6.7 MG/DL (8.8-10.2); CREATININE FOR GFR 3.49 MG/DL (0.55-1.30); GLOMERULAR FILTRATION RATE 13.7 (>39); MAGNESIUM LEVEL 1.1 MG/DL (1.8-2.4); POTASSIUM SERUM 3.8 MEQ/L (3.5-5.1)
[2021-04-14 17:58] LABS: RSV AMPLIFICATION NEGATIVE (NEGATIVE)
[2021-04-14] MEDS: FILGRASTIM 480 MCG/0.8 ML SYRINGE **SC ADMINISTRATION ONLY SC SCH (18:09)
[2021-04-14] MEDS: SUCRALFATE 1 GM TAB PO SCH ×2 (18:09→20:29)
[2021-04-14 18:27] LABS: POTASSIUM RANDOM URINE 38.8 MEQ/L
[2021-04-14 19:05] LABS: OSMOLALITY URINE 280 MOSM/KG (50-1400)
[2021-04-14] MEDS: ADVAIR HFA 115/21MCG INHALER INH SCH (19:46)
[2021-04-14] MEDS: ZONISAMIDE 50 MG CAP (ZONEGRAN) PO SCH (20:29)
[2021-04-14] MEDS: ACETAMINOPHEN TAB 650MG DOSE (2X325MG) PO PRN (20:29)
[2021-04-14] MEDS ORDERED: VANCOMYCIN HCL 750 MG, VIAL MATE ADAPTER 1 EACH in NS 250 ML IV SCH (20:40)
[2021-04-14] MEDS: amLODIPine 5 MG TAB PO SCH (21:00)
[2021-04-14] MEDS ORDERED: CEFEPIME HCL 1 GM in D5W MINI-BAG PLUS 50 ML IV SCH (21:00)
[2021-04-14] MEDS ORDERED: VANCOMYCIN INTERMITTENT/PULSE DOSING BY CLINICAL PHARMACIST PER DOSING PROTOCOL XX SCH (21:00)
[2021-04-14] MEDS ORDERED: ONDANSETRON 4MG/2ML VIAL IV PRN (21:10)
[2021-04-14] MEDS ORDERED: VANCOMYCIN HCL 500 MG in D5W MINI-BAG PLUS 100 ML IV ONE (22:00)
[2021-04-14] MEDS ORDERED: hydrALAZINE 20MG/ML 1ML VIAL (J0360 PER 20MG) IV PRN (22:25)
[2021-04-14] MEDS ORDERED: VANCOMYCIN HCL 750 MG, VIAL MATE ADAPTER 1 EACH in NS 250 ML IV ONE (23:00)
[2021-04-15] VITALS (10 sets, daily range): BP systolic 139–160; BP diastolic 63–77
[2021-04-15] MEDS ORDERED: SODIUM CHLORIDE 0.9% INJ 10 ML SYR IV PRN ×2 (02:15)
[2021-04-15] MEDS ORDERED: CHLORASEPTIC SPRAY MT PRN (04:20)
[2021-04-15] MEDS: LEVOTHYROXINE 112MCG TABLET (0.112MG) PO SCH (05:27)
[2021-04-15] MEDS: SUCRALFATE 1 GM TAB PO SCH ×4 (05:39→20:07)
[2021-04-15 06:58] LABS: EOS % 11.1 % (0.0-3.0); HEMATOCRIT 26.6 % (36.0-47.0); LYMPH % 33.3 % (24.0-44.0); MEAN CORPUSCULAR HEMOGLOBIN 29.1 pg (27.0-33.0); MEAN CORPUSCULAR VOLUME 83.1 fl (80.0-96.0); MONO % 22.2 % (2.0-8.0); NEUTROPHILS % 33.4 % (36.0-66.0)
[2021-04-15 07:10] LABS: CALCIUM LEVEL 6.3 MG/DL (8.8-10.2); CREATININE FOR GFR 3.12 MG/DL (0.55-1.30); GLOMERULAR FILTRATION RATE 15.6 (>39); MAGNESIUM LEVEL 1.2 MG/DL (1.8-2.4); POTASSIUM SERUM 3.2 MEQ/L (3.5-5.1); VANCOMYCIN RANDOM 16.7 UG/ML
[2021-04-15 08:03] LABS: WHITE BLOOD COUNT 0.1 10^3/uL (4.0-10.0)
[2021-04-15 08:04] LABS: HEMOGLOBIN 9.3 g/dl (12.0-15.5); PLATELET COUNT, AUTOMATED 53 10^3/uL (150-450)
[2021-04-15] MEDS: MULTIVITAMINS/MINERALS THERAP 1 TAB PO SCH (09:00)
[2021-04-15] MEDS: VITAMIN D 1,000 INTERNATIONAL UNITS TABLET PO SCH (09:00)
[2021-04-15] MEDS: DULoxetine 30MG CAPSULE (CYMBALTA) PO SCH (09:00)
[2021-04-15] MEDS: amLODIPine 5 MG TAB PO SCH ×2 (09:00→20:07)
[2021-04-15] MEDS: ROSUVASTATIN 10 MG TAB (CRESTOR) PO SCH (09:00)
[2021-04-15] MEDS: SODIUM CHLORIDE 0.9% INJ 10 ML SYR IV SCH (09:00)
[2021-04-15] MEDS: ADVAIR HFA 115/21MCG INHALER INH SCH ×2 (09:17→19:56)
[2021-04-15] MEDS: PANTOPRAZOLE 40MG VIAL (C9113 PER 1) IV SCH (10:30)
[2021-04-15] MEDS: FILGRASTIM 480 MCG/0.8 ML SYRINGE **SC ADMINISTRATION ONLY SC SCH (10:30)
[2021-04-15] MEDS ORDERED: KCL 20MEQ in NS 1000ML 1,000 ML IV SCH (10:58)
[2021-04-15] MEDS ORDERED: SODIUM BICARBONATE 325 MG TAB PO SCH (11:00)
[2021-04-15] MEDS ORDERED: POTASSIUM CHLORIDE 10% LIQ 20 MEQ/15 ML UDC PO ONE (11:00)
[2021-04-15] MEDS ORDERED: POTASSIUM CHLORIDE 10MEQ SR TABLET PO ONE (11:00)
[2021-04-15] MEDS: MAG SULF 1GM/100ML (MAG RUN) 1 GM in IV 1 EA IV SCH ×3 (12:22→14:49)
--- NOTE | 2021-04-15 12:33 | IPNPDOC ---
Text Note Date of Service The patient was seen on 04/15/21. NOTE Subjective: Patient is a 75-year-old female with a PMHx of HTN, NIDDM2, COPD, Hypothyroidism, Invasive mammary carcinoma (s/p R mastectomy; recently started on Chemotherapy) who is seen at the cancer Center on 04/14. Patient noted that she was fatigued and experiencing profuse diarrhea. Hospital service was contacted for direct admission. Oncology was called on consultation. Patient was seen and examined at the bedside. Patient reports that she feels slightly better today. Denies any chest pain, shortness of breath or palpitations. Reports that she had some nausea yesterday, and had vomited some pills yesterday when she tried to swallow them. She denies any abdominal pain, reported a small bowel movement yesterday. Objective: Vitals (See below) General: Lying in bed, appears comfortable, AAOx3 HEENT: NC, AT CVS: +S1S2 Lungs: Fair air entry b/l, no wheezing, rales or rhonchi Abdomen: Soft, some distention without any significant tenderness, hypoactive bowel sounds Extremities: No edema Imaging: CXR 04/14: 1. Possible left upper lobe nodule and no priors for comparison. CT of the chest with contrast is recommended. 2. Likely minimal subsegmental atelectatic change in the left CP angle. CT abdomen / pelvis 04/14: Ileus versus partial SBO. Findings and limitations as described above. Assessment and plan: s/p Diarrhea - likely 2/2 chemotherapy induced, possibly 2/2 infectious etiology - Patient has only had a single bowel movement yesterday reported loose; however this was apparently was not sent to the lab for evaluation - On admission she reported multiple episodes of non-bloody diarrhea for ~ 1 week - Hemodynamically stable / Fever noted yesterday - No abdominal tenderness - Imaging noted above - GI panel remains pending - c/w IV fluid hydration Acute renal failure - likely 2/2 pre-renal etiology 2/2 dehydration, possibly 2/2 intra-renal etiology 2/2 ATN (multiple nephrotoxic medications) - Patients baseline creatinine appears to be 1.3 - UA / Urine electrolytes noted - Imaging noted above - c/w IV fluid hydration - Nephrology has been called on consultation; we appreciate their input Pancytopenia - likely 2/2 chemotherapy - Patient has not experience any fevers - Given that she is profoundly dehydrated and is getting IV fluid hydration; she will likely require transfusions - s/p 2 units PRBC - c/w Neupogen - Oncology on consult; appreciate their input Febrile Neutropenia - Patient does have a port in place for chemotherapy - Patient did experience a fever yesterday of 103.F - Blood cultures 04/14: Pending - UA unremarkable; Urine culture 04/14: Pending - PCT significantly elevated - Imaging noted above - c/w Cefepime / Vancomycin / Flagyl Hyponatremia - likely 2/2 hypotonic hypovolemic etiology - Will check serum + urine osmolality, urine electrolytes, - c/w IV fluid hydration Hypokalemia - Will supplement via IV Dysphagia - likely 2/2 mucositis - Will have speech therapy work with patient today Invasive mammary carcinoma - Dx 01/2021 - s/p R mastectomy - Recently started on Chemotherapy; follows with [facility] - Oncology on consult; appreciate their input Non-anion gap metabolic acidosis - likely 2/2 diarrhea - Bicarbonate appears to be worsening - c/w IV fluid hydration; with bicarbonate added HTN - s/p Lisinopril (re: TED) - c/w Amlodipine (if BP remains elevated) NIDDM2 - c/w ISS DLP - c/w Rosuvastatin COPD - No evidence of exacerbation Hypothyroidism - c/w Levothyroxine Depression - c/w home regimen Vitamin D deficiency - c/w supplementation DVT prophylaxis - c/w TEDS/Sequentials Disposition: - Pending clinical improvement - Called and discussed case with patient's daughter; Nisha Almanzaoscar at [phone] VSBernardo I+O VSBernardo I+O Laboratory Tests 04/14/21 16:47 04/15/21 06:30 Vital Signs Date Time Temp Pulse Resp B/P (MAP) Pulse Ox O2 Delivery O2 Flow Rate FiO2 04/15/21 08:00 98.0 103 19 150/70 (96) 97 Room Air 04/15/21 02:55 3.0 I&O- Last 24 Hours up to 6 AM 04/15/21 06:00 Intake Total 935 ml Output Total 750 ml Balance 185 ml YVON WISE MD Apr 15, 2021 12:33
--- NOTE | 2021-04-15 13:03 | REP ---
INDICATION: Distension. COMPARISON: None. FINDINGS: There are multiple gas-filled mildly dilated small bowel loops. There is gas and stool in the rectosigmoid region. Limited KUB shows no definite free intraperitoneal air. IMPRESSION: Ileus versus early SBO. <Electronically signed by Chris uMrphy > 04/15/21 [id number]
[2021-04-15] MEDS: ACETAMINOPHEN TAB 650MG DOSE (2X325MG) PO PRN (13:40)
[2021-04-15] MEDS ORDERED: VANCOMYCIN HCL 500 MG in D5W MINI-BAG PLUS 100 ML IV SCH (14:00)
[2021-04-15] MEDS: CEFEPIME HCL 1 GM in D5W MINI-BAG PLUS 50 ML IV SCH (14:53)
[2021-04-15] MEDS: SODIUM BICARBONATE 100 MEQ in KCL 20MEQ IN D5W 1000ML 1,000 ML IV SCH ×2 (14:54)
[2021-04-15 15:00] LABS: VENOUS BASE EXCESS -10.6 (-2.0-2.0); VENOUS HCO3 14.8 MEQ/L (23.0-27.0); VENOUS O2 SATURATION 91.4 % (60.0-80.0); VENOUS PARTIAL PRESSURE CO2 30.9 mmHg (38.0-50.0); VENOUS PH 7.297 UNITS (7.330-7.430); VENOUS STANDARD HCO3 15.9 MEQ/L; VENOUS TOTAL CO2 15.7 MEQ/L (24.0-28.0)
[2021-04-15 15:30] LABS: CALCIUM LEVEL 6.3 MG/DL (8.8-10.2); CREATININE FOR GFR 2.87 MG/DL (0.55-1.30); GLOMERULAR FILTRATION RATE 17.1 (>39); POTASSIUM SERUM 3.1 MEQ/L (3.5-5.1)
[2021-04-15 15:33] LABS: ALBUMIN 1.8 GM/DL (3.2-5.2); BILIRUBIN,DIRECT 0.3 MG/DL (0.0-0.2); BILIRUBIN,TOTAL 0.4 MG/DL (0.2-1.0); TOTAL PROTEIN 4.8 GM/DL (6.4-8.2)
[2021-04-15 16:01] LABS: CHLORIDE,RANDOM URINE 18 MEQ/L
[2021-04-15] MEDS ORDERED: KCL 10MEQ/100ML SWI (KRUN) 10 MEQ in IV 1 EA IV ONE ×2 (17:45→20:00)
[2021-04-15] MEDS: ACETAMINOPHEN 325 MG/10.15 ML UDC PO PRN (19:41)
[2021-04-15] MEDS: ZONISAMIDE 50 MG CAP (ZONEGRAN) PO SCH (20:07)
--- NOTE | 2021-04-15 20:50 | MEDONCENPD ---
Date/Time of Encounter Date of Encounter: Apr 15, 2021 Time of Encounter: 18:00 Encounter Subjective Constance has history of breast cancer status post one cycle of chem otherapy with [facility]. Patient went into pancytopenia and severe mucositis. Currently patient is getting Neupogen and was found to have rising BUN and creatinine because of dehydration. She is feeling a little better although still she has sore throat and dysphagia. Her diarrhea is improving and she has one or two bowel movement. Physical examination: General physical: Patient looks weak tired and fatigued out but better than before HEENT: WNL EOMI oral cavity clear without mucositis or thrush Cardiac: RRR normal S1-S2 Lungs: Clear to auscultation percussion Abdomen: Slightly distended. Mild generalized tenderness. Bowel sounds 1+ Extremities: Looks dehydrated still with wrinkled skin no pedal edema APPLIANCE MECHANIC: CN II through XII intact. No gross sensory or motor deficit Labs: Patient is still pancytopenic although creatinine is improving Assessment and plan: 1. Continue daily Neupogen 480 mcg subcu with daily CBC 2. Nephrology on board with improving kidney function 3. DPD deficiency needs to be checked since if patient is DPD deficient 5- fluorouracil may cause more side effects 4. Once patient fully recovers we will plan not to give further chemotherapy and will discuss Herceptin and anastrozole therapy at that point. KAMINI HERNANDEZ MD Apr 15, 2021 20:50
[2021-04-16] VITALS: BP 164/70
[2021-04-16] MEDS: CEFEPIME HCL 1 GM in D5W MINI-BAG PLUS 50 ML IV SCH ×2 (00:10→14:42)
[2021-04-16] MEDS: ACETAMINOPHEN 325 MG/10.15 ML UDC PO PRN ×5 (00:10→20:59)
[2021-04-16] MEDS: SODIUM BICARBONATE 100 MEQ in KCL 20MEQ IN D5W 1000ML 1,000 ML IV SCH ×2 (03:47)
[2021-04-16 04:00] VITALS: BP 154/60
[2021-04-16] MEDS: LEVOTHYROXINE 112MCG TABLET (0.112MG) PO SCH (05:08)
[2021-04-16] MEDS: SUCRALFATE 1 GM TAB PO SCH ×4 (07:30→21:00)
[2021-04-16 08:00] VITALS: BP 152/68
[2021-04-16] MEDS: DULoxetine 30MG CAPSULE (CYMBALTA) PO SCH (08:07)
[2021-04-16] MEDS: VITAMIN D 1,000 INTERNATIONAL UNITS TABLET PO SCH (08:07)
[2021-04-16] MEDS: ROSUVASTATIN 10 MG TAB (CRESTOR) PO SCH (08:07)
[2021-04-16] MEDS: MULTIVITAMINS/MINERALS THERAP 1 TAB PO SCH (08:07)
[2021-04-16] MEDS: amLODIPine 5 MG TAB PO SCH ×2 (08:07→21:00)
[2021-04-16] MEDS: ADVAIR HFA 115/21MCG INHALER INH SCH ×2 (08:10→19:40)
[2021-04-16] MEDS: SODIUM CHLORIDE 0.9% INJ 10 ML SYR IV SCH (08:21)
[2021-04-16] MEDS: PANTOPRAZOLE 40MG VIAL (C9113 PER 1) IV SCH (08:21)
[2021-04-16 08:52] LABS: EOS # 0.1 10^3/uL (0.0-0.5); HEMATOCRIT 27.2 % (36.0-47.0); HEMOGLOBIN 9.6 g/dl (12.0-15.5); LYMPH # 0.1 10^3/uL (1.5-5.0); LYMPH % 21.7 % (24.0-44.0); MEAN CORPUSCULAR HEMOGLOBIN 28.7 pg (27.0-33.0); MEAN CORPUSCULAR HGB CONC 35.3 g/dl (32.0-36.5); MEAN CORPUSCULAR VOLUME 81.2 fl (80.0-96.0); MONO # 0.1 10^3/uL (0.0-0.8); MONO % 30.4 % (2.0-8.0); NEUTROPHILS % 17.5 % (36.0-66.0); RED BLOOD COUNT 3.35 10^6/uL (4.00-5.40)
[2021-04-16 08:53] LABS: EOS % 26.1 % (0.0-3.0); PLATELET COUNT, AUTOMATED 76 10^3/uL (150-450); WHITE BLOOD COUNT 0.2 10^3/uL (4.0-10.0)
[2021-04-16 09:17] LABS: CALCIUM LEVEL 6.3 MG/DL (8.8-10.2); CREATININE FOR GFR 2.28 MG/DL (0.55-1.30); GLOMERULAR FILTRATION RATE 22.4 (>39); MAGNESIUM LEVEL 1.9 MG/DL (1.8-2.4); POTASSIUM SERUM 3.1 MEQ/L (3.5-5.1)
[2021-04-16] MEDS: FILGRASTIM 480 MCG/0.8 ML SYRINGE **SC ADMINISTRATION ONLY SC SCH (10:59)
[2021-04-16 12:00] VITALS: BP 160/70
--- NOTE | 2021-04-16 13:06 | IPNPDOC ---
Text Note Date of Service The patient was seen on 04/16/21. NOTE Subjective: Patient is a 75-year-old female with a PMHx of HTN, NIDDM2, COPD, Hypothyroidism, Invasive mammary carcinoma (s/p R mastectomy; recently started on Chemotherapy) who is seen at the cancer Center on 04/14. Patient noted that she was fatigued and experiencing profuse diarrhea. Hospital service was contacted for direct admission. Oncology was called on consultation. Patient was seen and examined at the bedside. Currently patient denies any chest pain, palpitations or cough. They report that they're sore throat has had some improvement. They deny any significant abdominal discomfort. They deny any nausea or vomiting. They did report having the ability to pass gas a lot more today. Objective: Vitals (See below) General: Sitting up in bed eating breakfast, not in any acute distress, awake, alert and oriented 3 HEENT: Atraumatic and normocephalic CVS: +S1S2 Lungs: There appears to be fair air entry bilaterally without any wheezing, rales or rhonchi Abdomen: Abdomen remains soft without any significant distention or tenderness Extremities: Lower extremities are without any edema Imaging: CXR 04/14: 1. Possible left upper lobe nodule and no priors for comparison. CT of the chest with contrast is recommended. 2. Likely minimal subsegmental atelectatic change in the left CP angle. CT abdomen / pelvis 04/14: Ileus versus partial SBO. Findings and limitations as described above. Assessment and plan: s/p Diarrhea - likely 2/2 chemotherapy induced, less likely 2/2 infectious etiology - Patient reports reduction in diarrhea - On admission she reported multiple episodes of non-bloody diarrhea for ~ 1 week - Hemodynamically stable / Fever noted yesterday - No abdominal tenderness - Imaging noted above - c/w IV fluid hydration Acute renal failure - likely 2/2 pre-renal etiology 2/2 dehydration, possibly 2/2 intra-renal etiology 2/2 ATN (multiple nephrotoxic medications) - Creatinine continues to slowly improve - Patients baseline creatinine appears to be 1.3 - UA / Urine electrolytes noted - Imaging noted above - c/w IV fluid hydration - Nephrology has been called on consultation; we appreciate their input Pancytopenia - likely 2/2 chemotherapy - Hg has improved appropriately after transfusions - ANC still severely low - s/p 2 units PRBC - c/w Neupogen - Oncology on consult; appreciate their input Febrile Neutropenia - Patient does have a port in place for chemotherapy - Patient did experience a fever on 04/14 of 103.F; no significant fever since that point - Blood cultures 04/14: No growth at 24 hours - UA unremarkable - PCT significantly elevated - Imaging noted above - c/w Cefepime / Vancomycin / Flagyl (Day #3) Hyponatremia - likely 2/2 hypotonic hypovolemic etiology - Serum osmolality low - c/w IV fluid hydration Hypokalemia - Will supplement via IV s/p Non-anion gap metabolic acidosis - likely 2/2 diarrhea - Bicarbonate normalized - s/p bicarbonate based fluids Dysphagia - likely 2/2 mucositis - Speech therapy has been on consult; continue with diet based on the recommendations Invasive mammary carcinoma - Dx 01/2021 - s/p R mastectomy - Recently started on Chemotherapy; follows with [facility] - Oncology on consult; appreciate their input HTN - s/p Lisinopril (re: TED) - c/w Amlodipine (if BP remains elevated) NIDDM2 - c/w ISS DLP - c/w Rosuvastatin COPD - No evidence of exacerbation Hypothyroidism - c/w Levothyroxine Depression - c/w home regimen Vitamin D deficiency - c/w supplementation DVT prophylaxis - c/w TEDS/Sequentials Disposition: - Pending clinical improvement - Nisha Arenas at [phone] VS,Bernardo, I+O VS, Bernardo, I+O Laboratory Tests 04/15/21 14:42 04/16/21 08:23 Vital Signs Date Time Temp Pulse Resp B/P (MAP) Pulse Ox O2 Delivery O2 Flow Rate FiO2 04/16/21 08:00 97.6 96 18 152/68 (96) 97 Room Air 04/15/21 02:55 3.0 I&O- Last 24 Hours up to 6 AM 04/16/21 06:00 Intake Total 1300 ml Output Total 1525 ml Balance -225 ml YVON WISE MD Apr 16, 2021 13:05
[2021-04-16] MEDS: KCL 20MEQ in NS 1000ML 1,000 ML IV SCH ×2 (13:21→22:35)
[2021-04-16] MEDS: VANCOMYCIN HCL 1,000 MG, VIAL MATE ADAPTER 1 EACH in NS 250 ML IV SCH (13:21)
--- NOTE | 2021-04-16 14:45 | IPN ---
NEPHROLOGY PROGRESS NOTE DATE: 04/16/2021 SUBJECTIVE: Ms. Javed is seen this morning on her bedside. She is sitting in the chair at the time of my visit. She continues to have difficulty swallowing and oral intake has been poor. She is receiving I.V. fluid with potassium supplement. She as also given 2 doses of K rounds due to low potassium. She denies any fever or chills at present. PHYSICAL EXAMINATION: Temperature 97.6 degrees Fahrenheit, heart rate 96 per minute and respiratory rate 18 per minute. Blood pressure 152/68 mmHg and oxygen saturation 97% on room air. Head: Atraumatic. Neck: Supple and without JVD or thyroid enlargement. Heart: Sounds are regular. Lungs: Clear to auscultation. Abdomen: Soft and nontender and bowel sounds are normal. Extremities: Without any cyanosis or clubbing. She has no peripheral edema. LABORATORY DATA: Today's labs show: Sodium 131, potassium 3.1, CO2 22, BUN 30, creatinine 2.28, glucose 233, calcium 6.3. Magnesium level is 1.9. Total protein 4.8 and albumin 1.8. PROBLEMS/PLAN: 1. Acute kidney injury superimposed on chronic kidney disease most likely related to dehydration caused by diarrhea: Her kidney function is improving and we will continue with I.V. fluid at 100 mL per hour at least for the next 24 hours. 2. Metabolic acidosis: Her acidosis has improved and resolved so she does not need sodium bicarbonate any more. Her sodium bicarbonate drip will be stopped today. After that we will start her with normal saline and 20 mEq potassium chloride in each liter. 3. Hypokalemia: Potassium level remains low. She has received 2 rounds of potassium 10 mEq each. She is also receiving 20 mEq in the I.V. fluids. I am going to continue with the same and recheck her electrolytes tomorrow. 4. Hyponatremia this is related to diarrhea and acute renal failure: We will continue with I.V. fluids and normal saline at present. Her oral intake is poor. Electrolytes will be checked again tomorrow. 5. Pancytopenia: She has neutropenia which is much severe compared to anemia and thrombocytopenia. Today a slight improvement. She remains on neutropenia precautions and antibiotics. She is currently afebrile. [facility]
[2021-04-16 16:00] VITALS: BP 186/80
[2021-04-16 20:00] VITALS: BP 162/58
[2021-04-16] MEDS: ZONISAMIDE 50 MG CAP (ZONEGRAN) PO SCH (21:00)
[2021-04-16] MEDS: CARVedilol 3.125 MG TAB PO SCH (21:00)
[2021-04-17] VITALS (7 sets, daily range): BP systolic 110–170; BP diastolic 63–86
[2021-04-17] MEDS: CEFEPIME HCL 1 GM in D5W MINI-BAG PLUS 50 ML IV SCH ×2 (01:15→13:08)
[2021-04-17] MEDS: ACETAMINOPHEN 325 MG/10.15 ML UDC PO PRN ×5 (02:09→21:21)
[2021-04-17] MEDS: LEVOTHYROXINE 112MCG TABLET (0.112MG) PO SCH (06:13)
[2021-04-17 06:18] LABS: HEMATOCRIT 25.3 % (36.0-47.0); HEMOGLOBIN 8.9 g/dl (12.0-15.5); MEAN CORPUSCULAR HEMOGLOBIN 28.5 pg (27.0-33.0); MEAN CORPUSCULAR HGB CONC 35.2 g/dl (32.0-36.5); MEAN CORPUSCULAR VOLUME 81.1 fl (80.0-96.0); PLATELET COUNT, AUTOMATED 133 10^3/uL (150-450); RED BLOOD COUNT 3.12 10^6/uL (4.00-5.40)
[2021-04-17 06:51] LABS: CALCIUM LEVEL 6.2 MG/DL (8.8-10.2); CREATININE FOR GFR 1.82 MG/DL (0.55-1.30); MAGNESIUM LEVEL 1.5 MG/DL (1.8-2.4); POTASSIUM SERUM 3.2 MEQ/L (3.5-5.1)
[2021-04-17] MEDS ORDERED: POTASSIUM CHLORIDE 10MEQ SR TABLET PO ONE (07:30)
[2021-04-17] MEDS: SUCRALFATE 1 GM TAB PO SCH ×4 (07:30→21:00)
[2021-04-17 07:43] LABS: ATYPICAL LYMPH 2 % (0-5); EOSINOPHILS 12 % (0-3); LYMPHOCYTES 20 % (16-44); MONOCYTES 25 % (0-5); NEUTROPHILS 39 % (28-66); PLATELET ESTIMATE NORMAL (NORMAL)
[2021-04-17 07:44] LABS: OVALOCYTES 1+
[2021-04-17] MEDS ORDERED: POTASSIUM CHLORIDE 10% LIQ 20 MEQ/15 ML UDC PO ONE (07:45)
[2021-04-17] MEDS: ADVAIR HFA 115/21MCG INHALER INH SCH ×2 (07:49→19:40)
[2021-04-17] MEDS: MAG SULF 1GM/100ML (MAG RUN) 1 GM in IV 1 EA IV SCH ×2 (07:51→09:26)
[2021-04-17] MEDS: MULTIVITAMINS/MINERALS THERAP 1 TAB PO SCH (09:00)
[2021-04-17] MEDS: ROSUVASTATIN 10 MG TAB (CRESTOR) PO SCH (09:00)
[2021-04-17] MEDS: VITAMIN D 1,000 INTERNATIONAL UNITS TABLET PO SCH (09:00)
[2021-04-17] MEDS: DULoxetine 30MG CAPSULE (CYMBALTA) PO SCH (09:00)
[2021-04-17] MEDS ORDERED: KCL 20MEQ IN 100ML SWI (KRUN) 20 MEQ in IV 1 EA IV ONE ×2 (09:00)
[2021-04-17] MEDS: SODIUM CHLORIDE 0.9% INJ 10 ML SYR IV SCH (09:16)
[2021-04-17] MEDS: KCL 20MEQ in NS 1000ML 1,000 ML IV SCH ×2 (09:26→21:34)
[2021-04-17] MEDS: CARVedilol 3.125 MG TAB PO SCH ×2 (09:26→21:15)
[2021-04-17] MEDS: amLODIPine 5 MG TAB PO SCH ×2 (09:27→21:16)
[2021-04-17] MEDS: PANTOPRAZOLE 40MG VIAL (C9113 PER 1) IV SCH (10:13)
--- NOTE | 2021-04-17 11:05 | HPEPDOC ---
[facility] Medical History & Physical Date of Admission Apr 17, 2021 Date of Service: Apr 17, 2021 Vital Signs Vital Signs Date Time Temp Pulse Resp B/P (MAP) Pulse Ox O2 Delivery O2 Flow Rate FiO2 04/17/21 09:26 98 165/70 04/17/21 08:00 97.8 19 95 Room Air 04/15/21 02:55 3.0 Laboratory Data Labs 24H Laboratory Tests 2 04/16/21 12:05: Vancomycin Level Trough 10.1 04/17/21 06:00: Neutrophils (%) (Auto) , Neutrophils # (Auto) , Nucleated Red Blood Cells % (auto) 0.0, Neutrophils 39, Band Neutrophils 2, Lymphocytes (Manual) 20, Monocytes (Manual) 25H, Eosinophils (Manual) 12H, Atypical Lymphocytes 2, Anis ocytosis , Ovalocytes 1+, Crenated Cell , Elie Cells , Platelet Estimate NORMAL, Anion Gap 7L, Glomerular Filtration Rate 29.0L, Calcium Level 6.2L, Magnesium Level 1.5L, Thyroid Stimulating Hormone (TSH) 10.000H CBC/BMP Laboratory Tests 04/17/21 06:00 Microbiology Microbiology 04/14/21 Urine Culture - Final, Complete 04/14/21 Blood Culture - Preliminary, Resulted No Growth after 48 hours. All Specime... 04/14/21 Blood Culture - Preliminary, Resulted No Growth after 48 hours. All Specime... Home Medications Scheduled Ascorbic Acid (Vitamin C) 500 Mg Capsule, 500 MG PO DAILY Cholecalciferol (Vitamin D3) (Vitamin D3) 1,000 Unit Tablet, 2,000 UNITS PO DAILY Duloxetine Hcl (Cymbalta) 30 Mg Capsule.dr, 30 MG PO DAILY Esomeprazole Magnesium (Esomeprazole Magnesium Dr) 20 Mg Capsule.dr, 1 CAP PO DAILY Levothyroxine Sodium (Levothyroxine Sodium) 112 Mcg Tablet, 1 TAB PO DAILY Lidocaine/Prilocaine (Lidocaine-Prilocaine Cream) 2.5%/2.5% Cream..g., 1 DOSE TOP ASDIRECTED Apply dime size to port area. Do not rub in, cover with saran wrap to protect clothing. Losartan Potassium (Losartan Potassium) 25 Mg Tablet, 1 TAB PO DAILY Metformin HCl (Metformin HCl) 1,000 Mg Tab, 1,000 MG PO BID Multivitamin (One-A-Day Essential) 1 Each Tablet, 1 TAB PO DAILY Naproxen (Naproxen) 500 Mg Tab, 500 MG PO BID Niacin (Niacin) 100 Mg Tablet, 100 MG PO DAILY Rosuvastatin Calcium (Rosuvastatin Calcium) 40 Mg Tablet, 1 TAB PO DAILY Solifenacin Succinate (Solifenacin Succinate) 10 Mg Tablet, 1 TAB PO DAILY Umeclidinium Brm/Vilanterol Tr (Anoro Ellipta 62.5-25 Mcg INH) 1 Aer Aer, 1 PUFF INH DAILY Vitamin B Complex (Vitamin B Complex) 1 Each Capsule, 1 CAP PO Q3RD Zonisamide (Zonisamide) 50 Mg Capsule, 50 MG PO QPM Scheduled PRN Budesonide/Formoterol (Symbicort 160-4.5 Mcg Inhaler) 60 Puff/Inhaler Aers, 1 PUFF INH DAILY PRN for SHORTNESS OF BREATH Magic Mouthwash (First-Mouthwash Blm) 1 Ea Susp, 10 ML SSP QID PRN for MUCOSITIS (Diphenhydramine/maalox/lidocaine 1:1:1) May compound if kit unavailable/not covered by insurance Allergies Coded Allergies: No Known Allergies (Unverified , 03/31/21) YVON WISE MD Apr 17, 2021 11:05
--- NOTE | 2021-04-17 12:03 | ECGEPIP ---
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 No longer sinus compared with 03/25/2016. Electronically Signed on 04-17-2021 12:02:36 EST by Faisal Morrison
--- NOTE | 2021-04-17 12:21 | IPN ---
NEPHROLOGY PROGRESS NOTE DATE: 04/17/2021 SUBJECTIVE: Mrs. Javed is seen this morning at her bedside. She is in significant pain due to her throat hurting. She denies any dyspnea or chest pain. She is not able to eat due to throat pain. OBJECTIVE: PHYSICAL EXAMINATION: VITAL SIGNS: Temperature is 97.8 degrees Fahrenheit, heart rate 98 per minute and respiratory rate 18 per minute. Blood pressure 165/70 mm of mercury and oxygen saturation is 95% on room air. INTAKE AND OUTPUT: Records from yesterday show a total intake of 3,790 and output 2,325 mL. HEENT: Her head is atraumatic. NECK: Supple and without JVD or thyroid enlargement. HEART: Sounds are regular. LUNGS: Clear to auscultation. ABDOMEN: Soft and nontender and bowel sounds are normal. EXTREMITIES: Without any cyanosis or clubbing. LABORATORY STUDIES: Today's labs show a WBC count of 1.0, hemoglobin 8.9 and hematocrit 25.3, platelet count 133. Sodium 137, potassium 3.2, CO2 22, BUN 20 and creatinine 1.82. Calcium 6.2 and magnesium 1.5. PROBLEMS: 1. Acute kidney injury superimposed on chronic kidney disease this is related to dehydration and improving nicely with IV fluids. We will continue with the IV fluids at 100 mL per hour as her oral intake is minimal. 2. Hyponatremia - sodium level has completely corrected to normal and she remains on IV normal saline. 3. Hypokalemia - potassium level is also gradually improving. She has been given some oral potassium supplement by the Hospitalist service, however the patient has significant difficulty in swallowing. She is receiving IV potassium chloride 20 mL mEq in the IV fluids. 4. Hypomagnesemia - The patient has already received another dose of intravenous magnesium this morning. 5. Pancytopenia her neutropenia is improving with Neupogen. Anemia is stable and platelets have improved.
[2021-04-17] MEDS: FILGRASTIM 480 MCG/0.8 ML SYRINGE **SC ADMINISTRATION ONLY SC SCH (12:25)
[2021-04-17] MEDS: VANCOMYCIN HCL 1,000 MG, VIAL MATE ADAPTER 1 EACH in NS 250 ML IV SCH (14:03)
[2021-04-17] MEDS: ZONISAMIDE 50 MG CAP (ZONEGRAN) PO SCH (21:00)
[2021-04-18] VITALS (7 sets, daily range): BP systolic 133–170; BP diastolic 65–76
[2021-04-18] MEDS: CEFEPIME HCL 1 GM in D5W MINI-BAG PLUS 50 ML IV SCH (00:58)
[2021-04-18] MEDS: ACETAMINOPHEN 325 MG/10.15 ML UDC PO PRN ×6 (01:07→22:43)
[2021-04-18] MEDS: LEVOTHYROXINE 112MCG TABLET (0.112MG) PO SCH (05:28)
[2021-04-18 05:55] LABS: HEMATOCRIT 26.9 % (36.0-47.0); HEMOGLOBIN 9.4 g/dl (12.0-15.5); MEAN CORPUSCULAR HEMOGLOBIN 28.7 pg (27.0-33.0); MEAN CORPUSCULAR HGB CONC 34.9 g/dl (32.0-36.5); MEAN CORPUSCULAR VOLUME 82.3 fl (80.0-96.0); RED BLOOD COUNT 3.27 10^6/uL (4.00-5.40); WHITE BLOOD COUNT 8.7 10^3/uL (4.0-10.0)
[2021-04-18 05:57] LABS: PLATELET COUNT, AUTOMATED 275 10^3/uL (150-450)
[2021-04-18] MEDS ORDERED: LevoFLOXacin 500 MG TABLET PO ONE ×2 (06:00→13:00)
[2021-04-18 06:08] LABS: CALCIUM LEVEL 6.5 MG/DL (8.8-10.2); CREATININE FOR GFR 1.58 MG/DL (0.55-1.30); GLOMERULAR FILTRATION RATE 34.1 (>39); MAGNESIUM LEVEL 1.8 MG/DL (1.8-2.4)
[2021-04-18] MEDS: ADVAIR HFA 115/21MCG INHALER INH SCH ×2 (07:41→20:31)
[2021-04-18 07:46] LABS: EOSINOPHILS 4 % (0-3); LYMPHOCYTES 27 % (16-44); MONOCYTES 7 % (0-5); NEUTROPHILS 46 % (28-66)
[2021-04-18 07:48] LABS: OVALOCYTES 1+; PLATELET ESTIMATE NORMAL (NORMAL)
[2021-04-18] MEDS: SUCRALFATE 1 GM TAB PO SCH ×4 (08:01→21:00)
[2021-04-18] MEDS: DULoxetine 30MG CAPSULE (CYMBALTA) PO SCH (08:01)
[2021-04-18] MEDS: VITAMIN D 1,000 INTERNATIONAL UNITS TABLET PO SCH (08:01)
[2021-04-18] MEDS: PANTOPRAZOLE 40MG VIAL (C9113 PER 1) IV SCH (08:01)
[2021-04-18] MEDS: amLODIPine 5 MG TAB PO SCH ×2 (08:02→21:27)
[2021-04-18] MEDS: CARVedilol 3.125 MG TAB PO SCH ×2 (08:02→21:27)
[2021-04-18] MEDS: SODIUM CHLORIDE 0.9% INJ 10 ML SYR IV SCH (08:02)
[2021-04-18] MEDS: ROSUVASTATIN 10 MG TAB (CRESTOR) PO SCH (08:02)
[2021-04-18] MEDS: MULTIVITAMINS/MINERALS THERAP 1 TAB PO SCH (08:02)
[2021-04-18 08:36] LABS: FREE T4 0.83 NG/DL (0.76-1.46); THYROID STIMULATING HORMONE 12.7 uIU/ML (0.358-3.740)
[2021-04-18] MEDS: FILGRASTIM 480 MCG/0.8 ML SYRINGE **SC ADMINISTRATION ONLY SC SCH (11:46)
--- NOTE | 2021-04-18 11:58 | IPNPDOC ---
Text Note Date of Service The patient was seen on 04/17/21. NOTE Subjective: Patient is a 75-year-old female with a PMHx of HTN, NIDDM2, COPD, Hypothyroidism, Invasive mammary carcinoma (s/p R mastectomy; recently started on Chemotherapy) who is seen at the cancer Center on 04/14. Patient noted that she was fatigued and experiencing profuse diarrhea. Hospital service was contacted for direct admission. Oncology was called on consultation. Patient was seen and examined at the bedside. Patient is sitting up at the edge of the bed. She is complaining of dysphagia. No nausea, vomiting. Denies any chest pain, breath. Reports some improvement of abdominal pain overnight and yesterday she has had several bowel movements. Denies any urinary discomfort. Objective: Vitals (See below) General: Sitting at the edge of the bed about to eat breakfast, reports dysphagia, awake, alert, oriented 3 HEENT: AT, NC CVS: +S1S2 Lungs: Air entry appears to be fair bilaterally without any auscultated evidence of crackles, wheezing or rhonchi Abdomen: Again, her abdomen is soft without any appreciated distention or tenderness Extremities: No LE edema Imaging: CXR 04/14: 1. Possible left upper lobe nodule and no priors for comparison. CT of the chest with contrast is recommended. 2. Likely minimal subsegmental atelectatic change in the left CP angle. CT abdomen / pelvis 04/14: Ileus versus partial SBO. Findings and limitations as described above. XR abdomen 04/15: Ileus versus early SBO. Assessment and plan: s/p Diarrhea - likely 2/2 chemotherapy induced, possibly 2/2 infectious etiology - On admission (04/14), she reported multiple episodes of non-bloody diarrhea for ~ 1 week - Patient has only had a single bowel movement on 04/15 at 5AM, reported loose; however this was apparently was not sent to the lab for evaluation - Continued to experience diarrhea yesterday (04/16); 3 BM noted to be loose and watery - Has remained hemodynamically stable / Afebrile - No abdominal tenderness - Imaging noted above - Initial GI panel ordered on admission was auto-canceled; GI panel reordered and remains pending; discussed with Infection control - will have stool tested - c/w IV fluid hydration Acute renal failure - likely 2/2 pre-renal etiology 2/2 dehydration, possibly 2/2 intra-renal etiology 2/2 ATN (multiple nephrotoxic medications) - Cr continues to down trend - Patients baseline creatinine appears to be 1.3 - UA / Urine electrolytes noted - Imaging noted above - c/w IV fluid hydration - Nephrology has been called on consultation; we appreciate their input Pancytopenia - likely 2/2 chemotherapy - Hg has improved appropriately after transfusions - ANC still severely low (410) - slowly improving - s/p 2 units PRBC - c/w Neupogen - Oncology on consult; appreciate their input Febrile Neutropenia - Patient does have a port in place for chemotherapy - Patient did experience a fever on 04/14 of 103.0F; no significant fever since that point - Blood cultures 04/14: No growth at 48 hours - UA unremarkable - PCT significantly elevated - Imaging noted above - c/w Cefepime / Vancomycin / Flagyl (Day #4) - If cultures remain negative by tomorrow, will transition to Levofloxacin Paroxysmal A fib - Early 04/17 AM patient went into atrial fibrillation - Possibly 2/2 electrolytes / acid-base abnormalities - TSH noted - c/w rate control with Carvedilol - c/w Telemetry monitoring - Will check ECHO - Discussed anticoagulation with patient; at this point will hold off on anticoagulation given her pancytopenia; patient has verbalized understanding of risks s/p Hyponatremia - likely 2/2 hypotonic hypovolemic etiology - Serum osmolality low - c/w IV fluid hydration Hypokalemia - Can not tolerate any PO route supplementation - Will supplement via IV s/p Non-anion gap metabolic acidosis - likely 2/2 diarrhea - Bicarbonate normalized - s/p bicarbonate based fluids Dysphagia - likely 2/2 mucositis - Speech therapy has been on consult; continue with diet based on the recommendations Invasive mammary carcinoma - Dx 01/2021 - s/p R mastectomy - Recently started on Chemotherapy; follows with [facility] - Oncology on consult; appreciate their input HTN - s/p Lisinopril (re: TED) - c/w Carvedilol and Amlodipine NIDDM2 - c/w ISS DLP - c/w Rosuvastatin COPD - No evidence of exacerbation Hypothyroidism - TSH elevated - Will repeat thyroid function tomorrow AM - c/w Levothyroxine Depression - c/w home regimen Vitamin D deficiency - c/w supplementation DVT prophylaxis - c/w TEDS/Sequentials Disposition: - Pending clinical improvement - Nisha Arenas at [phone] VS,Bernardo, I+O VS, Bernardo, I+O Laboratory Tests 04/18/21 05:13 Vital Signs Date Time Temp Pulse Resp B/P (MAP) Pulse Ox O2 Delivery O2 Flow Rate FiO2 04/18/21 08:02 80 123/74 04/18/21 04:00 98.3 18 95 Room Air 04/15/21 02:55 3.0 I&O- Last 24 Hours up to 6 AM 04/18/21 06:00 Intake Total 3270 ml Output Total 1550 ml Balance 1720 ml YVON WISE MD Apr 18, 2021 11:58
--- NOTE | 2021-04-18 12:09 | IPNPDOC ---
Text Note Date of Service The patient was seen on 04/18/21. NOTE Subjective: Patient is a 75-year-old female with a PMHx of HTN, NIDDM2, COPD, Hypothyroidism, Invasive mammary carcinoma (s/p R mastectomy; recently started on Chemotherapy) who is seen at the cancer Center on 04/14. Patient noted that she was fatigued and experiencing profuse diarrhea. Hospital service was contacted for direct admission. Oncology was called on consultation. Patient was seen and examined at the bedside. Patient reports that she feels relatively better. She denies any nausea, vomiting or abdominal pain. Has not experience any diarrhea since yesterday. Reports that her breathing is doing fine. Denies any chest pain or palpitations. Objective: Vitals (See below) General: Patient is sitting up at adjusted the bed, appears to be comfortable without any acute distress. She denies significant dysphagia this morning she is awake, alert, oriented 3 HEENT: Normocephalic and atraumatic CVS: +S1S2 Lungs: There appears to be fair air entry bilaterally without any evidence of crackles, wheezing, rhonchi Abdomen: Soft without any significant distention or tenderness Extremities: Lower extremities do not reveal any significant edema Imaging: CXR 04/14: 1. Possible left upper lobe nodule and no priors for comparison. CT of the chest with contrast is recommended. 2. Likely minimal subsegmental atelectatic change in the left CP angle. CT abdomen / pelvis 04/14: Ileus versus partial SBO. Findings and limitations as described above. XR abdomen 04/15: Ileus versus early SBO. Assessment and plan: s/p Diarrhea - likely 2/2 chemotherapy induced, possibly 2/2 infectious etiology - On admission (04/14), she reported multiple episodes of non-bloody diarrhea for ~ 1 week - Patient had intermittent diarrhea over the last few days; patient has had improvement - Hemodynamically stable / Afebrile - No abdominal tenderness - GI panel 04/17: Negative - Imaging noted above - Will DC IV fluid hydration Acute renal failure - likely 2/2 pre-renal etiology 2/2 dehydration, possibly 2/2 intra-renal etiology 2/2 ATN (multiple nephrotoxic medications) - Cr is trending toward baseline - Patients baseline creatinine appears to be 1.3 - UA / Urine electrolytes noted - Imaging noted above - Will DC IV fluid hydration - Nephrology on consultation; we appreciate their input s/p Pancytopenia - likely 2/2 chemotherapy - Patient reports her symptoms have improved; no more fatigue / weakenss - WBC count normalized today; anticipate it will be higher tomorrow - s/p 2 units PRBC - Will DC Neupogen - Oncology on consult; appreciate their input s/p Febrile Neutropenia - Patient does have a port in place for chemotherapy - Patient did experience a fever on 04/14 of 103.0F; low grade temp of 100.3 on 04/16 - Blood cultures 04/14: No growth at 72 hours - UA unremarkable - GI Panel negative - PCT significantly elevated - Imaging noted above - Will DC Cefepime / Vancomycin / Flagyl (Antibiotic day #5); Will start Levofloxacin for 3 more days Paroxysmal A fib - Possibly 2/2 electrolytes / acid-base abnormalities - Early 04/17 AM patient went into atrial fibrillation - TSH noted - c/w rate control with Carvedilol - c/w Telemetry monitoring - ECHO pending - Discussed anticoagulation with patient; at this point will hold off on anticoagulation given her pancytopenia; patient has verbalized understanding of risks s/p Hyponatremia - likely 2/2 hypotonic hypovolemic etiology - Serum osmolality low - c/w IV fluid hydration s/p Hypokalemia s/p Non-anion gap metabolic acidosis - likely 2/2 diarrhea Dysphagia - likely 2/2 mucositis - Speech therapy consulted; will advance diet based on their recommendations Invasive mammary carcinoma - Dx 01/2021 - s/p R mastectomy - Recently started on Chemotherapy; follows with [facility] - Oncology on consult; appreciate their input HTN - s/p Lisinopril (re: TED) - c/w Carvedilol and Amlodipine NIDDM2 - c/w ISS DLP - c/w Rosuvastatin COPD - No evidence of exacerbation Hypothyroidism - TSH elevated - Free T4 wnl - Will have outpatient repeat of labs in 2-3 weeks; c/w current dose of medications at this time - c/w Levothyroxine Depression - c/w home regimen Vitamin D deficiency - c/w supplementation DVT prophylaxis - c/w TEDS/Sequentials Disposition: - Pending clinical improvement - Nisha Arenas at [phone] VS,Bernardo, I+O VS, [place], I+O Laboratory Tests 04/18/21 05:13 Vital Signs Date Time Temp Pulse Resp B/P (MAP) Pulse Ox O2 Delivery O2 Flow Rate FiO2 04/18/21 08:02 80 123/74 04/18/21 04:00 98.3 18 95 Room Air 04/15/21 02:55 3.0 I&O- Last 24 Hours up to 6 AM 04/18/21 06:00 Intake Total 3270 ml Output Total 1550 ml Balance 1720 ml YVON WISE MD Apr 18, 2021 12:09
--- NOTE | 2021-04-18 12:48 | IPN ---
NEPHROLOGY PROGRESS NOTE DATE: 04/18/2021 SUBJECTIVE: Ms. Javed is seen this morning on her bedside. She continues to have complaint of pain in her throat and difficulty swallowing. She is sitting in the chair today. She denies any fever or chills. She has no dyspnea or chest pain. PHYSICAL EXAMINATION: VITAL SIGNS: Temperature 96.4 degrees Fahrenheit, heart rate 80 per minute, respiratory rate 18 per minute, blood pressure 123/74 mmHg, oxygen saturation 93% on room air. HEAD: Atraumatic. NECK: Supple and jugular venous distention (JVD) not abnormally elevated sitting upright. She has significant thrush and ulcers in her throat. HEART SOUNDS: Regular. LUNGS: Clear to auscultation. ABDOMEN: Soft and nontender. Bowel sounds are normal. EXTREMITIES: Without any cyanosis or clubbing. She has mild edema on her feet. NEUROLOGIC: She is awake, alert and oriented times three. LABORATORY DATA: Today's labs show WBC count 8.7, hemoglobin 9.4, hematocrit 26.9, platelets 275. Sodium 139, potassium 4.9, CO2 20, BUN 18, creatinine 1.58, glucose 130, calcium 6.5, magnesium 1.8. PROBLEMS: 1. Acute kidney injury superimposed on chronic kidney disease. Kidney function has improved with intravenous (IV) fluid hydration. She seems to be well hydrated now. She has increased oral intake and IV fluid is being stopped due to risk for congestive heart failure. 2. Hyponatremia. Sodium level has completely improved to normal range. IV sodium is being stopped, as she was receiving normal saline. 3. Hypokalemia. Her potassium level has also improved and corrected. IV fluid with potassium chloride is being stopped. 4. Pancytopenia. Her pancytopenia is also gradually improving. WBC count improved significantly. I feel that probably her Neupogen can probably be stopped. Other issues are being addressed by hospitalist service.
[2021-04-18] MEDS: ZONISAMIDE 50 MG CAP (ZONEGRAN) PO SCH (21:27)
[2021-04-19] MEDS: ACETAMINOPHEN 325 MG/10.15 ML UDC PO PRN ×5 (04:07→22:13)
[2021-04-19] MEDS: LEVOTHYROXINE 112MCG TABLET (0.112MG) PO SCH (05:35)
[2021-04-19] MEDS: LevoFLOXacin 250 MG TABLET PO SCH (05:35)
[2021-04-19 06:00] VITALS: BP 133/56
[2021-04-19 06:26] LABS: HEMATOCRIT 26.9 % (36.0-47.0); HEMOGLOBIN 9.6 g/dl (12.0-15.5); MEAN CORPUSCULAR HEMOGLOBIN 29.3 pg (27.0-33.0); MEAN CORPUSCULAR HGB CONC 35.7 g/dl (32.0-36.5); PLATELET COUNT, AUTOMATED 348 10^3/uL (150-450); RED BLOOD COUNT 3.28 10^6/uL (4.00-5.40); WHITE BLOOD COUNT 28.4 10^3/uL (4.0-10.0)
[2021-04-19 06:46] LABS: CALCIUM LEVEL 7.4 MG/DL (8.8-10.2); CREATININE FOR GFR 1.66 MG/DL (0.55-1.30); GLOMERULAR FILTRATION RATE 32.2 (>39); MAGNESIUM LEVEL 1.6 MG/DL (1.8-2.4); POTASSIUM SERUM 3.2 MEQ/L (3.5-5.1)
[2021-04-19 07:39] LABS: ATYPICAL LYMPH 1 % (0-5); EOSINOPHILS 3 % (0-3); LYMPHOCYTES 6 % (16-44); METAMYELOCYTES 6 % (0-0); MYELOCYTES 1 % (0-0); NEUTROPHILS 75 % (28-66); PLATELET ESTIMATE NORMAL (NORMAL)
[2021-04-19 07:40] LABS: OVALOCYTES 1+
[2021-04-19 07:47] LABS: ANISOCYTOSIS 1+
[2021-04-19] MEDS: ADVAIR HFA 115/21MCG INHALER INH SCH ×2 (08:10→20:36)
[2021-04-19] MEDS: SUCRALFATE 1 GM TAB PO SCH ×4 (08:18→20:53)
[2021-04-19] MEDS: MULTIVITAMINS/MINERALS THERAP 1 TAB PO SCH (08:19)
[2021-04-19] MEDS: ROSUVASTATIN 10 MG TAB (CRESTOR) PO SCH (08:19)
[2021-04-19] MEDS: VITAMIN D 1,000 INTERNATIONAL UNITS TABLET PO SCH (08:19)
[2021-04-19] MEDS: DULoxetine 30MG CAPSULE (CYMBALTA) PO SCH (08:19)
[2021-04-19] MEDS: SODIUM CHLORIDE 0.9% INJ 10 ML SYR IV SCH (08:20)
[2021-04-19] MEDS: PANTOPRAZOLE 40MG VIAL (C9113 PER 1) IV SCH (08:20)
[2021-04-19] MEDS: amLODIPine 5 MG TAB PO SCH (08:21)
[2021-04-19] MEDS: CARVedilol 3.125 MG TAB PO SCH ×2 (08:21→20:53)
[2021-04-19] MEDS ORDERED: SPIRONOLACTONE 25 MG TAB PO ONE (10:25)
[2021-04-19 14:00] VITALS: BP 136/53
--- NOTE | 2021-04-19 15:38 | CR ---
NEPHROLOGY CONSULTATION DATE: 04/15/2021 REQUESTING PHYSICIAN: David Tate M.D. CONSULTING PHYSICIAN: Carrie Barlow D.O. REASON FOR CONSULTATION: Acute kidney injury and metabolic acidosis. CHIEF COMPLAINT: Diarrhea. HISTORY OF PRESENT ILLNESS: Miss Constance Javed is previously unknown to me. She is a 75-year-old female with a past medical history of hypertension, non-insulin dependent diabetes mellitus type 2, chronic obstructive pulmonary disease, hypothyroidism, obesity, invasive mammary carcinoma, status post right mastectomy, and recently started on chemotherapy (Cyclophosphamide, Methotrexate, Chlorouracil -CMS therapy with concurrent Herceptin). The patient started CMS therapy on , March 31. I reviewed the records from [facility]. Her creatinine on March 31 was 1.3 with a GFR of 42. The patient states that about 5 days ago she started experiencing severe profuse large volume watery diarrhea. She tried to increase her oral hydration but she felt that anything she took was immediately "running through me". She stopped taking several of her home medications because of nausea, abdominal discomfort and profuse diarrhea. She was seen at the [facility] yesterday and Hospitalist service was contacted for direct admission. The patient was found to be profoundly pancytopenic with acute renal failure and overnight she was treated with IV fluids. This morning her creatinine has improved from 3.4 yesterday to 3.1 today, but the patient is hyponatremic, hypokalemic and has metabolic acidosis. A nephrology evaluation was requested for help in the management of her fluid administration and management of her acute kidney injury. The patient was seen and examined this morning at the bedside. She complains of ongoing abdominal distention. She had a CAT scan done yesterday that shows ileus versus partial small-bowel obstruction, and the patient is currently on a pureed diet. PAST MEDICAL HISTORY: The patient's past medical history is significant for: 1. Chronic kidney disease stage 3. 2. Hypertension. 3. Non-insulin dependent diabetes mellitus type 2. 4. Chronic obstructive pulmonary disease. 5. Hypertension. 6. Invasive mammary carcinoma - status post right mastectomy, started chemotherapy on March 31, CMF regimen. 7. Obesity. PAST SURGICAL HISTORY: The patient's past surgical history is significant for: 1. Hysterectomy. 2. Tonsillectomy. 3. Right mastectomy. ALLERGIES: No known drug allergies. HOME MEDICATIONS: 1. Vitamin D 2,000 units p.o. daily. 2. Duloxetine 30 mg p.o. daily. 3. Omeprazole one capsule p.o. daily. 4. Levothyroxine 112 mcg p.o. daily. 5. Losartan 25 mg p.o. daily. 6. Metformin 1,000 mg p.o. twice daily. 7. Multivitamin one daily. 8. Naproxen 500 mg p.o. twice daily. 9. Rosuvastatin 40 mg p.o. daily. 10. Solifenacin one tab p.o. daily. 11. Anoro Ellipta one puff inhaled daily. 12. Vitamin B complex one capsule every third day. 13. Zonisamide 50 mg p.o. q. p.m. 14. Symbicort p.r.n. FAMILY HISTORY: Mother with lung cancer, daughter with recent diagnosis of breast cancer. SOCIAL HISTORY: She is an ex-smoker, stopped smoking in 1997. No alcohol or drug use. She lives with her sister and two adult children. REVIEW OF SYSTEMS: Constitutional: Fatigue and generalized weakness. No fevers. Eyes: She denies visual changes or tearing. ENT: She denies rhinorrhea, epistaxis or odynophagia. Cardiac: She denies palpitations or chest pain. Respiratory: She denies shortness of breath or cough. Gastrointestinal: She reports nausea, abdominal discomfort and abdominal distention and watery diarrhea. Genitourinary: She denies any dysuria, denies oliguria. Endocrine: She reports diabetes, hypothyroidism. Hematologic: She denies anticoagulant use. Recently found to be neutropenic. Neurologic: She denies seizure or syncope. Psychiatric: She reports depression. Skin: She denies any new rashes or ulcers. The remainder review of systems is negative or as per HPI. PHYSICAL EXAMINATION: VITAL SIGNS: Temperature 98.0, pulse 103, respiratory rate 19, blood pressure 150/70, saturating 97% on room air. Weight in the bed scale is 81.kg. GENERAL APPEARANCE: The patient is seen lying fairly flat in bed, elderly female, awake, alert, oriented x3 in no apparent distress but does look fatigued and ill. HEENT: The extraocular muscles are intact. Tongue is moist. NECK: Supple. Jugular veins are not elevated. HEART: Sounds are mildly tachycardic. S1, S2, there is no peripheral edema, peripheral pulses are palpable. LUNGS: Good air movement, no crackles, no rales. CHEST: Chest wall shows status post right mastectomy. There is a MediPort device seen. ABDOMEN: Mildly distended. There are hypoactive bowel sounds. GENITOURINARY: There is no Saldana catheter. EXTREMITIES: There is no clubbing, cyanosis, or edema. NEUROLOGICAL: She is oriented x3, interactive, conversational. SKIN: Warm and dry, normal temperature and turgor. LABORATORY STUDIES: White count 0.1, hemoglobin 9.3, platelet count 53. Sodium 129 on admission, currently 132, potassium 3.8 on admission, currently 3.2. Bicarbonate 22 on admission, currently 16, BUN 42, creatinine 1.3 on March 31, 3.4 on admission on April 14 and 3.1 today. Lactic acid 1.1, magnesium 1.2, AST, ALT within normal limits. Albumin 1.8. Urinalysis shows blood and protein. Microbiology blood cultures no growth for 24 hours times two sets. IMAGING: CT of the abdomen and pelvis non-contrast done yesterday showed no growth abnormality of the kidneys. There is an ileus versus partial small-bowel obstruction. INPATIENT MEDICATIONS: The patient is receiving several runs of potassium chloride. She is on Cefepime one gram IV twice daily. I started her on D5W with 100 mEq of sodium bicarbonate and 20 mEq of potassium chloride running at 125 mL per hour times 2 liters. She receives Vancomycin 500 mg IV daily, Tylenol p.r.n., Amlodipine 5 mg p.o. twice daily, Cymbalta 30 mg p.o. daily, Symbicort one puff inhaled p.r.n., Neupogen 480 mcg subcutaneously daily, Levothyroxine 112 mcg p.o. daily, Zofran p.r.n., Protonix 40 mg IV daily, Potassium Chloride 40 mEq p.o. times one, Rosuvastatin 40 mg p.o. daily, Carafate one gram p.o. q. h.s., vitamin D 2,000 units p.o. daily, Zonisamide 50 mg p.o. q. p.m. PROBLEMS: 1. Acute kidney injury superimposed on chronic kidney disease stage 3 the patient's creatinine was 1.3 on March 31. That was the day that she started chemotherapy. I reviewed records from [facility]. She was treated with Cyclophosphamide, Methotrexate and Fluorouracil. She developed profuse watery diarrhea for the past 4-5 days. She is clinically dry. She is now receiving D5W with 100 mEq of sodium bicarbonate with potassium chloride in view of her metabolic Incomplete report abruptly ends here. /verified/ml
--- NOTE | 2021-04-19 16:54 | IPNPDOC ---
Text Note Date of Service The patient was seen on 04/19/21. NOTE Subjective: Patient is a 75-year-old female past medical history of hypertension, type 2 diabetes, COPD, hypothyroidism, invasive mammary carcinoma status post right mastectomy; recently started on chemotherapy, who seen at cancer Center on 04/14. Patient was noticed to be fatigued experiencing profuse diarrhea. Patient says she is feeling relatively better although this is the first day she was able to really eat much because of her throat and the ulcers that were caused by the chemotherapy. Patient feels very tired and has been picking at them often for most of the morning by the time I saw the patient. Review of systems: General: Patient denies fevers HEENT: Patient denies headaches Cardiovascular: Patient denies chest pain Respiratory: Patient denies shortness of breath, cough GI: Patient reports the diarrhea has improved. : Patient denies increased frequency or pain with urination Extremities: Patient denies swelling or pain in extremities Neurological: Patient denies numbness or tingling in legs Physical exam: Vitals: See below General: Alert and oriented female patient was sitting up on the edge of the bed when I walked in. Patient did not appear to be in any acute distress. HEENT: Normocephalic, atraumatic, moist mucous membranes. Neck: No lymphadenopathy or thyromegaly Cardiac: Regular rate and rhythm, no murmurs, normal S1, normal S2 Pulm: Clear to auscultation bilaterally. No wheezes, rhonchi, rales Abd: Nondistended, nontender to palpation, normal bowel sounds Ext: No edema bilateral lower extremities Labs: See below Imaging: No new imaging has been performed Assessment/plan: 75-year-old female present to the hospital with severe diarrhea most likely secondary to chemotherapy 1. Diarrhea likely secondary to chemotherapy induced. Patient is had nonbloody diarrhea for a week. This has improved. GI panel was negative. Patient is started tolerating eating and drinking better today. If the patient does well with this, patient will most likely be discharged home tomorrow. 2. Acute kidney injury. Likely secondary to prerenal etiology from dehydration. Creatinine mildly elevated today but patient's baseline creatinine appears to be about 1.3. We will continue to follow the patient's creatinine. Nephrology is on consult and I appreciate their help treating the patient. 3. Status post pancytopenia. Likely secondary to chemotherapy. Status post 2 packed red blood cells. Neupogen was given and has been discontinued. White blood cells are elevated today most likely secondary to Neupogen. 4. Status post febrile neutropenia. Had a fever of 100.3 F on 04/14. Blood cultures no growth. UA unremarkable, GI panel unremarkable. Procalcitonin significantly elevated. Patient will be on levofloxacin for 3 more days. 5. Paroxysmal atrial fibrillation. TSH is elevated. Echo is pending. Hold off on anticoagulation due to his pancytopenia at this time. Patient verbalized understanding of risks. 6. Status post hyponatremia. Likely hypotonic hypovolemic etiology. Serum osmolality low. IV fluid hydration was given. Continue to monitor. 7. Hypokalemia, resolved. Continue to monitor. Most likely secondary to diarrhea. 8. Nonanion gap metabolic acidosis, resolved most likely secondary to diarrhea. 9. Dysphagia. Likely secondary to mucositis secondary to chemotherapy. C ontinue to monitor. 10. Invasive mammary carcinoma. Follow-up with oncology once discharged. 11. Hypertension. Lisinopril on hold due to TED. Continue with carvedilol and amlodipine. 12. Eai-[id number] diabetes mellitus. Continue sliding scale. 13. Dyslipidemia. Continue home medications. 14. COPD. No evidence of exacerbation. 15. Hypothyroidism. TSH elevated. Patient will need outpatient lab follow-up once discharged. Continue with current dose of medication. 16. Depression. Continue home medications. 17. Vitamin D deficiency. Continue with home supplementation. DVT Prophylaxis: Teds and sequentials Disposition: Pending clinical improvement VSBernardo, I+O VSBernardo, I+O Laboratory Tests 04/19/21 06:12 Vital Signs Date Time Temp Pulse Resp B/P (MAP) Pulse Ox O2 Delivery O2 Flow Rate FiO2 04/19/21 14:00 97.7 88 17 136/53 (80) 96 Room Air 04/15/21 02:55 3.0 I&O- Last 24 Hours up to 6 AM 04/19/21 06:00 Intake Total 1080 ml Output Total 750 ml Balance 330 ml MONIKA SANDERS DO Apr 19, 2021 16:53
--- NOTE | 2021-04-19 20:45 | IPN ---
NEPHROLOGY PROGRESS NOTE DATE: 04/19/2021 SUBJECTIVE: Mrs. Javed is seen this morning at her bedside. She is laying in her bed and reports some improvement in the throat pain. She is able to swallow, however still not normal. She also reports swelling in her feet and legs. She denies any dyspnea or chest pain. She has no fever or chills. OBJECTIVE: PHYSICAL EXAMINATION: VITAL SIGNS: Temperature is 97.3 degrees Fahrenheit, heart rate 88 per minute and respiratory rate 18 per minute. Blood pressure is 133/56 mm of mercury and oxygen saturation is 97% on room air. HEENT: Her head is atraumatic. Thrush and ulcers in her throat are improving. NECK: Neck veins are not abnormally distended. HEART: Sounds are regular. LUNGS: Clear to auscultation. ABDOMEN: Soft and nontender and bowel sounds are normal. EXTREMITIES: Without any cyanosis or clubbing. Lower extremity edema is at least 2+. NEUROLOGICAL: She is at her baseline mentation. LABORATORY STUDIES: Today's labs show a WBC count of 28.4, hemoglobin 9.6 and hematocrit 26.9, platelet count 348. Sodium 137, potassium 3.2, BUN 17 and creatinine 1.66. Magnesium level is 1.6 and calcium is 7.4. PROBLEMS: 1. Hyponatremia - sodium level has improved and corrected. At present she is off IV fluids and her oral intake is improving. 2. Hypokalemia this is nutritional and likely to improve as she is eating better. Swallowing pills is hard for her and she has received potassium supplement. Now she has also developed lower extremity edema. I am going to stop her Amlodipine which is probably contributing to lower extremity edema and cut down the dose of Amlodipine to 5 mg daily. I will also give her Spironolactone 25 mg one dose today. At home she was taking Losartan which has been stopped due to acute renal failure. 3. Acute kidney injury superimposed on chronic kidney disease - kidney function seems to be leveled off. Her baseline is probably slightly better. At this point she has developed significant lower extremity edema and she has been very well hydrated. No need for further IV fluids. I think we can just watch her. 4. Hypertension and lower extremity edema - The patient has been on Amlodipine 5 mg twice daily which is probably contributing to her lower extremity edema. I am cutting down the dose to 5 mg once a day and we can also probably add Spironolactone 25 mg daily in view of her lower extremity edema and hypokalemia. It remains to be seen how she responds to Spironolactone today. 5. Pancytopenia her Pancytopenia has improved significantly.
[2021-04-19] MEDS: ZONISAMIDE 50 MG CAP (ZONEGRAN) PO SCH (20:59)
[2021-04-19 22:00] VITALS: BP 163/74
[2021-04-20] MEDS: ACETAMINOPHEN 325 MG/10.15 ML UDC PO PRN ×3 (04:08→14:13)
[2021-04-20] MEDS: LevoFLOXacin 250 MG TABLET PO SCH (05:48)
[2021-04-20] MEDS: LEVOTHYROXINE 112MCG TABLET (0.112MG) PO SCH (05:48)
[2021-04-20 06:00] VITALS: BP 159/71
[2021-04-20 06:30] LABS: HEMATOCRIT 25.7 % (36.0-47.0); MEAN CORPUSCULAR HEMOGLOBIN 28.8 pg (27.0-33.0); MEAN CORPUSCULAR VOLUME 82.1 fl (80.0-96.0); PLATELET COUNT, AUTOMATED 381 10^3/uL (150-450); RED BLOOD COUNT 3.13 10^6/uL (4.00-5.40)
[2021-04-20 07:03] LABS: CALCIUM LEVEL 7.8 MG/DL (8.8-10.2); CREATININE FOR GFR 1.69 MG/DL (0.55-1.30); GLOMERULAR FILTRATION RATE 31.6 (>39); MAGNESIUM LEVEL 1.7 MG/DL (1.8-2.4); POTASSIUM SERUM 2.9 MEQ/L (3.5-5.1)
[2021-04-20 07:11] LABS: WHITE BLOOD COUNT 45.4 10^3/uL (4.0-10.0)
[2021-04-20 07:42] LABS: ATYPICAL LYMPH 2 % (0-5); LYMPHOCYTES 4 % (16-44); METAMYELOCYTES 1 % (0-0); MONOCYTES 2 % (0-5); NEUTROPHILS 86 % (28-66); PLATELET ESTIMATE NORMAL (NORMAL)
[2021-04-20] MEDS ORDERED: POTASSIUM CHLORIDE 10MEQ SR TABLET PO ONE ×3 (07:45→12:00)
[2021-04-20] MEDS: ADVAIR HFA 115/21MCG INHALER INH SCH (07:50)
[2021-04-20] MEDS ORDERED: SPIRONOLACTONE 25 MG TAB PO SCH (09:00)
[2021-04-20] MEDS ORDERED: amLODIPine 5 MG TAB PO SCH (09:00)
[2021-04-20] MEDS: PANTOPRAZOLE 40MG VIAL (C9113 PER 1) IV SCH (09:24)
[2021-04-20] MEDS: SODIUM CHLORIDE 0.9% INJ 10 ML SYR IV SCH (09:25)
[2021-04-20] MEDS: ROSUVASTATIN 10 MG TAB (CRESTOR) PO SCH (09:30)
[2021-04-20] MEDS: DULoxetine 30MG CAPSULE (CYMBALTA) PO SCH (09:30)
[2021-04-20] MEDS: VITAMIN D 1,000 INTERNATIONAL UNITS TABLET PO SCH (09:32)
[2021-04-20] MEDS: SUCRALFATE 1 GM TAB PO SCH ×2 (09:32→12:03)
[2021-04-20] MEDS: MULTIVITAMINS/MINERALS THERAP 1 TAB PO SCH (09:32)
[2021-04-20 09:33] VITALS: BP 181/69
[2021-04-20] MEDS: CARVedilol 3.125 MG TAB PO SCH (09:34)
[2021-04-20 09:50] VITALS: BP 164/64
--- NOTE | 2021-04-20 12:28 | IPN ---
PROGRESS NOTE DATE: 04/20/2021 SUBJECTIVE: Mrs. Javed is seen this morning on her bedside. She is feeling much better today and reports that she was able to eat a toast soaked in her coffee. She denies any dyspnea or chest pain. Her leg edema persists although only slightly improved. She has no fever or chills. Her throat is slightly better and now she is able to swallow. OBJECTIVE: VITAL SIGNS: Temperature is 98.2 degrees Fahrenheit, heart rate is 88 per minute, and respiratory rate is 18 per minute. Blood pressure is 164/64 mmHg and oxygen saturation 96% on room air. HEENT: Head is atraumatic. Throat ulcers and thrush is improving. NECK: Supple without JVD or thyroid enlargement. HEART: Heart sounds are regular. LUNGS: Lungs sound clear to auscultation. ABDOMEN: Soft and nontender and bowel sounds are normal. EXTREMITIES: Without any cyanosis or clubbing. Lower extremity edema is at least 2+ bilaterally. NEUROLOGIC: She is awake, alert and oriented x3. LABORATORY DATA: Today's labs showed a WBC count of 45.4. Hemoglobin is 9.0 and hematocrit is 25.7, platelets are 381,000. Sodium is 138, potassium is 2.9, CO2 23, BUN 14 and creatinine 1.69, glucose is 167 and calcium 7.8. PROBLEMS: 1. Acute renal failure superimposed on chronic kidney disease. Kidney function seems to be leveled off. This is most likely her baseline kidney function. At this point, I will not be too concerned about her kidney function as long as she is feeling good. Her renal function will be monitored as an outpatient. 2. Hypokalemia related to poor oral intake. She was given only 20 mEq of potassium this morning and I am going to give her another dose of 40 mEq. Her electrolytes should be checked before she gets discharged. I am also putting her on Spironolactone 25 mg daily. She should avoid Hydrochlorothiazide or Furosemide at home. 3. Lower extremity edema most likely related to IV fluids given over a few days in addition to high dose amlodipine. Yesterday, her amlodipine dose was cut down to 5 mg daily. She is also being started on daily dose of spironolactone 25. 4. Hypertension. Blood pressure seems to be reasonable on current medications and I feel it will improve further once she gets rid of excess fluid. 5. Pancytopenia. Her pancytopenia has improved and in fact WBC count has now gone up to 45,000. This is a result of Neupogen. I do not feel that any intervention is needed and this can be monitored as an outpatient. 6. Disposition: From a renal standpoint, the patient can be discharged to home and follow-up in the clinic in one week.
[2021-04-20 14:00] VITALS: BP 163/74
[2021-04-20 14:29] LABS: CALCIUM LEVEL 8.1 MG/DL (8.8-10.2); CREATININE FOR GFR 1.62 MG/DL (0.55-1.30); GLOMERULAR FILTRATION RATE 33.2 (>39); POTASSIUM SERUM 3.8 MEQ/L (3.5-5.1)
[2021-04-20] MEDS ORDERED: AMLO1TAB24 PO (15:22)
[2021-04-20] MEDS ORDERED: SUCR1TA PO (15:22)
[2021-04-20] MEDS ORDERED: CARV3.12 PO (15:22)
[2021-04-20] MEDS ORDERED: ALDA25TA2 PO (15:22)
--- NOTE | 2021-04-20 17:21 | ECHO ---
ECHOCARDIOGRAM DATE OF PROCEDURE: 04/18/2021 Age: Gender: Height: 158 cm Weight: 89 kg REFERRING PHYSICIAN: YVON WISE MD INDICATION: Abnormal NST. MEASUREMENTS: 2D Measurements: Aortic root 3.0 cm Left atrium 4.3 cm Inferior septum 1.19 cm Posterior wall 1.15 cm Left ventricle diastole 4.4 cm Inferior vena cava 1.6 cm with more than 50% respiratory variation Doppler Measurements: Very mild aortic regurgitation No aortic stenosis. Aortic valve velocity 178 cm/s LVOT velocity 96.0 cm/s Moderate mitral regurgitation Mild mitral stenosis Mitral E velocity 242 cm/s Mean mitral valve gradient 8 mmHg Mitral deceleration time 275 msec (PW) Mild tricuspid regurgitation. Estimated right ventricle systolic pressure 55-60 mmHg Estimated right atrial pressure of 5-10 mmHg No pulmonic regurgitation. MITRAL ANNULAR TISSUE DOPPLER E prime septal 6.2 cm/s, E prime lateral 4.5 cm/s DESCRIPTION: Rhythm was sinus. This was a moderately technically difficult echocardiogram. No pericardial effusion. This was a 2D, M-mode, color flow Doppler, and pulsed wave Doppler examination including mitral annular tissue Doppler. CONCLUSIONS: 1. Normal left ventricle internal dimensions and wall thickness. Normal regional LV wall motion and wall thickness. Normal LV systolic function. LVF 55-70% by visual estimate. Unable to assess LV diastolic function in a setting of mitral stenosis. Normal peak systolic longitudinal strain pattern. 2. Severe mitral annular calcification with mild mitral stenosis and moderate mitral regurgitation. 3. Mild aortic valve sclerosis of a 3-cuspid aortic valve. Very mild aortic regurgitation. No aortic stenosis. 4. Mild left atrial dilatation. 5. Suggestive of moderate-severe elevation of estimated right ventricle systolic pressure (55-60 mmHg). Mild tricuspid regurgitation. 6. Otherwise, normal-appearing echocardiogram and Doppler findings.
--- NOTE | 2021-04-20 18:39 | DS.PDOC ---
Discharge Summary General Date of Admission Apr 14, 2021 at 11:46 Date of Discharge 04/20/2021 Attending Physician: MONIKA SANDERS DO Specialist/Consultants Involve: KAMINI HERNANDEZ MD Specialist/Consultants Involve Elijah Rose MD nephrology; Carrie Barlow DO, nephrology Discharge Summary PROCEDURES PERFORMED DURING STAY: None. ADMITTING DIAGNOSES: 1. Diarrhea likely secondary to chemotherapy induced. 2. Acute renal failure 3. Pancytopenia 4. Hyponatremia 5. Hypokalemia 6. Invasive mammary carcinoma 7. Non-anion gap metabolic acidosis 8. Hypertension 9. Zqu-givhfmq-pzvrbrvzf diabetes mellitus type 2 10. Dyslipidemia 11. COPD 12. Hypothyroidism 13. Depression 14. Vitamin D deficiency DISCHARGE DIAGNOSES: 1. Diarrhea likely secondary to chemotherapy induced, improved 2. Acute renal failure, improved 3. Pancytopenia, improved 4. Hyponatremia, improved 5. Hypokalemia, improved 6. Invasive mammary carcinoma 7. Non-anion gap metabolic acidosis, improved 8. Hypertension 9. Ltj-oiqwvet-hlrnfivit diabetes mellitus type 2 10. Dyslipidemia 11. COPD 12. Hypothyroidism 13. Depression 14. Vitamin D deficiency COMPLICATIONS/CHIEF COMPLAINT: TED. HISTORY OF PRESENT ILLNESS: Patient is a 75-year-old female with past medical history of hypertension, type 2 diabetes, COPD, hypothyroidism, invasive mammary carcinoma status post right mastectomy, recently started on chemotherapy who seen at the cancer center on the day of admission. Patient was noted to have fatigue and experiencing profuse diarrhea. Hospital service was contacted for direct admission. Patient was seen and evaluated by the admitting provider and was noted to be profoundly pancytopenic with acute renal failure multiple electrolyte abnormalities. She is immediately upgraded to PCU for telemetry monitoring. Patient reports that over the last week, she has been experienced multiple episodes of diarrhea. She also reports a sore throat and upset stomach. She has reported that yesterday she experienced 3-4 episodes of bowel movements. No evidence of blood described in the diarrhea. The diarrhea is mostly watery. Patient denies any urinary discomfort or any recent fevers or chills. Patient denies any nausea, vomiting, chest pain, shortness of breath or palpitation. Patient denies any lightheadedness dizziness but does report weakness. HOSPITAL COURSE: Patient was admitted to the hospital and given IV fluid hydrat ion for dehydration secondary to diarrhea. Patient's kidney function did continue to improve. Nephrology was consulted and help manage the patient's renal function. Patient had multiple electrolyte abnormalities throughout her hospitalization including persistent hypokalemia. Patient was started on spironolactone to help with both leg edema and hypokalemia. Patient also received multiple rounds of oral replacement therapy. Patient was seen by medical oncology who recommended using Neupogen to help with the patient's neutropenia. Neupogen was given and did improve the patient's white blood cell count. Patient did have a white blood cell count of 45 on the day of discharge which is secondary to the patient's Neupogen. Patient also had difficulty with oral ulcers causing her to be unable to eat. Once the chemotherapy was stopped, the oral ulcers did improve and patient was able to start eating again as time went on. Patient did have a slight bump in her creatinine on 04/19/2021 which required the patient to stay 1 more day in the hospital. Patient was also hypokalemic which was fixed with oral supplementation. Patient's losartan was held due to the acute kidney injury and this was discontinued upon discharge. Patient was started on Coreg, amlodipine, spironolactone, and Carafate as the patient was having difficulty swallowing and having abdominal pain. Patient was feeling better and was able to tolerate p.o. intake and was discharged from the hospital on . DISCHARGE MEDICATIONS: Please see below. ALLERGIES: Please see below. PHYSICAL EXAMINATION ON DISCHARGE: VITAL SIGNS: Please see below. General: Alert and oriented female patient who was sitting on the couch in her room when I walked in. Patient not appear to be in any acute distress. HEENT: Normocephalic, atraumatic, moist mucous membranes. Neck: No lymphadenopathy or thyromegaly Cardiac: Regular rate and rhythm, no murmurs, normal S1, normal S2 Pulm: Clear to auscultation bilaterally. No wheezes, rhonchi, rales Abd: Nondistended, nontender to palpation, normal bowel sounds Ext: 1+ edema in the bilateral lower extremities up to the level of the chin LABORATORY DATA: Please see below. IMAGING: Chest x-ray performed on 04/14/2021 is reported to show possible left upper lobe nodule and no prior for comparison. CT chest with contrast recommended. Likely minimal subsegmental atelectatic change in the left CP angle. CT of the abdomen pelvis without contrast performed on 04/14/2021 is reported to show ileus versus partial small bowel obstruction. Abdominal x-ray performed on 04/15/2021 is reported to show ileus versus early small bowel obstruction. PROGNOSIS: Fair ACTIVITY: As tolerated. DIET: Consistent carbohydrate DISCHARGE PLAN: Discharge home DISPOSITION: 01 Home, Self-Care. DISCHARGE INSTRUCTIONS: 1. Follow-up with primary care provider within 3 to 5 days discharge. 2. Follow-up with nephrology next week 3. Return the emergency department symptoms worsen ITEMS TO FOLLOWUP ON ON OUTPATIENT: 1. Continue monitoring of renal function, CT of chest with contrast for possible new nodule found on chest x-ray.. DISCHARGE CONDITION: Stable. TIME SPENT ON DISCHARGE: 40 minutes. Vital Signs/I&Os Vital Signs Date Time Temp Pulse Resp B/P (MAP) Pulse Ox O2 Delivery O2 Flow Rate FiO2 04/20/21 14:00 97.8 84 17 163/74 (103) 98 Room Air 04/15/21 02:55 3.0 I&O- Last 24 Hours up to 6 AM 04/20/21 06:00 Intake Total 915 ml Output Total 1550 ml Balance -635 ml Laboratory Data Labs 24H Laboratory Tests 2 04/20/21 06:16: Immature Granulocyte % (Auto) , Neutrophils (%) (Auto) , Nucleated Red Blood Cells % (auto) 0.0, Neutrophils 86H, Band Neutrophils 5, Lymphocytes (Manual) 4L, Monocytes (Manual) 2, Metamyelocytes 1H, Atypical Lymphocytes 2, Platelet Estimate NORMAL, Anion Gap 6L, Glomerular Filtration Rate 31.6L, Calcium Level 7.8L, Magnesium Level 1.7L 04/20/21 13:06: Anion Gap 5L, Glomerular Filtration Rate 33.2L, Calcium Level 8.1L CBC/BMP Laboratory Tests 04/20/21 06:16 04/20/21 13:06 Microbiology Microbiology 04/17/21 Gastrointestinal Tract Panel (PCR) - Final, Complete 04/14/21 Urine Culture - Final, Complete 04/14/21 Blood Culture - Final, Complete NO GROWTH AFTER 5 DAYS 04/14/21 Blood Culture - Final, Complete NO GROWTH AFTER 5 DAYS Discharge Medications Scheduled Amlodipine Besylate (Amlodipine Besylate) 5 Mg Tablet, 5 MG PO DAILY Ascorbic Acid (Vitamin C) 500 Mg Capsule, 500 MG PO DAILY, (Reported) Carvedilol (Carvedilol) 3.125 Mg Tablet, 3.125 MG PO BID Cholecalciferol (Vitamin D3) (Vitamin D3) 1,000 Unit Tablet, 2,000 UNITS PO DAILY, (Reported) Duloxetine Hcl (Cymbalta) 30 Mg Capsule.dr, 30 MG PO DAILY, (Reported) Esomeprazole Magnesium (Esomeprazole Magnesium Dr) 20 Mg Capsule.dr, 1 CAP PO DAILY, (Reported) Levothyroxine Sodium (Levothyroxine Sodium) 112 Mcg Tablet, 1 TAB PO DAILY, (Reported) Lidocaine/Prilocaine (Lidocaine-Prilocaine Cream) 2.5%/2.5% Cream..g., 1 DOSE TOP ASDIRECTED Apply dime size to port area. Do not rub in, cover with saran wrap to protect clothing. Metformin HCl (Metformin HCl) 1,000 Mg Tab, 1,000 MG PO BID, (Reported) Multivitamin (One-A-Day Essential) 1 Each Tablet, 1 TAB PO DAILY, (Reported) Naproxen (Naproxen) 500 Mg Tab, 500 MG PO BID, (Reported) Niacin (Niacin) 100 Mg Tablet, 100 MG PO DAILY, (Reported) Rosuvastatin Calcium (Rosuvastatin Calcium) 40 Mg Tablet, 1 TAB PO DAILY, (Reported) Solifenacin Succinate (Solifenacin Succinate) 10 Mg Tablet, 1 TAB PO DAILY, (Reported) Spironolactone (Aldactone) 25 Mg Tablet, 25 MG PO QAM Sucralfate (Sucralfate) 1 Gm Tablet, 1 GM PO ACHS Umeclidinium Brm/Vilanterol Tr (Anoro Ellipta 62.5-25 Mcg INH) 1 Aer Aer, 1 PUFF INH DAILY, (Reported) Vitamin B Complex (Vitamin B Complex) 1 Each Capsule, 1 CAP PO Q3RD, (Reported) Zonisamide (Zonisamide) 50 Mg Capsule, 50 MG PO QPM, (Reported) Scheduled PRN Budesonide/Formoterol (Symbicort 160-4.5 Mcg Inhaler) 60 Puff/Inhaler Aers, 1 PUFF INH DAILY PRN for SHORTNESS OF BREATH, (Reported) Magic Mouthwash (First-Mouthwash Blm) 1 Ea Susp, 10 ML SSP QID PRN for MUCOSITIS (Diphenhydramine/maalox/lidocaine 1:1:1) May compound if kit unavailable/not covered by insurance Allergies Coded Allergies: No Known Allergies (Unverified , 03/31/21) MONIKA SANDERS DO Apr 20, 2021 18:39
== END 2021-04-20 17:20 | disposition home or self-care (01) | DRG 393 ==
LOC: M MS5PR 11:46 → EEVIPCON 11:46 → M PCU 13:04 → M MSPAV 04-18 21:56
PROVIDERS: ADMIT General Practice; ATTEND Family Medicine
DX: K52.1 Toxic gastroenteritis and colitis (principal); D61.810 Antineoplastic chemotherapy induced pancytopenia; E87.1 Hypo-osmolality and hyponatremia; E87.2 Acidosis; N17.9 Acute kidney failure, unspecified; E87.6 Hypokalemia; I10 Essential (primary) hypertension; E11.9 Type 2 diabetes mellitus without complications; C50.911 Malignant neoplasm of unspecified site of right female breast; D70.9 Neutropenia, unspecified; I48.0 Paroxysmal atrial fibrillation; K12.32 Oral mucositis (ulcerative) due to other drugs; R19.7 Diarrhea, unspecified; E55.9 Vitamin D deficiency, unspecified; E03.9 Hypothyroidism, unspecified; J44.9 Chronic obstructive pulmonary disease, unspecified; F32.9 Major depressive disorder, single episode, unspecified; Z79.899 Other long term (current) drug therapy

== ENCOUNTER → 2021-04-28 | Outpatient (CLI) | payer MEDICARE, MEDICAID ==
[~2021-04-28] MED LIST changes: +ALDA25TA2 PO; +AMLO1TAB24 PO; +CARV3.12 PO; +CYMB1CAP5 PO; +ISOVUE-370 76% 100ML VIAL As Ordered ONE; +SUCR1TA PO
== END ==
LOC: M RAD 16:19
PROVIDERS: ATTEND Physician Assistant
DX: R91.1 Solitary pulmonary nodule (principal)
CPT/HCPCS: 71260; Q9967

== ENCOUNTER → 2021-04-28 | Outpatient (CLI) | payer MEDICARE, MEDICAID ==
[~2021-04-28] MED LIST changes: -ISOVUE-370 76% 100ML VIAL As Ordered ONE
--- NOTE | 2021-04-29 09:48 | RADONC.CN ---
Radiation Oncology Hx/Consult Radiation Oncology Consult Date of Service: Apr 28, 2021 Pt Identifier Constance Javed is a 75 year old female with a history of right breast cancer [id number] ER/[place]/HER2+ grade 1. She is s/p BL mastectomies and right SLNB with Dr. Juan on 02/02/21. She subsequently started [facility] chemotherapy 03/31/21 which was complicated by admission on 04/14/21 for neutropenia, mucositis and acute kidney injury. She is seen today for consideration of PMRT as she may elect to forego additional chemotherapy given her complications. Diagnosis/Treatment History Oncologic History 11/10/20 Mammogram multiple right breast masses 11/22/20 US revealed a single mass @ 5:00 right breast biopsy showing IDC grade 1 ER/[place]/HER2+ 12/17/20 MRI breast with multifocal right breast lesions suggestive of intraductal malignancy 01/25/21 Bone scan negative 02/02/21 BL mastectomy, right SLNB (Dr. Juan) [id number] margins negative 03/31/21 Started CMF chemotherapy 04/14/21-04/20/21 Admitted for acute kidney injury, pancytopenia, diarrhea, and mucositis from chemo Breast history: OCP x 5 years (1 interrupted ) 1st @ 23 Menses @ 17 Menopause @ 53 No HRT No IVF Interval History Here with her supportive son, and daughter (by phone). She reports that her mucositis from chemotherapy has finally abated. She has no residual pain or dysphagia and is eating again. She feels profound fatigue. She has continued concerns about restarting any kind of chemotherapy, she would like to discuss with Dr. Lyons prior to resuming. She has no concerns about radiation treatments. Past Medical History: Arthritis DM2 Hypothyroid Past Surgical History: Hysterectomy Tonsillectomy Family History: Daughter breast cancer alive Social History: 20 pack year former smoker quit 1997 Never drinker Allergies / Meds Allergies: Coded Allergies: No Known Allergies (Unverified , 03/31/21) Home Meds Active Scripts Sucralfate (Sucralfate) 1 Gm Tablet, 1 GM PO ACHS for 30 Days, #120 TAB Prov:MONIKA SANDERS DO 04/20/21 Carvedilol (Carvedilol) 3.125 Mg Tablet, 3.125 MG PO BID for 30 Days, #60 TAB Prov:TOMMY,MONIKA DO 04/20/21 Amlodipine Besylate (Amlodipine Besylate) 5 Mg Tablet, 5 MG PO DAILY for 30 Days, #30 TAB Prov:MONIKA SANDERS DO 04/20/21 Spironolactone (Aldactone) 25 Mg Tablet, 25 MG PO QAM for 30 Days, #30 TAB Prov:MONIKA SANDERS DO 04/20/21 Magic Mouthwash (First-Mouthwash Blm) 1 Ea Susp, 10 ML SSP QID PRN for MUCOSITIS, #240 ML 5 Refills (Diphenhydramine/maalox/lidocaine 1:1:1) May compound if kit unavailable/not covered by insurance Prov:KRISTA CASTILLO MD FACP 04/11/21 Lidocaine/Prilocaine (Lidocaine-Prilocaine Cream) 2.5%/2.5% Cream..g., 1 DOSE TOP ASDIRECTED, #30 GRAMS 1 Refill Apply dime size to port area. Do not rub in, cover with saran wrap to protect clothing. Prov:KAMINI LYONS MD 03/31/21 Reported Medications Duloxetine Hcl (Cymbalta) 30 Mg Capsule.dr, 30 MG PO DAILY 04/14/21 Cholecalciferol (Vitamin D3) (Vitamin D3) 1,000 Unit Tablet, 2000 UNITS PO DAILY, TAB 01/17/21 Multivitamin (One-A-Day Essential) 1 Each Tablet, 1 TAB PO DAILY, TAB 01/17/21 Vitamin B Complex (Vitamin B Complex) 1 Each Capsule, 1 CAP PO Q3RD 01/17/21 Ascorbic Acid (Vitamin C) 500 Mg Capsule, 500 MG PO DAILY 01/17/21 Solifenacin Succinate (Solifenacin Succinate) 10 Mg Tablet, 1 TAB PO DAILY 01/17/21 Esomeprazole Magnesium (Esomeprazole Magnesium Dr) 20 Mg Capsule.dr, 1 CAP PO DAILY 01/17/21 Rosuvastatin Calcium (Rosuvastatin Calcium) 40 Mg Tablet, 1 TAB PO DAILY 01/17/21 Levothyroxine Sodium (LEVOTHYROXINE SODIUM) 112 Mcg Tablet, 1 TAB PO DAILY 12/20/20 Zonisamide (Zonisamide) 50 Mg Capsule, 50 MG PO QPM 12/20/20 Niacin (Niacin) 100 Mg Tablet, 100 MG PO DAILY 12/20/20 Umeclidinium Brm/Vilanterol Tr (Anoro Ellipta 62.5-25 Mcg INH) 1 Aer Aer, 1 PUFF INH DAILY 10/18/17 Budesonide/Formoterol (Symbicort 160-4.5 Mcg Inhaler) 60 Puff/Inhaler Aers, 1 PUFF INH DAILY PRN for SHORTNESS OF BREATH 03/25/16 Naproxen (Naproxen) 500 Mg Tab, 500 MG PO BID, TAB 03/25/16 Discontinued Reported Medications Metformin HCl (Metformin HCl) 1,000 Mg Tab, 1000 MG PO BID, TAB 03/25/16 Review of Systems Constitutional: Reports: Fatigue, Weight Loss; Denies: Fever, Night Sweats Eyes: Denies: Pain HEENT: Denies: Head Aches Skin: Denies: Rash Pulmonary: Denies: Dyspnea, Cough Cardiovascular: Reports: Edema; Denies: Chest Pain Gastrointestinal: Denies: Abdominal Pain, Diarrhea Hematologic: Denies: Bruising, Bleeding Excessively Neurological: Denies: Weakness, Numbness Psych: Reports: Mood Normal Vital Signs Wt 163 lbs T 97.2 P 80 RR 16 BP 143/63 O2 100% Pain 0 Fatigue 9 General Exam: Alert, Cooperative, No Acute Distress Eye Exam: PERRLA, EOMI ENT EXAM: Atraumatic Neck Exam: Supple Chest Exam: Clear to auscultation, Normal air movement Heart Exam: Rate Normal Breast Exam: Symmetric Bilaterally (Chest wall symmetric mastectomy scars well approximated); Negative: Lumps or Masses, Skin Changes, Other Breast Findings (No axillary adenopathy appreciated BL) Abdomen Exam: Soft Extremity Exam: Edema (1+ pedal edema) Skin Exam: Nl turgor and temperature Neuro Exam: Normal Gait, Normal Speech, Cranial Nerves 3-12 NL Psych Exam: Mental status NL Diagnostic and Laboratory Diagnostic Review Radiologic images, relevant labs and pathology reports were personally reviewed and discussed with Ms. Javed. Assessment and Plan Impression Ms. Javed is a 75 year old female with a history of right breast cancer [id number] ER/[place]/HER2+ grade 1. She is s/p BL mastectomies and right SLNB with Dr. Juan on 02/02/21. She subsequently started CMF chemotherapy 03/31/21 which was complicated by admission on 04/14/21 for neutropenia, mucositis and acute kidney injury. She is seen today for consideration of PMRT as she may elect to forego additional chemotherapy given her complications. Stage Right breast cancer [id number] ER/[place]/HER2+ grade 1 stage IA Performance Status ECOG 2 Plan We had an extensive discussion with Ms. Javed regarding the diagnosis at hand and available therapeutic options. Constance has had an ordeal with F chemo. She certainly would be eligible for another regimen if she agreed to proceed given her HER2+ status and extensive burden of disease including positive LN. She would like to discuss this with Dr. Lyons. I will facilitate a follow up appointment for her to do this. Pending her decision on chemotherapy, I discussed that she would benefit from PMRT regardless of the chemotherapy decision given the EOD in the right breast and positive LN without ALND. I recommend 50.4 Gy in 28 fractions with VMAT planning and targets to include the chest wall and comprehensive RNI. The timing of this is entirely contingent upon her decision regarding chemo. I will follow along and determine the appropriate time to simulate her. We discussed the logistics of receiving radiation therapy in detail including the need for a 1-time planning session. We discussed the side effects anticipated, fatigue, skin reaction and late fibrosis. After discussing the risks, benefits and alternatives to radiation therapy, Ms. Javed was amenable to pursuing radiotherapy. All questions were answered to the patient's satisfaction. We instructed the patient that if there were any questions,concerns or changes in clinical status in the interim to contact us. Recommendations PMRT 50.4 Gy in 29 fractions as discussed above Simulation pending decision on additional chemotherapy Patient to see Dr. Lyons 04/29/21 to discuss Billing Statement Total time of [49] minutes was spent preparing for the visit [3], obtaining HPI [7], examining the patient [4], reviewing diagnostic tests [4], discussing management options [22], coordinating care [2], and writing this note [7]. CARISSA KELLY MD Apr 28, 2021 17:11
== END ==
LOC: M ONCR 14:06
PROVIDERS: ATTEND General Practice
DX: C50.911 Malignant neoplasm of unspecified site of right female breast (principal); Z92.21 Personal history of antineoplastic chemotherapy; Z79.899 Other long term (current) drug therapy

== ENCOUNTER 2021-06-09 09:37 | Outpatient (RCR) | payer MEDICARE, MEDICAID ==
[2021-06-15] MEDS ORDERED: TRAM50TA2 PO (10:41)
== END 2021-06-10 ==
LOC: M ONCR 09:37
PROVIDERS: ATTEND General Practice
DX: C50.811 Malignant neoplasm of overlapping sites of right female breast (principal); R53.83 Other fatigue; M54.9 Dorsalgia, unspecified; G89.29 Other chronic pain

== ENCOUNTER → 2021-07-11 | Outpatient (RCR) | payer MEDICARE, MEDICAID ==
[~2021-07-11] MED LIST changes: -LISI-898 PO; +LISI5TAB11 PO; +LOSA25TA13 PO; -LOSA25TA14 PO; +ONDA-84 PO; -ONDA8TAB10 PO; -PROC10TA4 PO; +PROC10TA5 PO; +TRAM50TA2 PO
== END ==
LOC: M ONCR 06-13 09:58
PROVIDERS: ATTEND General Practice
DX: C50.811 Malignant neoplasm of overlapping sites of right female breast (principal)

== ENCOUNTER 2021-07-15 09:54 | Outpatient (RCR) | payer MEDICARE, MEDICAID ==
[~2021-07-15 09:54] MED LIST changes: -D31000TA2 PO; +VITA100093 PO
== END 2021-08-08 ==
LOC: M ONCR 09:54
PROVIDERS: ATTEND General Practice
DX: C50.811 Malignant neoplasm of overlapping sites of right female breast (principal); R53.83 Other fatigue; G89.29 Other chronic pain

== ENCOUNTER → 2021-08-09 | Outpatient (CLI) | payer MEDICARE, MEDICAID | LOC: M WHC 10:42 | PROVIDERS: ATTEND Internal Medicine Medical Oncology | DX: M85.89 Other specified disorders of bone density and structure, multiple sites (principal); C50.919 Malignant neoplasm of unspecified site of unspecified female breast; Z79.899 Other long term (current) drug therapy ==

== ENCOUNTER → 2021-12-21 | Outpatient (REF) | payer MEDICARE, OTHER, MEDICAID ==
[~2021-12-21] MED LIST changes: +ANAS1TAB2 PO; +GABA-283; +GABA800T4 PO; +TRUL10IN SUBQ; +oxycodone; +prednisone
[2021-12-21 11:15] LABS: ALBUMIN 3.1 GM/DL (3.2-5.2); BILIRUBIN,TOTAL 0.3 MG/DL (0.2-1.0); CALCIUM LEVEL 9.2 MG/DL (8.8-10.2); CHOLESTEROL RISK RATIO 1.953 (<5); CREATININE FOR GFR 1.23 MG/DL (0.55-1.30); FREE T4 1.22 NG/DL (0.76-1.46); GLOMERULAR FILTRATION RATE 45.4 (>39); POTASSIUM SERUM 4.1 MEQ/L (3.5-5.1); THYROID STIMULATING HORMONE 1.34 uIU/ML (0.358-3.740); TOTAL PROTEIN 6.5 GM/DL (6.4-8.2)
[2021-12-21 13:51] LABS: HEMOGLOBIN A1c 6.9 %
== END ==
LOC: M LAB REF 09:57
PROVIDERS: ATTEND Nurse Practitioner
DX: E03.9 Hypothyroidism, unspecified (principal); E11.29 Type 2 diabetes mellitus with other diabetic kidney complication; R80.9 Proteinuria, unspecified

== ENCOUNTER → 2022-01-11 | Outpatient (CLI) | payer MEDICARE, MEDICAID ==
[~2022-01-11] MED LIST changes: +FISH10005 PO; -FISH7.5C PO; +LEVO125T4 PO; +SIMV-253 PO; -ZOCO20TA PO
== END ==
LOC: M ONCR 09:18
PROVIDERS: ATTEND General Practice
DX: C50.811 Malignant neoplasm of overlapping sites of right female breast (principal); Z79.51 Long term (current) use of inhaled steroids; Z79.811 Long term (current) use of aromatase inhibitors; Z79.891 Long term (current) use of opiate analgesic; Z79.899 Other long term (current) drug therapy; Z87.891 Personal history of nicotine dependence; Z90.13 Acquired absence of bilateral breasts and nipples; Z92.21 Personal history of antineoplastic chemotherapy; Z92.3 Personal history of irradiation
CPT/HCPCS: 84439; 84443; G0463

== ENCOUNTER → 2022-01-11 | Outpatient (REF) | payer MEDICARE, MEDICAID ==
[2022-01-11 12:10] LABS: FREE T4 1.05 NG/DL (0.76-1.46); THYROID STIMULATING HORMONE 5.69 uIU/ML (0.358-3.740)
== END ==
LOC: M LAB REF 10:32
PROVIDERS: ATTEND General Practice
DX: C50.811 Malignant neoplasm of overlapping sites of right female breast (principal)

== ENCOUNTER → 2022-05-01 | Outpatient (CLI) | payer MEDICARE, MEDICAID | LOC: M CARPUL 08:51 | PROVIDERS: ATTEND Specialist | DX: C50.919 Malignant neoplasm of unspecified site of unspecified female breast (principal); I08.3 Combined rheumatic disorders of mitral, aortic and tricuspid valves ==

== ENCOUNTER → 2022-06-19 | Outpatient (CLI) | payer MEDICARE, MEDICAID ==
[~2022-06-19] MED LIST changes: +ISOVUE-370 76% 100ML VIAL As Ordered ONE
== END ==
LOC: M RAD 13:04
PROVIDERS: ATTEND Specialist
DX: C50.919 Malignant neoplasm of unspecified site of unspecified female breast (principal); J43.2 Centrilobular emphysema; R91.8 Other nonspecific abnormal finding of lung field; I70.0 Atherosclerosis of aorta; I25.10 Atherosclerotic heart disease of native coronary artery without angina pectoris; M47.9 Spondylosis, unspecified; Z90.13 Acquired absence of bilateral breasts and nipples; Z79.899 Other long term (current) drug therapy
CPT/HCPCS: 71260; Q9967

== ENCOUNTER → 2022-07-13 | Outpatient (CLI) | payer MEDICARE, MEDICAID ==
[~2022-07-13] MED LIST changes: -ISOVUE-370 76% 100ML VIAL As Ordered ONE
== END ==
LOC: M ONCR 09:06
PROVIDERS: ATTEND General Practice
DX: C50.311 Malignant neoplasm of lower-inner quadrant of right female breast (principal); Z79.51 Long term (current) use of inhaled steroids; Z79.811 Long term (current) use of aromatase inhibitors; Z79.85 Long-term (current) use of injectable non-insulin antidiabetic drugs; Z79.899 Other long term (current) drug therapy; Z87.891 Personal history of nicotine dependence; Z90.13 Acquired absence of bilateral breasts and nipples; Z92.21 Personal history of antineoplastic chemotherapy; Z92.3 Personal history of irradiation

== ENCOUNTER → 2022-09-18 | Outpatient (CLI) | payer MEDICARE, MEDICAID ==
[~2022-09-18] MED LIST changes: +CALC500C16 PO; +ISOVUE-370 76% 100ML VIAL As Ordered ONE
== END ==
LOC: M RAD 09:23
PROVIDERS: ATTEND Nurse Practitioner
DX: C50.919 Malignant neoplasm of unspecified site of unspecified female breast (principal); J44.9 Chronic obstructive pulmonary disease, unspecified; J98.4 Other disorders of lung
CPT/HCPCS: 71260; Q9967

== ENCOUNTER → 2022-12-25 | Outpatient (CLI) | payer MEDICARE, MEDICAID ==
[~2022-12-25] MED LIST changes: +GASTROGRAFIN SOLUTION 30ML As Ordered ONE; +IRON GUMMIES PO; -LIDO1CRE42 TOP; +LIDO30CR18 TOP
== END ==
LOC: M RAD 14:11
PROVIDERS: ATTEND Nurse Practitioner
DX: R10.9 Unspecified abdominal pain (principal); R19.5 Other fecal abnormalities; C50.919 Malignant neoplasm of unspecified site of unspecified female breast; K57.90 Diverticulosis of intestine, part unspecified, without perforation or abscess without bleeding
CPT/HCPCS: 74177; Q9963; Q9967

== ENCOUNTER 2023-04-11 09:16 | Day surgery (SDC) | payer MEDICARE, MEDICAID ==
[~2023-04-11] VITALS: Ht 167.6 cm; Wt 80.8 kg
[~2023-04-11 09:16] MED LIST changes: +ACET650T61 PO; +AMLO2.5T3 PO; +BSS IRRIG/VANCO(10MG)/TOBRA(5MG)/EPINEPH(1:1000-0.5CC)500ML BAG-ORONLY IR ONE; -CATA0.1D TD; +CEFUROXIME 1MG/0.1ML INTRACAMERAL INJ As Ordered ONE; +CLON0.1D3; +CLON1PAT3 TD; +CYCLOPENTOLATE 1% OPHTH SOLN 2ML BTL OS SCH; +DULO1CAP6 PO; -GABA-283; +GABA-284; +GABA600T4 PO; -GASTROGRAFIN SOLUTION 30ML As Ordered ONE; -ISOVUE-370 76% 100ML VIAL As Ordered ONE; +LIDOCAINE 1% SDV 5ML VIAL As Ordered ONE; +LIDOCAINE 3.5 % 1ML OPHTH TOPICAL GEL OU ONE; +METF500T13 PO; +OFLOXACIN 0.3 % (OCUFLOX) OPTH SOL 5ML OS ONE; +PHENYLEPHRINE 10% OPHTH SOL 5ML OS PRN; +PHENYLEPHRINE 2.5% OPHTH SOL 2ML OS SCH; +TRAD5TAB PO; +TROPICAMIDE 1% OPHTH SOLN 15ML OS SCH
[2023-04-11] MEDS ORDERED: MIDAZOLAM INJ 2MG/2ML VIAL As Ordered ONE (11:51)
[2023-04-11] MEDS ORDERED: fentaNYL 100 MCG/2 ML INJECTION As Ordered ONE (11:52)
[2023-04-11 12:59] VITALS: BP 158/71; TEMP 97.5; O2SAT 98
== END 2023-04-11 13:30 | disposition home or self-care (01) ==
LOC: M SDC 09:16
PROVIDERS: ATTEND Ophthalmology
DX: E11.36 Type 2 diabetes mellitus with diabetic cataract (principal); H26.9 Unspecified cataract; E03.9 Hypothyroidism, unspecified; E11.40 Type 2 diabetes mellitus with diabetic neuropathy, unspecified; M21.372 Foot drop, left foot; Z79.4 Long term (current) use of insulin; Z79.84 Long term (current) use of oral hypoglycemic drugs; Z79.899 Other long term (current) drug therapy; Z79.890 Hormone replacement therapy
CPT/HCPCS: 66984; J0697; J2250; J3010; V2632

== ENCOUNTER 2023-04-25 09:47 | Day surgery (SDC) | payer MEDICARE, MEDICAID ==
[~2023-04-25] VITALS: Ht 167.6 cm; Wt 79.9 kg
[~2023-04-25 09:47] MED LIST changes: +CYCLOPENTOLATE 1% OPHTH SOLN 2ML BTL OD SCH; -CYCLOPENTOLATE 1% OPHTH SOLN 2ML BTL OS SCH; +OFLOXACIN 0.3 % (OCUFLOX) OPTH SOL 5ML OD ONE; -OFLOXACIN 0.3 % (OCUFLOX) OPTH SOL 5ML OS ONE; +PHENYLEPHRINE 10% OPHTH SOL 5ML OD PRN; -PHENYLEPHRINE 10% OPHTH SOL 5ML OS PRN; +PHENYLEPHRINE 2.5% OPHTH SOL 2ML OD SCH; -PHENYLEPHRINE 2.5% OPHTH SOL 2ML OS SCH; +TROPICAMIDE 1% OPHTH SOLN 15ML OD SCH; -TROPICAMIDE 1% OPHTH SOLN 15ML OS SCH
[2023-04-25] MEDS ORDERED: MIDAZOLAM INJ 2MG/2ML VIAL As Ordered ONE (10:14)
[2023-04-25] MEDS ORDERED: fentaNYL 100 MCG/2 ML INJECTION As Ordered ONE (10:14)
[2023-04-25 11:35] VITALS: BP 149/67; TEMP 97.5; O2SAT 97
== END 2023-04-25 11:45 | disposition home or self-care (01) ==
LOC: M SDC 09:47
PROVIDERS: ATTEND Ophthalmology
DX: H25.11 Age-related nuclear cataract, right eye (principal); E11.9 Type 2 diabetes mellitus without complications; E78.5 Hyperlipidemia, unspecified; E03.9 Hypothyroidism, unspecified; K21.9 Gastro-esophageal reflux disease without esophagitis; F41.9 Anxiety disorder, unspecified; J44.9 Chronic obstructive pulmonary disease, unspecified; Z92.3 Personal history of irradiation; Z92.21 Personal history of antineoplastic chemotherapy; Z79.899 Other long term (current) drug therapy
CPT/HCPCS: 66984; J0697; J2250; J3010; V2632

== ENCOUNTER → 2023-07-19 | Outpatient (CLI) | payer MEDICARE, MEDICAID ==
[~2023-07-19] MED LIST changes: -BSS IRRIG/VANCO(10MG)/TOBRA(5MG)/EPINEPH(1:1000-0.5CC)500ML BAG-ORONLY IR ONE; -CEFUROXIME 1MG/0.1ML INTRACAMERAL INJ As Ordered ONE; -CYCLOPENTOLATE 1% OPHTH SOLN 2ML BTL OD SCH; -LIDOCAINE 1% SDV 5ML VIAL As Ordered ONE; -LIDOCAINE 3.5 % 1ML OPHTH TOPICAL GEL OU ONE; -OFLOXACIN 0.3 % (OCUFLOX) OPTH SOL 5ML OD ONE; -PHENYLEPHRINE 10% OPHTH SOL 5ML OD PRN; -PHENYLEPHRINE 2.5% OPHTH SOL 2ML OD SCH; +TIRZ2.5P; -TROPICAMIDE 1% OPHTH SOLN 15ML OD SCH
== END ==
LOC: M ONCR 10:09
PROVIDERS: ATTEND General Practice
DX: C50.811 Malignant neoplasm of overlapping sites of right female breast (principal); Z71.2 Person consulting for explanation of examination or test findings; Z79.51 Long term (current) use of inhaled steroids; Z79.811 Long term (current) use of aromatase inhibitors; Z79.84 Long term (current) use of oral hypoglycemic drugs; Z79.85 Long-term (current) use of injectable non-insulin antidiabetic drugs; Z79.899 Other long term (current) drug therapy; Z87.891 Personal history of nicotine dependence; Z90.13 Acquired absence of bilateral breasts and nipples; Z92.21 Personal history of antineoplastic chemotherapy; Z92.3 Personal history of irradiation

== ENCOUNTER → 2023-08-14 | Outpatient (CLI) | payer MEDICARE, MEDICAID | LOC: M WHC 13:34 | PROVIDERS: ATTEND Nurse Practitioner | DX: Z79.899 Other long term (current) drug therapy (principal); Z85.3 Personal history of malignant neoplasm of breast; M85.89 Other specified disorders of bone density and structure, multiple sites ==

== ENCOUNTER → 2024-07-22 | Outpatient (CLI) | payer MEDICARE, MEDICAID ==
[~2024-07-22] MED LIST changes: +ALPR1TAB3 PO; -CLON0.1D3; +CLON0.1D3 TOP; +FERR325T3 PO; +GABA-1490 PO; +GABA-1635 PO; -GABA600T4 PO; -GABA800T4 PO; +LIDOCAINE 1% MDV 20ML VIAL As Ordered ONE; +NEUR100C PO; -ROSU40TA4 PO; +ROSU40TA81 PO; +TIRZ7.5P SQ
[2024-07-22 12:32] VITALS: TEMP 97.2
[2024-07-22 13:10] VITALS: BP 128/68; O2SAT 97
[2024-07-22 13:35] LABS: BASO % 0.7 % (0.0-1.0); EOS # 0.1 10^3/uL (0.0-0.5); EOS % 1.7 % (0.0-3.0); HEMATOCRIT 29.3 % (36.0-47.0); HEMOGLOBIN 9.5 g/dl (12.0-15.5); LYMPH # 1.1 10^3/uL (1.5-5.0); LYMPH % 18.4 % (24.0-44.0); MEAN CORPUSCULAR HEMOGLOBIN 30.2 pg (27.0-33.0); MEAN CORPUSCULAR HGB CONC 32.4 g/dl (32.0-36.5); MONO # 0.4 10^3/uL (0.0-0.8); NEUTROPHILS # 4.4 10^3/uL (1.5-8.5); NEUTROPHILS % 72.9 % (36.0-66.0); PLATELET COUNT, AUTOMATED 251 10^3/uL (150-450); RED BLOOD COUNT 3.15 10^6/uL (4.00-5.40)
== END ==
LOC: M IRPRO 12:10
PROVIDERS: ATTEND Internal Medicine Hematology & Oncology
DX: C50.919 Malignant neoplasm of unspecified site of unspecified female breast (principal)
CPT/HCPCS: 38222; 77012; 85025; 88300; 88305; 88311; 88313; G0463

== ENCOUNTER → 2024-07-22 | Outpatient (CLI) | payer MEDICARE, MEDICAID ==
[~2024-07-22] MED LIST changes: -LIDOCAINE 1% MDV 20ML VIAL As Ordered ONE
== END ==
LOC: M ONCR 09:43
PROVIDERS: ATTEND General Practice
DX: Z08 Encounter for follow-up examination after completed treatment for malignant neoplasm (principal); Z85.3 Personal history of malignant neoplasm of breast; D64.9 Anemia, unspecified; Z90.13 Acquired absence of bilateral breasts and nipples; Z92.21 Personal history of antineoplastic chemotherapy; Z92.3 Personal history of irradiation; Z87.891 Personal history of nicotine dependence; Z79.811 Long term (current) use of aromatase inhibitors; Z79.84 Long term (current) use of oral hypoglycemic drugs; Z79.899 Other long term (current) drug therapy